=== PATIENT | female | born 1960 | race Caucasian/White ===

== ENCOUNTER 2017-05-15 15:43 | Inpatient (IN) | payer SELFPAY ==
[2017-05-15 16:26] LABS: Hematocrit 44.3 % (36.0-47.0); Mean Platelet Volume 7.3 fL (7.4-10.4); Red Blood Cell (RBC) Count 4.58 mill/uL (4.20-5.40)
[2017-05-15 16:33] LABS: Lactic Acid - Sepsis 1.6 mmol/L (0.5-2.2)
[2017-05-15 16:37] LABS: ALT (SGPT) 35 U/L (8-55); AST (SGOT) 25 U/L (5-34); Alkaline Phosphatase 94 U/L (40-150); Anion Gap 12 mmol/L (10-20); BUN (Urea Nitrogen) 12 mg/dL (9.8-20.1); Bilirubin, Total 0.4 mg/dL (0.2-1.2); CK (CPK) 51 U/L (29-168); Calc. Creatinine Clearance 0 mL/min (70-130); Calcium 8.7 mg/dL (7.8-10.44); Carbon Dioxide 26 mmol/L (22-29); Chloride 106 mmol/L (98-107); Estimated GFR-MDRD Greater than 90; Globulin 2.6 g/dL (2.4-3.5); Protein, Total 6.3 g/dL (6.0-8.3)
[2017-05-15 16:40] LABS: Troponin I Less than 0.010 ng/mL (< 0.028)
[2017-05-15 16:45] LABS: Neutrophil 96 % (42-75)
[2017-05-15] MEDS ORDERED: methylPREDNISolone Sod Succ/PF 125 MG/2 ML VIAL ONE (16:46)
[2017-05-15] MEDS ORDERED: Water For Inject, Bacteriostat 30 ML ONE (16:52)
[2017-05-15] MEDS ORDERED: Azithromycin 500 MG in Sodium Chloride 0.9% 250 ML 250 ML IVPB SCH ×2 (17:00→17:15)
--- NOTE | 2017-05-15 17:20 | RAD ---
PORTABLE AP CHEST X-RAY 05/15/17 HISTORY: Dyspnea, shortness of breath while at work. The patient recently diagnosed with pneumonia. COMPARISON: 11/20/14. FINDINGS: The cardiac silhouette and pulmonary vasculature are within normal limits. There is minimal increased in interstitial densities in the right upper lung zone which were also seen on the prior study and m ay be related to mild chronic lung changes. Similar interstitial densities are also again seen at the left lung base. No new focal area of consolidation or pleural fluid is seen. Vascular calcifications are seen in the thoracic aorta. There is osteopenia. IMPRESSION: Mild persistent increased interstitial densities within the right upper lung zone and left lung base which may be related to mild chronic lung changes which were also present on the prior study. No acut e cardiopulmonary process is identified. If symptoms persists, followup imaging is advised. POS: CHRISTOS
[2017-05-15] MEDS ORDERED: Ondansetron HCl/PF 4 MG/2 ML Vial IVP PRN (18:19)
[2017-05-15] MEDS ORDERED: Acetaminophen 325 MG TAB PO PRN (18:19)
[2017-05-15] MEDS ORDERED: Ondansetron ODT 4 MG TAB SL PRN (18:19)
[2017-05-15] MEDS ORDERED: Sodium Chloride 0.9% 1,000 ML IV SCH (18:30)
[2017-05-15] MEDS ORDERED: HYDROcodone/Acetaminophen 10/325 mg Tablet PO PRN (18:34)
[2017-05-15] MEDS ORDERED: Ondansetron ODT 4 MG TAB PO PRN (18:34)
[2017-05-15] MEDS ORDERED: HYDROcodone/Acetaminophen 5/325 mg Tablet PO PRN (18:34)
[2017-05-15] MEDS ORDERED: Guaifenesin DM 100-10/5 ML UDCUP PO PRN (18:34)
[2017-05-15] MEDS ORDERED: Albuterol Sulfate 2.5 mg/3 ml Neb NEB PRN (18:34)
[2017-05-15] MEDS ORDERED: Cefepime 1 GM in Sodium Chloride 0.9% 100 ML IVPB SCH ×2 (20:00→21:00)
[2017-05-15 20:28] LABS: Bilirubin Negative (Negative); Blood, Urine Negative (Negative); Glucose, Urine (Dipstick) Negative (Negative); Ketone, Urine Negative (Negative); Nitrite Negative (Negative); Protein, Urine (Dipstick) Negative (Neg-Trace); Urobilinogen 0.2 mg/dL (0.2-1.0)
[2017-05-15] MEDS: Famotidine 20 MG TAB PO SCH (20:40)
[2017-05-15] MEDS: Cefepime 1 GM, Admixture Fee 1 EACH in Sterile Water 10 ML SLOW IVP SCH (20:40)
[2017-05-15] MEDS: Sodium Chloride 0.9% 1,000 ML IV SCH (20:40)
--- NOTE | 2017-05-15 23:31 | HP ---
DATE OF ADMISSION: 05/15/2017 PRIMARY CARE PHYSICIAN: Dr. Jeffers in the [place] area. She was seen in [place] and [facility]. Normally, sees Monika Hopper, the nurse practitioner or physician underwriting assistant associated with Dr Amada Jeffers. CHIEF COMPLAINT: Shortness of breath. HISTORY OF PRESENT ILLNESS: Ms. Orr is a pleasant 57-year-old female with a history of COPD and a sthma. She has had a longstanding history of last several months of recurrent "pneumonia." Most recent episode dated back to 1 month ago today. She was diagnosed with pneumonia and treated wi th an antibiotic which she cannot remember. When I listed the antibiotics, she said they sounded fam iliar. She was treated but said her breathing never really quite recovered and then last week someti mes, she developed increasing shortness of breath again and was placed on Keflex for her pneumonia. She had a chest x-ray done 1 week ago, today that was abnormal and so she had a CT scan done 3 days a go in [place]. The results and the films are currently not available. She began more short of breath today and so, called EMS. She had taken 3 of her regular breathing tr eatments with DuoNebs at home and en route, the EMS gave her 2 more DuoNeb treatments. On arrival to the ER, she was noted to be tachypneic, slightly tachycardic, and satting in the high 8 0s on room air. She was placed on oxygen and given nebulizer treatments and IV steroids and we were called for admission. The patient denies any fevers or chills, she had a cough that is nonproductive. No nausea or vomitin g. I initially asked the ER physician regarding steroids and she had had known to his knowledge; however , the patient states she just finished a course of 50 mg of prednisone daily and was supposed to star t tapering down to 10 mg daily thereafter. PAST MEDICAL HISTORY: 1. COPD. 2. Asthma. 3. Low blood pressure. 4. Gastroesophageal reflux disease. 5. Depression. 6. Ongoing tobacco abuse that she is trying to quit. PAST SURGICAL HISTORY: Includes: 1. Hysterectomy, she thinks the ovaries were spared. 2. x1. 3. Bilateral tubal ligation. HOME MEDICATIONS: 1. Nortriptyline 10 mg p.o. daily. 2. Bupropion 75 mg p.o. b.i.d. to help quit smoking. 3. Pantoprazole 20 mg daily. 4. Spiriva Respimat 2.5 mcg per actuation: Has not started yet. 5. Albuterol MDI 90 mcg inhaled as needed. 6. DuoNebs nebulized usually every 6 hours, but when she has flares of breathing issue, she usually increases to q. 4 hours or even as high as q.3 hours. 5. Claritin 10 mg daily. ALLERGIES: 1. IODINE. 2. SULFA causes swelling and difficulty breathing. 3. LATEX causes a rash. FAMILY HISTORY: Negative for clotting or bleeding disorder, no immune dysfunction. SOCIAL HISTORY: Significant for tobacco. She smoked 1-1/2 packs per day initially, now down most re cently to about a 1/4 pack for the last 44 years. She denies any significant alcohol use or IV drug use. I did discuss with her daughter present. The patient does wish to be a full code. REVIEW OF SYSTEMS: A ten-point review of system was performed negative for all the systems except as stated as per HPI. PHYSICAL EXAMINATION: VITAL SIGNS: Temperature 98.2, pulse 100, blood pressure 103/72, respiratory rate listed 23, satting 93% on 2 liters. GENERAL: She is awake, she is alert, she is oriented x3, kind of thin and frail-looking white female who appears to be in no acute distress at present. HEENT: Normocephalic, atraumatic. Pupils equal, round, and reactive bilaterally, mucous membranes a re moist. She has no visible , no thrush. Nasal cannula is in place. NECK: Supple with full range of motion. She has normal carotid upstrokes without bruits. She has n o thyromegaly and trachea is midline. LUNGS: Have poor air movement bilaterally. She has some prolonged expiration, she does have some hi gh-pitched end-expiratory wheezes present on the left posterior chest field, but otherwise, I cannot hear much in the way of air movement. Certainly, no crackles. CARDIOVASCULAR: She has a normal S1 and S2. She is regular and tachycardic. I did not appreciate a ny murmurs. ABDOMEN: Soft. It is nontender, nondistended with normoactive bowel sounds. She has no rebound, ri gidity, or guarding. EXTREMITIES: Showed no cyanosis, no clubbing, and no edema. She has 2+ peripheral pulses, dorsalis pedis and posterior tibial arteries. SKIN: Warm, moist, and well perfused. She has no rashes or no lesions. MUSCULOSKELETAL: Normal to inspection without any inflamed joints and no palpable joint effusions. Good range of motion. NEUROLOGIC: Cranial nerves II through XII are grossly intact. She has no focal neurologic deficits. She had normal speech pattern and 5/5 strength. LABORATORY STUDIES: CMP is completely within normal limits, potassium 4.1, creatinine 0.63, glucose 116, and calcium 8.7. The liver functions are normal. White blood cell count is 20.0, 93% granulocytes, no bands, hemoglobin of 14.0, hematocrit of 44.3, a nd platelet count of 319,000. LABORATORY AND X-RAY FINDINGS: Chest x-ray showed mild persistent increase in her chest densities in the right upper lung zone and left lung base that might be related to mild chronic lung changes whic h were also present on prior study. The comparison that we have is 2-1/2 years old. She had a CT scan of the chest done at [facility] in [place]. The ER community outreach worker was try ing to get at least a report. ASSESSMENT AND PLAN: 1. Acute exacerbation of chronic obstructive pulmonary disease: I am not convinced that she has any ongoing pneumonia. She has been treated with multiple courses of antibiotics recently, and certainl y, Keflex recently was not an adequate therapy. Because of her recent history of multiple treatments , we will start her on cefepime and levofloxacin for the time being. I aborted Solu-Medrol, schedule d q. 4 hours DuoNeb with q. 2 hours albuterol p.r.n., and I will transition to p.o. steroids fairly r apidly. We will place her on oxygen 2 liters nasal cannula, the goal is to keep her sats no more nestor n 92%, we will wean as possible. In the meantime, we will attempt to get 2-view chest x-ray, more of a better imaging, and at least a copy of the report of the images from [place]. If not, may need to repeat her CT of her chest to make sure there is not a lung mass. 2. Gastroesophageal reflux disease, we will treat her with Pepcid b.i.d. for gastrointestinal prophy laxis. 3. Deep vein thrombosis prophylaxis: We will place the patient on daily Lovenox. 4. The patient does meet systemic inflammatory response syndrome criteria with her tachycardia, elev ated white blood cell count, and possible respiratory infection. I do believe her white blood cell c ount is elevated due to her recent steroids. I do not think this represents necessarily an acute inf ectious process. I will get more information based on the ordered test. Lactic acid was normal at 1 .6.
[2017-05-15] MEDS ORDERED: methylPREDNISolone Sod Succ/PF 125 MG/2 ML VIAL IVP SCH (23:59)
[2017-05-16 02:12] VITALS: BMI 24.0
[2017-05-16 05:47] LABS: #Lymphocytes 0.5 thou/uL (1.20-3.40); #Monocytes 0.3 thou/uL (0.11-0.59); #Neutrophils 8.1 thou/uL (1.40-6.50); %Basophils 0.1 % (0.0-1.0); %Eosinophils 0.2 % (0.0-10.0); %Lymphocytes 5.4 % (21.0-51.0); %Monocytes 3.1 % (0.0-10.0); Mean Platelet Volume 7.5 fL (7.4-10.4); White Blood Cell (WBC) Count 8.9 thou/uL (4.8-10.8)
[2017-05-16 06:02] LABS: Anion Gap 9 mmol/L (10-20); BUN (Urea Nitrogen) 8 mg/dL (9.8-20.1); Calc. Creatinine Clearance 97 mL/min (70-130); Calcium 8.4 mg/dL (7.8-10.44); Carbon Dioxide 27 mmol/L (22-29); Chloride 107 mmol/L (98-107); Estimated GFR-MDRD Greater than 90
[2017-05-16] MEDS: Famotidine 20 MG TAB PO SCH ×2 (08:50→20:04)
[2017-05-16] MEDS: Enoxaparin Sodium 40 MG/0.4 ML SYRINGE SC SCH (08:51)
[2017-05-16] MEDS: Sodium Chloride 0.9% 1,000 ML IV SCH (09:00)
[2017-05-16] MEDS ORDERED: FLU VACC QS2017-18 36 mo. & older 0.5 ML SYRINGE IM ONE (09:00)
[2017-05-16] MEDS: Cefepime 1 GM, Admixture Fee 1 EACH in Sterile Water 10 ML SLOW IVP SCH ×2 (10:11→20:05)
--- NOTE | 2017-05-16 10:39 | RAD ---
TWO VIEWS OF CHEST: DATE: 05/16/17. COMPARISON: 05/15/17. HISTORY: COPD. FINDINGS: Increased linear interstitial density is noted with pulmonary hyperinflation, evidence of COPD. No p neumothorax, pleural fluid, lobar consolidation, or alveolar edema. Asymmetric linear density is not ed in the medial right lung base, likely scar and/or volume loss. IMPRESSION: Diffuse interstitial prominence with pulmonary hyperinflation, evidence of chronic obstructive pulmon maame disease. POS: DIANAH
--- NOTE | 2017-05-16 11:58 | PDOC.PN ---
- Subjective Encounter Start Date: 05/16/17 Encounter Start Time: 10:05 states she is doing a little better today but is currently short winded after taking a shower. denies fever, chest pain, or chills - Objective Resuscitation Status: Resuscitation Status FULL:Full Resuscitation Vital Signs & Weight: Vital Signs (12 hours) Temp Pulse Resp BP Pulse Ox 05/16/17 11:31 98.0 F 97 20 116/59 L 94 L 05/16/17 10:14 96 22 H 94 L 05/16/17 08:00 97.8 F 78 14 101/56 L 96 05/16/17 07:01 98 05/16/17 06:59 83 16 98 05/16/17 04:40 98.3 F 85 20 111/59 L 93 L 05/16/17 01:55 92 18 98 Weight Weight 123 lb 3.2 oz I&O: 05/15/17 05/16/17 05/17/17 06:59 06:59 06:59 Intake Total 1407 Output Total 800 Balance 607 Result Diagrams: 05/16/17 04:48 05/16/17 04:48 Phys Exam - Physical Examination HEENT: PERRLA, moist MMs Neck: no nodes, no JVD labored. significant diffuse B/L wheezing Cardiovascular: RRR, no significant murmur Gastrointestinal: soft, non-tender Musculoskeletal: no edema, pulses present Neurological: moves all 4 limbs Psychiatric: normal affect, A&O x 3 Skin: cap refill <2 seconds Dx/Plan (1) COPD exacerbation Code(s): J44.1 - CHRONIC OBSTRUCTIVE PULMONARY DISEASE W (ACUTE) EXACERBATION Status: Acute (2) GERD (gastroesophageal reflux disease) Code(s): K21.9 - GASTRO-ESOPHAGEAL REFLUX DISEASE WITHOUT ESOPHAGITIS Status: Acute - Plan cont current plan of care, continue antibiotics, respiratory therapy * . continue with current therapy with abx, solumedrol and neb treatments labored during the time of the exam. likely needs one more day of therapy before going home will also start Protonix due to possible GERD induced COPD exacerbation cxr consistent with COPD. no pneumonia seen
[2017-05-16] MEDS ORDERED: Sterile Water 10 ML ONE ×2 (12:55→18:14)
--- NOTE | 2017-05-16 17:22 | CON ---
DATE OF CONSULTATION: 05/16/2017 CONSULTING PHYSICIAN: Dr. Blake. REASON FOR CONSULTATION: COPD with exacerbation. HISTORY OF PRESENT ILLNESS: This is a 57-year-old female who presented to the hospital yesterday wit h shortness of breath and coughing. She has had multiple episodes of exacerbated COPD over the last 2-3 months, she sees a doctor over in [place]. She tells me she has taken Bevespi, Breo and Spiri va intermittently. She does not have insurance and cannot afford these medications and relies on [facility]. She also has albuterol and ipratropium at home that she uses. She has been anywhere from a pack and a half to two packs per day smoker. Over the last couple of mo nths, she has made a conservative effort to cut back and she is taking Wellbutrin to assist her in qu itting. She has been told she had pneumonia recently. This was by a CT scan done over in [place], which I do not have available for review. PAST MEDICAL HISTORY: 1. COPD. 2. Tobacco abuse. 3. Asthma since age 2. 4. Low blood pressure. 5. Gastroesophageal reflux. 6. Depression. PAST SURGICAL HISTORY: 1. Hysterectomy. 2. . 3. Bilateral tubal ligation. MEDICATIONS PRIOR TO ADMISSION: See history of present illness. Additionally, she takes nortriptyli ne, pantoprazole, and Claritin. ALLERGIES: IODINE, SULFA AND LATEX. SOCIAL HISTORY: One pack to two packs per day smoker. She does not consume alcohol, does not use an y illicit drugs. 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 REVIEW OF SYSTEMS: She denies chest pain. She does have shortness breath with exertion. She has tello d no fever, chills, nausea, vomiting, chest pain, hematemesis, melena, hematochezia, hematuria, or dy suria. PHYSICAL EXAMINATION: VITAL SIGNS: Temperature 98.0, pulse 97, respirations 20, O2 saturation 94% on 1 liter, blood pressu re 116/59. HEENT: Pupils react, sclera are anicteric. Oropharynx clear. NECK: Without adenopathy or JVD. LUNGS: She has mild end expiratory wheezing bilaterally. CARDIAC: S1, S2 regular, without murmur. ABDOMEN: Soft, nontender, nondistended. EXTREMITIES: No clubbing, cyanosis, or edema. X-RAY FINDINGS: Chest x-ray shows hyperinflation without evidence of infiltrate. LABORATORY DATA: White blood cell count 8.9, hematocrit 38, platelet count 289. Sodium 139, potassi um 3.9, chloride 107, CO2 of 27, BUN 8, creatinine 0.6, glucose 183. ASSESSMENT: 1. Chronic obstructive pulmonary disease with exacerbation. 2. Tobacco abuse. RECOMMENDATIONS: 1. I agree with current treatment including the IV steroids, the nebulization therapy and the antibi otics. 2. If she had funding it would be nice to have her on long-acting beta agonist and inhaled steroids such as Symbicort, Breo, etc. At this time, I think we will have to manage her with albuterol and ip ratropium alone. 3. Check alpha 1 antitrypsin level.
[2017-05-16] MEDS: Acetaminophen 325 MG TAB PO PRN (18:16)
[2017-05-16] MEDS: Nortriptyline HCl 25 MG CAP PO SCH (20:05)
[2017-05-16] MEDS: Bupropion 100 MG SR TAB PO SCH (20:05)
[2017-05-16] MEDS ORDERED: Lorazepam 1 MG TAB PO SCH (21:30)
[2017-05-17] MEDS: Sodium Chloride 0.9% 1,000 ML IV SCH ×2 (01:51→14:48)
[2017-05-17] MEDS: Bupropion 100 MG SR TAB PO SCH ×2 (09:05→20:26)
[2017-05-17] MEDS: Famotidine 20 MG TAB PO SCH ×2 (09:05→20:26)
[2017-05-17] MEDS: Enoxaparin Sodium 40 MG/0.4 ML SYRINGE SC SCH (09:05)
[2017-05-17] MEDS: Cefepime 1 GM, Admixture Fee 1 EACH in Sterile Water 10 ML SLOW IVP SCH ×2 (09:06→20:25)
--- NOTE | 2017-05-17 11:17 | PDOC.PN ---
- Subjective Encounter Start Date: 05/17/17 Encounter Start Time: 07:40 Pt seen for followup re; acute on chronic respiratory failure. Reports ongoing SOBOE, cough. No fevers or chills. - Objective Resuscitation Status: Resuscitation Status FULL:Full Resuscitation MAR Reviewed: Yes Vital Signs & Weight: Vital Signs (12 hours) Temp Pulse Resp BP Pulse Ox 05/17/17 09:50 94 20 95 05/17/17 08:00 97.6 F 77 18 05/17/17 07:40 97.6 F 77 18 111/61 92 L 05/17/17 06:51 95 20 93 L 05/17/17 03:53 98.2 F 79 20 113/64 100 05/17/17 03:25 96 05/17/17 03:24 96 05/16/17 23:44 96 05/16/17 23:23 98.4 F 95 18 105/57 L 94 L Weight Weight 123 lb 14.4 oz I&O: 05/16/17 05/17/17 05/18/17 06:59 06:59 06:59 Intake Total 1407 2960 Output Total 800 1600 Balance 607 1360 Result Diagrams: 05/16/17 04:48 05/16/17 04:48 Phys Exam - Physical Examination Constitutional: NAD HEENT: moist MMs, sclera anicteric Neck: supple Respiratory: no rhonchi, wheezing present Cardiovascular: RRR Gastrointestinal: soft Musculoskeletal: pulses present Neurological: moves all 4 limbs Psychiatric: normal affect Skin: no rash Dx/Plan (1) Acute and chronic respiratory failure Code(s): J96.20 - ACUTE AND CHR RESP FAILURE, UNSP W HYPOXIA OR HYPERCAPNIA Status: Acute Qualifiers: Respiratory failure complication: hypoxia Qualified Code(s): J96.21 - Acute and chronic respiratory failure with hypoxia (2) COPD exacerbation Code(s): J44.1 - CHRONIC OBSTRUCTIVE PULMONARY DISEASE W (ACUTE) EXACERBATION Status: Acute (3) Tobacco abuse Code(s): Z72.0 - TOBACCO USE Status: Chronic (4) GERD (gastroesophageal reflux disease) Code(s): K21.9 - GASTRO-ESOPHAGEAL REFLUX DISEASE WITHOUT ESOPHAGITIS Status: Chronic - Plan continue antibiotics, PT/OT, out of bed/ambulate * . Continue cefepime, IV steroids, bronchodilators and oxygen. Pt still wheezing, failed observation, continuing to require IV steroids, unsafe to discharge today. Will change status to Inpatient. Start nicotine replacement therapy. Review of Systems - Review of Systems Constitutional: negative: Fever, Chills, Sweats, Weakness, Malaise Respiratory: Cough, Dry, Shortness of Breath, SOB with Excertion. negative: Hemoptysis, Pleuritic Pain, Sputum, Wheezing Cardiovascular: negative: Chest Pain, Palpitations, Orthopnea, Paroxysmal Noc. Dyspnea, Edema, Light Headedness - Medications/Allergies Allergies/Adverse Reactions: Allergies Allergy/AdvReac Type Severity Reaction Status Date / Time Iodine and Iodide Containing Allergy Verified 05/15/17 18:44 Produc Latex, Natural Rubber Allergy Verified 05/15/17 18:44 Sulfa (Sulfonamide Allergy Verified 05/15/17 18:44 Antibiotics) Medications: Current Medications Acetaminophen (Tylenol) 650 mg PO Q4H PRN PRN Reason: Headache/Fever or Pain Last Admin: 05/16/17 18:16 Dose: 650 mg Hydrocodone Bitart/Acetaminophen ([place] 10/325) 1 tab PO Q4H PRN PRN Reason: Severe Pain (7-10) Hydrocodone Bitart/Acetaminophen ([place] 5/325) 1 tab PO Q4H PRN PRN Reason: Moderate Pain (4-6) Albuterol Sulfate (Ventolin) 2.5 mg NEB Q2H PRN PRN Reason: Wheezing Last Admin: 05/16/17 17:38 Dose: 2.5 mg Albuterol/Ipratropium (Duoneb) 3 ml NEB [id number] [facility] Last Admin: 05/17/17 09:50 Dose: 3 ml Bupropion HCl (Wellbutrin Sr) 200 mg PO BID [facility] Last Admin: 05/17/17 09:05 Dose: 200 mg Enoxaparin Sodium (Lovenox) 40 mg SC 0900 [facility] Last Admin: 05/17/17 09:05 Dose: 40 mg Famotidine (Pepcid) 20 mg PO BID [facility] Last Admin: 05/17/17 09:05 Dose: 20 mg Guaifenesin/Dextromethorphan (Robitussin Dm) 15 ml PO Q4H PRN PRN Reason: Cough Sodium Chloride (Normal Saline 0.9%) 1,000 mls @ 75 mls/hr IV .[id number] [facility] Last Admin: 05/17/17 01:51 Dose: 1,000 mls Cefepime HCl 1 gm/Miscellaneous Medication 1 each/ Sterile Water 10 mls @ 120 mls/hr SLOW IVP 0900,2100 [facility] Last Admin: 05/17/17 09:06 Dose: 10 mls Levofloxacin (Levaquin) 500 mg PO 1900 [facility] Last Admin: 05/16/17 18:16 Dose: 500 mg Methylprednisolone Sodium Succinate (Solu-Medrol) 40 mg IVP Q6HR [facility] Last Admin: 05/17/17 05:49 Dose: 40 mg Nortriptyline HCl (Pamelor) 50 mg PO HS [facility] Last Admin: 05/16/17 20:05 Dose: 50 mg Ondansetron HCl (Zofran Odt) 4 mg PO Q6H PRN PRN Reason: Nausea/Vomiting Pantoprazole Sodium (Protonix) 40 mg PO 2100 [facility] Last Admin: 05/16/17 20:04 Dose: 40 mg
[2017-05-17] MEDS: Nicotine 14 MG PATCH TD SCH (12:26)
--- NOTE | 2017-05-17 12:56 | PRG ---
DATE OF SERVICE: 05/17/2017 SUBJECTIVE: The patient says she feels better. She has no acute complaints. PHYSICAL EXAMINATION: VITAL SIGNS: Temperature 98.2, pulse 99, respirations 16, O2 sat 96%, blood pressure 110/58. HEENT: Unremarkable. NECK: No JVD. LUNGS: She has very mild end-expiratory wheezes. CARDIAC: S1 and S2 regular. ABDOMEN: Soft. EXTREMITIES: No edema. LABORATORY DATA: No labs were obtained today. She has a CT report on the chart from [place] that states she has 0.7 cm nodule in the left upper lobe with recommended followup in 6 months. ASSESSMENT: 1. Chronic obstructive pulmonary disease with exacerbation. 2. Tobacco abuse. 3. A 0.7 cm nodule in the left upper lobe on CT scan obtained at outlying facility. RECOMMENDATION: 1. I think she is stable to go home on steroids and antibiotics for the next week to 10 days. 2. She will need to follow up for results of her alpha 1 antitrypsin level and she will need a repea t CT scan in 6 months. This can be accomplished to my office or through her primary care physician. She has been told not to smoke.
[2017-05-17] MEDS: Acetaminophen 325 MG TAB PO PRN ×2 (14:51→17:40)
[2017-05-17] MEDS: Nortriptyline HCl 25 MG CAP PO SCH (20:26)
[2017-05-18] MEDS: Sodium Chloride 0.9% 1,000 ML IV SCH (05:37)
[2017-05-18] MEDS ORDERED: Diabetic Tussin 200 MG/10 ML UDCUP PO PRN (07:32)
[2017-05-18] MEDS ORDERED: Ondansetron HCl/PF 4 MG/2 ML Vial IVP PRN (07:32)
[2017-05-18] MEDS ORDERED: hydrALAZINE 20 MG/ML VIAL SLOW IVP PRN (07:32)
[2017-05-18] MEDS ORDERED: Senokot 8.6 MG TAB PO PRN (07:32)
[2017-05-18] MEDS ORDERED: Eucerin (Mineral Oil/Petrolatum,White) 30 gm Jar TOP PRN (07:32)
[2017-05-18] MEDS ORDERED: Loratadine 10 MG TAB PO PRN (07:32)
[2017-05-18] MEDS ORDERED: Loperamide HCl 2 MG CAP PO PRN (07:32)
[2017-05-18] MEDS ORDERED: Benzonatate 100 MG CAP PO PRN (07:32)
[2017-05-18] MEDS ORDERED: Temazepam 15 MG CAP PO PRN (07:32)
[2017-05-18] MEDS ORDERED: Sodium Chloride 0.65% Nasal 44 ML BOT EA NARE PRN (07:32)
[2017-05-18] MEDS ORDERED: Mag-Al 1200 mg/1200 mg/30 ML UDCUP PO PRN (07:32)
[2017-05-18] MEDS ORDERED: Chloraseptic Spray 180 ml Bottle PO PRN (07:32)
[2017-05-18] MEDS ORDERED: Milk Of Magnesia 30 ML UDCUP PO PRN (07:32)
[2017-05-18] MEDS: Acetaminophen 325 MG TAB PO PRN (07:57)
[2017-05-18] MEDS: Bupropion 100 MG SR TAB PO SCH (07:57)
[2017-05-18] MEDS: Cefepime 1 GM, Admixture Fee 1 EACH in Sterile Water 10 ML SLOW IVP SCH (07:58)
[2017-05-18] MEDS: Famotidine 20 MG TAB PO SCH (07:59)
[2017-05-18] MEDS: Nicotine 14 MG PATCH TD SCH (07:59)
[2017-05-18] MEDS: Enoxaparin Sodium 40 MG/0.4 ML SYRINGE SC SCH (07:59)
[2017-05-18 08:16] VITALS: BP 114/75; TEMP 98.1
--- NOTE | 2017-05-18 09:49 | PRG ---
DATE OF SERVICE: 05/18/2017 The patient is doing well, has no acute complaints. PHYSICAL EXAMINATION: VITAL SIGNS: Temperature 98.1, pulse 81, respiration 20, O2 sat 92%, blood pressure 114/75. HEENT: Unremarkable. NECK: No JVD. CHEST: Clear except for some mild wheezing. ABDOMEN: Soft. EXTREMITIES: No edema. ASSESSMENT: 1. Chronic obstructive pulmonary disease with exacerbation. 2. History of a small lung nodule. PLAN: She is stable for discharge on steroids and antibiotics, nebulization treatments. She knows s he has to get outpatient CT scan in about 6 months through her primary care doctor. She does need to follow up regarding the alpha 1 antitrypsin test when it becomes available.
--- NOTE | 2017-05-18 14:30 | DIS ---
DATE OF ADMISSION: 05/15/2017 DATE OF DISCHARGE: 05/18/2017 PRIMARY CARE PHYSICIAN: [facility] call admission. DISCHARGE DISPOSITION: Home. PRIMARY DISCHARGE DIAGNOSES: 1. Acute on chronic respiratory failure with hypoxia. 2. Chronic obstructive pulmonary disease exacerbation. 3. Pulmonary nodule. SECONDARY DISCHARGE DIAGNOSES: Gastroesophageal reflux disease and tobacco abuse disorder. PRIMARY PROCEDURE/OPERATION: None. RADIOLOGICAL INVESTIGATION: The patient had CT angio as an outpatient basis, which showed chronic ob structive pulmonary disease changes as well as pulmonary nodule. Chest x-ray while in hospital showe d diffuse interstitial prominence, hyperinflation consistent with chronic obstructive pulmonary disea se. SIGNIFICANT LABORATORY DATA: WBC 8.9, hemoglobin 12.0 and platelet 289. Sodium 139, potassium 3.9, BUN 8, creatinine 0.56 and calcium 8.4. LFT normal. Cardiac enzyme negative. BNP 49.1. Alpha 1 an titrypsin 150. Urinalysis normal. Blood culture negative. DISCHARGE MEDICATIONS: ProAir HFA 2 puffs q.4 hourly p.r.n., albuterol nebulization q.6 hourly, Linsey maribel 100 mg q.4 hourly p.r.n., Wellbutrin SR 200 mg p.o. b.i.d., Mucinex 600 mg twice daily, Atrovent nebulization t.i.d., Levaquin 500 mg p.o. daily for 7 days, Dulera 2 puffs inhalation b.i.d., nortri ptyline 50 mg p.o. at bedtime, Protonix 40 mg p.o. daily, prednisone 20 mg p.o. b.i.d. for 7 days, th en 10 mg p.o. b.i.d. for 7 days, then 5 mg p.o. b.i.d. for 7 days and then stop. CONTRAINDICATIONS: None. CODE STATUS: FULL CODE. INPATIENT CONSULTANTS: Dr. Guaman was consulted while in hospital. TEST RESULTS PENDING ON DISCHARGE: None. ALLERGIES: IODINE, LATEX and NATURAL RUBBER. DISCHARGE PLAN: Post hospital, the patient will follow up with primary care physician. The patient will follow up with Dr. Guaman as instructed. The patient will need repeat imaging after 6 months. HOSPITAL COURSE: A 57-year-old female who was admitted by Dr. Hayden Bartholomew on 05/15/2017. Please see his H&P for further details. Patient is following Dr. Jeffers, in the [facility]. She was ad mitted for increasing shortness of breath. She was having hypoxia. 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 She does use home oxygen for her chronic respiratory failure. Her clinical presentation was consistent with COPD exacerbation. She had a CT scan at another hospital, which showed pulmonary nodule and finding suggestive of disease without any pneumonia. The patient w as admitted in our hospital. She was treated optimally with steroids, DuoNeb and Dulera therapy. Yuval margareth was given empiric antibiotic therapy with cefepime and Levaquin. On discharge, we changed to t apering doses of prednisone and Dulera prescription given. The patient has all other medications. S he has nebulizer machine. She has home oxygen. I prescribed Levaquin and tapering doses of predniso ne. All the medication prescriptions sent to her pharmacy. The patient has pulmonary nodule and nestor t is why she will need repeat imaging. I provided on the day of discharge, the patient counseling to avoid smoking and healthy lifestyle christiane sures discussed with the patient. Her old chart was reviewed today. REVIEW OF SYSTEMS: Reviewed with her and negative today. PHYSICAL EXAMINATION: VITAL SIGNS: Currently, temperature 98.1, pulse 81, respiratory rate 20, saturation 93%, blood press ure 114/75 and weight 123 pounds. GENERAL: The patient is currently alert and awake, in no acute distress. HEAD: Normocephalic and atraumatic. EYES: Pupils are round and reactive to light. Extraocular muscles intact. ENT: Oropharynx within normal limits. Moist mucous membranes. No oral lesions. No pharyngeal eryt cooper, no exudate. NECK: Supple. LUNGS: Clear to auscultation without any rhonchi or rales. CARDIAC: S1 and S2 regular without any murmur. ABDOMEN: Soft and benign. EXTREMITIES: No edema. NEUROLOGIC: Nonfocal examination. The patient wants to go home today and Pulmonary cleared her for discharge today. Total time spent on discharge day more than 30 minutes.
== END 2017-05-18 12:29 | disposition home or self-care (01) | DRG 190 ==
LOC: ERS 15:43 → OBSVTOIN 17:00 → 2SW 17:00 → T4-B 05-17 15:55
PROVIDERS: ADMIT Internal Medicine Infectious Disease; ATTEND Internal Medicine Infectious Disease
DX: J44.1 Chronic obstructive pulmonary disease with (acute) exacerbation (principal); J96.21 Acute and chronic respiratory failure with hypoxia; R65.11 Systemic inflammatory response syndrome (SIRS) of non-infectious origin with acute organ dysfunction; Z87.01 Personal history of pneumonia (recurrent); K21.9 Gastro-esophageal reflux disease without esophagitis; Z72.0 Tobacco use; R91.1 Solitary pulmonary nodule
CPT/HCPCS: 36415; 71010; 71020; 80048; 80053; 81003; 82103; 82550; 82553; 83605; 83880; 84484; 85025; 87040; 90471; 90682; 90732; 94640; 94760; 96361; 96365; 96375; A4216; G0008; G0009; J0456; J0692; J0696; J1650; J2920; J2930; J7050; J7611; J7620; Q2036

== ENCOUNTER 2018-04-22 05:25 | Inpatient (IN) | payer SELFPAY ==
[2018-04-22] MEDS ORDERED: Morphine 4 MG/ML VIAL ONE (05:43)
[2018-04-22] MEDS ORDERED: Ondansetron PF 4 MG/2 ML Vial ONE ×2 (05:44→05:51)
[2018-04-22 05:59] LABS: #Eosinphils 0.1 thou/uL (0.0-0.7); #Lymphocytes 1.3 thou/uL (1.20-3.40); #Monocytes 1.2 thou/uL (0.11-0.59); #Neutrophils 11.2 thou/uL (1.40-6.50); %Basophils 0.2 % (0.0-1.0); %Eosinophils 0.6 % (0.0-10.0); %Lymphocytes 9.4 % (21.0-51.0); %Monocytes 8.6 % (0.0-10.0); %Neutrophils 81.2 % (42.0-75.0); Hemoglobin 10.5 g/dL (12.0-16.0); Mean Corpuscular HGB CONC 30.4 g/dL (32.0-36.0); Mean Corpuscular Hemoglobin 26.5 pg (27.0-31.0); Mean Platelet Volume 8.5 fL (7.4-10.4); Platelet Count 321 thou/uL (130-400); RBC Distribution Width 15.1 % (11.5-14.5); Red Blood Cell (RBC) Count 3.98 mill/uL (4.20-5.40); White Blood Cell (WBC) Count 13.8 thou/uL (4.8-10.8)
[2018-04-22 06:18] LABS: CKMB 1.9 ng/mL (0-6.6); Troponin I Less than 0.010 ng/mL (< 0.028)
[2018-04-22 06:26] LABS: ALT (SGPT) 17 U/L (8-55); AST (SGOT) 14 U/L (5-34); Albumin 3.9 g/dL (3.5-5.0); Alkaline Phosphatase 98 U/L (40-150); Anion Gap 12 mmol/L (10-20); BUN (Urea Nitrogen) 13 mg/dL (9.8-20.1); Bilirubin, Total 0.3 mg/dL (0.2-1.2); Calc. Creatinine Clearance 0 mL/min (70-130); Calcium 8.8 mg/dL (7.8-10.44); Carbon Dioxide 27 mmol/L (22-29); Chloride 107 mmol/L (98-107); Estimated GFR-MDRD Greater than 90; Globulin 2.5 g/dL (2.4-3.5); Glucose 101 mg/dL (70-105); Potassium 4.2 mmol/L (3.5-5.1); Protein, Total 6.4 g/dL (6.0-8.3); Sodium 142 mmol/L (136-145)
[2018-04-22] MEDS ORDERED: Fentanyl 100 MCG/2 ML VIAL ONE ×2 (06:53→09:04)
[2018-04-22] MEDS ORDERED: Ondansetron ODT 4 MG TAB SL PRN (07:00)
[2018-04-22] MEDS ORDERED: Ondansetron PF 4 MG/2 ML Vial IVP PRN (07:00)
[2018-04-22] MEDS ORDERED: HYDROcodone/Acetaminophen 5/325 mg Tablet PO PRN (07:00)
[2018-04-22] MEDS ORDERED: cefTRIAXone\\ROCEPHIN 1 GM VIAL ONE (07:45)
[2018-04-22] MEDS ORDERED: Azithromycin 500 MG VIAL ONE (07:45)
--- NOTE | 2018-04-22 07:58 | PDOC.FPRHP ---
- History of Present Illness Chief Complaint: SOB and worsening back pain History of Present Illness: Patient is a 58YOF w/ a PMH significant for COPD on 3-4L of home O2 & QD PO prednisone who presents w/ A CC of worsening back pain that started yesterday morning. Patient reports that yesterday morning she lifted up her portable O2 and felt a twinge in her back. Then, about 4 hours she began to feel terrible pain along the middle of her spine that has been intractable ever since. Says she can hardly walk due to the pain and also states it hurts to talk. Says that it is exacerbated with any movement. Denies any pain radiation into her legs or bowel/bladder incontinence. Had a khyphoplasty in February due to back spinal fractures. Also endorses some worsening SOB that she states has gotten progressively worse since the weather started changing about 1 week ago. Has had to use her rescue inhaler more often and has had an associated productive cough as well. States at hea baseline; however, that her PO2 gets as low as 75% with exertion at home but typically stays in the mid 90's. Denies any fever/chills, N/V, diarrhea. ED Course: ceftriaxone and azithromycin, 4mg IV morphine, 100mcg IV fentanyl, Duonebs, & 8 mg IV zofran - Allergies/Adverse Reactions Allergies Allergy/AdvReac Type Severity Reaction Status Date / Time Sulfa (Sulfonamide Allergy Severe Anaphylaxis Verified 04/22/18 08:16 Antibiotics) Latex, Natural Rubber Allergy Verified 05/15/17 18:44 meperidine [From Demerol] Allergy Verified 04/22/18 08:16 - Home Medications Medication Instructions Recorded Confirmed Type Albuterol Sulfate [Albuterol 2.5 mg NEB Q6H 05/16/17 04/22/18 History Sulfate Neb] Albuterol Sulfate [Proair 2 puff IH Q4HR PRN 05/16/17 04/22/18 History Respiclick] BuPROPion SR [Wellbutrin SR] 300 mg PO DAILY 05/16/17 04/22/18 History Ipratropium [place] [Atrovent] 2.5 mg NEB TID 05/16/17 04/22/18 History Pantoprazole [Protonix] 40 mg PO DAILY 05/16/17 04/22/18 History Acetaminophen With Codeine 1 tab PO TID PRN 04/22/18 04/22/18 History [Acetaminophen/Codeine #4] Citalopram Hydrobromide 20 mg PO 04/22/18 History [Citalopram HBr] Cyclobenzaprine [Flexeril] 10 mg PO TID 04/22/18 04/22/18 History Fluticasone Propionate [Flonase 1 spray EA NARE DAILY 04/22/18 04/22/18 History Allergy Relief] Gabapentin 600 mg PO TID 04/22/18 04/22/18 History Loratadine [Claritin] 10 mg PO DAILY 04/22/18 04/22/18 History predniSONE 10 mg PO DAILY 04/22/18 04/22/18 History tiZANidine HCl [Tizanidine HCl] 4 mg PO TID 04/22/18 04/22/18 History - History PMHx: COPD on home O2, GERD, tobacco use PSHx: khyphoplasty in February 2018 FHx: Mother- HTN Social: Current smoker. Smokes 3-4 cigarettes/day. Has smoked since age 17. No EtOH or drug use. - Review of Systems General: denies: fever/chills, weight/appetite/sleep changes Eyes: denies: vision changes ENT: denies: nasal congestion Respiratory: reports: cough, shortness of breath, exercise intolerance Cardiovascular: denies: chest pain, edema Gastrointestinal: denies: nausea, vomiting, diarrhea, constipation Genitourinary: denies: incontinence, dysuria Skin: denies: rashes, lesions Musculoskeletal: reports: pain, tenderness Neurological: denies: numbness, syncope, weakness Psychological: reports: depression. denies: anxiety - Vital signs BP: 130/93 HR:108 RR: 19 Tmax: 98.4F Pox: 89% on 3.5L Wt: 65.6kg - Physical Exam Constitutional: awake, alert and oriented, well developed, other (In severe distress 2/2 pain and in minor respiratory distress as well w/ difficulty speaking in full sentences) HEENT: normocephalic and atraumatic, grossly normal vision, grossly normal hearing Neck: supple, FROM Heart: RRR, normal S1/S2, pulses present, no edema -Lungs: Diffuse wheezing throughout w/ poor air movement 2/2 pain w/ deep inspiration. Abdomen: soft, non-tender Musculoskeletal: normal structure, normal tone, ROM grossly normal Neurological: no focal deficit, CN II-XII intact, normal sensation Skin: no rash/lesions, good turgor Heme/Lymphatic: no unusual bruising or bleeding, no purpura Psychiatric: good judgment and insight, intact recent and remote memory, other ( distressed affect 2/2 pain) FMR H&P: Results - Labs Result Diagrams: 04/23/18 03:15 04/22/18 05:48 Lab results: WBC 13.8 thou/uL (4.8-10.8) H 04/22/18 05:48 Hgb 10.5 g/dL (12.0-16.0) L 04/22/18 05:48 Hct 34.6 % (36.0-47.0) L 04/22/18 05:48 MCV 87.0 fL (78.0-98.0) 04/22/18 05:48 Plt Count 321 thou/uL (130-400) 04/22/18 05:48 Neutrophils % 81.2 % (42.0-75.0) H 04/22/18 05:48 Sodium 142 mmol/L (136-145) 04/22/18 05:48 Potassium 4.2 mmol/L (3.5-5.1) 04/22/18 05:48 Chloride 107 mmol/L (98-107) 04/22/18 05:48 Carbon Dioxide 27 mmol/L (22-29) 04/22/18 05:48 BUN 13 mg/dL (9.8-20.1) 04/22/18 05:48 Creatinine 0.58 mg/dL (0.6-1.1) L 04/22/18 05:48 Glucose 101 mg/dL (70-105) 04/22/18 05:48 Calcium 8.8 mg/dL (7.8-10.44) 04/22/18 05:48 Total Bilirubin 0.3 mg/dL (0.2-1.2) 04/22/18 05:48 AST 14 U/L (5-34) 04/22/18 05:48 ALT 17 U/L (8-55) 04/22/18 05:48 Alkaline Phosphatase 98 U/L (40-150) 04/22/18 05:48 CK-MB (CK-2) 1.9 ng/mL (0-6.6) 04/22/18 05:48 Serum Total Protein 6.4 g/dL (6.0-8.3) 04/22/18 05:48 Albumin 3.9 g/dL (3.5-5.0) 04/22/18 05:48 - EKG Interpretation EKG: NSR - Radiology Interpretation Chest x-ray Status: image reviewed by me, report reviewed by me Additional comment: interstitial hyperdensity and hyperinflation consistent w/ COPD FMR H&P: A/P - Problem List (1) Intractable back pain Current Visit: Yes Status: Acute Code(s): M54.9 - DORSALGIA, UNSPECIFIED (2) COPD (chronic obstructive pulmonary disease) Current Visit: Yes Status: Chronic (3) Acute and chronic respiratory failure Current Visit: Yes Status: Acute Code(s): J96.20 - ACUTE AND CHR RESP FAILURE, UNSP W HYPOXIA OR HYPERCAPNIA Qualifiers: Respiratory failure complication: hypoxia Qualified Code(s): J96.21 - Acute and chronic respiratory failure with hypoxia (4) COPD exacerbation Current Visit: Yes Status: Acute Code(s): J44.1 - CHRONIC OBSTRUCTIVE PULMONARY DISEASE W (ACUTE) EXACERBATION (5) GERD (gastroesophageal reflux disease) Current Visit: Yes Status: Chronic Code(s): K21.9 - GASTRO-ESOPHAGEAL REFLUX DISEASE WITHOUT ESOPHAGITIS (6) Tobacco abuse Current Visit: Yes Status: Chronic Code(s): Z72.0 - TOBACCO USE - Plan 58YOF w/ a PMH significant for COPD on 3-4L of O2 at home and chronic PO prednisone who presented to the ED w/ a CC of intractable back pain that began yesterday morning and worsening SOB w/ a productive cough that began last week. Intractable back pain - Will order PRN [place] and Toradol for pain control as well as a heating pad. - Will order a lumbar and thoracic spine CT to assess for any new, acute fractures which could explain her pain. High suspicion for this given the fact that patient is on chronic PO prednisone and had such as acute onset in her pain. COPD in acute exacerbation - Will start on MILY duonebs, PO prednisone at 40mg QD, azithromycin, and dulera. - Will also start on mucinex & tessalon pearls for productive cough. - Will continue on continuous O2 as patient is on 3-4L at home. - Will continue to monitor respiratory status closely. GERD - Will resume home protonix. tobacco use - Nicotine patch - Will encourage cessation. Depression/anxiety - Will resume home meds. FMR H&P: Upper Level - Pertinent history Cole Orr is a 58 year old female with a recent history of kyphoplasty who presents to the ED with gradual onset thoracic back pain that occurred after lifting her oxygen tank. She states that initially the pain was like a "twinge, " however over the course of several hours the pain gradually began to intensify. She states that the pain is so unbearable that it makes it difficult to breath. She denies numbness, parasthesias, and incontinence to bowel/bladder. She also reports worsening breathing over the past several days with the weather change. She has had to use her rescue inhalers more frequently than normal. Of note, she has a history of COPD and is on PO prednisone chronically. - Pertinent findings Physical Exam: General: alert and oriented x 3 Heart: regular rate and rhythm, no murmurs, rubs, or gallops. Lungs: diffuse wheezes and course breath sounds Extremities: No peripheral edema Spine: no obvious deformity; midline tenderness to palpation near T4. No paraspinal tenderness. - Plan Date/Time: 04/22/18 3654 I, Nataliya Stover, have evaluated this patient and agree with findings/plan as outlined by internet assessor resident. Pertinent changes/additions are listed here. Intractable back pain - given history of chronic steroid use and recent history of kyphoplasty for compression fractures, pt is at risk for developing more compression fractures. - will order CT thoracic and lumbar spines to evaluate for acute compression fracture. - will treat with IV toradol for pain. - will resume home muscle relaxer Acute COPD exacerbation - pt dependent on home oxygen. - duonebs, PO steroids, Azithromycin. - continue continuous home oxygen. - pt not currently on long-acting COPD medication at home, but it appears she was on Dulera in the past. Will resume. Tobacco abuse - transdermal nicotine replacement Attending Addendum - Attending Addendum Date/Time: 04/23/18 4615 I personally evaluated the patient and discussed the management with Dr. Page. I agree with the History, Examination, Assessment and Plan documented above with any addition or exceptions noted below.
--- NOTE | 2018-04-22 08:49 | RAD ---
2 VIEWS CHEST: Date: 04/22/18 COMPARISON: 08/23/17. HISTORY: Back pain, COPD, shortness of breath. FINDINGS: There is evidence of numerous prior kyphoplasty within the thoracic spine and upper lumbar spine. The re is increased linear interstitial density with pulmonary hyperinflation, as seen on prior imaging a s well. There is no pneumothorax, focal consolidation, or alveolar edema. There are coarse areas of subtle nodularity within the right upper lobe region which could represent infectious pneumonitis or underlying pulmonary nodules. CT examination of the chest performed 8 demonstrated a hilar mass on the left, suspicious for neoplasm. This is not well assessed on this e xamination and follow-up CT would be required for further assessment. IMPRESSION: 1. Interstitial density and pulmonary hyperinflation suggests COPD. Asymmetric subtle reticulonodula r densities in the right upper lobe may signify underlying pulmonary nodules and/or nodular infiltrat e. 2. Prior examination demonstrated a left hilar mass, not well assessed on this examination. This fin ding was concerning for malignancy. Pulmonary consultation was recommended at that time. Please consi elvira a follow-up CT examination as well. CODE T. POS: OFF
[2018-04-22] MEDS ORDERED: Ondansetron ODT 4 MG TAB PO PRN (09:41)
[2018-04-22 09:45] VITALS: BMI 28.2
[2018-04-22] MEDS: HYDROcodone/Acetaminophen 5/325 mg Tablet PO PRN ×2 (10:06→18:05)
[2018-04-22] MEDS: Ketorolac Tromethamine 30 MG/ML VIAL IVP PRN ×3 (10:06→22:52)
[2018-04-22] MEDS: Enoxaparin Sodium 40 MG/0.4 ML SYRINGE SC SCH (10:07)
[2018-04-22] MEDS: Nicotine 14 MG PATCH TD SCH (10:07)
[2018-04-22] MEDS ORDERED: Benzonatate 100 MG CAP PO PRN (11:00)
--- NOTE | 2018-04-22 11:31 | CT ---
CT THORACIC SPINE WITHOUT CONTRAST: Date: 04/22/18 COMPARISON: None. HISTORY: History of compression fracture of the spine. Degenerative back disease. Patient presents with upper back pain that began yesterday when she lifted up her oxygen tank. TECHNIQUE: Multiple contiguous axial images were obtained in a CT of the thoracic spine without contrast. Sagitt al and coronal reformats were performed. FINDINGS: There are multiple wedge compression deformities in the vertebral bodies in the thoracic spine. Verte broplasty cement is seen at multiple levels. The cement is seen at T6, T7, T10, T11, T12, and L1. The se vertebral bodies demonstrate approximately 10-25% height loss. There is increased density of the T 9 vertebral body with approximately 10-25% height loss. This may represent a healing compression frac ture. No obvious acute fracture or dislocation seen. Radiodense material is seen in the right lung, which may represent a small amount of vertebroplasty c ement within a pulmonary artery branch. Emphysematous changes are seen in the lungs. Atherosclerotic calcifications are seen in the aorta. IMPRESSION: Multiple chronic compression deformities of the thoracic spine without acute osseous abnormality of t he thoracic spine. POS: BEL
[2018-04-22] MEDS ORDERED: predniSONE 20 MG TAB PO SCH (11:45)
--- NOTE | 2018-04-22 11:46 | CT ---
CT LUMBAR SPINE WITHOUT CONTRAST: Date: 04/22/18 COMPARISON: 01/23/18. HISTORY: Degenerative back disease. Patient has upper back pain that began yesterday ay when she lifted her ox ygen tank. TECHNIQUE: Multiple contiguous axial images were obtained in a CT of the lumbar spine without contrast. Sagittal and coronal reformats were performed. FINDINGS: There are multiple compression fractures of the lumbar spine. Vertebroplasty cement is seen at multip le levels. This is seen at L1, L3, and L4. Since the prior examination, the L2 vertebral body demonst rates compression with approximately 10% height loss. This appears chronic and no obvious acute fract ure is seen. The vertebral bodies demonstrate normal alignment without subluxation. No bony narrowing of the central canal or neural foramina is seen in the lumbar spine. There is a dis c osteophyte complex at L5-S1. Atherosclerotic calcifications are seen in the aorta. The other prever tebral and paraspinal soft tissues are unremarkable. IMPRESSION: Multiple chronic compression fractures of the lumbar spine as above. POS: BEL
[2018-04-22] MEDS: Cyclobenzaprine 10 MG TAB PO PRN ×2 (14:01→21:01)
[2018-04-22] MEDS ORDERED: Ipratropium Bromide 2.5 ml Neb NEB SCH (15:00)
[2018-04-22] MEDS: Gabapentin 300 MG CAP PO SCH ×2 (15:29→21:00)
[2018-04-22] MEDS: Mometasone/Formoterol 120 PUFF INHALER INH SCH (19:22)
[2018-04-22] MEDS ORDERED: Bupropion 100 MG SR TAB PO SCH (21:00)
[2018-04-22] MEDS ORDERED: Nortriptyline HCl 25 MG CAP PO SCH (21:00)
[2018-04-22] MEDS: guaiFENesin ER 600 MG TAB PO SCH (21:01)
[2018-04-23] MEDS ORDERED: HYDROcodone/Acetaminophen 5/325 mg Tablet PO PRN ×2 (00:34→18:24)
[2018-04-23] MEDS: HYDROcodone/Acetaminophen 5/325 mg Tablet PO PRN ×2 (00:47→07:47)
[2018-04-23 04:20] LABS: #Lymphocytes 1.4 thou/uL (1.20-3.40); #Monocytes 1.2 thou/uL (0.11-0.59); #Neutrophils 8.2 thou/uL (1.40-6.50); %Basophils 0.2 % (0.0-1.0); %Eosinophils 0.4 % (0.0-10.0); %Lymphocytes 13.2 % (21.0-51.0); %Monocytes 10.7 % (0.0-10.0); %Neutrophils 75.5 % (42.0-75.0); Hemoglobin 9.7 g/dL (12.0-16.0); Mean Corpuscular HGB CONC 30.8 g/dL (32.0-36.0); Mean Corpuscular Hemoglobin 26.8 pg (27.0-31.0); Mean Corpuscular Volume 86.9 fL (78.0-98.0); Mean Platelet Volume 8.6 fL (7.4-10.4); Platelet Count 288 thou/uL (130-400); RBC Distribution Width 15.2 % (11.5-14.5); Red Blood Cell (RBC) Count 3.62 mill/uL (4.20-5.40); White Blood Cell (WBC) Count 10.9 thou/uL (4.8-10.8)
[2018-04-23] MEDS: Ketorolac Tromethamine 30 MG/ML VIAL IVP PRN ×4 (05:43→23:24)
[2018-04-23] MEDS: Mometasone/Formoterol 120 PUFF INHALER INH SCH ×2 (06:42→18:02)
--- NOTE | 2018-04-23 06:53 | PDOC.FM ---
- Subjective Subjective: Pain was well controlled overnight with [place], Flexeril and heating pad. Feels Flexeril is not helping very much. Pain has returned this AM. Reports improvement in breathing. - Objective MAR Reviewed: Yes Vital Signs & Weight: Vital Signs (12 hours) Temp Pulse Resp BP BP Pulse Ox 04/23/18 06:42 86 20 95 04/23/18 06:26 95 04/23/18 06:21 86 20 95 04/23/18 05:40 98 F 82 22 H 112/65 96 04/23/18 02:19 99 16 95 04/23/18 00:00 98.4 F 101 H 22 H 103/62 103/72 95 04/22/18 22:17 107 H 16 92 L 04/22/18 20:00 98.5 F 96 22 H 118/64 94 L 04/22/18 19:22 89 16 94 L Weight Weight 65.516 kg I&O: 04/21/18 04/22/18 04/23/18 06:59 06:59 06:59 Intake Total 1760 Balance 1760 Result Diagrams: 04/23/18 03:15 04/22/18 05:48 <Jaimee Jose - Last Filed: 04/23/18 12:03> - Objective Vital Signs & Weight: Vital Signs (12 hours) Temp Pulse Resp BP Pulse Ox 04/26/18 09:50 81 20 94 L 04/26/18 07:44 98.3 F 81 22 H 132/72 95 04/26/18 06:10 89 20 93 L 04/26/18 04:00 98.2 F 88 16 124/69 94 L 04/26/18 02:18 91 18 95 04/26/18 00:00 98.4 F 90 16 144/80 H 93 L Weight Admit Weight 65.516 kg Weight 65.516 kg I&O: 04/25/18 04/26/18 04/27/18 06:59 06:59 06:59 Intake Total 730 Balance 730 Result Diagrams: 04/23/18 03:15 04/22/18 05:48 <Ti Roberts - Last Filed: 04/26/18 10:29> Phys Exam - Physical Examination Neck: supple Diffuse expiratory wheezing improved from yesterdays exam Cardiovascular: RRR, no significant murmur Gastrointestinal: soft, non-tender, positive bowel sounds Musculoskeletal: no edema Psychiatric: normal affect, A&O x 3 <Jaimee Jose - Last Filed: 04/23/18 12:03> Dx/Plan (1) Acute and chronic respiratory failure Code(s): J96.20 - ACUTE AND CHR RESP FAILURE, UNSP W HYPOXIA OR HYPERCAPNIA Status: Acute Qualifiers: Respiratory failure complication: hypoxia Qualified Code(s): J96.21 - Acute and chronic respiratory failure with hypoxia (2) COPD exacerbation Code(s): J44.1 - CHRONIC OBSTRUCTIVE PULMONARY DISEASE W (ACUTE) EXACERBATION Status: Acute (3) Intractable back pain Code(s): M54.9 - DORSALGIA, UNSPECIFIED Status: Acute (4) COPD (chronic obstructive pulmonary disease) Status: Chronic (5) GERD (gastroesophageal reflux disease) Code(s): K21.9 - GASTRO-ESOPHAGEAL REFLUX DISEASE WITHOUT ESOPHAGITIS Status: Chronic (6) Tobacco abuse Code(s): Z72.0 - TOBACCO USE Status: Chronic - Plan Plan: Intractable back pain - Likely 2/2 muscle spasm - Pt on chronic PO prednisone for COPD with recent kyphoplasty (02/2018) for 8 vertebral fractures related to chronic steroid use. Acute onset of pain and immobility. No rash on exam to suggest Shingles - [place], Toradol PRN, heating pad for pain - Lumbar/thoracic spine CT: multiple chronic compression deformities without acute osseous abnormality of thoracic spine or spinal narrowing - Will transition from Flexeril to Baclofen PRN COPD in acute exacerbation - Scheduled duonebs, PO prednisone at 40mg QD, azithromycin, dulera - Mucinex & tessalon pearls for productive cough - Continue home O2 of 3-4L - Continue to monitor Right lung mass - Found on previous CT, was instructed to f/u for repeat CT in 6 months - Pt has not followed up, can be done in outpt setting GERD - Continue home protonix Tobacco use - Nicotine patch PRN - Encourage cessation Depression/anxiety - Continue home medication Code Status: FULL DVT ppx: Lovenox <Jaimee Jose - Last Filed: 04/23/18 12:03> (1) Intractable back pain Code(s): M54.9 - DORSALGIA, UNSPECIFIED Status: Acute (2) COPD (chronic obstructive pulmonary disease) Status: Chronic (3) Acute and chronic respiratory failure Code(s): J96.20 - ACUTE AND CHR RESP FAILURE, UNSP W HYPOXIA OR HYPERCAPNIA Status: Acute Qualifiers: Respiratory failure complication: hypoxia Qualified Code(s): J96.21 - Acute and chronic respiratory failure with hypoxia (4) COPD exacerbation Code(s): J44.1 - CHRONIC OBSTRUCTIVE PULMONARY DISEASE W (ACUTE) EXACERBATION Status: Acute (5) GERD (gastroesophageal reflux disease) Code(s): K21.9 - GASTRO-ESOPHAGEAL REFLUX DISEASE WITHOUT ESOPHAGITIS Status: Chronic (6) Tobacco abuse Code(s): Z72.0 - TOBACCO USE Status: Chronic <Ti Roberts - Last Filed: 04/26/18 10:29> Attending Addendum - Attending Addendum Date/Time: 04/26/18 1029 I personally evaluated the patient and discussed the management with Dr. Jose on 04/23/18. I agree with the History, Examination, Assessment and Plan documented above with any addition or exceptions noted below. <Ti Roberts - Last Filed: 04/26/18 10:29>
[2018-04-23] MEDS: Loratadine 10 MG TAB PO SCH (08:27)
[2018-04-23] MEDS: Citalopram 20 MG TAB PO SCH (08:27)
[2018-04-23] MEDS: Azithromycin 250 MG TAB PO SCH (08:27)
[2018-04-23] MEDS: predniSONE 20 MG TAB PO SCH (08:27)
[2018-04-23] MEDS: Gabapentin 300 MG CAP PO SCH ×3 (08:27→20:07)
[2018-04-23] MEDS: guaiFENesin ER 600 MG TAB PO SCH ×2 (08:28→20:07)
[2018-04-23] MEDS: Enoxaparin Sodium 40 MG/0.4 ML SYRINGE SC SCH (08:28)
[2018-04-23] MEDS: Nicotine 14 MG PATCH TD SCH (09:46)
[2018-04-23] MEDS: Cyclobenzaprine 10 MG TAB PO PRN (09:46)
[2018-04-23] MEDS ORDERED: Acetaminophen/Codeine 30-300mg Tablet PO PRN (09:49)
[2018-04-23] MEDS: Fluticasone Propionate Nasal Spray 16 gm Bottle NASAL SCH (09:51)
[2018-04-23] MEDS ORDERED: Baclofen 10 MG TAB PO SCH (11:15)
[2018-04-23] MEDS: Acetaminophen/Codeine 30-300mg Tablet PO PRN ×2 (13:47→20:06)
[2018-04-23] MEDS: Baclofen 10 MG TAB PO SCH (16:50)
[2018-04-24] MEDS: Acetaminophen/Codeine 30-300mg Tablet PO PRN ×2 (03:49→09:35)
[2018-04-24] MEDS: Ketorolac Tromethamine 30 MG/ML VIAL IVP PRN (05:31)
[2018-04-24] MEDS: Baclofen 10 MG TAB PO SCH ×2 (05:53→20:09)
[2018-04-24] MEDS: Mometasone/Formoterol 120 PUFF INHALER INH SCH ×2 (06:46→18:51)
--- NOTE | 2018-04-24 06:46 | PDOC.FM ---
- Subjective Subjective: ms. Orr is resting comfortably in bed, she reports severe pain and shortness of breath. no other complaints, improved from baseline - Objective Vital Signs & Weight: Vital Signs (12 hours) Temp Pulse Resp BP Pulse Ox 04/24/18 06:36 86 20 96 04/24/18 01:44 91 20 96 04/24/18 00:21 97 04/23/18 23:32 98.4 F 70 18 134/74 94 L 04/23/18 22:01 86 20 97 04/23/18 20:00 95 04/23/18 19:00 98.4 F 94 18 117/67 94 L Weight Admit Weight 65.516 kg Weight 65.516 kg I&O: 04/22/18 04/23/18 04/24/18 06:59 06:59 06:59 Intake Total 1760 900 Balance 1760 900 Result Diagrams: 04/23/18 03:15 04/22/18 05:48 <Ben Mckenna - Last Filed: 04/24/18 08:15> - Objective Vital Signs & Weight: Vital Signs (12 hours) Temp Pulse Resp BP Pulse Ox 04/25/18 20:00 98.4 F 97 16 124/72 93 L 04/25/18 18:06 96 24 H 95 04/25/18 16:41 98.4 F 87 18 133/68 94 L 04/25/18 15:44 87 20 97 04/25/18 12:18 80 18 95 04/25/18 11:27 97.9 F 81 16 132/70 96 Weight Admit Weight 65.516 kg Weight 65.516 kg I&O: 04/24/18 04/25/18 04/26/18 07:59 06:59 06:59 Intake Total Balance Result Diagrams: 04/23/18 03:15 04/22/18 05:48 <Rhonda Harkins - Last Filed: 04/25/18 21:28> Phys Exam - Physical Examination HEENT: moist MMs Respiratory: wheezing present poor air movement Cardiovascular: RRR Gastrointestinal: soft, non-tender, no distention Musculoskeletal: no edema, pulses present pain seems out of proportion to exam Neurological: non-focal, moves all 4 limbs Psychiatric: normal affect Skin: no rash <Ben Mckenna - Last Filed: 04/24/18 08:15> Dx/Plan (1) Intractable back pain Code(s): M54.9 - DORSALGIA, UNSPECIFIED Status: Acute (2) COPD exacerbation Code(s): J44.1 - CHRONIC OBSTRUCTIVE PULMONARY DISEASE W (ACUTE) EXACERBATION Status: Acute (3) GERD (gastroesophageal reflux disease) Code(s): K21.9 - GASTRO-ESOPHAGEAL REFLUX DISEASE WITHOUT ESOPHAGITIS Status: Chronic (4) Tobacco abuse Code(s): Z72.0 - TOBACCO USE Status: Chronic - Plan Plan: Intractable back pain - Likely 2/2 muscle spasm - Pt on chronic PO prednisone for COPD with recent kyphoplasty (02/2018) for 8 vertebral fractures related to chronic steroid use. Acute onset of pain and immobility. No rash on exam to suggest Shingles - [place], Toradol PRN, heating pad for pain - Lumbar/thoracic spine CT: multiple chronic compression deformities without acute osseous abnormality of thoracic spine or spinal narrowing - Baclofen PRN COPD in acute exacerbation - Scheduled duonebs, PO prednisone at 40mg QD, azithromycin, dulera - Mucinex & tessalon pearls for productive cough - Continue home O2 of 3-4L - Continue to monitor Right lung mass - Found on previous CT, was instructed to f/u for repeat CT in 6 months - Pt has not followed up, can be done in outpt setting GERD - Continue home protonix Tobacco use - Nicotine patch PRN - Encourage cessation Depression/anxiety - Continue home medication Code Status: FULL DVT ppx: Lovenox Dispo: continue to monitor today, asses for pain control <Ben Mckenna - Last Filed: 04/24/18 08:15> Attending Addendum - Attending Addendum Date/Time: 04/25/182120 I personally evaluated the patient and discussed the management with Dr. Mckenna I agree with the History, Examination, Assessment and Plan documented above with any addition or exceptions noted below. 58 yo female with End-stage COPD and severe osteoporosis admitted for COPD exacerbation and intractable back pain HD#2 Still with severe back pain. Breathing improving. 1. COPD: Endstage. On chronic oral steroids. 3 more days of antibx. Would consider to wean oral steroids down after 2 more days. Continue breathing treatments. Pulm outpatient. 2. Severe osteoporosis with chronic fractures now with intractable back pain: On muscle relaxer. PT following. T3 increased. Not working. Will try Tramadol. Discussed other pain treatments that are non-narcotics. Consider consulting anesthesia and/or ortho since recent khyphoplasty in February. Monitor other co-morbid conditions. Adjust meds as needed. [place] <Rhonda Harkins - Last Filed: 04/25/18 21:28>
[2018-04-24] MEDS: predniSONE 20 MG TAB PO SCH (09:36)
[2018-04-24] MEDS: Gabapentin 300 MG CAP PO SCH ×3 (09:38→20:09)
[2018-04-24] MEDS: Citalopram 20 MG TAB PO SCH (09:38)
[2018-04-24] MEDS: Azithromycin 250 MG TAB PO SCH (09:38)
[2018-04-24] MEDS: guaiFENesin ER 600 MG TAB PO SCH ×2 (09:38→20:08)
[2018-04-24] MEDS: Fluticasone Propionate Nasal Spray 16 gm Bottle NASAL SCH (09:39)
[2018-04-24] MEDS: Loratadine 10 MG TAB PO SCH (09:39)
[2018-04-24] MEDS: Enoxaparin Sodium 40 MG/0.4 ML SYRINGE SC SCH (09:39)
[2018-04-24] MEDS: Nicotine 14 MG PATCH TD SCH (09:40)
[2018-04-24] MEDS ORDERED: Lidocaine 5% Patch TD SCH (12:00)
[2018-04-24] MEDS: traMADol HCl 50 MG TAB PO SCH ×2 (14:59→20:08)
[2018-04-24] MEDS ORDERED: Acetaminophen 325 MG TAB PO SCH ×2 (15:00→21:00)
[2018-04-24] MEDS: Acetaminophen 325 MG TAB PO SCH (20:09)
[2018-04-24] MEDS ORDERED: Lidocaine Patch Removal 1 EACH TOP SCH (23:59)
[2018-04-25] MEDS ORDERED: Baclofen 10 MG TAB PO SCH (01:00)
[2018-04-25] MEDS: Acetaminophen 325 MG TAB PO SCH ×4 (01:09→20:10)
--- NOTE | 2018-04-25 06:54 | PDOC.FM ---
- Subjective Subjective: ms. norton is not resting comfortably in bed, she reports pain through the night without relief - Objective Vital Signs & Weight: Vital Signs (12 hours) Temp Pulse Resp BP Pulse Ox 04/25/18 00:43 98.3 F 85 22 H 140/70 96 04/24/18 21:09 98.5 F 93 18 139/83 95 Weight Admit Weight 65.516 kg Weight 65.516 kg I&O: 04/23/18 04/24/18 04/25/18 06:59 06:59 05:59 Intake Total 1760 900 490 Balance 1760 900 490 Result Diagrams: 04/23/18 03:15 04/22/18 05:48 <Ben Mckenna - Last Filed: 04/25/18 11:06> - Objective Vital Signs & Weight: Vital Signs (12 hours) Temp Pulse Resp BP Pulse Ox 04/25/18 08:14 90 18 95 04/25/18 08:11 99 22 H 94 L 04/25/18 07:33 98.0 F 78 18 144/79 H 95 04/25/18 04:20 98.1 F 67 18 148/83 H 96 04/25/18 00:43 98.3 F 85 22 H 140/70 96 Weight Admit Weight 65.516 kg Weight 65.516 kg I&O: 04/24/18 04/25/18 04/26/18 07:59 06:59 06:59 Intake Total Balance Result Diagrams: 04/23/18 03:15 04/22/18 05:48 <Rhonda Harkins - Last Filed: 04/25/18 21:31> Phys Exam - Physical Examination Constitutional: NAD HEENT: PERRLA Respiratory: no wheezing, no rales, no rhonchi Cardiovascular: RRR, no significant murmur, no rub Gastrointestinal: soft, non-tender, no distention paraspinal muscles not tight, tenderness over midline Neurological: moves all 4 limbs Lymphatic: no nodes Psychiatric: normal affect <Ben Mckenna - Last Filed: 04/25/18 11:06> Dx/Plan (1) Intractable back pain Code(s): M54.9 - DORSALGIA, UNSPECIFIED Status: Acute (2) COPD exacerbation Code(s): J44.1 - CHRONIC OBSTRUCTIVE PULMONARY DISEASE W (ACUTE) EXACERBATION Status: Acute (3) GERD (gastroesophageal reflux disease) Code(s): K21.9 - GASTRO-ESOPHAGEAL REFLUX DISEASE WITHOUT ESOPHAGITIS Status: Chronic (4) Tobacco abuse Code(s): Z72.0 - TOBACCO USE Status: Chronic - Plan Plan: Intractable back pain - Likely 2/2 muscle spasm - Pt on chronic PO prednisone for COPD with recent kyphoplasty (02/2018) for 8 vertebral fractures related to chronic steroid use. Acute onset of pain and immobility. No rash on exam to suggest Shingles - Toradol PRN, tramadol, heating pad for pain. pt to consider celecoxib - Lumbar/thoracic spine CT: multiple chronic compression deformities without acute osseous abnormality of thoracic spine or spinal narrowing - Baclofen PRN, consider down grading today COPD in acute exacerbation - Scheduled duonebs, PO prednisone at 40mg QD, azithromycin, dulera - Mucinex & tessalon pearls for productive cough - Continue home O2 of 3-4L - Continue to monitor Right lung mass - Found on previous CT, was instructed to f/u for repeat CT in 6 months - Pt has not followed up, can be done in outpt setting GERD - Continue home protonix Tobacco use - Nicotine patch PRN - Encourage cessation Depression/anxiety - Continue home medication Code Status: FULL DVT ppx: Lovenox Dispo: continue to monitor today, asses for pain control <eBn Mckenna - Last Filed: 04/25/18 11:06> Attending Addendum - Attending Addendum Date/Time: 04/25/18 0907 I personally evaluated the patient and discussed the management with Dr. Mckenna I agree with the History, Examination, Assessment and Plan documented above with any addition or exceptions noted below. 58 yo female with End-stage COPD and severe osteoporosis admitted for COPD exacerbation and intractable back pain HD#3 Back pain still 8 to 9. 1. COPD: Endstage. On chronic oral steroids. 2 more days of antibx. Would consider to wean oral steroids down after 1 more day. Continue breathing treatments. Pulm outpatient. 2. Severe osteoporosis with chronic fractures now with intractable back pain: On muscle relaxer. PT following. Tramadol helped better than T3. Still with breath-through pain. Lidocaine did not work per patient. After consideration of R/B/A due to COX2 patient would like to try throughout the day to see if pain better controlled. [place] added for breakthrough. Consult ortho and/or anesthesia tomorrow if pain not improved. Pain goal of less than 5 tomorrow. Recent khyphoplasty in February. Monitor other co-morbid conditions. Adjust meds as needed. Viktoriya <Rhonda Harkins - Last Filed: 04/25/18 21:31>
[2018-04-25] MEDS: Mometasone/Formoterol 120 PUFF INHALER INH SCH ×2 (08:14→18:07)
[2018-04-25] MEDS: traMADol HCl 50 MG TAB PO SCH (09:48)
[2018-04-25] MEDS: Baclofen 10 MG TAB PO SCH ×2 (09:48→20:10)
[2018-04-25] MEDS: Gabapentin 300 MG CAP PO SCH ×3 (09:48→20:11)
[2018-04-25] MEDS: Azithromycin 250 MG TAB PO SCH (09:48)
[2018-04-25] MEDS: Loratadine 10 MG TAB PO SCH (09:49)
[2018-04-25] MEDS: guaiFENesin ER 600 MG TAB PO SCH ×2 (09:49→20:11)
[2018-04-25] MEDS: predniSONE 20 MG TAB PO SCH (09:49)
[2018-04-25] MEDS: Citalopram 20 MG TAB PO SCH (09:49)
[2018-04-25] MEDS: Nicotine 14 MG PATCH TD SCH (09:50)
[2018-04-25] MEDS: Enoxaparin Sodium 40 MG/0.4 ML SYRINGE SC SCH (09:50)
[2018-04-25] MEDS: Fluticasone Propionate Nasal Spray 16 gm Bottle NASAL SCH (09:57)
[2018-04-25] MEDS ORDERED: traMADol HCl 50 MG TAB PO SCH ×2 (11:02→15:00)
[2018-04-25] MEDS: HYDROcodone/Acetaminophen 5/325 mg Tablet PO PRN ×2 (14:22→20:10)
[2018-04-25] MEDS: CeleCOXIB 100 MG CAP PO SCH (20:11)
[2018-04-26] MEDS: HYDROcodone/Acetaminophen 5/325 mg Tablet PO PRN ×4 (01:39→23:32)
[2018-04-26] MEDS: Acetaminophen 325 MG TAB PO SCH ×4 (01:39→20:45)
[2018-04-26] MEDS: Mometasone/Formoterol 120 PUFF INHALER INH SCH ×2 (06:12→20:05)
[2018-04-26] MEDS: Baclofen 10 MG TAB PO SCH (07:57)
[2018-04-26] MEDS: CeleCOXIB 100 MG CAP PO SCH ×2 (07:57→20:44)
[2018-04-26] MEDS: Enoxaparin Sodium 40 MG/0.4 ML SYRINGE SC SCH (07:57)
[2018-04-26] MEDS: Azithromycin 250 MG TAB PO SCH (07:57)
[2018-04-26] MEDS: guaiFENesin ER 600 MG TAB PO SCH ×2 (07:58→20:45)
[2018-04-26] MEDS: predniSONE 20 MG TAB PO SCH (07:58)
[2018-04-26] MEDS: Gabapentin 300 MG CAP PO SCH ×3 (07:58→20:44)
[2018-04-26] MEDS: Loratadine 10 MG TAB PO SCH (07:58)
[2018-04-26] MEDS: Citalopram 20 MG TAB PO SCH (07:58)
--- NOTE | 2018-04-26 08:46 | PDOC.FM ---
- Subjective Subjective: Ms. Orr is resting comfortbly in bed, her dyspnea is at baseline. She reports better pain control recently. - Objective Vital Signs & Weight: Vital Signs (12 hours) Temp Pulse Resp BP Pulse Ox 04/26/18 07:44 98.3 F 81 22 H 132/72 95 04/26/18 06:10 89 20 93 L 04/26/18 04:00 98.2 F 88 16 124/69 94 L 04/26/18 02:18 91 18 95 04/26/18 00:00 98.4 F 90 16 144/80 H 93 L 04/25/18 22:25 82 18 95 Weight Admit Weight 65.516 kg Weight 65.516 kg I&O: 04/25/18 04/26/18 04/27/18 06:59 06:59 06:59 Intake Total 730 Balance 730 Result Diagrams: 04/23/18 03:15 04/22/18 05:48 <Ben Mckenna - Last Filed: 04/26/18 08:43> - Objective Vital Signs & Weight: Vital Signs (12 hours) Temp Pulse Resp BP Pulse Ox Pulse Ox Pulse Ox 04/26/18 11:51 98.5 F 85 20 125/64 95 04/26/18 10:13 92 L 94 L 04/26/18 09:50 81 20 94 L 04/26/18 08:00 95 04/26/18 07:44 98.3 F 81 22 H 132/72 95 04/26/18 06:10 89 20 93 L 04/26/18 04:00 98.2 F 88 16 124/69 94 L 04/26/18 02:18 91 18 95 Pulse Ox 04/26/18 11:51 04/26/18 10:13 95 04/26/18 09:50 04/26/18 08:00 04/26/18 07:44 04/26/18 06:10 04/26/18 04:00 04/26/18 02:18 Weight Admit Weight 65.516 kg Weight 65.516 kg I&O: 04/25/18 04/26/18 04/27/18 06:59 06:59 06:59 Intake Total 730 Balance 730 Result Diagrams: 04/23/18 03:15 04/22/18 05:48 <Asim Yarbrough - Last Filed: 04/26/18 12:18> Phys Exam - Physical Examination Constitutional: NAD HEENT: moist MMs Neck: no JVD Respiratory: no wheezing, no rales, no rhonchi Cardiovascular: RRR, no significant murmur Gastrointestinal: soft, non-tender Musculoskeletal: no edema, pulses present Neurological: non-focal, normal sensation, moves all 4 limbs Psychiatric: normal affect Skin: no rash <Ben Mckenna - Last Filed: 04/26/18 08:43> Dx/Plan (1) Intractable back pain Code(s): M54.9 - DORSALGIA, UNSPECIFIED Status: Acute (2) COPD exacerbation Code(s): J44.1 - CHRONIC OBSTRUCTIVE PULMONARY DISEASE W (ACUTE) EXACERBATION Status: Acute (3) GERD (gastroesophageal reflux disease) Code(s): K21.9 - GASTRO-ESOPHAGEAL REFLUX DISEASE WITHOUT ESOPHAGITIS Status: Chronic (4) Tobacco abuse Code(s): Z72.0 - TOBACCO USE Status: Chronic - Plan Plan: Intractable back pain - Likely 2/2 muscle spasm - Pt on chronic PO prednisone for COPD with recent kyphoplasty (02/2018) for 8 vertebral fractures related to chronic steroid use. Acute onset of pain and immobility. No rash on exam to suggest Shingles - Toradol PRN, [place] PRN, celecoxib, and heating pad for pain - Lumbar/thoracic spine CT: multiple chronic compression deformities without acute osseous abnormality of thoracic spine or spinal narrowing - Baclofen PRN - rehab screen today COPD in acute exacerbation - Scheduled duonebs, PO prednisone at 40mg QD, azithromycin, dulera - Mucinex & tessalon pearls for productive cough - Continue home O2 of 3-4L - Continue to monitor Right lung mass - Found on previous CT, was instructed to f/u for repeat CT in 6 months - Pt has not followed up, can be done in outpt setting GERD - Continue home protonix Tobacco use - Nicotine patch PRN - Encourage cessation Depression/anxiety - Continue home medication Code Status: FULL DVT ppx: Lovenox Dispo: rehab screen today, await recommendations <Ben Mckenna - Last Filed: 04/26/18 08:43> Attending Addendum - Attending Addendum Date/Time: 04/26/18 1216 I personally evaluated the patient and discussed the management with Dr. Mckenna. I agree with and repeated the History, Examination, Assessment and Plan documented above with any addition or exceptions noted below. Pt with reportedly improved pain. This pain is just inferior to her thoracic spine and does not radiate. No cp/sob, improved breathing. No diarrhea/const/n/v. Exam NAD, resting comfortably in bed. Sits up without assistance. No point tenderness. 2/4 bilateral DTRs in patella and strength 5/5 x 4. RRR s M, no edema Lungs quite clear this AM, decent air movement, no accessory use labs/imaging reviewed. Schedule long acting opiate with norco for BT. Change to robaxin unless baclofen is a longstanding med. Decrease steroids. Will need to be tapered and placed on controller meds with PCP ppx. <Asim Yarbrough - Last Filed: 04/26/18 12:18>
[2018-04-26] MEDS: Nicotine 14 MG PATCH TD SCH (12:07)
[2018-04-26] MEDS: Fluticasone Propionate Nasal Spray 16 gm Bottle NASAL SCH (12:08)
[2018-04-26] MEDS: oxyCODONE ER 10 MG TAB PO SCH (20:43)
[2018-04-27] MEDS: Acetaminophen 325 MG TAB PO SCH ×4 (05:24→20:44)
[2018-04-27] MEDS: HYDROcodone/Acetaminophen 5/325 mg Tablet PO PRN ×4 (05:37→23:33)
[2018-04-27] MEDS: Mometasone/Formoterol 120 PUFF INHALER INH SCH ×2 (06:08→18:36)
[2018-04-27] MEDS: Methocarbamol 500 MG TAB PO PRN ×3 (06:12→20:47)
--- NOTE | 2018-04-27 06:29 | PDOC.FM ---
- Subjective Subjective: Ms. Orr is sitting up in bed, she denies increased SOB. She reports her current pain level is a 6/10. She says this is about at baseline for her. - Objective Vital Signs & Weight: Vital Signs (12 hours) Temp Pulse Resp BP Pulse Ox 04/27/18 06:03 79 18 95 04/27/18 04:00 98.8 F 81 20 144/72 H 95 04/27/18 01:48 84 18 97 04/27/18 00:00 98.5 F 92 16 127/69 93 L 04/26/18 22:01 82 18 95 04/26/18 20:05 73 18 96 04/26/18 20:01 73 18 96 04/26/18 20:00 98.7 F 92 20 130/74 94 L 04/26/18 19:41 94 L Weight Admit Weight 65.516 kg Weight 65.516 kg I&O: 04/25/18 04/26/18 04/27/18 06:59 06:59 06:59 Intake Total 730 720 Balance 730 720 Result Diagrams: 04/23/18 03:15 04/22/18 05:48 <Ben Mckenna - Last Filed: 04/27/18 07:48> - Objective Vital Signs & Weight: Vital Signs (12 hours) Temp Pulse Resp BP BP Pulse Ox Pulse Ox 04/27/18 10:17 91 L 04/27/18 09:47 95 18 95 04/27/18 08:00 95 04/27/18 07:33 98.4 F 95 16 113/73 95 04/27/18 06:03 79 18 95 04/27/18 04:00 98.8 F 81 20 144/72 H 95 04/27/18 01:48 84 18 97 Weight Admit Weight 65.516 kg Weight 65.516 kg I&O: 04/26/18 04/27/18 04/28/18 06:59 06:59 06:59 Intake Total 730 720 Balance 730 720 Result Diagrams: 04/23/18 03:15 04/22/18 05:48 <Asim Yarbrough - Last Filed: 04/27/18 12:39> Phys Exam - Physical Examination Constitutional: NAD HEENT: moist MMs Respiratory: wheezing present decreased lung sounds, ronchi Cardiovascular: RRR, no significant murmur Gastrointestinal: soft, non-tender, no distention Musculoskeletal: no edema Neurological: moves all 4 limbs Psychiatric: normal affect Skin: no rash <Ben Mckenna - Last Filed: 04/27/18 07:48> Dx/Plan (1) Intractable back pain Code(s): M54.9 - DORSALGIA, UNSPECIFIED Status: Acute (2) COPD exacerbation Code(s): J44.1 - CHRONIC OBSTRUCTIVE PULMONARY DISEASE W (ACUTE) EXACERBATION Status: Acute (3) GERD (gastroesophageal reflux disease) Code(s): K21.9 - GASTRO-ESOPHAGEAL REFLUX DISEASE WITHOUT ESOPHAGITIS Status: Chronic (4) Tobacco abuse Code(s): Z72.0 - TOBACCO USE Status: Chronic - Plan Plan: Intractable back pain - Likely 2/2 muscle spasm - Pt on chronic PO prednisone for COPD with recent kyphoplasty (02/2018) for 8 vertebral fractures related to chronic steroid use. Acute onset of pain and immobility. No rash on exam to suggest Shingles - Toradol PRN, [place] PRN, celecoxib, oxycodone scheduled - Lumbar/thoracic spine CT: multiple chronic compression deformities without acute osseous abnormality of thoracic spine or spinal narrowing - Robaxin PRN - Denied for rehab, possibly home with close family care COPD in acute exacerbation - Scheduled duonebs, PO prednisone at 40mg QD, azithromycin, dulera - Mucinex & tessalon pearls for productive cough - Continue home O2 of 3-4L - Continue to monitor Right lung mass - Found on previous CT, was instructed to f/u for repeat CT in 6 months - Pt has not followed up, can be done in outpt setting GERD - Continue home protonix Tobacco use - Nicotine patch PRN - Encourage cessation Depression/anxiety - Continue home medication Code Status: FULL DVT ppx: Lovenox Dispo: denied for [facility] bed, possibly home with family support 1-2 days <Ben Mckenna - Last Filed: 04/27/18 07:48> Attending Addendum - Attending Addendum Date/Time: 04/27/18 0467 I personally evaluated the patient and discussed the management with Dr. Mckenna. I agree with and repeated the History, Examination, Assessment and Plan documented above with any addition or exceptions noted below. Her pain is back to her baseline. I feel she has very low risk of spinal cord impingement in light of her symptoms and physical exam. Also feel low suspicion for infection besides tx and improved COPD exacerbation. She is comfortable with going home. Her pain has responded to her current regiment. I recommended she follow up with her PCP. We will put her prednisone back to baseline and I have recommended that she wean off of these and being controller inhalers that we will rx. Discuss ER return precautions. <Asim Yarbrough - Last Filed: 04/27/18 12:39>
[2018-04-27] MEDS ORDERED: predniSONE 20 MG TAB PO SCH (08:00)
[2018-04-27] MEDS: Azithromycin 250 MG TAB PO SCH (08:42)
[2018-04-27] MEDS: CeleCOXIB 100 MG CAP PO SCH ×2 (08:42→20:44)
[2018-04-27] MEDS: Citalopram 20 MG TAB PO SCH (08:42)
[2018-04-27] MEDS: Gabapentin 300 MG CAP PO SCH ×3 (08:43→20:44)
[2018-04-27] MEDS: oxyCODONE ER 10 MG TAB PO SCH ×2 (08:43→20:44)
[2018-04-27] MEDS: Loratadine 10 MG TAB PO SCH (08:43)
[2018-04-27] MEDS: guaiFENesin ER 600 MG TAB PO SCH ×2 (08:43→20:44)
[2018-04-27] MEDS: Enoxaparin Sodium 40 MG/0.4 ML SYRINGE SC SCH (08:43)
[2018-04-27] MEDS: Fluticasone Propionate Nasal Spray 16 gm Bottle NASAL SCH (08:46)
[2018-04-27] MEDS: Nicotine 14 MG PATCH TD SCH (09:49)
--- NOTE | 2018-04-27 14:15 | DIS-2 ---
DATE OF ADMISSION: 04/22/2018 DATE OF DISCHARGE: 04/27/2018 ADMITTING ATTENDING: Dr. Ti Roberts DISCHARGE ATTENDING: Dr. Asim Yarbrough RESIDENT: Dr. Ben Mckenna CONSULTS: Neurosurgery, Katy GUILLAUME PROCEDURES: 1. Lumbar spine CT. Impression: Multiple chronic compression fractures of the lumbar spine. 2. Thoracic spine CT. Impression: Multiple chronic compression deformities of the thoracic spine without acute osseous abnormality of the thoracic spine. PRIMARY DIAGNOSIS: Intractable back pain. SECONDARY DIAGNOSES: 1. Spinal narrowing. 2. Chronic obstructive pulmonary disease with an acute exacerbation. 3. Right lung mass. 4. Gastroesophageal reflux disease. 5. Tobacco use. 6. Depression, anxiety. DISCHARGE MEDICATIONS: 1. Wellbutrin-SR 300 mg p.o. daily. 2. Protonix 40 mg p.o. daily. 3. ProAir 2 puffs inhaled q.4 hours p.r.n. 4. Albuterol nebulized 2.5 mg nebulized q.6h. 5. Atrovent 2.5 mg nebulized t.i.d. 6. Flonase 1 spray each naris daily. 7. Tizanidine 4 mg p.o. t.i.d. 8. Claritin 10 mg p.o. daily. 9. Gabapentin 600 mg p.o. t.i.d. 10. Flexeril 10 mg p.o. t.i.d. 11. Citalopram 20 mg p.o. daily. 12. Prednisone 20 mg p.o. daily. 13. Celebrex 100 mg p.o. b.i.d. 14. Gabapentin 600 mg p.o. t.i.d. 15. Hydrocodone /bit/APAP 5/325 2 tabs p.o. q.6 hours p.r.n. 16. Dulera 2 puffs inhaled b.i.d. 17. OxyContin 5 mg p.o. q.12h. DISCONTINUED MEDICATIONS: Tylenol #3. HISTORY OF PRESENT ILLNESS AND HOSPITAL COURSE: This is a 58-year-old female with a past medical history significant for COPD on 3-4 liters of home oxygen and daily prednisone 20 mg. She presents to the ED with a chief complaint of worsening back pain. It started the morning before arrival. She reports that at that time she was lifting her portable O2 and felt a twinge in her back. She began to feel terrible pain 4 hours after the event and the pain has not lessened since despite home medications. She denies any pain radiation into her legs or bowel/bladder incontinence. She has had multiple kyphoplasties with cement infusions in her back on previous occasions. She was admitted to the hospital at that time and treated for COPD exacerbation and intractable back pain. During her hospital stay, her chronic obstructive pulmonary disease exacerbation, resolved and she was tapered back down to her home steroid dose ( risks were explained of chronic steroid use), completed a 5-day course of azithromycin. Neurosurgery was consulted and had no additional recommendations for care. Her pain medicine regimen was optimized and pain was better controlled , enabling her to be discharged. She was denied a bed at a rehab facility and was counseled that it would be important for her family and friends to help her out upon being discharged. The patient was agreeable to this. DISPOSITION: Stable. DISCHARGE INSTRUCTIONS: 1. Location: Home. 2. Diet: Diabetic. 3. Activity: As tolerated. 4. Followup: Follow up in 1 week with her PCP. RAFAEL
[2018-04-28] MEDS: Acetaminophen 325 MG TAB PO SCH ×3 (01:55→14:26)
[2018-04-28] MEDS: HYDROcodone/Acetaminophen 5/325 mg Tablet PO PRN (05:11)
--- NOTE | 2018-04-28 06:48 | PDOC.FM ---
- Subjective Subjective: Ms. Orr is resting in bed, she is at her baseline pain level. She denies any increased SOB or cough - Objective Vital Signs & Weight: Vital Signs (12 hours) Temp Pulse Resp BP Pulse Ox 04/28/18 04:30 98 F 91 20 149/68 H 95 04/28/18 01:42 81 18 95 04/27/18 23:41 78 18 96 04/27/18 23:00 98.2 F 80 18 127/70 96 04/27/18 19:27 98.5 F 98 20 119/66 93 L Weight Admit Weight 65.516 kg Weight 65.516 kg I&O: 04/26/18 04/27/18 04/28/18 06:59 06:59 06:59 Intake Total 730 720 Balance 730 720 Result Diagrams: 04/23/18 03:15 04/22/18 05:48 <Ben Mckenna - Last Filed: 04/28/18 08:35> - Objective Vital Signs & Weight: Vital Signs (12 hours) Temp Pulse Resp BP Pulse Ox 04/28/18 14:00 87 18 96 04/28/18 11:18 98.3 F 95 18 118/72 93 L 04/28/18 10:22 90 20 96 04/28/18 07:39 97 04/28/18 07:38 20 97 04/28/18 07:28 98.6 F 73 18 128/75 93 L 04/28/18 07:08 79 18 98 04/28/18 07:05 79 18 98 04/28/18 04:30 98 F 91 20 149/68 H 95 Weight Admit Weight 65.516 kg Weight 65.516 kg I&O: 04/27/18 04/28/18 04/29/18 06:59 06:59 06:59 Intake Total 720 Balance 720 Result Diagrams: 04/23/18 03:15 04/22/18 05:48 <Asim Yarbrough - Last Filed: 04/28/18 14:24> Phys Exam - Physical Examination Constitutional: NAD Respiratory: no wheezing, no rales, no rhonchi, clear to auscultation bilateral Cardiovascular: RRR, no significant murmur, no rub Psychiatric: normal affect <Ben Mckenna - Last Filed: 04/28/18 08:35> Dx/Plan (1) Intractable back pain Code(s): M54.9 - DORSALGIA, UNSPECIFIED Status: Acute (2) COPD exacerbation Code(s): J44.1 - CHRONIC OBSTRUCTIVE PULMONARY DISEASE W (ACUTE) EXACERBATION Status: Acute (3) GERD (gastroesophageal reflux disease) Code(s): K21.9 - GASTRO-ESOPHAGEAL REFLUX DISEASE WITHOUT ESOPHAGITIS Status: Chronic (4) Tobacco abuse Code(s): Z72.0 - TOBACCO USE Status: Chronic - Plan Plan: Intractable back pain - Likely 2/2 muscle spasm - Pt on chronic PO prednisone for COPD with recent kyphoplasty (02/2018) for 8 vertebral fractures related to chronic steroid use. Acute onset of pain and immobility. No rash on exam to suggest Shingles - Robaxin/[place] PRN, celecoxib, oxycodone scheduled - Lumbar/thoracic spine CT: multiple chronic compression deformities without acute osseous abnormality of thoracic spine or spinal narrowing - Neurosurgery consulted, no surgical interventions indicated - Denied for rehab, home with close family care COPD in acute exacerbation - Scheduled duonebs, PO prednisone at 20mg QD, dulera - Mucinex & tessalon pearls for productive cough - Continue home O2 of 3-4L - Continue to monitor Right lung mass - Found on previous CT, was instructed to f/u for repeat CT in 6 months - Pt has not followed up, can be done in outpt setting GERD - Continue home protonix Tobacco use - Nicotine patch PRN - Encourage cessation Depression/anxiety - Continue home medication Code Status: FULL DVT ppx: Lovenox Dispo: denied for [facility] bed, home with family support today <Ben Mckenna - Last Filed: 04/28/18 08:35> Attending Addendum - Attending Addendum Date/Time: 04/28/18 2182 I personally evaluated the patient and discussed the management with Dr. Mckenna. I agree with and repeated the History, Examination, Assessment and Plan documented above with any addition or exceptions noted below. No numbness, tingling or weakness. Exam unchanged. <Asim Yarbrough - Last Filed: 04/28/18 14:24>
[2018-04-28] MEDS: Mometasone/Formoterol 120 PUFF INHALER INH SCH (07:05)
[2018-04-28] MEDS: Gabapentin 300 MG CAP PO SCH ×2 (07:40→14:26)
[2018-04-28] MEDS: CeleCOXIB 100 MG CAP PO SCH (07:40)
[2018-04-28] MEDS: guaiFENesin ER 600 MG TAB PO SCH (07:40)
[2018-04-28] MEDS: oxyCODONE ER 10 MG TAB PO SCH (07:41)
[2018-04-28] MEDS: Citalopram 20 MG TAB PO SCH (07:41)
[2018-04-28] MEDS: Loratadine 10 MG TAB PO SCH (07:42)
[2018-04-28] MEDS: Enoxaparin Sodium 40 MG/0.4 ML SYRINGE SC SCH (07:43)
[2018-04-28] MEDS: Fluticasone Propionate Nasal Spray 16 gm Bottle NASAL SCH (07:45)
[2018-04-28] MEDS ORDERED: predniSONE 20 MG TAB PO SCH (08:00)
[2018-04-28] MEDS: Methocarbamol 500 MG TAB PO PRN ×2 (08:28→14:26)
[2018-04-28] MEDS: Nicotine 14 MG PATCH TD SCH (10:25)
[2018-04-28 14:26] VITALS: BP 131/70; TEMP 98.6
--- NOTE | 2018-05-03 16:11 | EKG ---
Test Reason : Blood Pressure : / mmHG Vent. Rate : 093 BPM Atrial Rate : 093 BPM P-R Int : 150 ms QRS Dur : 078 ms QT Int : 370 ms P-R-T Axes : 090 067 065 degrees QTc Int : 460 ms Normal sinus rhythm Normal ECG Confirmed by ISATU GIORDANO ([id number]), brands editor TIFFANIE OREILLY ([id number] on 05/03/2018 4:11:01 PM Referred By: Confirmed By:ISATU GIORDANO
== END 2018-04-28 14:49 | disposition home or self-care (01) | DRG 189 ==
LOC: ERS 05:25 → T4-B 07:57
PROVIDERS: ADMIT Family Medicine; ATTEND Family Medicine
DX: J96.20 Acute and chronic respiratory failure, unspecified whether with hypoxia or hypercapnia (principal); J44.1 Chronic obstructive pulmonary disease with (acute) exacerbation; Z99.81 Dependence on supplemental oxygen; M80.88XD Other osteoporosis with current pathological fracture, vertebra(e), subsequent encounter for fracture with routine healing; T38.0X5A Adverse effect of glucocorticoids and synthetic analogues, initial encounter; K21.9 Gastro-esophageal reflux disease without esophagitis; F17.210 Nicotine dependence, cigarettes, uncomplicated; R91.8 Other nonspecific abnormal finding of lung field; F41.8 Other specified anxiety disorders; Z88.2 Allergy status to sulfonamides; Z88.8 Allergy status to other drugs, medicaments and biological substances; Z91.040 Latex allergy status
CPT/HCPCS: 36415; 71046; 72128; 72131; 80053; 82553; 83605; 84145; 84484; 85025; 87040; 90471; 90686; 90732; 93005; 94640; 94760; 96365; 96375; 96376; G0008; G0009; G8978-GP-CJ; G8979-GP-CI; G8990-GO-CK; G8991-GO-CI; J0456; J0696; J1650; J1885; J2270; J2405; J3010; J7506; J7620

== ENCOUNTER 2018-11-06 13:20 | Inpatient (IN) | payer SELFPAY ==
[2018-11-06] MEDS ORDERED: methylPREDNISolone Sod Succ/PF 125 MG/2 ML VIAL ONE (13:39)
[2018-11-06] MEDS ORDERED: Albuterol Sulfate 2.5 mg/3 ml Neb ONE (13:44)
[2018-11-06] MEDS ORDERED: Acetaminophen 325 MG TAB PO PRN (17:42)
[2018-11-06] MEDS ORDERED: Ondansetron PF 4 MG/2 ML Vial IVP PRN (17:42)
[2018-11-06] MEDS ORDERED: Ondansetron ODT 4 MG TAB SL PRN (17:42)
[2018-11-06 17:46] VITALS: BMI 30.4
--- NOTE | 2018-11-06 20:28 | HP ---
PRIMARY CARE PROVIDER: [place]. CHIEF COMPLAINT: COPD flare. HISTORY OF PRESENT ILLNESS: This is a 58-year-old female with significant COPD on chronic oxygen therapy and steroid dependent, who presents to the emergency room in [place] via EMS due to difficulty breathing. The patient reports onset about 2 weeks ago, where she was seen by her primary care provider prescribed a 10-day course of amoxicillin and prednisone. She states that she completed this 2 days ago and the symptoms returned the same day, progressively worsening today. She complains of chest tightness and difficulty breathing, sweating, and she called EMS. She thinks that the cut grass in her area is the trigger for worsening of her breathing. She denies any fevers, chills, vomiting, abdominal pain, or sore throat. She does report a chronic daily headache, nasal congestion, nausea, and sweating today. She denies any change medications or missed medications, and she is on nebulizer therapy regularly. In [place], the patient received DuoNeb x2, azithromycin 500 mg, magnesium 2 g, and she was transferred to this facility. Here, she received methylprednisolone 125 mg IV, albuterol 10 mg, and Atrovent and hospitalist called for admission. ALLERGIES: DEMEROL, LATEX, AND SULFA. MEDICATIONS: Current medications are reviewed with the patient and are: 1. Wellbutrin 200 mg twice a day. 2. Protonix 40 mg daily as needed. 3. Albuterol inhaler as needed. 4. Albuterol and Atrovent nebulizer every 3 to 4 hours. 5. Flonase one spray each nostril daily. 6. Claritin 10 mg daily. 7. Symbicort 2 puffs b.i.d. She is uncertain of the dose. 8. Citalopram 20 mg daily. 9. Prednisone 20 mg daily. 10. Mucinex as needed. PAST MEDICAL HISTORY: 1. Chronic respiratory failure with hypoxia on 2.5 L of home oxygen. 2. COPD. 3. Vertebral compression fracture, status post kyphoplasty with hospitalization in April 2018. 4. Reflux. 5. Tobacco use. 6. Depression and anxiety. 7. Pulmonary nodules and a left hilar mass 3 cm x 3 cm is imaged in August 2017, the patient reports no followup for this. PAST SURGICAL HISTORY: 1. x2. 2. Kyphoplasty. 3. Hysterectomy and tubal ligation. FAMILY HISTORY: Significant for a dad, who had CHF and a mom, who had a stroke. SOCIAL HISTORY: The patient lives alone. Her daughter, Noreen, is her surrogate decision maker, she uses tobacco 4 cigarettes per day. Denies any alcohol use. REVIEW OF SYSTEMS: Positive for sweating today, nausea, headache chronic, stuffy nose. Negative for fevers, chills, vomiting, abdominal pain, or sore throat. All remaining review of systems are reviewed and negative. PHYSICAL EXAMINATION: VITAL SIGNS: Temperature 97.0, pulse 91, respirations 20, sats are 100% on 3 L nasal cannula, and blood pressure 124/79. GENERAL: Awake, alert, responsive, in no apparent distress. Able to answer in short phrases without difficulty. HEENT: Her pupils are equal, round, and reactive to light. Oral mucosa is pink , slightly dry. NECK: Supple and nontender. LYMPHATICS: No palpable cervical or supraclavicular lymphadenopathy. LUNGS: Fair air movement with audible wheezing. No audible rhonchi or rales. HEART: Normal S1 and S2. Distant heart sounds. No significant murmurs. ABDOMEN: Soft. Present bowel sounds. Nontender, nondistended. EXTREMITIES: No clubbing, cyanosis, or edema. MUSCULOSKELETAL: The patient does have an osteoporotic curvature of the spine. SKIN: The patient has small areas of ecchymosis scattered on her arm, no active bleeding or skin tears. PSYCH: Euthymic, good eye contact NEURO: bilateral hand tremor, no focal deficits LABORATORY DATA: Labs reviewed. CBC is 14.7, 10.7, 34.8, 349 with 77% neutrophils, 13% lymphocytes. Renal panel; 142, 3.7, 104, 30, 13, 0.7, and 126. LFTs are normal. EKG, sinus rhythm, normal axis, no ST changes. QT corrected is 473. Chest x-ray reviewed, emphysematous changes. IMPRESSION: 1. Severe chronic obstructive pulmonary disease with acute exacerbation. 2. Acute on chronic hypoxic respiratory failure secondary to chronic obstructive pulmonary disease. 3. Chronic anemia, uncharacterized etiology. 4. Lung mass based on CT scan August 2017 5. Gastroesophageal reflux disease. 6. Chronic tobacco use. 7. Depression and anxiety. 8. History of vertebral compression fractures s/p kyphoplasty and rib fractures. 9. Prolonged QT interval. PLAN: 1. Admission to the hospital. 2. Close monitoring in the IMCU. 3. Scheduled nebulizer therapy, which includes long-acting bronchodilator and inhaled steroids, IV Solu-Medrol, Pulmonology consultation. 4. IV fluid hydration overnight as the patient appears dry. 5. Continuing her bupropion and Celexa for mood. We will consult Palliative Care for assistance with coping to current stage of disease process. Pt reports that her quality of life is low, and she is considering moving to a facility with nursing care or additional support. 6. Monitoring her electrolytes and following her blood count. 7. Avoid medications that can prolong the QT interval. 8. Hold further antibiotics, as she has completed a course and there is no evidence of infiltrate on chest xray. 9. Follow up on the previously identified hilar mass will be needed in the outpatient setting. 10. Pt declines nicotine replacement. 11. DVT prophylaxis. We will use enoxaparin. 12. GI prophylaxis. We will have the patient on daily Protonix given the high- dose steroids. 13. Code status is full. The patient reports that she does not want prolonged life support, only the initial interventions to see if the current situation can be resolved. She states he will have a discussion with her daughter regarding her formal wishes, specifically she does not wish to have prolonged life support. 14. The patient is at high risk given age comorbidities and current presentation. Reviewed the plan of care with patient, no questions or further needs at end of evaluation. Job ID: [id number] MTDD
[2018-11-06] MEDS: Sodium Chloride 0.9% 1,000 ML IV SCH (20:34)
[2018-11-06] MEDS: guaiFENesin ER 600 MG TAB PO SCH (20:35)
[2018-11-06] MEDS: Bupropion 150 MG SR TAB PO SCH (20:41)
[2018-11-06] MEDS: methylPREDNISolone Sod Succ 40 MG VIAL IVP SCH (23:58)
[2018-11-07 05:55] LABS: #Lymphocytes 0.6 thou/uL (1.20-3.40); #Monocytes 0.4 thou/uL (0.11-0.59); #Neutrophils 16.8 thou/uL (1.40-6.50); %Eosinophils 0.2 % (0.0-10.0); %Lymphocytes 3.4 % (21.0-51.0); %Monocytes 2.4 % (0.0-10.0); Hemoglobin 10.6 g/dL (12.0-16.0); Mean Corpuscular HGB CONC 30.6 g/dL (32.0-36.0); Mean Corpuscular Hemoglobin 27.3 pg (27.0-31.0); Mean Corpuscular Volume 89.3 fL (78.0-98.0); Mean Platelet Volume 7.4 fL (7.4-10.4); Platelet Count 354 thou/uL (130-400); Red Blood Cell (RBC) Count 3.89 mill/uL (4.20-5.40); White Blood Cell (WBC) Count 17.8 thou/uL (4.8-10.8)
[2018-11-07] MEDS: methylPREDNISolone Sod Succ 40 MG VIAL IVP SCH ×3 (06:14→18:15)
[2018-11-07 06:15] LABS: Anion Gap 10 mmol/L (10-20); BUN (Urea Nitrogen) 12 mg/dL (9.8-20.1); Calc. Creatinine Clearance 87 mL/min (70-130); Carbon Dioxide 30 mmol/L (22-29); Chloride 101 mmol/L (98-107); Estimated GFR-MDRD 89; Glucose 126 mg/dL (70-105); Potassium 4.3 mmol/L (3.5-5.1); Sodium 137 mmol/L (136-145)
[2018-11-07] MEDS: Arformoterol 15 MCG/2 ML NEB NEB SCH ×2 (06:26→18:53)
[2018-11-07] MEDS: Budesonide 0.5 MG/2 ML NEB INH SCH ×2 (06:27→18:53)
[2018-11-07] MEDS: guaiFENesin ER 600 MG TAB PO SCH ×2 (07:52→21:41)
[2018-11-07] MEDS: Acetaminophen 325 MG TAB PO PRN (07:52)
[2018-11-07] MEDS: Loratadine 10 MG TAB PO SCH (07:52)
[2018-11-07] MEDS: Enoxaparin Sodium 40 MG/0.4 ML SYRINGE SC SCH (07:53)
[2018-11-07] MEDS: Citalopram 20 MG TAB PO SCH (07:53)
[2018-11-07] MEDS: Bupropion 150 MG SR TAB PO SCH ×2 (08:43→21:41)
[2018-11-07] MEDS: Sodium Chloride 0.9% 1,000 ML IV SCH (08:43)
--- NOTE | 2018-11-07 09:11 | PDOC.PN ---
- Subjective Encounter Start Date: 11/07/18 (f/u COPD exac) Encounter Start Time: 09:10 Subjective: Pt reports some improvement - less chest tightness. Feels -: like she has swelling in her neck that is loosening up. - Objective Resuscitation Status - Order Detail: 11/06/18 19:13 Resuscitation Status Routine Resuscitation Status: FULL: Full Resuscitation Vital Signs & Weight: Vital Signs (12 hours) Temp Pulse Resp BP Pulse Ox 11/07/18 07:50 99 21 H 128/68 100 11/07/18 07:15 97.4 F L 11/07/18 06:26 86 18 11/07/18 06:12 81 19 134/60 100 11/07/18 05:09 94 L 11/07/18 04:00 98.5 F 11/07/18 03:56 128/65 11/07/18 00:08 94 L 11/07/18 00:05 98.4 F Weight Weight 136 lb Most Recent Monitor Data Heart Rate from ECG 91 NIBP 160/86 NIBP BP-Mean 110 Respiration from ECG 18 I&O: 11/06/18 11/07/18 11/08/18 06:59 06:59 06:59 Intake Total 1470 Output Total 1725 Balance -255 Result Diagrams: 11/07/18 05:44 11/07/18 05:44 EKG Reviewed by me: Yes (tele - sinus 90's) Phys Exam - Physical Examination Constitutional: NAD improved air movement, exp wheezes. no audible rales Cardiovascular: RRR, no significant murmur Gastrointestinal: soft, non-tender, no distention, positive bowel sounds Musculoskeletal: no edema, pulses present Neurological: non-focal, moves all 4 limbs Psychiatric: normal affect Dx/Plan (1) COPD exacerbation Code(s): J44.1 - CHRONIC OBSTRUCTIVE PULMONARY DISEASE W (ACUTE) EXACERBATION Status: Acute (2) Acute and chronic respiratory failure Code(s): J96.20 - ACUTE AND CHR RESP FAILURE, UNSP W HYPOXIA OR HYPERCAPNIA Status: Chronic Qualifiers: Respiratory failure complication: hypoxia Qualified Code(s): J96.21 - Acute and chronic respiratory failure with hypoxia (3) GERD (gastroesophageal reflux disease) Code(s): K21.9 - GASTRO-ESOPHAGEAL REFLUX DISEASE WITHOUT ESOPHAGITIS Status: Chronic Qualifiers: Esophagitis presence: esophagitis presence not specified Qualified Code(s) : K21.9 - Gastro-esophageal reflux disease without esophagitis (4) Tobacco abuse Code(s): Z72.0 - TOBACCO USE Status: Chronic (5) Depression with anxiety Code(s): F41.8 - OTHER SPECIFIED ANXIETY DISORDERS Status: Chronic - Plan * Overall some improvement - continue LABA, inhaled steroid, duonebs, IV steroids * Pulm consult today * Continue home meds for mood * d/c IVF as taking adequate PO * * pall care consult placed * * dvt prophy -lovenox * gi prophy - on protonix scheduled due to high dose steroids (takes prn at home ) * code status full * * will have pt in IMCU for another day/night for close monitoring * pt remains at high risk in current condition.
--- NOTE | 2018-11-07 16:18 | CON ---
DATE OF CONSULTATION: 11/07/2018 CONSULTING PHYSICIAN: Dr. Sanchez. REASON FOR CONSULTATION: COPD exacerbation. HISTORY OF PRESENT ILLNESS: The patient is a 58-year-old female who presented to the hospital with a brief history of increased shortness of breath and dyspnea when she went to the store yesterday. She called 911. She received several nebulization treatments, magnesium, and steroids. She has been admitted to the [facility]. PAST MEDICAL HISTORY: 1. Severe chronic obstructive pulmonary disease. She is followed by line service supervisor in [place]. 2. Chronic hypoxic respiratory failure, requiring 2.5 L oxygen at home. 3. Vertebral compression fracture. 4. Gastroesophageal reflux. 5. Anxiety. 6. Depression. 7. History of pulmonary nodules and some type of left chest abnormailty, which was imaged in August [address] aSnchez's report in the chart. Current x- rays are somewhat supportive. There could be something in the left hilar area. PAST SURGICAL HISTORY: 1. C-sections. 2. Kyphoplasty. 3. Hysterectomy with bilateral tubal ligation. FAMILY MEDICAL HISTORY: Remarkable for congestive heart failure and stroke. SOCIAL HISTORY: Still smoking about half pack of cigarettes per week. Smoked much heavier in the past. Lives alone. Does not consume alcohol. REVIEW OF SYSTEMS: Chronic shortness of breath and wheezing. No hematemesis, melena, hematochezia, nausea, vomiting, hematuria, or dysuria. PHYSICAL EXAMINATION: VITAL SIGNS: Temperature 97.4, pulse 93, respirations 20, O2 saturation in the mid 90s on nasal cannula. GENERAL: She is awake and alert, in no distress. HEENT: Pupils reactive to light. Sclerae are anicteric. Oropharynx is clear. NECK: No adenopathy or JVD. LUNGS: She has diffuse rhonchi bilaterally. CARDIAC: S1 and S2 regular without audible murmur. ABDOMEN: Soft and nontender. EXTREMITIES: No clubbing, cyanosis, or edema. LABORATORY DATA: Sodium 137, potassium 4.3, chloride 101, CO2 of 30, BUN 12, creatinine 0.7, glucose 126. White blood cell count 17.8, hematocrit 34.7, and platelet count 354. Chest x-ray demonstrates cardiomegaly alveolar opacities. ASSESSMENT: 1. Chronic obstructive pulmonary disease with exacerbation. 2. Possibility of lung mass. 3. Tobacco abuse. PLAN: 1. Continue steroids, nebs, antibiotics. 2. At some point, she will need a CT of the chest for further workup. 3. Smoking cessation. Job ID: [id number] RAFAEL
[2018-11-08] MEDS: methylPREDNISolone Sod Succ 40 MG VIAL IVP SCH ×4 (03:19→17:28)
[2018-11-08] MEDS: Acetaminophen 325 MG TAB PO PRN ×3 (03:30→14:43)
[2018-11-08 04:29] LABS: #Monocytes 1.3 thou/uL (0.11-0.59); #Neutrophils 17.6 thou/uL (1.40-6.50); %Eosinophils 0.2 % (0.0-10.0); %Lymphocytes 5.1 % (21.0-51.0); %Monocytes 6.3 % (0.0-10.0); %Neutrophils 88.5 % (42.0-75.0); Hemoglobin 10.5 g/dL (12.0-16.0); Mean Corpuscular Hemoglobin 27.5 pg (27.0-31.0); Mean Corpuscular Volume 88.7 fL (78.0-98.0); Mean Platelet Volume 7.9 fL (7.4-10.4); Platelet Count 360 thou/uL (130-400); Red Blood Cell (RBC) Count 3.83 mill/uL (4.20-5.40); White Blood Cell (WBC) Count 19.9 thou/uL (4.8-10.8)
[2018-11-08 04:48] LABS: Anion Gap 12 mmol/L (10-20); BUN (Urea Nitrogen) 17 mg/dL (9.8-20.1); Calc. Creatinine Clearance 92 mL/min (70-130); Calcium 9.1 mg/dL (7.8-10.44); Carbon Dioxide 31 mmol/L (22-29); Chloride 102 mmol/L (98-107); Estimated GFR-MDRD Greater than 90; Glucose 131 mg/dL (70-105); Potassium 4.2 mmol/L (3.5-5.1); Sodium 141 mmol/L (136-145)
[2018-11-08] MEDS: Budesonide 0.5 MG/2 ML NEB INH SCH ×2 (07:25→18:49)
[2018-11-08] MEDS: Arformoterol 15 MCG/2 ML NEB NEB SCH ×2 (07:26→18:49)
--- NOTE | 2018-11-08 09:12 | PRG ---
DATE OF SERVICE: 11/08/2018 SUBJECTIVE: The patient is still short of breath, very labored with her breathing. This is exacerbated by getting up and moving around. OBJECTIVE: VITAL SIGNS: On exam, temperature is 97.5, pulse 86, respirations 23, and O2 saturation 97% on nasal cannula. HEENT: Unremarkable. NECK: No JVD. LUNGS: Diffuse wheezing. CARDIAC: S1 and S2, regular. ABDOMEN: Soft. EXTREMITIES: No edema. LABORATORY DATA: White blood cell count 19.9, hematocrit 34, and platelet count 360. Sodium 141, potassium 4.2, chloride 102, CO2 of 31, BUN 17, creatinine 0.6, and glucose 131. I reviewed the PET scan report from [place] over a year ago, which suggested some uptake in the left hilar region. It sounds like danish disease. ASSESSMENT: 1. Chronic obstructive pulmonary disease with exacerbation. 2. Tobacco abuse. 3. Question of left hilar mass. PLAN: 1. Repeat CT scan of the chest today. 2. Continue steroids, aggressive nebulization therapy. 3. Add oral antibiotic - Zithromax. Job ID: [id number]
[2018-11-08] MEDS: Azithromycin 250 MG TAB PO SCH (09:19)
[2018-11-08] MEDS: guaiFENesin ER 600 MG TAB PO SCH ×2 (09:20→19:53)
[2018-11-08] MEDS: Loratadine 10 MG TAB PO SCH (09:21)
[2018-11-08] MEDS: Bupropion 150 MG SR TAB PO SCH ×2 (09:21→19:53)
[2018-11-08] MEDS: Enoxaparin Sodium 40 MG/0.4 ML SYRINGE SC SCH (09:21)
[2018-11-08] MEDS: Citalopram 20 MG TAB PO SCH (09:21)
[2018-11-08] MEDS ORDERED: ISOVUE-370 76%-LOCM 1 ML ONE (10:55)
--- NOTE | 2018-11-08 11:21 | CT ---
CT CHEST WITH CONTRAST CLINICAL INDICATION: Pulmonary nodules and lung mass. COMPARISON: 08/23/2017 FINDINGS: Scattered linear densities are again seen throughout the lungs bilaterally likely due to chronic lung changes and scarring. There is a stable subpleural pulmonary nodule in the right middle lobe measuring 4 mm. There was a 7 mm pulmonary nodule seen in the left upper lobe which is less conspicuous on today's examination. I'm unsure if this is related to slice selection or decrease in size of the nodule. The previously se en pleural-based nodular density along the minor fissure on the right is also less conspicuous on today's exam. There is a focal nodular density seen at the anteromedial aspect of the left upper lobe (image 29, se mariya 3). Slight linear and patchy densities were seen on the prior exam. This could be related to atelectasis in this region, but this does have a nodular appearance and measures 13 mm. No additional discrete pulmonary nodule or mass is visualized. There is very tiny left pleural effusi on seen posteriorly. Previously described left hilar mass is again noted. This mass measures approximately 3 cm transverse x 2.9 cm AP. Differences in size compared to prior study may be related to slice selection. There is narrowing of the upper and lower lobe bronchi secondary to this mass. However, there is no collaps e of the left upper or left lower lobe. There are linear calcifications seen in the right mid lung zone. No enlarged mediastinal or right hilar lymph nodes are seen. There is no axillary lymphadenopathy. Visualized upper abdomen is stable compared to prior study. Multilevel vertebroplasty changes are seen within the thoracic and visualized L1 vertebral body which were seen on CT thoracic spine on 04/22/2018. There are mild compression fractures of the T8 and T9 vertebral bodies. Compression fracture of T9 vertebral body was seen on CT of the thoracic spine, but there has been interval height loss involving the T8 vertebral body compared to prior exam. Fracture involving the L1 vertebral body is a burst fractures as there is retropulsion of fracture fr agments into the central canal. Visualized upper abdomen has a normal CT appearance. IMPRESSION: 1. Left hilar mass with greatest dimension of 3 cm. Again, there is narrowing of the left upper and l eft lower lobe bronchi in this region. 2. Nodular parenchymal density in the anteromedial left upper lobe measuring 13 mm. This could be rel ated to focal area of atelectasis, but newly developed pulmonary nodule is a possibility. Follow-up evaluation is recommended. 3. Previously described nodules in the right middle lobe and left upper lobe as well as along the mi nor fissure on the right are again seen but are less conspicuous and smaller in size on today's exam. 4. Chronic lung changes with evidence of COPD. 5. Vertebral plasty changes at multiple compression fractures of lower thoracic and upper lumbar vert ebral bodies. There are compression fractures of the T8 and T9 vertebral bodies. Compression fracture of the T9 vertebral body was seen on the prior CT thoracic spine, but the compression fractu re T8 vertebral body represents interval height loss compared to that exam.
--- NOTE | 2018-11-08 12:15 | PDOC.PN ---
- Subjective Encounter Start Date: 11/08/18 Encounter Start Time: 11:40 Subjective: Patient still very short of breath, even at rest. Patient reports -: she is concerned that here COPD is likely nearing end stage. - Objective Resuscitation Status - Order Detail: 11/06/18 19:13 Resuscitation Status Routine Resuscitation Status: FULL: Full Resuscitation MAR Reviewed: Yes Vital Signs & Weight: Vital Signs (12 hours) Temp Pulse Resp BP Pulse Ox 11/08/18 11:26 97.5 F L 165/81 H 11/08/18 10:13 95 21 H 95 11/08/18 09:05 134/65 11/08/18 08:00 97 11/08/18 07:26 97.5 F L 145/77 H 11/08/18 07:25 77 18 96 11/08/18 06:29 139/69 100 11/08/18 04:00 98.2 F 11/08/18 03:48 95 11/08/18 03:31 142/72 H 100 Weight Weight 136 lb Most Recent Monitor Data Heart Rate from ECG 97 NIBP 160/86 NIBP BP-Mean 110 Respiration from ECG 23 I&O: 11/07/18 11/08/18 11/09/18 06:59 06:59 06:59 Intake Total 1470 1440 Output Total 1725 800 Balance -255 640 Result Diagrams: 11/08/18 04:02 11/08/18 04:02 Phys Exam - Physical Examination Constitutional: NAD HEENT: moist MMs bilateral wheezes and poor breath sounds, mild increased WOB when talking Cardiovascular: RRR Gastrointestinal: soft, positive bowel sounds Neurological: non-focal, moves all 4 limbs Psychiatric: normal affect, A&O x 3 Dx/Plan (1) COPD exacerbation Code(s): J44.1 - CHRONIC OBSTRUCTIVE PULMONARY DISEASE W (ACUTE) EXACERBATION Status: Acute (2) Acute and chronic respiratory failure Code(s): J96.20 - ACUTE AND CHR RESP FAILURE, UNSP W HYPOXIA OR HYPERCAPNIA Status: Chronic Qualifiers: Respiratory failure complication: hypoxia Qualified Code(s): J96.21 - Acute and chronic respiratory failure with hypoxia (3) GERD (gastroesophageal reflux disease) Code(s): K21.9 - GASTRO-ESOPHAGEAL REFLUX DISEASE WITHOUT ESOPHAGITIS Status: Chronic Qualifiers: Esophagitis presence: esophagitis presence not specified Qualified Code(s) : K21.9 - Gastro-esophageal reflux disease without esophagitis (4) Depression with anxiety Code(s): F41.8 - OTHER SPECIFIED ANXIETY DISORDERS Status: Chronic (5) Tobacco abuse Code(s): Z72.0 - TOBACCO USE Status: Chronic - Plan cont current plan of care, continue antibiotics, respiratory therapy, DVT proph w/lovenox continue antibiotics, steroids, and nebs -: CT with pulmonary nodule/mass pressing on bronchi- w/u per Dr. Guaman * . - Discharge Day Encounter end time: 11:50 Pulmonology Consult: Meds - Medications MAR Reviewed: Yes Medications: Current Medications Acetaminophen (Tylenol) 650 mg PO Q4H PRN PRN Reason: Headache/Fever/Mild Pain (1-3) Last Admin: 11/08/18 09:24 Dose: 650 mg Albuterol Sulfate (Ventolin) 2.5 mg NEB [id number] PRN PRN Reason: SOB &/or Wheezing Albuterol/Ipratropium (Duoneb) 3 ml NEB [id number] [facility] Last Admin: 11/08/18 10:13 Dose: 3 ml Arformoterol Tartrate (Brovana) 15 mcg NEB BID-RT MILY Last Admin: 11/08/18 07:26 Dose: 15 mcg Azithromycin (Zithromax) 250 mg PO DAILY [facility] Stop: 11/14/18 09:01 Last Admin: 11/08/18 09:19 Dose: 250 mg Budesonide (Pulmicort Neb Solution) 0.5 mg INH BID-RT [facility] [place] Last Admin: 11/08/18 07:25 Dose: 0.5 mg Bupropion HCl (Wellbutrin Sr) 150 mg PO BID [facility] [place] Last Admin: 11/08/18 09:21 Dose: 150 mg Citalopram Hydrobromide (Celexa) 20 mg PO DAILY [facility] [place] Last Admin: 11/08/18 09:21 Dose: 20 mg Enoxaparin Sodium (Lovenox) 40 mg SC 0900 [facility] [place] Last Admin: 11/08/18 09:21 Dose: 40 mg Guaifenesin (Mucinex) 1,200 mg PO Q12HR [facility] [place] Last Admin: 11/08/18 09:20 Dose: 1,200 mg Loratadine (Claritin) 10 mg PO DAILY [facility] [place] Last Admin: 11/08/18 09:21 Dose: 10 mg Methylprednisolone Sodium Succinate (Solu-Medrol) 40 mg IVP Q6HR [facility] [place] Last Admin: 11/08/18 12:16 Dose: 40 mg Pantoprazole Sodium (Protonix) 40 mg PO DAILY [facility] [place] Last Admin: 11/08/18 09:21 Dose: 40 mg Sodium Chloride (Flush - Normal Saline) 10 ml IVF Q12HR [facility] Last Admin: 11/08/18 09:21 Dose: 10 ml Sodium Chloride (Flush - Normal Saline) 10 ml IVF PRN PRN PRN Reason: Saline Flush - Allergies Allergies/Adverse Reactions: Allergies Allergy/AdvReac Type Severity Reaction Status Date / Time Sulfa (Sulfonamide Allergy Severe Anaphylaxis Verified 11/06/18 17:46 Antibiotics) Latex, Natural Rubber Allergy Verified 11/06/18 17:46 meperidine [From Demerol] Allergy Verified 11/06/18 17:46
[2018-11-09] MEDS: methylPREDNISolone Sod Succ 40 MG VIAL IVP SCH ×5 (01:34→23:04)
[2018-11-09] MEDS: Arformoterol 15 MCG/2 ML NEB NEB SCH ×2 (06:33→18:56)
[2018-11-09] MEDS: Budesonide 0.5 MG/2 ML NEB INH SCH ×2 (06:34→18:54)
--- NOTE | 2018-11-09 08:40 | PDOC.PN ---
- Subjective Encounter Start Date: 11/09/18 Encounter Start Time: 10:30 Subjective: Patient reports mild improvement in breathing. No other -: complaints. - Objective Resuscitation Status - Order Detail: 11/06/18 19:13 Resuscitation Status Routine Resuscitation Status: FULL: Full Resuscitation MAR Reviewed: Yes Vital Signs & Weight: Vital Signs (12 hours) Temp Pulse Resp BP Pulse Ox 11/09/18 07:44 98 11/09/18 07:14 97.9 F 151/73 H 11/09/18 06:36 100 11/09/18 06:35 98 20 100 11/09/18 06:34 98 20 100 11/09/18 06:33 98 20 100 11/09/18 05:31 133/74 100 11/09/18 03:33 98.3 F 11/09/18 03:00 158/85 H 100 11/09/18 02:46 88 18 100 11/09/18 01:00 151/71 H 100 11/08/18 23:18 98.6 F 11/08/18 22:41 78 22 H 100 Weight Admit Weight 136 lb Weight 136 lb Most Recent Monitor Data Heart Rate from ECG 101 NIBP 160/86 NIBP BP-Mean 110 Respiration from ECG 21 I&O: 11/08/18 11/09/18 11/10/18 06:59 06:59 06:59 Intake Total 1440 1620 Output Total 800 2200 Balance 640 -580 Result Diagrams: 11/08/18 04:02 11/08/18 04:02 Phys Exam - Physical Examination Constitutional: NAD HEENT: moist MMs Respiratory: no rales, no rhonchi tight breath sounds and wheezing bilaterally, no inc WOB at rest Cardiovascular: RRR, no significant murmur Gastrointestinal: soft, positive bowel sounds Neurological: non-focal, moves all 4 limbs Psychiatric: normal affect, A&O x 3 Dx/Plan (1) COPD exacerbation Code(s): J44.1 - CHRONIC OBSTRUCTIVE PULMONARY DISEASE W (ACUTE) EXACERBATION Status: Acute (2) Acute and chronic respiratory failure Code(s): J96.20 - ACUTE AND CHR RESP FAILURE, UNSP W HYPOXIA OR HYPERCAPNIA Status: Chronic Qualifiers: Respiratory failure complication: hypoxia Qualified Code(s): J96.21 - Acute and chronic respiratory failure with hypoxia (3) Lung mass Code(s): R91.8 - OTHER NONSPECIFIC ABNORMAL FINDING OF LUNG FIELD Status: Acute Comment: left hilar mass, 3 cm, pressing on upper and lower left bronchi , plan for bronchoscopy when improved respiratory status (4) GERD (gastroesophageal reflux disease) Code(s): K21.9 - GASTRO-ESOPHAGEAL REFLUX DISEASE WITHOUT ESOPHAGITIS Status: Chronic Qualifiers: Esophagitis presence: esophagitis presence not specified Qualified Code(s) : K21.9 - Gastro-esophageal reflux disease without esophagitis (5) Depression with anxiety Code(s): F41.8 - OTHER SPECIFIED ANXIETY DISORDERS Status: Chronic (6) Tobacco abuse Code(s): Z72.0 - TOBACCO USE Status: Chronic - Plan cont current plan of care, continue antibiotics, respiratory therapy, DVT proph w/lovenox, DVT proph w/SCDs * . - Discharge Day Encounter end time: 10:40 Pulmonology Consult: Meds - Medications MAR Reviewed: Yes Medications: Current Medications Acetaminophen (Tylenol) 650 mg PO Q4H PRN PRN Reason: Headache/Fever/Mild Pain (1-3) Last Admin: 11/08/18 14:43 Dose: 650 mg Albuterol Sulfate (Ventolin) 2.5 mg NEB [id number] PRN PRN Reason: SOB &/or Wheezing Albuterol/Ipratropium (Duoneb) 3 ml NEB [id number] [facility] Last Admin: 11/09/18 06:35 Dose: 3 ml Arformoterol Tartrate (Brovana) 15 mcg NEB BID-RT [facility] Last Admin: 11/09/18 06:33 Dose: 15 mcg Azithromycin (Zithromax) 250 mg PO DAILY [facility] Stop: 11/14/18 09:01 Last Admin: 11/08/18 09:19 Dose: 250 mg Budesonide (Pulmicort Neb Solution) 0.5 mg INH BID-RT [facility] Last Admin: 11/09/18 06:34 Dose: 0.5 mg Bupropion HCl (Wellbutrin Sr) 150 mg PO BID [facility] Last Admin: 11/08/18 19:53 Dose: 150 mg Citalopram Hydrobromide (Celexa) 20 mg PO DAILY [facility] Last Admin: 11/08/18 09:21 Dose: 20 mg Enoxaparin Sodium (Lovenox) 40 mg SC 0900 [facility] Last Admin: 11/08/18 09:21 Dose: 40 mg Guaifenesin (Mucinex) 1,200 mg PO Q12HR [facility] Last Admin: 11/08/18 19:53 Dose: 1,200 mg Loratadine (Claritin) 10 mg PO DAILY [facility] Last Admin: 11/08/18 09:21 Dose: 10 mg Methylprednisolone Sodium Succinate (Solu-Medrol) 40 mg IVP Q6HR [facility] Last Admin: 11/09/18 05:23 Dose: 40 mg Pantoprazole Sodium (Protonix) 40 mg PO DAILY [facility] Last Admin: 11/08/18 09:21 Dose: 40 mg Sodium Chloride (Flush - Normal Saline) 10 ml IVF Q12HR [facility] Last Admin: 11/08/18 19:53 Dose: 10 ml Sodium Chloride (Flush - Normal Saline) 10 ml IVF PRN PRN PRN Reason: Saline Flush - Allergies Allergies/Adverse Reactions: Allergies Allergy/AdvReac Type Severity Reaction Status Date / Time Sulfa (Sulfonamide Allergy Severe Anaphylaxis Verified 11/06/18 17:46 Antibiotics) Latex, Natural Rubber Allergy Verified 11/06/18 17:46 meperidine [From Demerol] Allergy Verified 11/06/18 17:46
[2018-11-09] MEDS: Citalopram 20 MG TAB PO SCH (08:59)
[2018-11-09] MEDS: guaiFENesin ER 600 MG TAB PO SCH ×2 (08:59→19:58)
[2018-11-09] MEDS: Acetaminophen 325 MG TAB PO PRN ×3 (08:59→19:58)
[2018-11-09] MEDS: Azithromycin 250 MG TAB PO SCH (09:00)
[2018-11-09] MEDS: Bupropion 150 MG SR TAB PO SCH ×2 (09:00→19:58)
[2018-11-09] MEDS: Loratadine 10 MG TAB PO SCH (09:00)
[2018-11-09] MEDS: Enoxaparin Sodium 40 MG/0.4 ML SYRINGE SC SCH (09:01)
--- NOTE | 2018-11-09 09:24 | PRG ---
DATE OF SERVICE: 11/09/2018 SUBJECTIVE: The patient is doing better. She had no acute complaints. OBJECTIVE: VITAL SIGNS: Temperature is 97.9, pulse 98, O2 saturation 100% on 2.5 L, and blood pressure 151/73. HEENT: Unremarkable. NECK: No JVD. LUNGS: Mild end expiratory wheezing. CARDIAC: S1 and S2 regular. ABDOMEN: Soft. EXTREMITIES: No edema. CT shows a left sided hilar mass about 3 cm with bronchial narrowing, actually has not changed much in the span of one year. ASSESSMENT: 1. Chronic obstructive pulmonary disease with exacerbation. 2. Lung mass. 3. Tobacco abuse. PLAN: The patient needs a bronchoscopy. However, her pulmonary status is tenuous and I do not think this could be done safely until at least or Thursday. I think what to be done in the hospital is she is uninsured and would not be able to come back into the hospital as an outpatient because she cannot afford the test. We will continue with steroids, nebulization treatments, and antibiotics. Tentatively plan bronchoscopy for or Thursday. Job ID: [id number]
[2018-11-10] MEDS: Acetaminophen 325 MG TAB PO PRN ×2 (05:11→21:14)
[2018-11-10] MEDS: methylPREDNISolone Sod Succ 40 MG VIAL IVP SCH (05:11)
[2018-11-10] MEDS: Budesonide 0.5 MG/2 ML NEB INH SCH ×2 (07:46→18:44)
[2018-11-10] MEDS: Arformoterol 15 MCG/2 ML NEB NEB SCH ×2 (07:46→18:44)
--- NOTE | 2018-11-10 08:02 | PDOC.PN ---
- Subjective Encounter Start Date: 11/10/18 Encounter Start Time: 10:30 Subjective: SOB mildly improved, fine if stays at rest, no fever. - Objective Resuscitation Status - Order Detail: 11/06/18 19:13 Resuscitation Status Routine Resuscitation Status: FULL: Full Resuscitation MAR Reviewed: Yes Vital Signs & Weight: Vital Signs (12 hours) Temp Pulse Resp Pulse Ox 11/10/18 07:47 100 11/10/18 07:46 88 20 100 11/10/18 07:43 85 20 100 11/10/18 07:00 98.1 F 11/10/18 03:16 98.6 F 11/10/18 02:19 100 11/10/18 02:18 83 17 100 11/09/18 23:16 98.1 F 11/09/18 22:23 79 19 100 11/09/18 20:42 98 Weight Admit Weight 136 lb Weight 136 lb Most Recent Monitor Data Heart Rate from ECG 96 NIBP 150/82 NIBP BP-Mean 104 Respiration from ECG 19 SpO2 93 I&O: 11/09/18 11/10/18 11/11/18 06:59 06:59 06:59 Intake Total 1620 1575 Output Total 2200 450 Balance -580 1125 Result Diagrams: 11/08/18 04:02 11/08/18 04:02 Phys Exam - Physical Examination Constitutional: NAD HEENT: moist MMs Respiratory: no rales, no rhonchi scattered wheezes Cardiovascular: RRR Gastrointestinal: soft, non-tender, positive bowel sounds Musculoskeletal: no edema Neurological: non-focal, moves all 4 limbs Psychiatric: normal affect, A&O x 3 Dx/Plan (1) COPD exacerbation Code(s): J44.1 - CHRONIC OBSTRUCTIVE PULMONARY DISEASE W (ACUTE) EXACERBATION Status: Acute (2) Acute and chronic respiratory failure Code(s): J96.20 - ACUTE AND CHR RESP FAILURE, UNSP W HYPOXIA OR HYPERCAPNIA Status: Chronic Qualifiers: Respiratory failure complication: hypoxia Qualified Code(s): J96.21 - Acute and chronic respiratory failure with hypoxia (3) Lung mass Code(s): R91.8 - OTHER NONSPECIFIC ABNORMAL FINDING OF LUNG FIELD Status: Acute Comment: left hilar mass, 3 cm, pressing on upper and lower left bronchi , plan for bronchoscopy or Thursday when respiratory status improved enough (4) GERD (gastroesophageal reflux disease) Code(s): K21.9 - GASTRO-ESOPHAGEAL REFLUX DISEASE WITHOUT ESOPHAGITIS Status: Chronic Qualifiers: Esophagitis presence: esophagitis presence not specified Qualified Code(s) : K21.9 - Gastro-esophageal reflux disease without esophagitis (5) Depression with anxiety Code(s): F41.8 - OTHER SPECIFIED ANXIETY DISORDERS Status: Chronic (6) Tobacco abuse Code(s): Z72.0 - TOBACCO USE Status: Chronic - Plan cont current plan of care, continue antibiotics, respiratory therapy, out of bed /ambulate, DVT proph w/lovenox, DVT proph w/SCDs plan for bronchoscopy tomorrow AM * . - Discharge Day Encounter end time: 10:40
[2018-11-10] MEDS: Citalopram 20 MG TAB PO SCH (08:58)
[2018-11-10] MEDS: Bupropion 150 MG SR TAB PO SCH ×2 (08:58→21:14)
[2018-11-10] MEDS: predniSONE 20 MG TAB PO SCH (08:58)
[2018-11-10] MEDS: Loratadine 10 MG TAB PO SCH (08:58)
[2018-11-10] MEDS: guaiFENesin ER 600 MG TAB PO SCH ×2 (08:58→21:14)
[2018-11-10] MEDS: Enoxaparin Sodium 40 MG/0.4 ML SYRINGE SC SCH (08:59)
[2018-11-10] MEDS: Azithromycin 250 MG TAB PO SCH (08:59)
--- NOTE | 2018-11-10 09:14 | PRG ---
DATE OF SERVICE: 11/10/2018 SUBJECTIVE: The patient is doing better, had no acute complaints this morning. OBJECTIVE: VITAL SIGNS: Temperature 98.1, heart rate 91, blood pressure 150/82, O2 saturation 100% on nasal cannula. HEENT: Unremarkable. NECK: No JVD. LUNGS: Fairly clear. CARDIAC: S1 and S2, regular. ABDOMEN: Soft and nontender. EXTREMITIES: No edema. ASSESSMENT: 1. Chronic obstructive pulmonary disease with exacerbation. 2. Left hilar mass. PLAN: Bronchoscopy tomorrow morning under general anesthesia. I discussed the procedure with the patient. I have discussed the risks with the patient including bleeding, infection, external lung puncture, and possible reaction to the anesthesia. She agrees to proceed. Procedure scheduled for at 8:30 in the morning. Job ID: [id number]
[2018-11-11] MEDS: Albuterol Sulfate 2.5 mg/3 ml Neb NEB PRN (00:07)
--- NOTE | 2018-11-11 07:47 | PRG ---
DATE OF SERVICE: 11/10/2018 SUBJECTIVE: She feels okay. We discussed a bronchoscopy again. She has signed the consent form and agreed to proceed. OBJECTIVE: VITAL SIGNS: Temperature 97.4, pulse 79, blood pressure 153/88, and O2 saturation 99%. HEENT: Unremarkable. NECK: No JVD. LUNGS: Fairly clear with maybe a mild end-expiratory wheeze. CARDIAC: S1 and S2, regular. ABDOMEN: Soft. EXTREMITIES: No edema. ASSESSMENT: 1. Chronic obstructive pulmonary disease exacerbation. 2. Hilar mass on the left. PLAN: 1. Bronchoscopy with possible biopsy. 2. Continue steroids, nebs. 3. May be able to go home later today after the bronchoscopy. Job ID: [id number]
[2018-11-11] MEDS ORDERED: Fentanyl 100 MCG/2 ML VIAL ONE ×2 (08:08→09:41)
[2018-11-11] MEDS: Budesonide 0.5 MG/2 ML NEB INH SCH ×2 (08:27→18:56)
[2018-11-11] MEDS: Arformoterol 15 MCG/2 ML NEB NEB SCH ×2 (08:28→18:57)
--- NOTE | 2018-11-11 08:41 | PDOC.PN ---
- Subjective Encounter Start Date: 11/11/18 Encounter Start Time: 12:00 Subjective: Patient had bronchoscopy this AM with biopsy, afterward had some -: wheezing, tripoding, respiratory distress but now calmed down significantly -: and almost back to where she was before. - Objective Resuscitation Status - Order Detail: 11/06/18 19:13 Resuscitation Status Routine Resuscitation Status: FULL: Full Resuscitation MAR Reviewed: Yes Vital Signs & Weight: Vital Signs (12 hours) Temp Pulse Resp Pulse Ox 11/11/18 08:28 95 22 H 98 11/11/18 08:27 95 22 H 98 11/11/18 08:23 95 22 H 98 11/11/18 07:54 98 11/11/18 07:14 97.4 F L 11/11/18 04:00 98.6 F 11/11/18 02:08 90 19 99 11/11/18 00:07 86 24 H 100 11/11/18 00:00 98.5 F 11/10/18 21:23 96 24 H 99 Weight Admit Weight 136 lb Weight 136 lb Most Recent Monitor Data Heart Rate from ECG 79 NIBP 153/88 NIBP BP-Mean 109 Respiration from ECG 19 SpO2 99 I&O: 11/10/18 11/11/18 11/12/18 06:59 06:59 06:59 Intake Total 1575 1920 Output Total 450 1300 Balance 1125 620 Result Diagrams: 11/08/18 04:02 11/08/18 04:02 Phys Exam - Physical Examination Constitutional: NAD HEENT: moist MMs Respiratory: no rales, no rhonchi, wheezing present Cardiovascular: RRR, no significant murmur Gastrointestinal: soft, positive bowel sounds Neurological: non-focal, moves all 4 limbs Psychiatric: normal affect, A&O x 3 Dx/Plan (1) COPD exacerbation Code(s): J44.1 - CHRONIC OBSTRUCTIVE PULMONARY DISEASE W (ACUTE) EXACERBATION Status: Acute (2) Acute and chronic respiratory failure Code(s): J96.20 - ACUTE AND CHR RESP FAILURE, UNSP W HYPOXIA OR HYPERCAPNIA Status: Chronic Qualifiers: Respiratory failure complication: hypoxia Qualified Code(s): J96.21 - Acute and chronic respiratory failure with hypoxia (3) Lung mass Code(s): R91.8 - OTHER NONSPECIFIC ABNORMAL FINDING OF LUNG FIELD Status: Acute Comment: left hilar mass, 3 cm, pressing on upper and lower left bronchi , plan for bronchoscopy and possible bx today (4) GERD (gastroesophageal reflux disease) Code(s): K21.9 - GASTRO-ESOPHAGEAL REFLUX DISEASE WITHOUT ESOPHAGITIS Status: Chronic Qualifiers: Esophagitis presence: esophagitis presence not specified Qualified Code(s) : K21.9 - Gastro-esophageal reflux disease without esophagitis (5) Depression with anxiety Code(s): F41.8 - OTHER SPECIFIED ANXIETY DISORDERS Status: Chronic (6) Tobacco abuse Code(s): Z72.0 - TOBACCO USE Status: Chronic - Plan cont current plan of care, respiratory therapy awaiting bronch biopsy results, will likely need to keep till -: tomorrow due to difficulty breathing after bronch. Home when ok -: with pulmonology. * . - Discharge Day Encounter end time: 12:15
[2018-11-11] MEDS ORDERED: Promethazine HCl 25 MG/ML VIAL SLOW IVP PRN (08:48)
[2018-11-11] MEDS ORDERED: Ondansetron HCl/PF 4 MG/2 ML Vial IVP PRN (08:48)
[2018-11-11] MEDS ORDERED: HYDROmorphone 2 MG/ML VIAL SLOW IVP PRN (08:48)
[2018-11-11] MEDS ORDERED: PACU-Morphine 4MG/ML VIAL SLOW IVP PRN (08:48)
[2018-11-11] MEDS ORDERED: Promethazine HCl 25 MG/ML VIAL IM PRN (08:48)
[2018-11-11] MEDS ORDERED: Ondansetron PF 4 MG/2 ML Vial ONE (09:58)
[2018-11-11] MEDS ORDERED: Lidocaine 1% PF 5 ML VIAL ONE (09:58)
[2018-11-11] MEDS ORDERED: Glycopyrrolate 0.2 MG/ML 5 ML SYRINGE ONE (09:58)
[2018-11-11] MEDS ORDERED: PROPOFOL 200 MG/20 ML VIAL ONE (09:58)
[2018-11-11] MEDS ORDERED: Dexamethasone 20 MG/5 ML VIAL ONE (09:58)
[2018-11-11] MEDS ORDERED: Rocuronium Bromide 10 MG/ML (10ML VIAL) ONE (09:58)
[2018-11-11] MEDS: Enoxaparin Sodium 40 MG/0.4 ML SYRINGE SC SCH (10:30)
[2018-11-11] MEDS: Bupropion 150 MG SR TAB PO SCH ×2 (10:31→20:08)
[2018-11-11] MEDS: Acetaminophen 325 MG TAB PO PRN ×3 (10:31→20:07)
[2018-11-11] MEDS: Loratadine 10 MG TAB PO SCH (10:31)
[2018-11-11] MEDS: Azithromycin 250 MG TAB PO SCH (10:31)
[2018-11-11] MEDS: Citalopram 20 MG TAB PO SCH (10:31)
[2018-11-11] MEDS: guaiFENesin ER 600 MG TAB PO SCH ×2 (10:31→20:07)
[2018-11-11] MEDS: predniSONE 20 MG TAB PO SCH (10:31)
--- NOTE | 2018-11-11 16:13 | OP ---
DATE OF PROCEDURE: 11/11/2018 PROCEDURE: Fiberoptic bronchoscopy with left upper lobe endobronchial biopsy, brushings, and washings. PREOPERATIVE DIAGNOSIS: Left upper lobe lung mass. POSTOPERATIVE DIAGNOSIS: Left upper lobe endobronchial lung mass. ANESTHESIA: General anesthesia. DESCRIPTION OF PROCEDURE: Informed consent was obtained from the patient prior to the procedure. She understood the risks involved including bleeding, infection, and external lung puncture. She agreed to proceed. The patient was brought to the endoscopy suite. She was intubated by GALLEY STRIPPER and placed on mechanical ventilation. She received general endotracheal anesthesia throughout the duration of the procedure. An Olympus bronchoscope was placed through the patient's endotracheal tube. The trachea was surveyed and appeared to be normal in appearance. The right upper lobe and right middle lobe were normal in appearance. The right lower lobe was obscured by mucus. This was easily aspirated and cleared with normal saline. The left mainstem bronchus was then surveyed. At the orifice of the left upper lobe, there was a tumor 100% obstructing passage into the remainder left upper lobe segment. This tumor was necrotic in the middle and more viable tissue toward the sides. Biopsies were taken towards the most superior aspect of the tumor. Brushings were obtained and washings were obtained. Brushings were also obtained from the narrow orifice going into the left lower lobe. I was unable to pass the scope into the left lower lobe because of the extensive narrowing of the orifice. The bronchoscope was then withdrawn. The patient was awakened from general anesthesia and extubated and brought to the recovery room in stable condition. Job ID: [id number]
[2018-11-12] MEDS: Arformoterol 15 MCG/2 ML NEB NEB SCH ×2 (07:16→18:36)
[2018-11-12] MEDS: Budesonide 0.5 MG/2 ML NEB INH SCH ×2 (07:18→18:38)
[2018-11-12] MEDS: Acetaminophen 325 MG TAB PO PRN ×2 (07:20→20:07)
--- NOTE | 2018-11-12 08:16 | PRG ---
DATE OF SERVICE: 11/12/2018 SUBJECTIVE: Ms. Orr experienced a setback in terms of her breathing yesterday after the bronchoscopy. She is still somewhat dyspneic this morning. OBJECTIVE: VITAL SIGNS: Temperature is 98.3, pulse 78, blood pressure 158/86, and O2 saturation 98%. HEENT: Unremarkable. NECK: No JVD. LUNGS: Diffuse mild wheezing. CARDIAC: S1, S2, regular. ABDOMEN: Soft. EXTREMITIES: No edema. ASSESSMENT: 1. Likely left upper lobe lung cancer. 2. Chronic obstructive pulmonary disease with exacerbation. PLAN: The status of her breathing will necessitate that she stay in the hospital for another day or two. I do not expect her biopsy results to be back until next week. It is probably advisable to get her involved with the oncologist before she is discharged. Job ID: [id number]
[2018-11-12] MEDS: Citalopram 20 MG TAB PO SCH (08:44)
[2018-11-12] MEDS: Loratadine 10 MG TAB PO SCH (08:44)
[2018-11-12] MEDS: predniSONE 20 MG TAB PO SCH (08:44)
[2018-11-12] MEDS: guaiFENesin ER 600 MG TAB PO SCH ×2 (08:44→20:06)
[2018-11-12] MEDS: Bupropion 150 MG SR TAB PO SCH ×2 (08:44→20:06)
[2018-11-12] MEDS: Azithromycin 250 MG TAB PO SCH (08:44)
[2018-11-12] MEDS: Enoxaparin Sodium 40 MG/0.4 ML SYRINGE SC SCH (08:45)
--- NOTE | 2018-11-12 21:26 | CON ---
DATE OF CONSULTATION: REASON FOR CONSULT: Lung mass. HISTORY OF PRESENT ILLNESS: Ms. Orr is a 58-year-old female with a medical history of COPD who presented to the emergency room in [place] with worsening shortness of breath. She was transferred to this facility for respiratory failure. She underwent a chest CT, which showed a left hilar mass measuring 3 cm. There was narrowing of the left upper and lower lobes and Dr. Guaman was consulted and performed a bronchoscopy. On bronchoscopy, the tumor was obstructing passage to the remainder of the left upper lobe, it had a necrotic center. Biopsies were taken and are currently pending. The patient has a 30-drza-keai history of smoking. Denies any complaints other than shortness of breath and wheezing. Patient has a history of lung nodules that have been followed since early 2018. PET scan performed in [place] last year showed a 1.5cm JEANNIE nodule with SUV 6.5. Patient declined biopsy at that time. PAST MEDICAL HISTORY: 1. Severe COPD. 2. Oxygen dependency. 3. Gastroesophageal reflux. 4. Anxiety and depression. 5. Vertebral compression fracture. PAST SURGICAL HISTORY: 1. . 2. Kyphoplasty. 3. Hysterectomy. ALLERGIES: TO SULFA, LATEX, AND DEMEROL. HOME MEDICATIONS: 1. Albuterol neb q.4 hours p.r.n. 2. ProAir inhaler p.r.n. 3. Wellbutrin 200 mg b.i.d. 4. Citalopram 20 mg daily. 5. Flonase daily. 6. Atrovent p.r.n. 7. Claritin daily. 8. Protonix 40 mg daily. 9. Prednisone 20 mg daily. FAMILY HISTORY: No history of lung cancer. SOCIAL HISTORY: . Lives alone in [place]. 75-fbyh-ugvr history of smoking. No alcohol or illicit drug use. REVIEW OF SYSTEMS: 10-point review of systems is negative except for noted in HPI. PHYSICAL EXAMINATION: VITAL SIGNS: Temperature is 98.2, pulse is 96, respiratory rate 20, BP is 136/ 84. She is 99% on 2 L. GENERAL: Well-developed, well-nourished female, in no acute distress. HEENT: Normocephalic, atraumatic. Pupils are equal and reactive to light. NECK: Supple. CARDIOVASCULAR: Regular rate and rhythm. LUNGS: She has expiratory wheezes throughout. ABDOMEN: Soft and nontender. Bowel sounds are positive. EXTREMITIES: No clubbing, cyanosis, or edema. SKIN: No rash. HEMATOLOGICAL: No petechiae or purpura. NEUROLOGICAL: Nonfocal. PSYCHIATRIC: She is alert, oriented, and appropriate. PERTINENT LABS AND X-RAYS: Current WBCs are 19.9, hemoglobin 10.5, hematocrit 39.4, platelet count 360,000, 89% neutrophils, 5% lymphocytes. Sodium is 141, potassium 4.2, chloride 102, CO2 is 31, BUN is 17, creatinine 0.64, calcium is 9.1. Radiology per HPI. ASSESSMENT: 1. Left hilar mass, consistent with Squamous cell carcinoma. 2. Severe chronic obstructive pulmonary disease. DISCUSSION: The patient appears to have early stage cancer. She is not a candidate for any surgical procedure due to her COPD. She may be a candidate for SABR or concurrent chemotherapy. Will ask Dr. Armenta to see the patient. Financial counselor has been notified. Case was discussed with Dr. Vail and Dr. Blas. Thank you for the consult. Job ID: [id number] MTDD
--- NOTE | 2018-11-12 23:33 | PDOC.PN ---
- Subjective Encounter Start Date: 11/12/18 Encounter Start Time: 10:30 Patient seen and examined for Resp failure. SOB at rest. Dry coughing. No other complaints. No overnight events - Objective Resuscitation Status - Order Detail: 11/06/18 19:13 Resuscitation Status Routine Resuscitation Status: FULL: Full Resuscitation MAR Reviewed: Yes Vital Signs & Weight: Vital Signs (12 hours) Temp Pulse Resp Pulse Ox 11/12/18 22:04 96 20 11/12/18 20:00 94 L 11/12/18 19:11 98.1 F 88 22 H 94 L 11/12/18 18:38 92 18 97 11/12/18 18:36 92 18 97 11/12/18 15:09 97.0 F L 11/12/18 14:32 96 20 99 Weight Admit Weight 136 lb Weight 136 lb Most Recent Monitor Data Heart Rate from ECG 85 NIBP 140/85 NIBP BP-Mean 103 Respiration from ECG 21 SpO2 100 I&O: 11/11/18 11/12/18 11/13/18 06:59 06:59 06:59 Intake Total 1920 1920 1000 Output Total 1300 1750 Balance 254 713 9656 Result Diagrams: 11/13/18 04:30 11/13/18 04:30 EKG Reviewed by me: Yes (Tele SR) Phys Exam - Physical Examination Constitutional: NAD Respiratory: wheezing present (exp) B/L rhonchi with rales at bases Cardiovascular: RRR, no rub Gastrointestinal: soft, non-tender, positive bowel sounds Musculoskeletal: no edema Neurological: moves all 4 limbs Dx/Plan - Plan DVT proph w/lovenox, DVT proph w/SCDs IMPRESSION: Acute on chronic hypoxic resp failure due to COPD Exacerbation Left Upper lobe lung mass s/p Bronchoscopy Chronic resp failure on home O2 - 2-3 lit Obesity BMI 30.5 Tobacco dep GERD Anxiety Depression - mild stable PLAN: Cont Atbx/Steroids/Nebs Await Patho report Oncology consultation Cont other meds as below Counselled to quit smoking Review of Systems - Review of Systems Constitutional: negative: fever, chills, sweats, weakness, malaise, other Gastrointestinal: negative: Nausea, Vomiting, Abdominal Pain, Diarrhea, Constipation, Melena, Hematochezia, Other - Medications/Allergies Allergies/Adverse Reactions: Allergies Allergy/AdvReac Type Severity Reaction Status Date / Time Sulfa (Sulfonamide Allergy Severe Anaphylaxis Verified 11/06/18 17:46 Antibiotics) Latex, Natural Rubber Allergy Verified 11/06/18 17:46 meperidine [From Demerol] Allergy Verified 11/06/18 17:46 Medications: Current Medications Acetaminophen (Tylenol) 650 mg PO Q4H PRN PRN Reason: Headache/Fever/Mild Pain (1-3) Last Admin: 11/12/18 20:07 Dose: 650 mg Albuterol Sulfate (Ventolin) 2.5 mg NEB [id number] PRN PRN Reason: SOB &/or Wheezing Last Admin: 11/11/18 00:07 Dose: 2.5 mg Albuterol/Ipratropium (Duoneb) 3 ml NEB [id number] [facility] Last Admin: 11/12/18 22:04 Dose: 3 ml Arformoterol Tartrate (Brovana) 15 mcg NEB BID-RT [facility] Last Admin: 11/12/18 18:36 Dose: 15 mcg Azithromycin (Zithromax) 250 mg PO DAILY [facility] Stop: 11/14/18 09:01 Last Admin: 11/12/18 08:44 Dose: 250 mg Budesonide (Pulmicort Neb Solution) 0.5 mg INH BID-RT [facility] Last Admin: 11/12/18 18:38 Dose: 0.5 mg Bupropion HCl (Wellbutrin Sr) 150 mg PO BID [facility] Last Admin: 11/12/18 20:06 Dose: 150 mg Citalopram Hydrobromide (Celexa) 20 mg PO DAILY [facility] Last Admin: 11/12/18 08:44 Dose: 20 mg Diphenhydramine HCl (Benadryl) 25 mg PO Q6H PRN PRN Reason: Itching & Insomnia Enoxaparin Sodium (Lovenox) 40 mg SC 0900 [facility] Last Admin: 11/12/18 08:45 Dose: 40 mg Guaifenesin (Mucinex) 1,200 mg PO Q12HR [facility] Last Admin: 11/12/18 20:06 Dose: 1,200 mg Loratadine (Claritin) 10 mg PO DAILY [facility] Last Admin: 11/12/18 08:44 Dose: 10 mg Pantoprazole Sodium (Protonix) 40 mg PO DAILY [facility] Last Admin: 11/12/18 08:44 Dose: 40 mg Prednisone (Prednisone) 40 mg PO QAM[facility] Last Admin: 11/12/18 08:44 Dose: 40 mg
[2018-11-13] MEDS: Acetaminophen 325 MG TAB PO PRN ×2 (04:35→20:21)
[2018-11-13 04:51] LABS: #Eosinphils 0.3 thou/uL (0.0-0.7); #Lymphocytes 1.9 thou/uL (1.20-3.40); #Monocytes 1.2 thou/uL (0.11-0.59); #Neutrophils 10.7 thou/uL (1.40-6.50); %Basophils 0.3 % (0.0-1.0); %Eosinophils 2.1 % (0.0-10.0); %Lymphocytes 13.6 % (21.0-51.0); %Monocytes 8.2 % (0.0-10.0); %Neutrophils 75.7 % (42.0-75.0); Hemoglobin 11.1 g/dL (12.0-16.0); Mean Corpuscular HGB CONC 31.4 g/dL (32.0-36.0); Mean Corpuscular Hemoglobin 27.6 pg (27.0-31.0); Mean Corpuscular Volume 88.1 fL (78.0-98.0); Mean Platelet Volume 7.9 fL (7.4-10.4); Platelet Count 344 thou/uL (130-400); RBC Distribution Width 14.8 % (11.5-14.5); White Blood Cell (WBC) Count 14.2 thou/uL (4.8-10.8)
[2018-11-13 05:15] LABS: Albumin 3.9 g/dL (3.5-5.0); Anion Gap 11 mmol/L (10-20); BUN (Urea Nitrogen) 13 mg/dL (9.8-20.1); BUN/Creatinine Ratio 21.67; Calc. Creatinine Clearance 98 mL/min (70-130); Calcium 8.9 mg/dL (7.8-10.44); Carbon Dioxide 33 mmol/L (22-29); Chloride 99 mmol/L (98-107); Estimated GFR-MDRD Greater than 90; Glucose 78 mg/dL (70-105); Magnesium 2.4 mg/dL (1.6-2.6); Phosphorus 3.4 mg/dL (2.3-4.7); Potassium 3.7 mmol/L (3.5-5.1); Sodium 139 mmol/L (136-145)
[2018-11-13] MEDS: Arformoterol 15 MCG/2 ML NEB NEB SCH ×2 (06:56→18:58)
[2018-11-13] MEDS: Budesonide 0.5 MG/2 ML NEB INH SCH ×2 (06:56→18:58)
[2018-11-13] MEDS: predniSONE 20 MG TAB PO SCH (08:40)
[2018-11-13] MEDS: guaiFENesin ER 600 MG TAB PO SCH ×2 (08:41→20:21)
[2018-11-13] MEDS: Enoxaparin Sodium 40 MG/0.4 ML SYRINGE SC SCH (08:41)
[2018-11-13] MEDS: Azithromycin 250 MG TAB PO SCH (08:41)
[2018-11-13] MEDS: Bupropion 150 MG SR TAB PO SCH ×2 (08:41→20:21)
[2018-11-13] MEDS: Citalopram 20 MG TAB PO SCH (08:41)
[2018-11-13] MEDS: Loratadine 10 MG TAB PO SCH (08:41)
--- NOTE | 2018-11-13 13:58 | PRG ---
DATE OF SERVICE: 11/13/2018 INTERVAL HISTORY: The patient is doing okay from respiratory standpoint. She does not use her BiPAP since she has been here. She is coughing up green phlegm. It seems to be getting a little bit heavier, but she is moving it. She denies any current fevers, chills, nausea, or vomiting overnight. Her respirations are becoming much less labored, and she is having improving dyspnea with conversation. OBJECTIVE: VITAL SIGNS: Afebrile, pulse 100, blood pressure 168/86, respirations 18, saturation 95% on 2 L nasal cannula. GENERAL: The patient is awake and alert, in no apparent distress. LUNGS: Decent air entry. There is a prolonged expiratory phase with both wheezing and rhonchi. HEART: Normal rate and regular. ABDOMEN: Soft, nontender, nondistended. Bowel sounds are positive. MUSCULOSKELETAL: There is no cyanosis. Minimal clubbing is present. No pitting in the bilateral lower extremities. NEUROLOGIC: Grossly nonfocal. LABORATORY DATA: WBC 14.2, hemoglobin 11.1, platelets 344,000. Basic metabolic profile is essentially unremarkable otherwise. Cytology demonstrates malignant cells consistent with squamous cell carcinoma. This is moderately differentiated. ASSESSMENT: 1. [id number] hypoxic respiratory failure. 2. Chronic obstructive pulmonary disease with acute exacerbation. 3. Squamous cell carcinoma of the left upper lobe. DISCUSSION AND PLAN: I will continue on antibiotics, nebulized medications, and steroids. At this point, she is stable for transition out of the [facility] to the medical unit. I will give her a laboratory holiday tomorrow morning. We discussed her new diagnosis of lung cancer and the next couple of steps that may be required so that we can discuss treatment options. Pulmonary/Critical Care will continue to follow along. Job ID: [id number] [facility]
--- NOTE | 2018-11-13 22:57 | PDOC.PN ---
- Subjective Encounter Start Date: 11/13/18 Encounter Start Time: 10:30 Patient seen and examined for Respiratory failure. SOB at rest. Wheezing +. Sore throat +. No other complaints. No overnight events - Objective Resuscitation Status - Order Detail: 11/06/18 19:13 Resuscitation Status Routine Resuscitation Status: FULL: Full Resuscitation MAR Reviewed: Yes Vital Signs & Weight: Vital Signs (12 hours) Temp Pulse Resp BP Pulse Ox 11/13/18 22:25 88 20 11/13/18 20:00 98.4 F 148/70 H 94 L 11/13/18 18:58 92 20 11/13/18 16:02 97.8 F 11/13/18 15:28 97.3 F L 11/13/18 14:45 91 20 92 L 11/13/18 11:21 96.5 F L Weight Admit Weight 136 lb Weight 136 lb Most Recent Monitor Data Heart Rate from ECG 85 NIBP 168/86 NIBP BP-Mean 113 Respiration from ECG 21 SpO2 100 I&O: 11/12/18 11/13/18 11/14/18 06:59 06:59 06:59 Intake Total 1920 2200 1000 Output Total 1750 Balance 170 2200 1000 Result Diagrams: 11/13/18 04:30 11/13/18 04:30 EKG Reviewed by me: Yes (Tele SR) Phys Exam - Physical Examination Pt in resp distress Respiratory: wheezing present Scat rhonchi Cardiovascular: RRR, no rub Gastrointestinal: soft, non-tender, positive bowel sounds Musculoskeletal: no edema Dx/Plan - Plan DVT proph w/SCDs IMPRESSION: Acute on chronic hypoxic resp failure due to COPD Exacerbation Sq cell Lung Ca Chronic resp failure on home O2 - 2-3 lit Obesity BMI 30.5 Tobacco dep GERD Anxiety Depression - mild stable PLAN: Cont Atbx/Steroids Cont Nebs Oncology follow up as outpt Cont other meds as below Review of Systems - Medications/Allergies Allergies/Adverse Reactions: Allergies Allergy/AdvReac Type Severity Reaction Status Date / Time Sulfa (Sulfonamide Allergy Severe Anaphylaxis Verified 11/06/18 17:46 Antibiotics) Latex, Natural Rubber Allergy Verified 11/06/18 17:46 meperidine [From Demerol] Allergy Verified 11/06/18 17:46 Medications: Current Medications Acetaminophen (Tylenol) 650 mg PO Q4H PRN PRN Reason: Headache/Fever/Mild Pain (1-3) Last Admin: 11/13/18 20:21 Dose: 650 mg Albuterol Sulfate (Ventolin) 2.5 mg NEB [id number] PRN PRN Reason: SOB &/or Wheezing Last Admin: 11/11/18 00:07 Dose: 2.5 mg Albuterol/Ipratropium (Duoneb) 3 ml NEB [id number] [facility] Last Admin: 11/13/18 22:25 Dose: 3 ml Arformoterol Tartrate (Brovana) 15 mcg NEB BID-RT [facility] Last Admin: 11/13/18 18:58 Dose: 15 mcg Azithromycin (Zithromax) 250 mg PO DAILY [facility] Stop: 11/14/18 09:01 Last Admin: 11/13/18 08:41 Dose: 250 mg Budesonide (Pulmicort Neb Solution) 0.5 mg INH BID-RT [facility] Last Admin: 11/13/18 18:58 Dose: 0.5 mg Bupropion HCl (Wellbutrin Sr) 150 mg PO BID [facility] Last Admin: 11/13/18 20:21 Dose: 150 mg Citalopram Hydrobromide (Celexa) 20 mg PO DAILY [facility] Last Admin: 11/13/18 08:41 Dose: 20 mg Diphenhydramine HCl (Benadryl) 25 mg PO Q6H PRN PRN Reason: Itching & Insomnia Enoxaparin Sodium (Lovenox) 40 mg SC 0900 [facility] Last Admin: 11/13/18 08:41 Dose: 40 mg Guaifenesin (Mucinex) 1,200 mg PO Q12HR [facility] Last Admin: 11/13/18 20:21 Dose: 1,200 mg Loratadine (Claritin) 10 mg PO DAILY [facility] Last Admin: 11/13/18 08:41 Dose: 10 mg Pantoprazole Sodium (Protonix) 40 mg PO DAILY [facility] Last Admin: 11/13/18 08:41 Dose: 40 mg Prednisone (Prednisone) 40 mg PO QAM-[facility] Last Admin: 11/13/18 08:40 Dose: 40 mg
[2018-11-14] MEDS: Budesonide 0.5 MG/2 ML NEB INH SCH ×2 (06:57→18:44)
[2018-11-14] MEDS: Arformoterol 15 MCG/2 ML NEB NEB SCH ×2 (06:58→18:43)
[2018-11-14] MEDS: guaiFENesin ER 600 MG TAB PO SCH ×2 (08:48→20:03)
[2018-11-14] MEDS: Bupropion 150 MG SR TAB PO SCH ×2 (08:48→20:03)
[2018-11-14] MEDS: Citalopram 20 MG TAB PO SCH (08:49)
[2018-11-14] MEDS: Azithromycin 250 MG TAB PO SCH (08:49)
[2018-11-14] MEDS: predniSONE 20 MG TAB PO SCH (08:49)
[2018-11-14] MEDS: Enoxaparin Sodium 40 MG/0.4 ML SYRINGE SC SCH (08:50)
[2018-11-14] MEDS: Loratadine 10 MG TAB PO SCH (08:50)
--- NOTE | 2018-11-14 15:00 | PRG ---
DATE OF SERVICE: 11/14/2018 SERVICE: Pulmonary Medicine. INTERVAL HISTORY: The patient is doing okay from respiratory standpoint. She has near continual shortness of breath with minimal activity. At this point, she indicates that she is having a little bit of increasing work of breathing. This is how it has been for a couple of days prior to her nebulized therapy, which is currently pending. She denies any current fevers or chills. She continues to cough up green phlegm. It had not changed in character. PHYSICAL EXAMINATION: VITAL SIGNS: Afebrile, pulse 98, blood pressure 136/81, respirations 22, saturation 93% on 2 L nasal cannula. GENERAL: The patient is awake and alert, in no apparent distress. LUNGS: Decent air entry. There is prolonged expiratory phase and polyphonic wheezing appreciated. No rhonchi are present. HEART: Normal rate and regular. ABDOMEN: Soft, nontender, nondistended. Bowel sounds are positive. MUSCULOSKELETAL: No cyanosis or clubbing. No pitting in the bilateral lower extremities. NEUROLOGIC: Grossly nonfocal. ASSESSMENT: 1. Acute on chronic hypoxic respiratory failure. 2. Chronic obstructive pulmonary disease with acute exacerbation, status post full course of antibiotic. 3. Squamous cell carcinoma of the left upper lobe, new diagnosis. DISCUSSION AND PLAN: The patient is leaning towards comfort measures only. She will discuss this with Dr. Guaman in Oncology when they return on Thursday or Thursday. Pulmonary/Critical will continue to follow along for the time being. We will continue her steroids and nebulized medications. She has completed a full course of antibiotics. If she develops increasing respiratory difficulties, we may need to move her back downstairs to the [facility] to initiate noninvasive ventilation. Job ID: [id number]
--- NOTE | 2018-11-14 16:26 | PDOC.PN ---
- Subjective Encounter Start Date: 11/14/18 Encounter Start Time: 09:40 Pt seen for followup re: acute on chronic hypoxic respiratory failure. Says she feels better. - Objective Resuscitation Status - Order Detail: 11/06/18 19:13 Resuscitation Status Routine Resuscitation Status: FULL: Full Resuscitation MAR Reviewed: Yes Vital Signs & Weight: Vital Signs (12 hours) Temp Pulse Resp BP Pulse Ox 11/14/18 16:00 98.2 F 78 20 144/84 H 94 L 11/14/18 14:20 76 20 90 L 11/14/18 11:37 93 L 11/14/18 11:27 98.6 F 98 22 H 136/81 93 L 11/14/18 11:25 97.2 F L 11/14/18 10:38 100 22 H 11/14/18 07:47 95 11/14/18 07:15 98.6 F 11/14/18 06:54 92 22 H Weight Admit Weight 136 lb Weight 136 lb Most Recent Monitor Data Heart Rate from ECG 85 NIBP 144/98 NIBP BP-Mean 113 Respiration from ECG 21 SpO2 100 I&O: 11/13/18 11/14/18 11/15/18 06:59 06:59 06:59 Intake Total 2200 2200 Balance 2200 2200 Result Diagrams: 11/13/18 04:30 11/13/18 04:30 Additional Labs: labs reviewed by me Phys Exam - Physical Examination Obese HEENT: moist MMs Neck: supple Respiratory: wheezing present Cardiovascular: RRR Gastrointestinal: soft Neurological: moves all 4 limbs Psychiatric: normal affect Dx/Plan (1) Acute on chronic respiratory failure with hypoxia Code(s): J96.21 - ACUTE AND CHRONIC RESPIRATORY FAILURE WITH HYPOXIA Status: Acute Comment: Improved, secondary to COPD exacerbation (2) COPD exacerbation Code(s): J44.1 - CHRONIC OBSTRUCTIVE PULMONARY DISEASE W (ACUTE) EXACERBATION Status: Acute Comment: Improved with oxygen, steroids and bronchodilators ( completed antibiotics) (3) Squamous cell lung cancer Code(s): C34.90 - MALIGNANT NEOPLASM OF UNSP PART OF UNSP BRONCHUS OR LUNG Status: Acute Comment: await oncology input (4) Depression with anxiety Code(s): F41.8 - OTHER SPECIFIED ANXIETY DISORDERS Status: Chronic Comment: moderate, stable (5) GERD (gastroesophageal reflux disease) Code(s): K21.9 - GASTRO-ESOPHAGEAL REFLUX DISEASE WITHOUT ESOPHAGITIS Status: Chronic Qualifiers: Esophagitis presence: esophagitis presence not specified Qualified Code(s) : K21.9 - Gastro-esophageal reflux disease without esophagitis Comment: stable - Plan * . Review of Systems - Review of Systems Respiratory: Cough, Dry, SOB with Excertion, Wheezing. negative: Shortness of Breath, Hemoptysis, Pleuritic Pain, Sputum Cardiovascular: negative: chest pain, palpitations, orthopnea, paroxysmal nocturnal dyspnea, edema, light headedness - Medications/Allergies Allergies/Adverse Reactions: Allergies Allergy/AdvReac Type Severity Reaction Status Date / Time Sulfa (Sulfonamide Allergy Severe Anaphylaxis Verified 11/06/18 17:46 Antibiotics) Latex, Natural Rubber Allergy Verified 11/06/18 17:46 meperidine [From Demerol] Allergy Verified 11/06/18 17:46 Medications: Current Medications Acetaminophen (Tylenol) 650 mg PO Q4H PRN PRN Reason: Headache/Fever/Mild Pain (1-3) Last Admin: 11/13/18 20:21 Dose: 650 mg Albuterol Sulfate (Ventolin) 2.5 mg NEB [id number] PRN PRN Reason: SOB &/or Wheezing Last Admin: 11/11/18 00:07 Dose: 2.5 mg Albuterol/Ipratropium (Duoneb) 3 ml NEB [id number] [facility] Last Admin: 11/14/18 14:20 Dose: 3 ml Arformoterol Tartrate (Brovana) 15 mcg NEB BID-RT [facility] Last Admin: 11/14/18 06:58 Dose: 15 mcg Budesonide (Pulmicort Neb Solution) 0.5 mg INH BID-RT [facility] Last Admin: 11/14/18 06:57 Dose: 0.5 mg Bupropion HCl (Wellbutrin Sr) 150 mg PO BID [facility] Last Admin: 11/14/18 08:48 Dose: 150 mg Citalopram Hydrobromide (Celexa) 20 mg PO DAILY [facility] Last Admin: 11/14/18 08:49 Dose: 20 mg Diphenhydramine HCl (Benadryl) 25 mg PO Q6H PRN PRN Reason: Itching & Insomnia Enoxaparin Sodium (Lovenox) 40 mg SC 0900 [facility] Last Admin: 11/14/18 08:50 Dose: 40 mg Guaifenesin (Mucinex) 1,200 mg PO Q12HR [facility] Last Admin: 11/14/18 08:48 Dose: 1,200 mg Loratadine (Claritin) 10 mg PO DAILY [facility] Last Admin: 11/14/18 08:50 Dose: 10 mg Pantoprazole Sodium (Protonix) 40 mg PO DAILY [facility] Last Admin: 11/14/18 08:49 Dose: 40 mg Prednisone (Prednisone) 40 mg PO [facility] Last Admin: 11/14/18 08:49 Dose: 40 mg
[2018-11-14] MEDS: Acetaminophen 325 MG TAB PO PRN (20:03)
[2018-11-15] MEDS: Albuterol Sulfate 2.5 mg/3 ml Neb NEB PRN (04:19)
[2018-11-15] MEDS: Budesonide 0.5 MG/2 ML NEB INH SCH ×2 (06:10→19:18)
[2018-11-15] MEDS: Arformoterol 15 MCG/2 ML NEB NEB SCH ×2 (06:10→19:16)
[2018-11-15] MEDS: Loratadine 10 MG TAB PO SCH (08:07)
[2018-11-15] MEDS: guaiFENesin ER 600 MG TAB PO SCH ×2 (08:07→20:41)
[2018-11-15] MEDS: Bupropion 150 MG SR TAB PO SCH ×2 (08:07→20:41)
[2018-11-15] MEDS: predniSONE 20 MG TAB PO SCH (08:08)
[2018-11-15] MEDS: Citalopram 20 MG TAB PO SCH (08:08)
[2018-11-15] MEDS: Enoxaparin Sodium 40 MG/0.4 ML SYRINGE SC SCH (08:08)
[2018-11-15] MEDS: Acetaminophen 325 MG TAB PO PRN (11:27)
--- NOTE | 2018-11-15 11:48 | PRG ---
DATE OF SERVICE: SUBJECTIVE: This morning, she says she is feeling worse, more short of breath, coughing up yellow sputum. OBJECTIVE: VITAL SIGNS: Temperature 100.3, pulse 100, sats 92%, blood pressure 123/71. CHEST: Decreased breath sounds. Minimal wheezing. CARDIAC: Normal S1 and S2. No gallops. ABDOMEN: No masses. LABORATORY DATA: Sputum is growing gram-negative rods. IMPRESSION: Chronic obstructive pulmonary disease exacerbation, bronchitis. I am going to start empiric antibiotic and magnesium. She is already on steroids and neb treatments. We will follow. Job ID: [id number]
--- NOTE | 2018-11-15 14:43 | PDOC.PN ---
- Subjective Encounter Start Date: 11/15/18 Encounter Start Time: 09:20 Pt seen for followup re: acute hypoxic respiratory failure. Cough+, sputum+. - Objective Resuscitation Status - Order Detail: 11/06/18 19:13 Resuscitation Status Routine Resuscitation Status: FULL: Full Resuscitation MAR Reviewed: Yes Vital Signs & Weight: Vital Signs (12 hours) Temp Pulse Resp BP Pulse Ox 11/15/18 14:26 108 H 24 H 92 L 11/15/18 11:00 100.3 F H 100 20 123/71 92 L 11/15/18 10:06 96 20 93 L 11/15/18 08:03 93 L 11/15/18 07:21 98.3 F 96 20 129/75 93 L 11/15/18 06:10 101 H 20 96 11/15/18 04:19 96 20 95 11/15/18 04:00 98.9 F 96 18 134/83 95 Weight Admit Weight 136 lb Weight 136 lb Most Recent Monitor Data Heart Rate from ECG 85 NIBP 144/98 NIBP BP-Mean 113 Respiration from ECG 21 SpO2 100 I&O: 11/14/18 11/15/18 11/16/18 06:59 06:59 06:59 Intake Total 2200 1440 Output Total 2 Balance 2200 1438 Result Diagrams: 11/13/18 04:30 11/13/18 04:30 Additional Labs: Labs reviewed by me Phys Exam - Physical Examination Obese HEENT: moist MMs Neck: supple Respiratory: wheezing present Cardiovascular: RRR Gastrointestinal: soft Neurological: moves all 4 limbs Psychiatric: normal affect Dx/Plan (1) Acute on chronic respiratory failure with hypoxia Code(s): J96.21 - ACUTE AND CHRONIC RESPIRATORY FAILURE WITH HYPOXIA Status: Acute Comment: Improved, secondary to COPD exacerbation+/- bronchitis (2) COPD exacerbation Code(s): J44.1 - CHRONIC OBSTRUCTIVE PULMONARY DISEASE W (ACUTE) EXACERBATION Status: Acute Comment: Improved with oxygen, steroids and bronchodilators. Pt has been restarted on antibiotics, sputum culture growing GNR (3) Squamous cell lung cancer Code(s): C34.90 - MALIGNANT NEOPLASM OF UNSP PART OF UNSP BRONCHUS OR LUNG Status: Acute Comment: to follow up with oncology as outpatient (4) Depression with anxiety Code(s): F41.8 - OTHER SPECIFIED ANXIETY DISORDERS Status: Chronic Comment: moderate, stable (5) GERD (gastroesophageal reflux disease) Code(s): K21.9 - GASTRO-ESOPHAGEAL REFLUX DISEASE WITHOUT ESOPHAGITIS Status: Chronic Qualifiers: Esophagitis presence: esophagitis presence not specified Qualified Code(s) : K21.9 - Gastro-esophageal reflux disease without esophagitis Comment: stable - Plan * . Review of Systems - Review of Systems Respiratory: Cough, SOB with Excertion, Sputum. negative: Dry, Shortness of Breath, Hemoptysis, Pleuritic Pain, Wheezing Cardiovascular: negative: chest pain, palpitations, orthopnea, paroxysmal nocturnal dyspnea, edema, light headedness - Medications/Allergies Allergies/Adverse Reactions: Allergies Allergy/AdvReac Type Severity Reaction Status Date / Time Sulfa (Sulfonamide Allergy Severe Anaphylaxis Verified 11/06/18 17:46 Antibiotics) Latex, Natural Rubber Allergy Verified 11/06/18 17:46 meperidine [From Demerol] Allergy Verified 11/06/18 17:46 Medications: Current Medications Acetaminophen (Tylenol) 650 mg PO Q4H PRN PRN Reason: Headache/Fever/Mild Pain (1-3) Last Admin: 11/15/18 11:27 Dose: 650 mg Albuterol Sulfate (Ventolin) 2.5 mg NEB [id number] PRN PRN Reason: SOB &/or Wheezing Last Admin: 11/15/18 04:19 Dose: 2.5 mg Albuterol/Ipratropium (Duoneb) 3 ml NEB [id number] [facility] Last Admin: 11/15/18 14:26 Dose: 3 ml Arformoterol Tartrate (Brovana) 15 mcg NEB BID-RT [facility] Last Admin: 11/15/18 06:10 Dose: 15 mcg Budesonide (Pulmicort Neb Solution) 0.5 mg INH BID-RT [facility] Last Admin: 11/15/18 06:10 Dose: 0.5 mg Bupropion HCl (Wellbutrin Sr) 150 mg PO BID [facility] Last Admin: 11/15/18 08:07 Dose: 150 mg Ciprofloxacin (Cipro) 250 mg PO BID@0600,1999 [facility] Citalopram Hydrobromide (Celexa) 20 mg PO DAILY [facility] Last Admin: 11/15/18 08:08 Dose: 20 mg Diphenhydramine HCl (Benadryl) 25 mg PO Q6H PRN PRN Reason: Itching & Insomnia Enoxaparin Sodium (Lovenox) 40 mg SC 0900 [facility] Last Admin: 11/15/18 08:08 Dose: 40 mg Guaifenesin (Mucinex) 1,200 mg PO Q12HR [facility] Last Admin: 11/15/18 08:07 Dose: 1,200 mg Loratadine (Claritin) 10 mg PO DAILY [facility] Last Admin: 11/15/18 08:07 Dose: 10 mg Pantoprazole Sodium (Protonix) 40 mg PO DAILY [facility] Last Admin: 11/15/18 08:07 Dose: 40 mg Prednisone (Prednisone) 40 mg PO QAM-WM [facility] Last Admin: 11/15/18 08:08 Dose: 40 mg
[2018-11-15] MEDS: Cipro 250 MG TAB PO SCH (20:41)
[2018-11-16] MEDS: Acetaminophen 325 MG TAB PO PRN ×4 (02:06→20:08)
[2018-11-16] MEDS: Cipro 250 MG TAB PO SCH ×2 (05:07→20:07)
[2018-11-16] MEDS: Budesonide 0.5 MG/2 ML NEB INH SCH ×2 (06:11→19:03)
[2018-11-16] MEDS: Arformoterol 15 MCG/2 ML NEB NEB SCH ×2 (06:24→19:00)
[2018-11-16] MEDS: Loratadine 10 MG TAB PO SCH (08:19)
[2018-11-16] MEDS: guaiFENesin ER 600 MG TAB PO SCH ×2 (08:20→20:07)
[2018-11-16] MEDS: predniSONE 20 MG TAB PO SCH (08:20)
[2018-11-16] MEDS: Enoxaparin Sodium 40 MG/0.4 ML SYRINGE SC SCH (08:21)
[2018-11-16] MEDS: Bupropion 150 MG SR TAB PO SCH ×2 (08:21→20:07)
[2018-11-16] MEDS: Citalopram 20 MG TAB PO SCH (08:21)
--- NOTE | 2018-11-16 09:16 | PRG ---
DATE OF SERVICE: 11/16/2018 SUBJECTIVE: Ms. Orr is still having trouble with her breathing. OBJECTIVE: VITAL SIGNS: On exam, temperature is 98.2, pulse 99, respirations 24, O2 saturation 92% on 2 L, and blood pressure 121/74. HEENT: Unremarkable. NECK: No adenopathy, JVD, or bruits. LUNGS: Diffuse wheezing bilaterally. CARDIAC: S1 and S2 regular without murmur. ABDOMEN: Soft and nontender. EXTREMITIES: No clubbing, cyanosis, or edema. LABORATORY DATA: No labs were obtained today. Biopsy of the left upper lobe demonstrated squamous cell carcinoma. ASSESSMENT: 1. Chronic obstructive pulmonary disease with exacerbation. 2. Tobacco abuse. PLAN: Her COPD is still decompensated to the point where I think she needs to have her steroids stepped up again and I will also start her on Singulair. I do not think she is a surgical candidate for lung cancer based on location of the tumor. I would advise Medical Oncology and Radiation Oncology to collaborate in best treatment plan. Job ID: [id number]
[2018-11-16] MEDS: methylPREDNISolone Sod Succ 40 MG VIAL IVP SCH ×3 (11:16→23:32)
--- NOTE | 2018-11-16 11:24 | PDOC.PN ---
- Subjective Encounter Start Date: 11/16/18 Encounter Start Time: 11:22 Patient seen and examined for Resp failure. SOB at rest. Productive cough. No new complaints. No overnight events - Objective Resuscitation Status - Order Detail: 11/06/18 19:13 Resuscitation Status Routine Resuscitation Status: FULL: Full Resuscitation MAR Reviewed: Yes Vital Signs & Weight: Vital Signs (12 hours) Temp Pulse Resp BP BP Pulse Ox 11/16/18 10:14 94 18 91 L 11/16/18 08:00 98.2 F 99 24 H 121/74 92 L 11/16/18 06:24 85 18 97 11/16/18 06:08 91 18 97 11/16/18 04:00 98.2 F 94 18 145/87 H 94 L 11/16/18 02:06 92 18 96 11/16/18 00:00 98.1 F 82 16 142/77 H 93 L Weight Admit Weight 136 lb Weight 136 lb Most Recent Monitor Data Heart Rate from ECG 85 NIBP 144/98 NIBP BP-Mean 113 Respiration from ECG 21 SpO2 100 I&O: 11/15/18 11/16/18 11/17/18 06:59 06:59 06:59 Intake Total 1440 2300 Output Total 2 Balance 1438 2300 Result Diagrams: 11/13/18 04:30 11/13/18 04:30 Phys Exam - Physical Examination Mild Resp distress Respiratory: wheezing present B/L rhonchi Cardiovascular: RRR, no rub Gastrointestinal: soft, positive bowel sounds Musculoskeletal: no edema Neurological: moves all 4 limbs Dx/Plan - Plan DVT proph w/SCDs IMPRESSION: Acute on chronic hypoxic resp failure due to COPD Exacerbation - uncontrolled Sq cell Lung Ca (diagnosed this admission) Chronic resp failure on home O2 - 2-3 lit Obesity BMI 30.5 Tobacco dep GERD Anxiety Depression - mild stable PLAN: Cont Atbx Cont IV Steroids Cont Nebs Q4h Oncology will follow up as outpt (I d/w Roseann) AM labs Cont other meds as below Review of Systems - Review of Systems Cardiovascular: negative: chest pain, palpitations, orthopnea, paroxysmal nocturnal dyspnea, edema, light headedness, other Gastrointestinal: negative: Nausea, Vomiting, Abdominal Pain, Diarrhea, Constipation, Melena, Hematochezia, Other - Medications/Allergies Allergies/Adverse Reactions: Allergies Allergy/AdvReac Type Severity Reaction Status Date / Time Sulfa (Sulfonamide Allergy Severe Anaphylaxis Verified 11/06/18 17:46 Antibiotics) Latex, Natural Rubber Allergy Verified 11/06/18 17:46 meperidine [From Demerol] Allergy Verified 11/06/18 17:46 Medications: Current Medications Acetaminophen (Tylenol) 650 mg PO Q4H PRN PRN Reason: Headache/Fever/Mild Pain (1-3) Last Admin: 11/16/18 08:30 Dose: 650 mg Albuterol Sulfate (Ventolin) 2.5 mg NEB [id number] PRN PRN Reason: SOB &/or Wheezing Last Admin: 11/15/18 04:19 Dose: 2.5 mg Albuterol/Ipratropium (Duoneb) 3 ml NEB [id number] [facility] Last Admin: 11/16/18 10:14 Dose: 3 ml Arformoterol Tartrate (Brovana) 15 mcg NEB BID-RT [facility] Last Admin: 11/16/18 06:24 Dose: 15 mcg Budesonide (Pulmicort Neb Solution) 0.5 mg INH BID-RT [facility] Last Admin: 11/16/18 06:11 Dose: 0.5 mg Bupropion HCl (Wellbutrin Sr) 150 mg PO BID [facility] Last Admin: 11/16/18 08:21 Dose: 150 mg Ciprofloxacin (Cipro) 250 mg PO BID@0600,2000 [facility] Last Admin: 11/16/18 05:07 Dose: 250 mg Citalopram Hydrobromide (Celexa) 20 mg PO DAILY [facility] Last Admin: 11/16/18 08:21 Dose: 20 mg Diphenhydramine HCl (Benadryl) 25 mg PO Q6H PRN PRN Reason: Itching & Insomnia Enoxaparin Sodium (Lovenox) 40 mg SC 0900 [facility] Last Admin: 11/16/18 08:21 Dose: 40 mg Guaifenesin (Mucinex) 1,200 mg PO Q12HR [facility] Last Admin: 11/16/18 08:20 Dose: 1,200 mg Loratadine (Claritin) 10 mg PO DAILY [facility] Last Admin: 11/16/18 08:19 Dose: 10 mg Methylprednisolone Sodium Succinate (Solu-Medrol) 40 mg IVP Q6HR [facility] Last Admin: 11/16/18 11:16 Dose: 40 mg Montelukast Sodium (Singulair) 10 mg PO QPM [facility] Pantoprazole Sodium (Protonix) 40 mg PO DAILY [facility] Last Admin: 11/16/18 08:20 Dose: 40 mg
[2018-11-16] MEDS: Montelukast Sodium 10 mg Tablet PO SCH (20:07)
[2018-11-16] MEDS: diphenhydrAMINE 25 MG CAP PO PRN (20:08)
--- NOTE | 2018-11-16 23:10 | CON ---
DATE OF CONSULTATION: 11/16/2018 REASON FOR CONSULTATION: Ms. 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 I was asked to see her to discuss her options with radiation therapy. HISTORY OF PRESENT ILLNESS: Ms. Orr is a 58-year-old female with a long history of COPD. Apparently a year ago, she had a CT scan of the chest, abdomen, and pelvis because of her frequent pneumonia episodes, which showed a mass in the left hilar area. She has several scattered pulmonary nodules. The mass in the hilar area was narrowing the right upper lobe and right lower lobe bronchus. She has been seeing a cut out operator in [place]. She admits that she did not have anything done workup metzger because she thought that her COPD was advancing rapidly and that she would of this. She was admitted to the hospital because of COPD exacerbation with worsening shortness of breath and cough. She saw Dr. Guaman and had a repeat CT scan of the chest. She had a hilar mass that measured about 3 cm. There was occlusion of the left upper lobe bronchus and narrowing of the left lower lobe bronchus. She was still aerating all her lung. She had again several scattered pulmonary nodules, which for the most part were unchanged. She did have a nodular area in the left upper lobe of the lung that had an infiltrate in that a year earlier, but had more of a nodular appearance of unknown significance. Most of the pulmonary nodules were the same. Dr. Guaman performed a bronchoscopy and she had a mass occluding the left upper lobe of the lung. There was significant narrowing of the left lower lobe bronchus. Brushings and biopsies were performed, which showed moderately differentiated squamous cell carcinoma. Plan had been for discharge, but her COPD is worsened. She has had more issues with shortness of breath and with cough productive of greenish sputum. She has seen Medical Oncology. I have been asked to see her to discuss her options with radiation. Presently, she reports a cough of greenish phlegm. She is now on antibiotics and steroids. She does have some central chest pain with cough. She denies any back pain or other areas of pain. She has no weight loss at the present time. She voices no other complaints. PAST MEDICAL HISTORY: 1. Severe COPD with oxygen dependency x2 years. 2. GE reflux disease. 3. History of anxiety and depression. 4. History of osteoporosis and vertebral compression fractures. 5. Status post kyphoplasty. 6. Status post . 7. Status post YUDELKA/BSO. MEDICATIONS: 1. DuoNeb nebulizers. 2. Brovana nebulizers. 3. Pulmicort nebulizers. 4. Wellbutrin. 5. Cipro. 6. Celexa. 7. Benadryl. 8. Lovenox. 9. Singulair. 10. Solu-Medrol. 11. Protonix. ALLERGIES: SULFA DRUGS, WHICH CAUSED SWELLING AND DIFFICULTY BREATHING, LATEX WHICH CAUSED A RASH, AND DEMEROL WHICH CAUSED MOOD CHANGES. SOCIAL HISTORY: She is and lives by herself in [place], [place]. She has a [id number]-azyr history of smoking, one pack per day. For the past 5-6 years, she has smoked only 3 cigarettes per day. She still is smoking at the present time. She has no alcohol or other drug use. She is disabled and uninsured. FAMILY HISTORY: Her mother at age 77 from hypertension and stroke. Father at age 79 from rheumatic fever, heart disease, and COPD. She had a sister with breast cancer, who of heart disease. There is no family history of lung cancer or other malignancies. REVIEW OF SYSTEMS: 10-system review of systems is otherwise negative. PHYSICAL EXAMINATION: VITAL SIGNS: Height is 4 feet 8 inches, weight 136 pounds, blood pressure is 121/74, pulse is 99, respirations are 24, temperature is 98.2, O2 saturation is 92% on 2 L. GENERAL: She is alert and oriented and her breathing is mildly labored. Karnofsky performance status is 70%. She is chronically ill in appearance. HEENT: Eyes; pupils equal, round, reactive to light. Extraocular movements are intact. ENT; oral cavity and oropharynx without lesion or erythema. Palate elevates symmetrically. Gingiva is intact. NECK: Supple without preauricular, submandibular, cervical, supraclavicular adenopathy. No thyromegaly. Larynx midline. LUNGS: Breathing mildly labored. She has scattered wheezes throughout. I do not hear much air moving in the left upper lobe. There is no dullness to percussion. HEART: Regular rate and rhythm without murmur. No lower extremity edema. Radial and pedal pulses are good. BACK: No tenderness on fist percussion of her spine. LYMPHATIC: No axillary or inguinal adenopathy. ABDOMEN: Soft, nontender, nondistended without mass or hepatosplenomegaly. Liver percusses to normal size. SKIN: Without rash or purpura. NEUROLOGIC: Cranial nerves 2 through 12 grossly intact. Motor strength is 5/5 in both upper and lower extremities in all muscle groups tested. Reflexes are normal and symmetrical. Gait was not tested. RADIOLOGIC DATA: CT scan of the chest on admission was personally reviewed. Again, she has a mass situated in the hilum at the takeoff of the left upper lobe and left lower lobe bronchus. The left upper lobe bronchus does not look patent. She has aeration throughout her lungs. She has multiple pulmonary nodules. She has a nodular area in the left upper lobe that on CT a year prior had little patchy infiltrate in this area, although it has more of a nodular appearance on this exam. It measures 13 mm. The significance is unknown. Her previous CT scan from last year was personally reviewed also. LABORATORY DATA: Pathology showed a moderately differentiated squamous cell carcinoma. CBC revealed a white blood count of 14,200 with a hemoglobin of 11.1, hematocrit 35.2, platelet count 344,000. Chemistry group showed carbon dioxide of 33. Creatinine was normal and electrolytes were otherwise normal. ASSESSMENT: Ms. Orr is a 58-year-old female with at least a clinical stage IB, T2a N0 M0 moderately differentiated squamous cell carcinoma of the left lung in the central structures. This is completely occluding the left upper lobe bronchus with severe narrowing of the left lower lobe bronchus. She has had worsening of her breathing, which is likely multifactorial in nature. This is likely some related to the cancer, but also potentially related to her severe chronic obstructive pulmonary disease. PLAN: I have discussed the case with the patient. I have also discussed the case with Roseann Chappell in Medical Oncology and with Dr. Guaman in Pulmonology. A lot of her breathing is related to her severe COPD, but some of this may be related to the tumor. Dr. Guaman is going to obtain a chest x-ray to see if she has had any collapse of her lung since her last CAT scan last week. We may need to start radiation therapy somewhat sooner. She is not a candidate for surgery because of the location, would require a pneumonectomy and her severe COPD. Her best treatment will be getting chemotherapy and radiation. The recommendation for radiation therapy was made to her. The logistics of radiation as well as the benefits and risk of treatment were discussed. The simulation and daily treatment procedure were discussed. Side effects would include but not be limited to skin reaction, fatigue, lower blood counts, difficulty or pain with swallowing, weight loss, possible radiation pneumonitis, and possible permanent worsening of her breathing, and rarely other unforeseen side effects from radiation therapy. Time was taken to answer all of her questions. I did ask her because in the chart, there is one notation that she was considering comfort care measures only. However, at the present time, she wants to pursue treatment for her lung cancer. I will await her chest x-ray and then we will make a decision in regard to the timing of her radiation therapy. If she does have some collapse of her left upper lobe of the lung, we will try to move to begin radiation therapy sooner rather than later. I will continue to follow her while she is here in the hospital. Thank you for this interesting consultation. Job ID: [id number]
[2018-11-17] MEDS: methylPREDNISolone Sod Succ 40 MG VIAL IVP SCH ×4 (04:45→23:58)
[2018-11-17] MEDS: Cipro 250 MG TAB PO SCH (04:45)
[2018-11-17 05:45] LABS: Hemoglobin 11.1 g/dL (12.0-16.0); Platelet Count 388 thou/uL (130-400)
[2018-11-17 06:00] LABS: Anion Gap 11 mmol/L (10-20); BUN (Urea Nitrogen) 15 mg/dL (9.8-20.1); Calc. Creatinine Clearance 100 mL/min (70-130); Calcium 9.4 mg/dL (7.8-10.44); Carbon Dioxide 29 mmol/L (22-29); Chloride 100 mmol/L (98-107); Estimated GFR-MDRD Greater than 90; Glucose 132 mg/dL (70-105); Potassium 4.3 mmol/L (3.5-5.1); Sodium 136 mmol/L (136-145)
[2018-11-17] MEDS: Budesonide 0.5 MG/2 ML NEB INH SCH ×2 (07:32→18:13)
[2018-11-17] MEDS: Arformoterol 15 MCG/2 ML NEB NEB SCH ×2 (07:32→18:14)
[2018-11-17] MEDS: Citalopram 20 MG TAB PO SCH (08:39)
[2018-11-17] MEDS: guaiFENesin ER 600 MG TAB PO SCH ×2 (08:39→21:20)
[2018-11-17] MEDS: Loratadine 10 MG TAB PO SCH (08:39)
[2018-11-17] MEDS: Bupropion 150 MG SR TAB PO SCH ×2 (08:40→21:20)
[2018-11-17] MEDS: Acetaminophen 325 MG TAB PO PRN ×3 (08:40→23:58)
[2018-11-17] MEDS: Enoxaparin Sodium 40 MG/0.4 ML SYRINGE SC SCH (08:42)
--- NOTE | 2018-11-17 09:05 | RAD ---
SINGLE VIEW OF THE CHEST: COMPARISON: 11/06/2018. HISTORY: Left upper lobe atelectasis. FINDINGS: A single view of the chest shows a cardiomediastinal silhouette which is upper limits of normal in si ze. Increased interstitial lung markings are present. There is no evidence of consolidation, mass, or pleural effusion. Degenerative changes of vertebroplasty cement are seen in the spine. IMPRESSION: No evidence of acute cardiopulmonary disease. POS: DIANAH
[2018-11-17] MEDS ORDERED: Magnesium Sulfate 4 GM in Sodium Chloride 0.9% 250 ML 250 ML IVPB SCH (10:00)
--- NOTE | 2018-11-17 10:01 | PRG ---
DATE OF SERVICE: 11/17/2018 SUBJECTIVE: The patient is still having trouble with severe wheezing. Says that was exacerbated last night by exposure to perfumes. OBJECTIVE: VITAL SIGNS: Temperature is 98.4, pulse 78, respirations 20, O2 saturation 96%, blood pressure 131/74. HEENT: Unremarkable. NECK: No adenopathy or JVD. LUNGS: She has diffuse mild wheezing. CARDIAC: S1 and S2. Regular. ABDOMEN: Soft. EXTREMITIES: No edema. ASSESSMENT: 1. Chronic obstructive pulmonary disease exacerbation. 2. Squamous cell carcinoma of the left upper lobe. PLAN: I will add magnesium to see if that will help. Continue steroids, nebulization treatments, and antibiotics. Her x-ray today does not show complete collapse of the left lung. I would assume the apical posterior segment is collapsed medially, but the lingular segment and the left lower lobe were open. Job ID: [id number]
[2018-11-17] MEDS ORDERED: ISOVUE-370 76%-LOCM 1 ML ONE (11:23)
--- NOTE | 2018-11-17 12:06 | CT ---
CT ABDOMEN PELVIS WITH ORAL AND IV CONTRAST: HISTORY: Recently diagnosed with lung cancer. Exam requested for restaging. COMPARISON: None FINDINGS: The liver, spleen, pancreas, adrenal glands and kidneys appear normal. No calcified gallstones are se en. No free air, free fluid or lymphadenopathy seen in the abdomen or pelvis. There are vascular calcifications without evidence of aneurysmal dilatation of the abdominal aorta. Changes of vertebrop lasty are seen in the lumbar spine. There is mild sigmoid diverticulosis. The patient is post hysterectomy and appendectomy. Specks of air in the right lower quadrant subcutis fat are likely due to recent injections. No osteolytic or osteoblastic lesions are seen. IMPRESSION: No evidence of metastatic disease in the abdomen or pelvis.
--- NOTE | 2018-11-17 12:51 | PDOC.PN ---
- Subjective Encounter Start Date: 11/17/18 Encounter Start Time: 11:00 Patient seen and examined for Resp failure/Lung Ca. SOB and wheezing +. No new complaints. No overnight events - Objective Resuscitation Status - Order Detail: 11/06/18 19:13 Resuscitation Status Routine Resuscitation Status: FULL: Full Resuscitation MAR Reviewed: Yes Vital Signs & Weight: Vital Signs (12 hours) Temp Pulse Resp BP BP Pulse Ox 11/17/18 10:28 117 H 24 H 93 L 11/17/18 07:38 98.4 F 88 20 131/74 96 11/17/18 07:31 94 28 H 94 L 11/17/18 04:49 98.4 F 79 18 146/74 H 94 L 11/17/18 02:27 95 18 94 L Weight Admit Weight 136 lb Weight 136 lb Most Recent Monitor Data Heart Rate from ECG 85 NIBP 144/98 NIBP BP-Mean 113 Respiration from ECG 21 SpO2 100 I&O: 11/16/18 11/17/18 11/18/18 06:59 06:59 06:59 Intake Total 2300 1800 Balance 2300 1800 Result Diagrams: 11/17/18 05:22 11/17/18 05:22 Radiology Reviewed by me: Yes (CXR -reviewed) Phys Exam - Physical Examination Mild resp distress at rest Respiratory: wheezing present B/L rhonchi Cardiovascular: RRR, no rub Gastrointestinal: soft, non-tender, positive bowel sounds Musculoskeletal: no edema Neurological: moves all 4 limbs Dx/Plan - Plan DVT proph w/SCDs IMPRESSION: Acute on chronic hypoxic resp failure due to COPD Exacerbation - on IV Steroids Sq cell Lung Ca Chronic resp failure on home O2 - 2-3 lit Obesity BMI 30.5 Tobacco dep GERD Anxiety Depression - mild stable PLAN: Cont Atbx/Steroids/Nebs Oncology/Rad Onc input appreciated Imaging per Oncology Cont other meds as below Received IV Magnessium Review of Systems - Review of Systems Respiratory: negative: Cough, Dry, Shortness of Breath, Hemoptysis, SOB with Excertion, Pleuritic Pain, Sputum, Wheezing Cardiovascular: negative: chest pain, palpitations, orthopnea, paroxysmal nocturnal dyspnea, edema, light headedness, other - Medications/Allergies Allergies/Adverse Reactions: Allergies Allergy/AdvReac Type Severity Reaction Status Date / Time Sulfa (Sulfonamide Allergy Severe Anaphylaxis Verified 11/06/18 17:46 Antibiotics) Latex, Natural Rubber Allergy Verified 11/06/18 17:46 meperidine [From Demerol] Allergy Verified 11/06/18 17:46 Medications: Current Medications Acetaminophen (Tylenol) 650 mg PO Q4H PRN PRN Reason: Headache/Fever/Mild Pain (1-3) Last Admin: 11/17/18 12:45 Dose: 650 mg Albuterol Sulfate (Ventolin) 2.5 mg NEB [id number] PRN PRN Reason: SOB &/or Wheezing Last Admin: 11/15/18 04:19 Dose: 2.5 mg Albuterol/Ipratropium (Duoneb) 3 ml NEB [id number] [facility] Last Admin: 11/17/18 10:28 Dose: 3 ml Arformoterol Tartrate (Brovana) 15 mcg NEB BID-RT [facility] Last Admin: 11/17/18 07:32 Dose: 15 mcg Budesonide (Pulmicort Neb Solution) 0.5 mg INH BID-RT [facility] Last Admin: 11/17/18 07:32 Dose: 0.5 mg Bupropion HCl (Wellbutrin Sr) 150 mg PO BID [facility] Last Admin: 11/17/18 08:40 Dose: 150 mg Ciprofloxacin (Cipro) 250 mg PO BID@0600,2000 [facility] Last Admin: 11/17/18 04:45 Dose: 250 mg Citalopram Hydrobromide (Celexa) 20 mg PO DAILY [facility] Last Admin: 11/17/18 08:39 Dose: 20 mg Diphenhydramine HCl (Benadryl) 25 mg PO Q6H PRN PRN Reason: Itching & Insomnia Last Admin: 11/16/18 20:08 Dose: 25 mg Enoxaparin Sodium (Lovenox) 40 mg SC 0900 [facility] Last Admin: 11/17/18 08:42 Dose: 40 mg Guaifenesin (Mucinex) 1,200 mg PO Q12HR [facility] Last Admin: 11/17/18 08:39 Dose: 1,200 mg Magnesium Sulfate 4 gm/ Sodium (Chloride) 258 mls @ 86 mls/hr IVPB 1000 [facility] Stop: 11/17/18 13:00 Last Admin: 11/17/18 10:51 Dose: 258 mls Loratadine (Claritin) 10 mg PO DAILY [facility] Last Admin: 11/17/18 08:39 Dose: 10 mg Methylprednisolone Sodium Succinate (Solu-Medrol) 40 mg IVP Q6HR [facility] Last Admin: 11/17/18 10:51 Dose: 40 mg Montelukast Sodium (Singulair) 10 mg PO QPM [facility] Last Admin: 11/16/18 20:07 Dose: 10 mg Pantoprazole Sodium (Protonix) 40 mg PO DAILY [facility] Last Admin: 11/17/18 08:39 Dose: 40 mg
[2018-11-17] MEDS: Piperacillin/Tazobactam 3.375 GM in Sodium Chloride 0.9% 100 ML IVPB SCH ×2 (14:41→21:21)
[2018-11-17] MEDS: diphenhydrAMINE 25 MG CAP PO PRN (21:20)
[2018-11-17] MEDS: Montelukast Sodium 10 mg Tablet PO SCH (21:20)
[2018-11-18] MEDS: Piperacillin/Tazobactam 3.375 GM in Sodium Chloride 0.9% 100 ML IVPB SCH ×4 (03:56→21:10)
[2018-11-18] MEDS: methylPREDNISolone Sod Succ 40 MG VIAL IVP SCH ×4 (05:08→23:32)
[2018-11-18] MEDS: Budesonide 0.5 MG/2 ML NEB INH SCH ×2 (06:49→18:36)
[2018-11-18] MEDS: Arformoterol 15 MCG/2 ML NEB NEB SCH ×2 (06:49→18:36)
[2018-11-18] MEDS: Saccharomyces boulardii 250 MG CAP PO SCH (08:27)
[2018-11-18] MEDS: Citalopram 20 MG TAB PO SCH (08:28)
[2018-11-18] MEDS: Loratadine 10 MG TAB PO SCH (08:28)
[2018-11-18] MEDS: guaiFENesin ER 600 MG TAB PO SCH ×2 (08:28→21:09)
[2018-11-18] MEDS: Bupropion 150 MG SR TAB PO SCH ×2 (08:29→21:09)
[2018-11-18] MEDS: Enoxaparin Sodium 40 MG/0.4 ML SYRINGE SC SCH (08:30)
--- NOTE | 2018-11-18 09:54 | MRI ---
Exam: Brain MRI with and without contrast HISTORY: Lung cancer. Evaluate for brain metastases. COMPARISON: None FINDINGS: Gradient echo sequence: No hemorrhage Calvarium: Appropriate T1 marrow signal intensity Midline brain parenchyma: Limited due to motion. Grossly unremarkable. Cerebrum:No parenchymal mass, mass effect or midline shift. Brain volume, age-appropriate. Cortical g ray-white white matter differentiation is preserved. Minimal white matter hyperintensities on the axial T2 and FLAIR sequence, nonspecific Ventricles: No evidence of hydrocephalus. Sinuses and mastoid air cells: Adequate aeration Diffusion: Central arterial flow is maintained. Absent restricted diffusion. Postcontrast images: No pathologic enhancement of the brain parenchyma. IMPRESSION: 1. Absent restricted diffusion. No acute infarct 2. No significant T2 or FLAIR white matter hyperintensities 3. No pathologic enhancement the brain parenchyma. No MR evidence of intracranial metastasis
--- NOTE | 2018-11-18 09:59 | PRG ---
DATE OF SERVICE: 11/18/2018 SUBJECTIVE: Ms. Orr continues to have problems with her breathing. OBJECTIVE: VITAL SIGNS: Temperature 98.4, pulse 94, respirations 16, O2 saturation 91%, blood pressure 142/80. HEENT: Unremarkable. NECK: No adenopathy, JVD, or bruits. LUNGS: Coarse breath sounds. CARDIAC: S1 and S2. Regular. ABDOMEN: Soft. EXTREMITIES: No edema. LABORATORY DATA: Her sputum grew out E. coli, which was resistant to the ciprofloxacin that she was on. She was therefore changed to Zosyn yesterday. ASSESSMENT: 1. Left upper lobe squamous cell carcinoma. 2. Severe chronic obstructive pulmonary disease with exacerbation. 3. Tracheobronchitis. PLAN: Her antibiotics have been switched. She continues on high-dose steroids. We need her COPD exacerbation to get better before proceeding with cancer treatment. I would anticipate her being better by Thursday of next week, so we will make that our goal. Job ID: [id number]
[2018-11-18] MEDS: Acetaminophen 325 MG TAB PO PRN (15:54)
--- NOTE | 2018-11-18 17:53 | PDOC.PN ---
- Subjective Encounter Start Date: 11/18/18 Encounter Start Time: 14:00 Patient seen and examined for Resp failure. SOB slightly better. Productive cough. No new complaints. No overnight events - Objective Resuscitation Status - Order Detail: 11/06/18 19:13 Resuscitation Status Routine Resuscitation Status: FULL: Full Resuscitation MAR Reviewed: Yes Vital Signs & Weight: Vital Signs (12 hours) Temp Pulse Resp BP Pulse Ox 11/18/18 14:37 97 24 H 93 L 11/18/18 10:29 94 20 93 L 11/18/18 08:05 98 F 94 16 142/90 H 91 L 11/18/18 08:00 91 L 11/18/18 06:48 94 18 96 Weight Admit Weight 136 lb Weight 136 lb Most Recent Monitor Data Heart Rate from ECG 85 NIBP 144/98 NIBP BP-Mean 113 Respiration from ECG 21 SpO2 100 I&O: 11/17/18 11/18/18 11/19/18 06:59 06:59 06:59 Intake Total 1800 2700 1700 Balance 1800 2700 1700 Result Diagrams: 11/17/18 05:22 11/17/18 05:22 Radiology Reviewed by me: Yes (CT abd and MRI - no mets) Phys Exam - Physical Examination Constitutional: NAD Respiratory: no wheezing, no rhonchi Cardiovascular: RRR, no rub Gastrointestinal: soft, positive bowel sounds Musculoskeletal: no edema Neurological: moves all 4 limbs Dx/Plan - Plan DVT proph w/lovenox, DVT proph w/SCDs IMPRESSION: Acute on chronic hypoxic resp failure due to COPD Exacerbation Sq cell Lung Ca Chronic resp failure on home O2 - 2-3 lit Obesity BMI 30.5 Tobacco dep GERD Anxiety Depression - mild stable PLAN: Cont Zosyn/IV Steroids and Nebs Cont Protonix Cont other meds as below Review of Systems - Review of Systems Cardiovascular: negative: chest pain, palpitations, orthopnea, paroxysmal nocturnal dyspnea, edema, light headedness, other Gastrointestinal: negative: Nausea, Vomiting, Abdominal Pain, Diarrhea, Constipation, Melena, Hematochezia, Other - Medications/Allergies Allergies/Adverse Reactions: Allergies Allergy/AdvReac Type Severity Reaction Status Date / Time Sulfa (Sulfonamide Allergy Severe Anaphylaxis Verified 11/06/18 17:46 Antibiotics) Latex, Natural Rubber Allergy Verified 11/06/18 17:46 meperidine [From Demerol] Allergy Verified 11/06/18 17:46 Medications: Current Medications Acetaminophen (Tylenol) 650 mg PO Q4H PRN PRN Reason: Headache/Fever/Mild Pain (1-3) Last Admin: 11/18/18 15:54 Dose: 650 mg Albuterol Sulfate (Ventolin) 2.5 mg NEB [id number] PRN PRN Reason: SOB &/or Wheezing Last Admin: 11/15/18 04:19 Dose: 2.5 mg Albuterol/Ipratropium (Duoneb) 3 ml NEB [id number] [facility] Last Admin: 11/18/18 14:37 Dose: 3 ml Arformoterol Tartrate (Brovana) 15 mcg NEB BID-RT [facility] Last Admin: 11/18/18 06:49 Dose: 15 mcg Budesonide (Pulmicort Neb Solution) 0.5 mg INH BID-RT [facility] Last Admin: 11/18/18 06:49 Dose: 0.5 mg Bupropion HCl (Wellbutrin Sr) 150 mg PO BID [facility] Last Admin: 11/18/18 08:29 Dose: 150 mg Citalopram Hydrobromide (Celexa) 20 mg PO DAILY [facility] Last Admin: 11/18/18 08:28 Dose: 20 mg Diphenhydramine HCl (Benadryl) 25 mg PO Q6H PRN PRN Reason: Itching & Insomnia Last Admin: 11/17/18 21:20 Dose: 25 mg Enoxaparin Sodium (Lovenox) 40 mg SC 0900 [facility] Last Admin: 11/18/18 08:30 Dose: 40 mg Guaifenesin (Mucinex) 1,200 mg PO Q12HR [facility] Last Admin: 11/18/18 08:28 Dose: 1,200 mg Piperacillin Sod/Tazobactam (Sod 3.375 gm/ Sodium Chloride) 100 mls @ 200 mls/ hr IVPB 0300,0900,1500,2100 [facility] Last Admin: 11/18/18 15:52 Dose: 100 mls Loratadine (Claritin) 10 mg PO DAILY [facility] Last Admin: 11/18/18 08:28 Dose: 10 mg Methylprednisolone Sodium Succinate (Solu-Medrol) 40 mg IVP Q6HR [facility] Last Admin: 11/18/18 17:20 Dose: 40 mg Montelukast Sodium (Singulair) 10 mg PO QPM [facility] Last Admin: 11/17/18 21:20 Dose: 10 mg Pantoprazole Sodium (Protonix) 40 mg PO DAILY [facility] Last Admin: 11/18/18 08:29 Dose: 40 mg Saccharomyces Boulardii (Florastor) 250 mg PO DAILY [facility] Last Admin: 11/18/18 08:27 Dose: 250 mg
[2018-11-18] MEDS: Montelukast Sodium 10 mg Tablet PO SCH (21:09)
[2018-11-19] MEDS: Piperacillin/Tazobactam 3.375 GM in Sodium Chloride 0.9% 100 ML IVPB SCH ×4 (04:47→20:23)
[2018-11-19] MEDS: methylPREDNISolone Sod Succ 40 MG VIAL IVP SCH ×3 (05:42→17:30)
[2018-11-19] MEDS: Budesonide 0.5 MG/2 ML NEB INH SCH ×2 (06:30→19:43)
[2018-11-19] MEDS: Arformoterol 15 MCG/2 ML NEB NEB SCH ×2 (06:30→19:43)
[2018-11-19] MEDS: Enoxaparin Sodium 40 MG/0.4 ML SYRINGE SC SCH (09:03)
[2018-11-19] MEDS: Saccharomyces boulardii 250 MG CAP PO SCH (09:04)
[2018-11-19] MEDS: Citalopram 20 MG TAB PO SCH (09:04)
[2018-11-19] MEDS: Bupropion 150 MG SR TAB PO SCH ×2 (09:04→20:23)
[2018-11-19] MEDS: guaiFENesin ER 600 MG TAB PO SCH ×2 (09:04→20:23)
[2018-11-19] MEDS: Loratadine 10 MG TAB PO SCH (09:05)
[2018-11-19] MEDS: Acetaminophen 325 MG TAB PO PRN (09:09)
--- NOTE | 2018-11-19 10:00 | PRG ---
DATE OF SERVICE: 11/19/2018 SUBJECTIVE: The patient is doing better today. This is the first day she has been better all week. OBJECTIVE: VITAL SIGNS: On exam, temperature is 99.0, pulse 80, respirations 18, O2 saturation 93%, and blood pressure . HEENT: Unremarkable. NECK: No adenopathy or JVD. LUNGS: Mild expiratory wheezing. CARDIAC: S1 and S2, regular. ABDOMEN: Soft. EXTREMITIES: No edema. ASSESSMENT: 1. Chronic obstructive pulmonary disease with exacerbation. 2. Escherichia coli tracheobronchitis. 3. Left upper lobe squamous cell carcinoma. PLAN: We would continue IV steroids and IV antibiotics over the weekend. I discussed with Dr. Armenta and radiation planning will start today. Job ID: [id number]
--- NOTE | 2018-11-19 13:55 | PDOC.PN ---
- Subjective Encounter Start Date: 11/19/18 Encounter Start Time: 11:30 Ms. Orr was seen today in follow-up of newly diagnosed squamous cell lung cancer. She also is being treated for severe COPD. She says she is breathing a little better today, but still get very winded after she has any movement. She denies any chest pain. - Objective Resuscitation Status - Order Detail: 11/06/18 19:13 Resuscitation Status Routine Resuscitation Status: FULL: Full Resuscitation MAR Reviewed: Yes Vital Signs & Weight: Vital Signs (12 hours) Temp Pulse Resp BP Pulse Ox 11/19/18 10:20 107 H 26 H 96 11/19/18 08:00 99.0 F 88 18 159/84 H 93 L 11/19/18 06:30 87 16 98 Weight Admit Weight 136 lb Weight 136 lb Most Recent Monitor Data Heart Rate from ECG 85 NIBP 144/98 NIBP BP-Mean 113 Respiration from ECG 21 SpO2 100 I&O: 11/18/18 11/19/18 11/20/18 06:59 06:59 06:59 Intake Total 2700 2200 Balance 2700 2200 Result Diagrams: 11/17/18 05:22 11/17/18 05:22 Phys Exam - Physical Examination HEENT: PERRLA Respiratory: no rales, wheezing present + wheezing and rhonchi bilaterally Cardiovascular: RRR, no significant murmur, no rub Gastrointestinal: soft, non-tender, no distention, positive bowel sounds Musculoskeletal: no edema, pulses present Dx/Plan (1) Acute on chronic respiratory failure with hypoxia Code(s): J96.21 - ACUTE AND CHRONIC RESPIRATORY FAILURE WITH HYPOXIA Status: Acute Comment: Improved, secondary to COPD exacerbation+/- bronchitis (2) COPD exacerbation Code(s): J44.1 - CHRONIC OBSTRUCTIVE PULMONARY DISEASE W (ACUTE) EXACERBATION Status: Acute Comment: Improved with oxygen, steroids and bronchodilators. Pt has been restarted on antibiotics, sputum culture growing GNR (3) Squamous cell lung cancer Code(s): C34.90 - MALIGNANT NEOPLASM OF UNSP PART OF UNSP BRONCHUS OR LUNG Status: Acute Comment: to follow up with oncology as outpatient - Plan * COPD exacerbation- continue Duonebs, Zosyn, and Steroids * Squamous Cell lung cancer- plan is to begin treatment once she is more clinically stable with regards to the COPD * Continue DVT and GI prophylaxis.
[2018-11-19] MEDS: Montelukast Sodium 10 mg Tablet PO SCH (20:23)
[2018-11-20] MEDS: methylPREDNISolone Sod Succ 40 MG VIAL IVP SCH ×2 (00:57→05:05)
[2018-11-20] MEDS: Piperacillin/Tazobactam 3.375 GM in Sodium Chloride 0.9% 100 ML IVPB SCH ×2 (03:59→08:12)
[2018-11-20] MEDS: Enoxaparin Sodium 40 MG/0.4 ML SYRINGE SC SCH (08:11)
[2018-11-20] MEDS: Citalopram 20 MG TAB PO SCH (08:12)
[2018-11-20] MEDS: Saccharomyces boulardii 250 MG CAP PO SCH (08:12)
[2018-11-20] MEDS: Bupropion 150 MG SR TAB PO SCH ×2 (08:12→19:53)
[2018-11-20] MEDS: Loratadine 10 MG TAB PO SCH (08:12)
[2018-11-20] MEDS: guaiFENesin ER 600 MG TAB PO SCH ×2 (08:12→19:54)
[2018-11-20] MEDS: Budesonide 0.5 MG/2 ML NEB INH SCH ×2 (08:17→18:47)
[2018-11-20] MEDS: Arformoterol 15 MCG/2 ML NEB NEB SCH ×2 (08:17→18:46)
[2018-11-20] MEDS: Acetaminophen 325 MG TAB PO PRN (08:18)
--- NOTE | 2018-11-20 11:35 | PRG ---
DATE OF SERVICE: SUBJECTIVE: Cole Orr doing well this morning, less short of breath, less cough. OBJECTIVE: VITAL SIGNS: Temperature is 98, pulse 82, respiratory rate 20, sats 94% on 2 L, and blood pressure 145/80. CHEST: Minimal wheezing. CARDIAC: Normal S1 and S2. . ASSESSMENT: Chronic obstructive pulmonary disease, squamous cell carcinoma. PLAN: Probably can switch over to oral antibiotics and oral steroids in a next day or two. Continue PT, input from Oncology. Job ID: [id number]
--- NOTE | 2018-11-20 14:25 | PDOC.PN ---
- Subjective Encounter Start Date: 11/20/18 Encounter Start Time: 14:23 Ms. Orr was seen today in follow-up of COPD exacerbation and Lung cancer. she is still very dyspneic, but says she is breathing better. No new complaints. - Objective Resuscitation Status - Order Detail: 11/06/18 19:13 Resuscitation Status Routine Resuscitation Status: FULL: Full Resuscitation MAR Reviewed: Yes Vital Signs & Weight: Vital Signs (12 hours) Temp Pulse Resp BP Pulse Ox 11/20/18 12:13 98.4 F 105 H 22 H 155/76 H 92 L 11/20/18 11:13 95 20 93 L 11/20/18 08:17 82 20 94 L 11/20/18 08:00 94 L 11/20/18 07:42 98.3 F 82 22 H 145/80 H 94 L 11/20/18 02:39 83 16 94 L Weight Admit Weight 136 lb Weight 136 lb Most Recent Monitor Data Heart Rate from ECG 85 NIBP 144/98 NIBP BP-Mean 113 Respiration from ECG 21 SpO2 100 I&O: 11/19/18 11/20/18 11/21/18 06:59 06:59 06:59 Intake Total 2200 1600 Balance 2200 1600 Result Diagrams: 11/17/18 05:22 11/17/18 05:22 Phys Exam - Physical Examination HEENT: PERRLA Respiratory: no rales, no rhonchi, wheezing present + expiratory wheezing, in both lungs Cardiovascular: RRR, no significant murmur, no rub Gastrointestinal: soft, non-tender, no distention, positive bowel sounds Musculoskeletal: no edema, pulses present Neurological: non-focal, normal sensation, moves all 4 limbs Dx/Plan (1) COPD exacerbation Code(s): J44.1 - CHRONIC OBSTRUCTIVE PULMONARY DISEASE W (ACUTE) EXACERBATION Status: Acute Comment: Improved with oxygen, steroids and bronchodilators. Pt has been restarted on antibiotics, sputum culture growing GNR (2) Acute on chronic respiratory failure with hypoxia Code(s): J96.21 - ACUTE AND CHRONIC RESPIRATORY FAILURE WITH HYPOXIA Status: Acute Comment: Improved, secondary to COPD exacerbation+/- bronchitis (3) Squamous cell lung cancer Code(s): C34.90 - MALIGNANT NEOPLASM OF UNSP PART OF UNSP BRONCHUS OR LUNG Status: Acute Comment: to follow up with oncology as outpatient - Plan * COPD exacerbation- slowly improving * Continue Duonebs, steroids and Zosyn * Squamous Cell lung cancer- patient to begin treatment next week if her pulmonary status has improved * DVT and GI Prophylaxis.
[2018-11-20] MEDS: Amoxicillin/Potassium Clav 500 MG TAB PO SCH (19:53)
[2018-11-20] MEDS: Montelukast Sodium 10 mg Tablet PO SCH (19:53)
[2018-11-20] MEDS: predniSONE 20 MG TAB PO SCH (19:54)
[2018-11-21] MEDS: Budesonide 0.5 MG/2 ML NEB INH SCH ×2 (06:42→18:31)
[2018-11-21] MEDS: Arformoterol 15 MCG/2 ML NEB NEB SCH ×2 (06:42→18:31)
[2018-11-21] MEDS: Saccharomyces boulardii 250 MG CAP PO SCH (09:11)
[2018-11-21] MEDS: Loratadine 10 MG TAB PO SCH (09:11)
[2018-11-21] MEDS: guaiFENesin ER 600 MG TAB PO SCH ×2 (09:11→21:26)
[2018-11-21] MEDS: Bupropion 150 MG SR TAB PO SCH ×2 (09:11→21:25)
[2018-11-21] MEDS: Amoxicillin/Potassium Clav 500 MG TAB PO SCH ×2 (09:11→21:25)
[2018-11-21] MEDS: Enoxaparin Sodium 40 MG/0.4 ML SYRINGE SC SCH (09:12)
[2018-11-21] MEDS: predniSONE 20 MG TAB PO SCH ×2 (09:12→21:26)
[2018-11-21] MEDS: Citalopram 20 MG TAB PO SCH (09:12)
--- NOTE | 2018-11-21 11:20 | PRG ---
DATE OF SERVICE: 11/21/2018 SUBJECTIVE: This morning, she says she is feeling better. OBJECTIVE: VITAL SIGNS: Saturations are 92% on 2 L, respiratory rate , pulse 90, temperature 98, and blood pressure . CHEST: Decreased breath sounds. No wheezing. CARDIAC: Normal S1, S2. No gallops. ABDOMEN: No masses. IMPRESSION: End-stage chronic obstructive pulmonary disease exacerbation, stable. Continue antibiotics, neb treatments, steroids. Job ID: [id number]
--- NOTE | 2018-11-21 12:57 | PDOC.PN ---
- Subjective Encounter Start Date: 11/21/18 Encounter Start Time: 12:00 Subjective: says she gets short winded even for mobilizing in room -: encouraged to ambulate in room - Objective Resuscitation Status - Order Detail: 11/06/18 19:13 Resuscitation Status Routine Resuscitation Status: FULL: Full Resuscitation MAR Reviewed: Yes Vital Signs & Weight: Vital Signs (12 hours) Temp Pulse Resp BP Pulse Ox 11/21/18 10:56 90 20 92 L 11/21/18 08:00 92 L 11/21/18 07:50 98 F 90 20 134/79 92 L 11/21/18 06:42 100 18 94 L 11/21/18 02:44 96 20 94 L Weight Admit Weight 136 lb Weight 136 lb Most Recent Monitor Data Heart Rate from ECG 85 NIBP 144/98 NIBP BP-Mean 113 Respiration from ECG 21 SpO2 100 I&O: 11/20/18 11/21/18 11/22/18 06:59 06:59 06:59 Intake Total 1600 1200 Balance 1600 1200 Result Diagrams: 11/17/18 05:22 11/17/18 05:22 Phys Exam - Physical Examination HEENT: PERRLA, moist MMs Neck: no JVD, supple Respiratory: no rales, wheezing present Cardiovascular: RRR, no significant murmur Gastrointestinal: soft, non-tender, positive bowel sounds Musculoskeletal: no edema, pulses present Neurological: non-focal, moves all 4 limbs Psychiatric: normal affect, A&O x 3 Dx/Plan (1) Acute on chronic respiratory failure with hypoxia Code(s): J96.21 - ACUTE AND CHRONIC RESPIRATORY FAILURE WITH HYPOXIA Status: Acute Comment: Improved, secondary to COPD exacerbation (2) COPD exacerbation Code(s): J44.1 - CHRONIC OBSTRUCTIVE PULMONARY DISEASE W (ACUTE) EXACERBATION Status: Acute (3) Squamous cell lung cancer Code(s): C34.90 - MALIGNANT NEOPLASM OF UNSP PART OF UNSP BRONCHUS OR LUNG Status: Acute Qualifiers: Laterality: left Qualified Code(s): C34.92 - Malignant neoplasm of unspecified part of left bronchus or lung Comment: likely radiation therapy to start on thursday per patient (4) Depression with anxiety Code(s): F41.8 - OTHER SPECIFIED ANXIETY DISORDERS Status: Chronic Comment: moderate, stable (5) GERD (gastroesophageal reflux disease) Code(s): K21.9 - GASTRO-ESOPHAGEAL REFLUX DISEASE WITHOUT ESOPHAGITIS Status: Chronic Qualifiers: Esophagitis presence: esophagitis presence not specified Qualified Code(s) : K21.9 - Gastro-esophageal reflux disease without esophagitis Comment: stable (6) Tobacco abuse Code(s): Z72.0 - TOBACCO USE Status: Chronic (7) Compression fracture of thoracic vertebra Code(s): S22.000A - WEDGE COMPRESSION FRACTURE OF UNSP THORACIC VERTEBRA, INIT Status: Chronic - Plan nebs, steroids, augmentin till 6th, pulmicort, brovana -: welbutrin xr, celexa -: to ambulate in room as tolerated -: titrate oxygen down to 2lts home dose -: will need vit D, outpt dexa scan via pcp * . Review of Systems - Medications/Allergies Allergies/Adverse Reactions: Allergies Allergy/AdvReac Type Severity Reaction Status Date / Time Sulfa (Sulfonamide Allergy Severe Anaphylaxis Verified 11/06/18 17:46 Antibiotics) Latex, Natural Rubber Allergy Verified 11/06/18 17:46 meperidine [From Demerol] Allergy Verified 11/06/18 17:46 Medications: Current Medications Acetaminophen (Tylenol) 650 mg PO Q4H PRN PRN Reason: Headache/Fever/Mild Pain (1-3) Last Admin: 11/20/18 08:18 Dose: 650 mg Albuterol Sulfate (Ventolin) 2.5 mg NEB [id number] PRN PRN Reason: SOB &/or Wheezing Last Admin: 11/15/18 04:19 Dose: 2.5 mg Albuterol/Ipratropium (Duoneb) 3 ml NEB [id number] MILY Last Admin: 11/21/18 10:56 Dose: 3 ml Amoxicillin/Clavulanate Potassium (Augmentin) 500 mg PO Q12HR MILY Stop: 11/25/18 21:01 Last Admin: 11/21/18 09:11 Dose: 500 mg Arformoterol Tartrate (Brovana) 15 mcg NEB BID-RT MILY Last Admin: 11/21/18 06:42 Dose: 15 mcg Budesonide (Pulmicort Neb Solution) 0.5 mg INH BID-RT MILY Last Admin: 11/21/18 06:42 Dose: 0.5 mg Bupropion HCl (Wellbutrin Sr) 150 mg PO BID MILY Last Admin: 11/21/18 09:11 Dose: 150 mg Citalopram Hydrobromide (Celexa) 20 mg PO DAILY [facility] Last Admin: 11/21/18 09:12 Dose: 20 mg Diphenhydramine HCl (Benadryl) 25 mg PO Q6H PRN PRN Reason: Itching & Insomnia Last Admin: 11/17/18 21:20 Dose: 25 mg Enoxaparin Sodium (Lovenox) 40 mg SC 0900 [facility] Last Admin: 11/21/18 09:12 Dose: 40 mg Guaifenesin (Mucinex) 1,200 mg PO Q12HR [facility] Last Admin: 11/21/18 09:11 Dose: 1,200 mg Loratadine (Claritin) 10 mg PO DAILY [facility] Last Admin: 11/21/18 09:11 Dose: 10 mg Montelukast Sodium (Singulair) 10 mg PO QPM [facility] Last Admin: 11/20/18 19:53 Dose: 10 mg Pantoprazole Sodium (Protonix) 40 mg PO DAILY [facility] Last Admin: 11/21/18 09:12 Dose: 40 mg Prednisone (Prednisone) 20 mg PO BID [facility] Last Admin: 11/21/18 09:12 Dose: 20 mg Saccharomyces Boulardii (Florastor) 250 mg PO DAILY [facility] Last Admin: 11/21/18 09:11 Dose: 250 mg
[2018-11-21] MEDS: Montelukast Sodium 10 mg Tablet PO SCH (21:25)
[2018-11-21] MEDS: Acetaminophen 325 MG TAB PO PRN (21:25)
[2018-11-22] MEDS: Arformoterol 15 MCG/2 ML NEB NEB SCH ×2 (06:29→19:26)
[2018-11-22] MEDS: Budesonide 0.5 MG/2 ML NEB INH SCH ×2 (06:30→19:28)
[2018-11-22] MEDS: Amoxicillin/Potassium Clav 500 MG TAB PO SCH ×2 (09:18→19:38)
[2018-11-22] MEDS: guaiFENesin ER 600 MG TAB PO SCH ×2 (09:18→19:39)
[2018-11-22] MEDS: Saccharomyces boulardii 250 MG CAP PO SCH (09:19)
[2018-11-22] MEDS: predniSONE 20 MG TAB PO SCH ×2 (09:19→19:39)
[2018-11-22] MEDS: Bupropion 150 MG SR TAB PO SCH ×2 (09:19→19:38)
[2018-11-22] MEDS: Loratadine 10 MG TAB PO SCH (09:20)
[2018-11-22] MEDS: Acetaminophen 325 MG TAB PO PRN ×2 (09:20→19:38)
[2018-11-22] MEDS: Citalopram 20 MG TAB PO SCH (09:20)
[2018-11-22] MEDS: Enoxaparin Sodium 40 MG/0.4 ML SYRINGE SC SCH (09:21)
--- NOTE | 2018-11-22 09:27 | PRG ---
DATE OF SERVICE: 11/22/2018 SUBJECTIVE: She feels better than she did last week. She has been able to walk around the room. She has had her radiation treatment field marked. OBJECTIVE: VITAL SIGNS: Temperature 98.4, pulse 102, respirations 18, O2 saturation 98%, blood pressure 138/88. HEENT: Unremarkable. NECK: No adenopathy or JVD. LUNGS: She has some focal wheezing over her left upper lobe. Her right lung is fairly clear. CARDIAC: S1, S2. Regular. ABDOMEN: Soft. EXTREMITIES: No edema. ASSESSMENT: 1. Left upper lobe squamous cell carcinoma, which is highly obstructing. 2. Chronic obstructive pulmonary disease with exacerbation. 3. Tobacco abuse. PLAN: Her situation stabilized to the point where I think she can be discharged safely tomorrow. She will have her steroids tapered over 2 weeks. Continue antibiotics through November 25 and stop. Continue nebulization treatments and radiation therapy. Job ID: [id number]
--- NOTE | 2018-11-22 14:51 | PDOC.PN ---
- Subjective Encounter Start Date: 11/22/18 Encounter Start Time: 12:30 Subjective: breathing better, no sob - Objective Resuscitation Status - Order Detail: 11/06/18 19:13 Resuscitation Status Routine Resuscitation Status: FULL: Full Resuscitation MAR Reviewed: Yes Vital Signs & Weight: Vital Signs (12 hours) Temp Pulse Resp BP Pulse Ox 11/22/18 10:11 122 H 18 92 L 11/22/18 08:00 98.4 F 102 H 18 138/88 92 L 11/22/18 06:31 84 18 98 11/22/18 06:30 84 18 98 11/22/18 06:29 84 18 98 Weight Admit Weight 136 lb Weight 136 lb Most Recent Monitor Data Heart Rate from ECG 85 NIBP 144/98 NIBP BP-Mean 113 Respiration from ECG 21 SpO2 100 I&O: 11/21/18 11/22/18 11/23/18 06:59 06:59 06:59 Intake Total 1200 1440 Balance 1200 1440 Result Diagrams: 11/17/18 05:22 11/17/18 05:22 Phys Exam - Physical Examination HEENT: PERRLA, moist MMs Neck: no JVD, supple Respiratory: no wheezing, no rales Cardiovascular: RRR, no significant murmur Gastrointestinal: soft, non-tender, positive bowel sounds Musculoskeletal: no edema, pulses present Neurological: non-focal, moves all 4 limbs Psychiatric: normal affect, A&O x 3 Dx/Plan (1) Acute on chronic respiratory failure with hypoxia Code(s): J96.21 - ACUTE AND CHRONIC RESPIRATORY FAILURE WITH HYPOXIA Status: Acute Comment: Improved, secondary to COPD exacerbation (2) COPD exacerbation Code(s): J44.1 - CHRONIC OBSTRUCTIVE PULMONARY DISEASE W (ACUTE) EXACERBATION Status: Acute (3) Squamous cell lung cancer Code(s): C34.90 - MALIGNANT NEOPLASM OF UNSP PART OF UNSP BRONCHUS OR LUNG Status: Acute Qualifiers: Laterality: left Qualified Code(s): C34.92 - Malignant neoplasm of unspecified part of left bronchus or lung Comment: likely radiation therapy to start on thursday per patient (4) Depression with anxiety Code(s): F41.8 - OTHER SPECIFIED ANXIETY DISORDERS Status: Chronic Comment: moderate, stable (5) GERD (gastroesophageal reflux disease) Code(s): K21.9 - GASTRO-ESOPHAGEAL REFLUX DISEASE WITHOUT ESOPHAGITIS Status: Chronic Qualifiers: Esophagitis presence: esophagitis presence not specified Qualified Code(s) : K21.9 - Gastro-esophageal reflux disease without esophagitis Comment: stable (6) Tobacco abuse Code(s): Z72.0 - TOBACCO USE Status: Chronic (7) Compression fracture of thoracic vertebra Code(s): S22.000A - WEDGE COMPRESSION FRACTURE OF UNSP THORACIC VERTEBRA, INIT Status: Chronic - Plan hemostable -: dc plan in am to home, radiation therapy to start from am -: continue augmentin, nebs, pulmicort, brovana, prednisone -: celexa and wellbutrin as before -: is on home oxygen 2-3lts by nc * . Review of Systems - Medications/Allergies Allergies/Adverse Reactions: Allergies Allergy/AdvReac Type Severity Reaction Status Date / Time Sulfa (Sulfonamide Allergy Severe Anaphylaxis Verified 11/06/18 17:46 Antibiotics) Latex, Natural Rubber Allergy Verified 11/06/18 17:46 meperidine [From Demerol] Allergy Verified 11/06/18 17:46 Medications: Current Medications Acetaminophen (Tylenol) 650 mg PO Q4H PRN PRN Reason: Headache/Fever/Mild Pain (1-3) Last Admin: 11/22/18 09:20 Dose: 650 mg Albuterol Sulfate (Ventolin) 2.5 mg NEB [id number] PRN PRN Reason: SOB &/or Wheezing Last Admin: 11/15/18 04:19 Dose: 2.5 mg Albuterol/Ipratropium (Duoneb) 3 ml NEB [id number] MILY Last Admin: 11/22/18 14:49 Dose: 3 ml Amoxicillin/Clavulanate Potassium (Augmentin) 500 mg PO Q12HR MILY Stop: 11/25/18 21:01 Last Admin: 11/22/18 09:18 Dose: 500 mg Arformoterol Tartrate (Brovana) 15 mcg NEB BID-RT MILY Last Admin: 11/22/18 06:29 Dose: 15 mcg Budesonide (Pulmicort Neb Solution) 0.5 mg INH BID-RT MILY Last Admin: 11/22/18 06:30 Dose: 0.5 mg Bupropion HCl (Wellbutrin Sr) 150 mg PO BID [facility] Last Admin: 11/22/18 09:19 Dose: 150 mg Citalopram Hydrobromide (Celexa) 20 mg PO DAILY [facility] Last Admin: 11/22/18 09:20 Dose: 20 mg Diphenhydramine HCl (Benadryl) 25 mg PO Q6H PRN PRN Reason: Itching & Insomnia Last Admin: 11/17/18 21:20 Dose: 25 mg Enoxaparin Sodium (Lovenox) 40 mg SC 0900 [facility] Last Admin: 11/22/18 09:21 Dose: 40 mg Guaifenesin (Mucinex) 1,200 mg PO Q12HR [facility] Last Admin: 11/22/18 09:18 Dose: 1,200 mg Loratadine (Claritin) 10 mg PO DAILY [facility] Last Admin: 11/22/18 09:20 Dose: 10 mg Montelukast Sodium (Singulair) 10 mg PO QPM [facility] Last Admin: 11/21/18 21:25 Dose: 10 mg Pantoprazole Sodium (Protonix) 40 mg PO DAILY [facility] Last Admin: 11/22/18 09:19 Dose: 40 mg Prednisone (Prednisone) 20 mg PO BID [facility] Last Admin: 11/22/18 09:19 Dose: 20 mg Saccharomyces Boulardii (Florastor) 250 mg PO DAILY [facility] Last Admin: 11/22/18 09:19 Dose: 250 mg
[2018-11-22] MEDS: Montelukast Sodium 10 mg Tablet PO SCH (19:38)
[2018-11-23] MEDS: Acetaminophen 325 MG TAB PO PRN (00:18)
[2018-11-23] MEDS: Arformoterol 15 MCG/2 ML NEB NEB SCH (06:25)
[2018-11-23] MEDS: Budesonide 0.5 MG/2 ML NEB INH SCH (06:27)
[2018-11-23 07:37] VITALS: TEMP 98.3
[2018-11-23] MEDS: Amoxicillin/Potassium Clav 500 MG TAB PO SCH (08:51)
[2018-11-23] MEDS: Saccharomyces boulardii 250 MG CAP PO SCH (08:51)
[2018-11-23] MEDS: guaiFENesin ER 600 MG TAB PO SCH (08:54)
[2018-11-23] MEDS: Citalopram 20 MG TAB PO SCH (08:54)
[2018-11-23] MEDS: predniSONE 20 MG TAB PO SCH (08:55)
[2018-11-23] MEDS: Enoxaparin Sodium 40 MG/0.4 ML SYRINGE SC SCH (08:55)
[2018-11-23] MEDS: Bupropion 150 MG SR TAB PO SCH (08:55)
[2018-11-23] MEDS: Loratadine 10 MG TAB PO SCH (08:55)
--- NOTE | 2018-11-23 09:41 | PRG ---
DATE OF SERVICE: 11/23/2018 SUBJECTIVE: The patient is doing remarkably better. She is ready to go home. OBJECTIVE: VITAL SIGNS: On exam, temperature is 98.3, pulse 84, respirations 24, O2 sat 96%, and blood pressure 143/86. HEENT: Unremarkable. NECK: No JVD. LUNGS: Clear without wheezing today. CARDIAC: S1 and S2, regular. ABDOMEN: Soft. EXTREMITIES: No edema. ASSESSMENT: 1. Chronic obstructive pulmonary disease exacerbation. 2. Left upper lobe squamous cell carcinoma. PLAN: Radiation therapy will start today. She needs to go home on 2 more days of antibiotics, breathing treatments, and 2 weeks tapered dose of prednisone. She can follow up in my office in 2 to 3 weeks. Job ID: [id number]
--- NOTE | 2018-11-23 12:34 | PDOC.PN ---
- Subjective Encounter Start Date: 11/23/18 Encounter Start Time: 09:20 Subjective: breathing better, feels good -: is scheduled for radiation today at 2pm - Objective Resuscitation Status - Order Detail: 11/06/18 19:13 Resuscitation Status Routine Resuscitation Status: FULL: Full Resuscitation MAR Reviewed: Yes Vital Signs & Weight: Vital Signs (12 hours) Temp Pulse Resp BP Pulse Ox 11/23/18 10:20 101 H 18 98 11/23/18 08:00 97 11/23/18 07:36 98.3 F 84 24 H 143/86 H 96 11/23/18 06:28 98 11/23/18 06:27 77 16 98 11/23/18 06:25 77 16 98 11/23/18 03:05 95 Weight Admit Weight 136 lb Weight 136 lb Most Recent Monitor Data Heart Rate from ECG 85 NIBP 144/98 NIBP BP-Mean 113 Respiration from ECG 21 SpO2 100 I&O: 11/22/18 11/23/18 11/24/18 06:59 06:59 06:59 Intake Total 1440 1200 Balance 1440 1200 Result Diagrams: 11/17/18 05:22 11/17/18 05:22 Phys Exam - Physical Examination HEENT: PERRLA, moist MMs Neck: no JVD, supple Respiratory: no wheezing, no rales Cardiovascular: RRR, no significant murmur Gastrointestinal: soft, non-tender, positive bowel sounds Musculoskeletal: no edema, pulses present Neurological: non-focal, moves all 4 limbs Psychiatric: normal affect, A&O x 3 Dx/Plan (1) Acute on chronic respiratory failure with hypoxia Code(s): J96.21 - ACUTE AND CHRONIC RESPIRATORY FAILURE WITH HYPOXIA Status: Resolved Comment: Improved, secondary to COPD exacerbation (2) COPD exacerbation Code(s): J44.1 - CHRONIC OBSTRUCTIVE PULMONARY DISEASE W (ACUTE) EXACERBATION Status: Resolved (3) Squamous cell lung cancer Code(s): C34.90 - MALIGNANT NEOPLASM OF UNSP PART OF UNSP BRONCHUS OR LUNG Status: Acute Qualifiers: Laterality: left Qualified Code(s): C34.92 - Malignant neoplasm of unspecified part of left bronchus or lung Comment: likely radiation therapy to start on thursday per patient (4) Depression with anxiety Code(s): F41.8 - OTHER SPECIFIED ANXIETY DISORDERS Status: Chronic Comment: moderate, stable (5) GERD (gastroesophageal reflux disease) Code(s): K21.9 - GASTRO-ESOPHAGEAL REFLUX DISEASE WITHOUT ESOPHAGITIS Status: Chronic Qualifiers: Esophagitis presence: esophagitis presence not specified Qualified Code(s) : K21.9 - Gastro-esophageal reflux disease without esophagitis Comment: stable (6) Tobacco abuse Code(s): Z72.0 - TOBACCO USE Status: Chronic (7) Compression fracture of thoracic vertebra Code(s): S22.000A - WEDGE COMPRESSION FRACTURE OF UNSP THORACIC VERTEBRA, INIT Status: Chronic - Plan hemostable -: dc pt home, to have radiation this afternoon for lung ca -: meds faxed to her pharmacy -: is on home dose of nasal canula oxygen * .
[2018-11-23 12:41] VITALS: BP 160/82
--- NOTE | 2018-11-23 19:48 | DIS ---
DATE OF ADMISSION: 11/06/2018 DATE OF DISCHARGE: 11/23/2018 DISCHARGE DISPOSITION: Home. PRIMARY DISCHARGE DIAGNOSES: 1. Acute respiratory failure with hypoxia, resolved. 2. Chronic obstructive pulmonary disease exacerbation, resolved. 3. Squamous cell lung cancer left upper lobe, to start radiation therapy today that is Thursday. SECONDARY DISCHARGE DIAGNOSES: 1. Chronic tobacco abuse. 2. Chronic compression fracture of thoracic vertebra likely osteoporosis, will need outpatient DEXA scan. 3. Depression. 4. Anxiety. 5. Gastroesophageal reflux disease. PROCEDURES DONE DURING HOSPITALIZATION: CT chest done on 11/08/2018, showed left hilar mass with greatest dimension of 3 cm. There was narrowing of left upper and left lower lobe bronchi in this region. There was nodular parenchymal density in the anteromedial left upper lobe measuring 13 mm, chronic lung changes with evidence of COPD. She had vertebroplasty for multiple compression fractures at lower thoracic and upper lumbar vertebral bodies. There is compression fractures of T8 and T9 vertebral bodies. The patient had bronchoscopy done on 11/11/2018, by Dr. Guaman. She has had a biopsy of left upper lobe endobronchial lung mass. Histopathology showed malignant cells consistent with squamous cell carcinoma. MRI brain with and without contrast done showed no restricted diffusion. No acute infarct. No significant T2 or FLAIR white matter hyperintensities. No pathologic enhancement in the brain parenchyma. No MR evidence of intracranial metastasis. CT of the abdomen and pelvis with oral and IV contrast done showed no evidence of metastatic disease in the abdomen or pelvis. H and H 11 and 35, platelet count 388, BUN 15, creatinine 0.5 on the 17 of November. DISCHARGE MEDICATIONS: 1. DuoNeb q.6 hourly. 2. Citalopram 20 mg p.o. daily. 3. Bupropion extended release 200 mg twice daily. 4. Protonix 40 mg p.o. daily. 5. Augmentin 500 mg p.o. twice daily for another two days. 6. Dulera 200/5 mcg two puffs twice daily. 7. Singulair 10 mg p.o. q.p.m. 8. Prednisone 10 mg p.o. three times daily for three days, then twice daily for five days, then daily for five days and half a tablet for 4 days and stop after that. ALLERGIES: SULFA, LATEX, NATURAL RUBBER, MEPERIDINE. INPATIENT CONSULT: 1. Dr. Guaman for Pulmonology. 2. Dr. Armenta, for Radiation Oncology. 3. Ms. Roseann Chappell, for Oncology. DISCHARGE PLAN: The patient is going for radiation therapy after getting discharged from here today. She needs to follow up with Ms. Roseann Chappell in Oncology as advised. She also needs to follow up with primary care physician in 1 week. BRIEF COURSE DURING HOSPITALIZATION: The patient initially came in with complaints of shortness of breath. She has had recent flare up of her COPD and was on steroids. Her initial chest x-ray was suspicious for a lung mass. She was evaluated by Dr. Guaman. A CT chest was done, which showed left upper lobe mass with mediastinal adenopathy. The patient has had a flexible bronchoscopy done with biopsies of endobronchial mass. This has revealed squamous cell carcinoma. She was seen by Ms. Roseann Chappell for Oncology. The patient was not a candidate for surgery due to severe COPD. The plan is for concurrent chemo and radiation therapy. Dr. Armenta, radiation oncologist evaluated the patient. Dr. Armenta discussed radiation therapy options with her and in view of her advanced disease with bronchial obstruction, she needed urgent radiation therapy to start. She has consented for the same and therapy will be starting from today. Her COPD flare-up has resolved. All through her stay, she was evaluated by Dr. Guaman. Dr. Guaman has cleared her for discharge today. Her overall prognosis is guarded. She was counseled with regard to complete smoking cessation in view of her lung cancer and advanced COPD. She is at her baseline home oxygen prior to discharge. Please see a [id number] documentation for the day of discharge on [place]. Job ID: [id number]
== END 2018-11-23 14:18 | disposition home or self-care (01) | DRG 180 ==
LOC: ERS 13:20 → IMCU/EMU 17:35 → T4-A 11-14 11:32
PROVIDERS: ADMIT Internal Medicine; ATTEND Internal Medicine
PROC: 0BB88ZX Excision of Left Upper Lobe Bronchus, Via Natural or Artificial Opening Endoscopic, Diagnostic (ICD-10-PCS; principal; 2018-11-11)
PROC: 0BC68ZZ Extirpation of Matter from Right Lower Lobe Bronchus, Via Natural or Artificial Opening Endoscopic (ICD-10-PCS; 2018-11-11)
PROC: 0BD88ZX Extraction of Left Upper Lobe Bronchus, Via Natural or Artificial Opening Endoscopic, Diagnostic (ICD-10-PCS; 2018-11-11)
DX: C34.12 Malignant neoplasm of upper lobe, left bronchus or lung (principal); J96.21 Acute and chronic respiratory failure with hypoxia; J44.1 Chronic obstructive pulmonary disease with (acute) exacerbation; F41.9 Anxiety disorder, unspecified; F32.9 Major depressive disorder, single episode, unspecified; F17.210 Nicotine dependence, cigarettes, uncomplicated; K21.9 Gastro-esophageal reflux disease without esophagitis; E66.9 Obesity, unspecified; Z60.2 Problems related to living alone; Z79.51 Long term (current) use of inhaled steroids; Z91.040 Latex allergy status; Z88.8 Allergy status to other drugs, medicaments and biological substances; Z99.81 Dependence on supplemental oxygen; Z79.52 Long term (current) use of systemic steroids; Z88.2 Allergy status to sulfonamides; Z79.899 Other long term (current) drug therapy; Z90.710 Acquired absence of both cervix and uterus; Z98.51 Tubal ligation status; Z68.30 Body mass index [BMI] 30.0-30.9, adult; Z87.01 Personal history of pneumonia (recurrent)
CPT/HCPCS: 36415; 70553; 71045; 71260; 74177; 76000; 77290; 77334; 80048; 80069; 83735; 85014; 85018; 85025; 85049; 87070; 87077; 87186; 87205; 88112; 88305; 88313; 88341; 88342; 93005; 94640; 94644; 94667; 94668; 94760; 96374; J1100; J1650; J2001; J2405; J2543; J2704; J2920; J2930; J3010; J3475; J3490; J7050; J7512; J7611; J7620; J7626; Q0163; Q9966

== ENCOUNTER 2019-01-21 10:36 | Day surgery (SDC) | payer OTHER ==
[2019-01-21] MEDS ORDERED: Fentanyl 100 MCG/2 ML VIAL ONE ×2 (11:00→12:01)
--- NOTE | 2019-01-21 11:15 | RAD ---
XR Chest 1 View Portable History: Preop MediPort placement Comparison: Radiograph November 17, 2018 Findings: Layering left pleural effusion has decreased in size. Large left perihilar mass as well as a lingular nodule. No pneumothorax. Bones are demineralized with multiple compression deformities containing cement. Impression: No acute intrathoracic abnormality. Large left hilar mass.
[2019-01-21 11:24] LABS: #Eosinphils 0.4 thou/uL (0.0-0.7); #Lymphocytes 0.9 thou/uL (1.20-3.40); #Neutrophils 6.9 thou/uL (1.40-6.50); %Basophils 0.4 % (0.0-1.0); %Eosinophils 4.3 % (0.0-10.0); %Lymphocytes 9.4 % (21.0-51.0); %Neutrophils 74.9 % (42.0-75.0); Hemoglobin 11.8 g/dL (12.0-16.0); Mean Corpuscular HGB CONC 31.9 g/dL (32.0-36.0); Mean Corpuscular Hemoglobin 27.6 pg (27.0-31.0); Mean Corpuscular Volume 86.5 fL (78.0-98.0); Mean Platelet Volume 6.9 fL (7.4-10.4); Platelet Count 362 thou/uL (130-400); RBC Distribution Width 14.6 % (11.5-14.5); Red Blood Cell (RBC) Count 4.26 mill/uL (4.20-5.40); White Blood Cell (WBC) Count 9.3 thou/uL (4.8-10.8)
[2019-01-21] MEDS ORDERED: Lidocaine 1% (PF) 30 ML VIAL ONE (11:36)
[2019-01-21] MEDS ORDERED: Bupivacaine/Epinephrine 0.25% 30 ML VIAL ONE (11:36)
[2019-01-21] MEDS ORDERED: Ketorolac Tromethamine 30 MG/ML VIAL ONE (11:50)
[2019-01-21] MEDS ORDERED: ceFAZolin Sodium (SDC) 2 GM/100 ML BAG ONE (11:50)
[2019-01-21 11:54] LABS: Anion Gap 13 mmol/L (10-20); BUN (Urea Nitrogen) 10 mg/dL (9.8-20.1); Calc. Creatinine Clearance 0 mL/min (70-130); Calcium 9.4 mg/dL (7.8-10.44); Carbon Dioxide 27 mmol/L (22-29); Chloride 103 mmol/L (98-107); Estimated GFR-MDRD 86; Glucose 88 mg/dL (70-105); Potassium 3.9 mmol/L (3.5-5.1); Sodium 139 mmol/L (136-145)
[2019-01-21] MEDS ORDERED: Midazolam HCl 2 mg/2 ml Vial ONE (12:01)
[2019-01-21] MEDS ORDERED: Propofol 500 MG/50 ML VIAL ONE (12:01)
[2019-01-21] MEDS ORDERED: Famotidine/PF 20 mg/2ml Vial ONE (12:01)
[2019-01-21] MEDS ORDERED: PROPOFOL 40 ML ONE (12:01)
--- NOTE | 2019-01-21 14:51 | RAD ---
Exam: Chest one view HISTORY:Mediport placement. Comparison: 01/21/2019 at 10:53 AM FINDINGS: Cardiac silhouette:Stable. Stable atherosclerosis. Pulmonary vessels: Normal Costophrenic angles: Clear LUNGS: No masses or consolidation. Interval placement of a right-sided Mediport catheter with the distal expected region of the superior vena cava. Pneumothorax: None Osseous abnormalities: Previous multilevel kyphoplasty change is noted. IMPRESSION: 1. Interval placement of right-sided Mediport catheter with the distal tip in the expected region of the superior vena cava. No pneumothorax
--- NOTE | 2019-01-24 11:23 | OP ---
DATE OF PROCEDURE: 01/21/2019 PREOPERATIVE DIAGNOSIS: Left lung cancer. POSTOPERATIVE DIAGNOSIS: Left lung cancer. OPERATION PERFORMED: Placement of a low-profile power compatible right subclavian MediPort. ANESTHESIA: Total intravenous anesthesia with local using 0.25% Marcaine with epinephrine. INDICATIONS: Patient is a 58-year-old white female with a history of COPD and a recent diagnosis of left lung cancer. MediPort placement is requested for chemotherapy administration. DESCRIPTION OF OPERATION: Informed consent was obtained. The patient was taken to the operating room where total intravenous anesthesia was obtained with the patient in supine position. Right periclavicular area was prepped with ChloraPrep and draped in sterile fashion. Local anesthetic was infiltrated and a large-gauge needle was passed under the clavicle in the subclavian vein. Guidewire was passed through the needle and fluoroscopically confirmed to enter the superior vena cava. Additional local anesthetic was infiltrated and transverse incision was created based on needle insertion site. A subcutaneous pocket was dissected inferiorly. Introducer dilator was passed over the guidewire under fluoroscopic guidance. The guidewire and dilator were removed, and the catheter was passed through the introducer. The tip of the catheter was positioned at the atriocaval junction and the catheter was trimmed to the appropriate length and secured to the locking hub of the MediPort. The port was then placed in the subcutaneous pocket where it was secured to the pectoral fascia with 2 interrupted sutures of 3-0 Prolene. The incision was then closed in layers with 3-0 and 4-0 Monocryl. Additional local anesthetic was infiltrated. The port was cannulated with a Flores needle and it aspirated blood freely and was flushed with heparinized saline. Dermabond was placed externally on the skin incision. There were no complications. Blood loss was negligible. The patient tolerated the procedure well and was taken to recovery room in stable condition. FINDINGS: I chose a low-profile power compatible MediPort and placed this uneventfully into the right subclavian vein. There was essentially no blood loss. Fluoroscopy was used throughout the procedure. Patient tolerated the procedure well and was taken to recovery room in stable condition. Job ID: [id number]
== END 2019-01-21 16:45 | disposition home or self-care (01) ==
LOC: SDC 10:36
PROVIDERS: ATTEND Specialist
PROC: 05H533Z Insertion of Infusion Device into Right Subclavian Vein, Percutaneous Approach (ICD-10-PCS; principal; 2019-01-21)
DX: C34.32 Malignant neoplasm of lower lobe, left bronchus or lung (principal); C34.12 Malignant neoplasm of upper lobe, left bronchus or lung; J44.9 Chronic obstructive pulmonary disease, unspecified; F17.210 Nicotine dependence, cigarettes, uncomplicated; F41.9 Anxiety disorder, unspecified; F32.9 Major depressive disorder, single episode, unspecified; M81.0 Age-related osteoporosis without current pathological fracture; Z88.2 Allergy status to sulfonamides; Z91.040 Latex allergy status; Z88.5 Allergy status to narcotic agent
CPT/HCPCS: 36415; 71045; 80048; 85025; C1788; J0131; J0690; J1642; J1885; J2001; J2250; J2704; J3010; S0028

== ENCOUNTER 2019-01-31 08:53 | Day surgery (SDC) | payer OTHER ==
[~2019-01-31 08:53] MED LIST: CARBOPLATIN IVPB SCH; Dexamethasone 20 MG in Sodium Chloride 0.9% 50 ML IVPB SCH; Famotidine/PF 20 MG in Sodium Chloride 0.9% 50 ML IVPB SCH; PACLITAXEL IVPB SCH; Palonosetron HCl 0.25 MG in Sodium Chloride 0.9% 50 ML IVPB SCH; Pegfilgrastim Onpro 6 MG/0.6 ML SQ SCH; SODIUM CHLORIDE 0.9% IVPB SCH; diphenhydrAMINE 50 MG in Sodium Chloride 0.9% 50 ML IVPB SCH
[2019-01-31] MEDS ORDERED: Sodium Chloride 0.9% 20 ML ONE (09:41)
[2019-01-31 11:26] VITALS: BP 130/72; TEMP 98.4
== END 2019-01-31 15:06 | disposition home or self-care (01) ==
LOC: ONC/OP 08:53
PROVIDERS: ATTEND Internal Medicine Hematology & Oncology
DX: Z51.11 Encounter for antineoplastic chemotherapy (principal); C34.82 Malignant neoplasm of overlapping sites of left bronchus and lung; Z91.040 Latex allergy status; Z88.2 Allergy status to sulfonamides; Z91.048 Other nonmedicinal substance allergy status
CPT/HCPCS: 96375; 96377; 96413; 96415; 96417; J1100; J1200; J1642; J2469; J2505; J7050; J9045; J9267; S0028

== ENCOUNTER 2019-02-01 14:29 | Day surgery (SDC) | payer OTHER ==
[~2019-02-01 14:29] MED LIST changes: -CARBOPLATIN IVPB SCH; -Dexamethasone 20 MG in Sodium Chloride 0.9% 50 ML IVPB SCH; -Famotidine/PF 20 MG in Sodium Chloride 0.9% 50 ML IVPB SCH; -PACLITAXEL IVPB SCH; +PEGFILGRASTIM-JMDB 6 MG/0.6 ML SYRINGE SQ SCH; -Palonosetron HCl 0.25 MG in Sodium Chloride 0.9% 50 ML IVPB SCH; -Pegfilgrastim Onpro 6 MG/0.6 ML SQ SCH; -SODIUM CHLORIDE 0.9% IVPB SCH; -diphenhydrAMINE 50 MG in Sodium Chloride 0.9% 50 ML IVPB SCH
[2019-02-01 14:38] VITALS: BP 158/77
== END 2019-02-01 14:39 | disposition home or self-care (01) ==
LOC: ONC/OP 14:29
PROVIDERS: ATTEND Internal Medicine Hematology & Oncology
DX: Z51.11 Encounter for antineoplastic chemotherapy (principal); C34.82 Malignant neoplasm of overlapping sites of left bronchus and lung; Z91.040 Latex allergy status; Z88.2 Allergy status to sulfonamides; Z88.5 Allergy status to narcotic agent
CPT/HCPCS: 96372; Q5108

== ENCOUNTER 2019-02-10 18:41 | Inpatient (IN) | payer OTHER, SELFPAY ==
[~2019-02-10 18:41] MED LIST changes: +ISOVUE-370 76%-LOCM 1 ML ONE; -PEGFILGRASTIM-JMDB 6 MG/0.6 ML SYRINGE SQ SCH
[2019-02-10 19:14] LABS: Hemoglobin 10.8 g/dL (12.0-16.0); Mean Corpuscular HGB CONC 32.1 g/dL (32.0-36.0); Mean Corpuscular Hemoglobin 28.6 pg (27.0-31.0); Mean Platelet Volume 7.7 fL (7.4-10.4); Platelet Count 264 thou/uL (130-400); Red Blood Cell (RBC) Count 3.79 mill/uL (4.20-5.40); White Blood Cell (WBC) Count 15.9 thou/uL (4.8-10.8)
[2019-02-10 19:21] LABS: Bicarbonate (HCO3v) 28.7 mmol/L (22.0-28.0); CO2 Tension (PvCO2) 43.1 mmHg (40.0-50.0); Calcium, Ionized 1.07 mmol/L (See Comments:); Chloride 103 mmol/L (98-107); Hemoglobin - Calc 11.4 g/dL (12.0-16.0); Potassium 3.2 mmol/L (3.5-5.1); Sodium 142 mmol/L (138-145); T. Carbon Dioxide 30.1 mmol/L (22.0-28.0)
[2019-02-10] MEDS ORDERED: methylPREDNISolone Sod Succ/PF 125 MG/2 ML VIAL ONE (19:24)
[2019-02-10] MEDS ORDERED: Magnesium 2 GM/50 ML 2 GM in Premix Bag 1 BAG IVPB SCH (19:30)
[2019-02-10] MEDS ORDERED: Magnesium 2 GM/50 ML BAG (IN WATER) ONE (19:32)
[2019-02-10 19:35] LABS: ALT (SGPT) 23 U/L (8-55); AST (SGOT) 17 U/L (5-34); Albumin 4.1 g/dL (3.5-5.0); Alkaline Phosphatase 119 U/L (40-150); Anion Gap 15 mmol/L (10-20); BUN (Urea Nitrogen) 9 mg/dL (9.8-20.1); Bilirubin, Total Less than 0.2 mg/dL (0.2-1.2); Calc. Creatinine Clearance 0 mL/min (70-130); Calcium 9.2 mg/dL (7.8-10.44); Carbon Dioxide 28 mmol/L (22-29); Chloride 101 mmol/L (98-107); Estimated GFR-MDRD 71; Globulin 2.3 g/dL (2.4-3.5); Glucose 98 mg/dL (70-105); Potassium 3.3 mmol/L (3.5-5.1); Protein, Total 6.4 g/dL (6.0-8.3); Sodium 141 mmol/L (136-145)
[2019-02-10 19:36] LABS: MDiff Complete? YES
[2019-02-10 19:37] LABS: Anisocytosis SLIGHT = 6-15 cells (100X) (0-5/hpf); Band 15 % (5-11); Elliptocytes SLIGHT = 2-5 cells (100X) (0-1/hpf); Lymphocytes 5 % (21-51); Metamyelocyte 2 % (0-0); Monocytes 6 % (0-10); Neutrophil 72 % (42-75); Ovalocytes SLIGHT = 2-5 cells (100X) (0-1/hpf); Platelet Morphology Comment Appears Adequate; Polychromasia SLIGHT = 2-3 cells (100X) (0-2/hpf); Toxic Granulation SLIGHT
--- NOTE | 2019-02-10 19:48 | RAD ---
Chest AP view INDICATION: Dyspnea COMPARISON: January 21, 2019 FINDINGS: Lungs:Stable chronic lung changes Cardiac silhouette:Stable mild cardiomegaly Pulmonary vasculature:Normal Pleural spaces:No pleural effusion or pneumothorax is demonstrated. Upper abdomen:No abnormality seen. Osseous structures: Stable vertebral plasty change and diffuse osteopenia. Additional findings:Stable right chest wall port IMPRESSION: No acute cardiopulmonary abnormality.
--- NOTE | 2019-02-10 21:23 | CT ---
CT ANGIOGRAM CHEST: 02/10/19 HISTORY: Lung cancer and COPD currently on chemotherapy and radiation therapy, shortness of breath with exerti on. COMPARISON: 11/08/[address] TECHNIQUE: Axial CT imaging at 2.5 mm intervals from thoracic inlet through upper abdomen with IV contrast using CT angiogram protocol. Coronal and oblique sagittal 3D reformatted imaging obtained. FINDINGS: there is adequate opacification of the pulmonary arterial vasculature. No evidence for acute pulmonar y arterial embolism is noted. There is no lymphadenopathy evident within the axillary or mediastinal regions. No acute abnormality of the imaged aorta. Imaged upper abdomen appears grossly unremarkable. No significant pleural, pericardial or mediastinal fluid is seen. There is severe emphysematous change noted throughout both lungs. There is an irregular spiculated central mass lesion in the left hilar region measuring approximately 2.7 cm in AP dimension, similar when compared to the 11/08/18 examination, consistent with a history of bronchogenic carcinoma. This mass causes narrowing of the bronchus supplying the left upper lobe and the left lower lobe as before. There are coarse linear interstitial densities noted within the le ft lower lobe, not significantly changed when compared to the prior examination. There is mild bronch ial plugging involving distal bronchi within the left lower lobe. There are subtle areas of nodularity within the posterior aspect of the lingula, unchanged when matilde red to the prior examination. There is a vague nodule on axial image 42 measuring 4 mm within the lef t upper lobe, stable. There is a nodule along the inferior aspect of the right upper lobe on axial image 42 measuring 6 mm , similar when compared to the prior exam. There is a tiny peripheral nodule measuring in the 3 mm r ed anteriorly within right middle lobe on image 60, stable as well. Review of the osseous structures demonstrates no discrete lytic or blastic bone lesion. There is evid ence of multilevel kyphoplasty, which includes L1, T10, T11, and T12, as well as T6 and T7. Anterior wedge compression fractures are also noted involving T8 and T9, as seen on the 11/08/18 examination. IMPRESSION: 1. No evidence for acute pulmonary arterial embolism. 2. Numerous pulmonary parenchymal findings as described above, stable when compared to the prior examination. This includes a spiculated mass lesion in the left hilar region consistent with broncho genic carcinoma. Please see above discussion. POS: AYAZ
[2019-02-10] MEDS ORDERED: Fentanyl 100 MCG/2 ML VIAL ONE (21:45)
[2019-02-10] MEDS ORDERED: HYDROcodone/Acetaminophen 5/325 mg Tablet PO PRN (23:46)
[2019-02-10] MEDS ORDERED: Acetaminophen 325 MG TAB PO PRN (23:46)
[2019-02-10] MEDS ORDERED: Ondansetron ODT 4 MG TAB SL PRN (23:46)
[2019-02-10] MEDS ORDERED: Ondansetron PF 4 MG/2 ML Vial IVP PRN (23:46)
[2019-02-11] MEDS: HYDROcodone/Acetaminophen 5/325 mg Tablet PO PRN ×3 (00:08→22:42)
[2019-02-11] MEDS: Sodium Chloride 0.9% 1,000 ML IV SCH ×2 (00:10→11:36)
[2019-02-11] MEDS: Morphine 2 MG/ML SYRINGE SLOW IVP PRN ×5 (02:27→20:27)
[2019-02-11] MEDS ORDERED: PROVENTIL INHALER 6.7 G (200 INHALATIONS) INH PRN (02:43)
[2019-02-11] MEDS ORDERED: Bacteriostatic Water 30 ML VIAL FS PRN (02:54)
[2019-02-11] MEDS: methylPREDNISolone Sod Succ 40 MG VIAL IVP SCH ×3 (05:22→17:07)
[2019-02-11 06:31] LABS: Band 9 % (5-11); Hemoglobin 10.2 g/dL (12.0-16.0); Lymphocytes 2 % (21-51); MDiff Complete? YES; Mean Corpuscular HGB CONC 31.5 g/dL (32.0-36.0); Mean Corpuscular Hemoglobin 28.1 pg (27.0-31.0); Mean Corpuscular Volume 89.2 fL (78.0-98.0); Mean Platelet Volume 7.7 fL (7.4-10.4); Monocytes 2 % (0-10); Neutrophil 87 % (42-75); Platelet Count 236 thou/uL (130-400); Platelet Morphology Comment Appears Adequate; RBC Distribution Width 15.1 % (11.5-14.5); Red Blood Cell (RBC) Count 3.61 mill/uL (4.20-5.40)
[2019-02-11 06:34] LABS: Anion Gap 11 mmol/L (10-20); BUN (Urea Nitrogen) 9 mg/dL (9.8-20.1); Calc. Creatinine Clearance 101 mL/min (70-130); Calcium 8.5 mg/dL (7.8-10.44); Carbon Dioxide 29 mmol/L (22-29); Chloride 102 mmol/L (98-107); Estimated GFR-MDRD Greater than 90; Glucose 159 mg/dL (70-105); Potassium 4.3 mmol/L (3.5-5.1); Sodium 138 mmol/L (136-145)
--- NOTE | 2019-02-11 07:50 | HP ---
CODE STATUS: Full code. CHIEF COMPLAINT: Shortness of breath. HISTORY OF PRESENT ILLNESS: A 58-year-old female patient with past medical history of COPD and lung cancer, came to the hospital after having severe gradually worsening shortness of breath. This started on Thursday, worse with exertion, it was not getting better. The patient also has chronic hypoxic respiratory failure, uses oxygen at home. She was taking her medication but did not improve, that was the reason why she came to the hospital. The symptoms were [id number]. The patient was also found to have acute on chronic respiratory failure with some difficulty keeping saturation above 90. REVIEW OF SYSTEMS: All other systems were reviewed and negative except for the findings mentioned above. PAST MEDICAL HISTORY: Positive for lung cancer, treated with chemotherapy and radiation. The patient is doing with radiation and chemo every three weeks. History of GERD. SURGICAL HISTORY: x2, hysterectomy, kyphoplasty of vertebra, and port placed in the right upper chest. PSYCHIATRIC HISTORY: Anxiety and depression. SOCIAL HISTORY: No alcohol. No drugs. The patient is still smoking 2 to 3 cigarettes per day. KNOWN ALLERGIES: Latex and sulfa. FAMILY HISTORY: Reviewed, noncontributory to current presentation. REPORTED MEDICATIONS: 1. Pantoprazole. 2. Prednisolone. 3. DuoNebs. 4. Bupropion. 5. Guaifenesin. 6. Prochlorperazine. 7. Celexa. 8. Zyrtec. PHYSICAL EXAMINATION: VITAL SIGNS: On presentation, blood pressure 131/82 with heart rate 94, respiratory rate was 16, pain was 5, and oxygen saturation was . GENERAL APPEARANCE: The patient is alert, oriented with mild respiratory distress due to chronic obstructive pulmonary disease exacerbation. HEENT: Eyes, normal conjunctivae. Moist oral mucosa. Anicteric. No JVD. RESPIRATORY: The patient has bilateral wheezes that are audible. Scattered rales. The patient has occasional cough, on nasal cannula 3 L. CARDIOVASCULAR: Normal rate. Regular rhythm. No murmurs. No gallop. No edema. ABDOMEN: Soft. Normal bowel sounds. MUSCULOSKELETAL: Baseline range of motion and strength. SKIN: Warm, intact. No pallor. No rash. No redness. Peripheral circulation seems to be intact. NEURO: No evidence of any new focal weakness. Cranial nerves seem to be intact. PSYCH: The patient is in good mood. No anxiety. Optimal judgment. DIAGNOSTIC DATA: EKG was reviewed. The patient has some ST changes that are nonspecific, sinus rhythm with short MI, QRS 80, QT corrected 457. Radiology, lungs, stable chronic lung disease. No acute cardiopulmonary abnormalities. CT was done and showed no evidence of acute arterial embolism. Numerous pulmonary parenchymal findings as described above, stable when compared with prior examination. This includes speculated mass lesion in the left hilar region consistent with bronchogenic carcinoma. LABORATORY DATA: Labs were reviewed. The patient has white count 15.9, hemoglobin 10.8, MCV 89, platelet count 264, and bands 15. VBG was done with pH 7.43, pCO2 on VBG of 43. Sodium 141, potassium 3.3, chloride 101, carbon dioxide 28, anion gap 15, BUN 9, creatinine 0.82, GFR 71, glucose 98, lactic acid 1.3, calcium 9.2, total bilirubin less than 0.2. LFTs were negative. Globulin 2.3. ASSESSMENT AND PLAN: The patient will be placed in the hospital with following medical problems: 1. Chronic obstructive pulmonary disease exacerbation. The patient will be placed on oxygen, nebs, steroids, antibiotics, and oxygen by nasal cannula at a higher dose than her home dose. 2. Acute hypoxic respiratory failure. The patient has an increased need for oxygen, unable to keep saturation above 90. This is likely secondary to underlying chronic obstructive pulmonary disease exacerbation. We will treat and adjust treatment accordingly. 3. Leukocytosis, unclear etiology. The patient is on steroids will be the reason. There is no evidence of infection at this time. However, the patient has underlying chronic obstructive pulmonary disease. 4. Normocytic anemia. This is likely secondary to underlying cancer. We will monitor and treat accordingly. 5. Hypokalemia at 3.3. This is minimal. No need for acute intervention at this point. 6. History of lung cancer. The patient is receiving chemo and this can be followed as outpatient. 7. Possible pneumonia, could be related to underlying cancer. The patient has been started on antibiotics. We will monitor and adjust treatment as needed. follow cultures to adjust abt 8. Deep venous thrombosis prophylaxis. Job ID: [id number] [facility]
[2019-02-11] MEDS ORDERED: Morphine 2 MG/ML SYRINGE SLOW IVP SCH (08:15)
[2019-02-11] MEDS ORDERED: Furosemide 20 MG/2 ML VIAL SLOW IVP SCH ×2 (08:15→16:45)
[2019-02-11] MEDS: Fluticasone Propionate Nasal Spray 16 gm Bottle NASAL SCH (08:36)
[2019-02-11] MEDS: Enoxaparin Sodium 40 MG/0.4 ML SYRINGE SC SCH (08:36)
[2019-02-11] MEDS: Loratadine 10 MG TAB PO SCH (08:37)
[2019-02-11] MEDS: Citalopram 20 MG TAB PO SCH (08:37)
[2019-02-11] MEDS: Bupropion 100 MG SR TAB PO SCH ×2 (08:37→20:36)
[2019-02-11] MEDS: Famotidine 20 MG TAB PO SCH ×2 (08:37→20:37)
[2019-02-11] MEDS ORDERED: Cetirizine HCl 10 MG TAB PO SCH (09:00)
[2019-02-12] MEDS: methylPREDNISolone Sod Succ 40 MG VIAL IVP SCH ×5 (00:10→23:35)
[2019-02-12] MEDS: Morphine 2 MG/ML SYRINGE SLOW IVP PRN ×6 (03:51→22:02)
[2019-02-12] MEDS: HYDROcodone/Acetaminophen 5/325 mg Tablet PO PRN ×5 (05:41→20:38)
[2019-02-12] MEDS: Furosemide 40 MG/4 ML VIAL SLOW IVP SCH (05:41)
[2019-02-12] MEDS: Enoxaparin Sodium 40 MG/0.4 ML SYRINGE SC SCH (08:30)
[2019-02-12] MEDS: Bupropion 100 MG SR TAB PO SCH ×2 (08:31→20:38)
[2019-02-12] MEDS: Citalopram 20 MG TAB PO SCH (08:31)
[2019-02-12] MEDS: Loratadine 10 MG TAB PO SCH (08:31)
[2019-02-12] MEDS: Famotidine 20 MG TAB PO SCH ×2 (08:31→20:39)
[2019-02-12] MEDS: Fluticasone Propionate Nasal Spray 16 gm Bottle NASAL SCH (08:32)
--- NOTE | 2019-02-12 11:07 | EKG ---
Test Reason : Blood Pressure : / mmHG Vent. Rate : 093 BPM Atrial Rate : 093 BPM P-R Int : 108 ms QRS Dur : 080 ms QT Int : 368 ms P-R-T Axes : -28 055 067 degrees QTc Int : 457 ms Sinus rhythm with short IN Nonspecific ST abnormality Abnormal ECG Confirmed by OUMAR SHAFFER ([id number]), business editor EFREN HUGGINS ([id number]) on 02/12/2019 11:07:17 AM Referred By: Confirmed By:OUMAR SHAFFER
[2019-02-12] MEDS ORDERED: HYDROcodone/Acetaminophen 5/325 mg Tablet PO SCH (12:15)
--- NOTE | 2019-02-12 14:15 | PDOC.HOSPP ---
- Subjective Encounter Date: 02/12/19 Encounter Time: 14:14 Subjective: Patient seen and examined, no new issues or complaints. - Objective Vital Signs & Weight: Vital Signs (12 hours) Temp Pulse Resp BP Pulse Ox 02/12/19 10:58 100 20 96 02/12/19 07:32 97.7 F 94 20 159/74 H 95 02/12/19 03:55 20 92 L Weight Weight 147 lb 1 oz I&O: 02/11/19 02/12/19 02/13/19 06:59 06:59 06:59 Intake Total 1350 1600 Balance 1350 1600 Result Diagrams: 02/11/19 06:00 02/11/19 06:00 ROS - Medication Medications: Active Medications Generic Name Dose Route Start Last Admin Trade Name Freq PRN Reason Stop Dose Admin Hydrocodone Bitart/Acetaminophen 1 tab 02/11/19 20:21 02/12/19 11:38 [place] 5/325 PO 1 tab Q4H PRN Administration Pain Albuterol/Ipratropium 3 ml 02/10/19 23:47 02/11/19 08:04 Duoneb NEB 3 ml Q1H PRN Administration SOB &/or Wheezing Albuterol/Ipratropium 3 ml 02/11/19 06:30 02/12/19 10:58 Duoneb NEB 3 ml [id number] MILY Administration Bupropion HCl 200 mg 02/11/19 09:00 02/12/19 08:31 Wellbutrin Sr PO 200 mg BID MILY Administration Citalopram Hydrobromide 20 mg 02/11/19 09:00 02/12/19 08:31 Celexa PO 20 mg DAILY MILY Administration Enoxaparin Sodium 40 mg 02/11/19 09:00 02/12/19 08:30 Lovenox SC 40 mg 0900 MILY Administration Famotidine 20 mg 02/11/19 09:00 02/12/19 08:31 Pepcid PO 20 mg BID MILY Administration Fluticasone Propionate 0 gm 02/11/19 09:00 02/12/19 08:32 Flonase Nasal [place] NASAL 1 spr DAILY MILY Administration Furosemide 40 mg 02/12/19 06:00 02/12/19 05:41 Lasix SLOW IVP 40 mg 0600 MILY Administration Levofloxacin 750 mg/ Device 150 mls @ 100 mls/hr 02/11/19 22:00 02/11/19 22: 45 IVPB 150 mls Q24HR MILY Administration Loratadine 10 mg 02/11/19 09:00 02/12/19 08:31 Claritin PO 10 mg DAILY MILY Administration Methylprednisolone Sodium Succinate 40 mg 02/11/19 06:00 02/12/19 11:41 Solu-Medrol IVP 40 mg Q6HR MILY Administration Morphine Sulfate 2 mg 02/11/19 02:03 02/12/19 13:12 Morphine SLOW IVP 2 mg Q4H PRN Administration Breakthrough Pain - Exam NAD, awake alert Eye: PERRL, anicteric sclera ENT: normocephalic atraumatic, no oropharyngeal lesions Neck: supple, symmetric, no JVD Heart: RRR, no murmur, no gallops Respiratory: CTAB, no wheezes, no rales, no ronchi Gastrointestinal: soft, non-tender, non-distended, normal bowel sounds Extremities: no cyanosis, no clubbing Hosp A/P (1) COPD exacerbation Code(s): J44.1 - CHRONIC OBSTRUCTIVE PULMONARY DISEASE W (ACUTE) EXACERBATION Status: Acute (2) Lung mass Code(s): R91.8 - OTHER NONSPECIFIC ABNORMAL FINDING OF LUNG FIELD Status: Acute (3) Compression fracture of thoracic vertebra Code(s): S22.000A - WEDGE COMPRESSION FRACTURE OF UNSP THORACIC VERTEBRA, INIT Status: Chronic (4) Depression with anxiety Code(s): F41.8 - OTHER SPECIFIED ANXIETY DISORDERS Status: Chronic (5) GERD (gastroesophageal reflux disease) Code(s): K21.9 - GASTRO-ESOPHAGEAL REFLUX DISEASE WITHOUT ESOPHAGITIS Status: Chronic Qualifiers: Esophagitis presence: esophagitis presence not specified Qualified Code(s) : K21.9 - Gastro-esophageal reflux disease without esophagitis - Plan - consult to hospice for possible hospice placement and/or palliation for radiation/chemo - if she can have this done she is willing to consider palliative care services AFTER a discussion with her family - she would like to obtain information first before signing up for hospice/ palliation - vitals stable - pain controlled - oncology following - palliative care consultation - case and plan d/w patient at length, she understood and agreed with this plan.
[2019-02-13] MEDS: HYDROcodone/Acetaminophen 5/325 mg Tablet PO PRN ×5 (00:08→20:16)
[2019-02-13] MEDS: Morphine 2 MG/ML SYRINGE SLOW IVP PRN ×7 (02:16→23:10)
[2019-02-13] MEDS: methylPREDNISolone Sod Succ 40 MG VIAL IVP SCH ×3 (05:06→21:07)
[2019-02-13] MEDS: Furosemide 40 MG/4 ML VIAL SLOW IVP SCH (05:33)
[2019-02-13 06:14] LABS: Anion Gap 15 mmol/L (10-20); BUN (Urea Nitrogen) 15 mg/dL (9.8-20.1); Calc. Creatinine Clearance 89 mL/min (70-130); Carbon Dioxide 29 mmol/L (22-29); Chloride 97 mmol/L (98-107); Estimated GFR-MDRD 83; Glucose 141 mg/dL (70-105); Potassium 3.7 mmol/L (3.5-5.1); Sodium 137 mmol/L (136-145)
[2019-02-13 06:26] LABS: Band 4 % (5-11); Hemoglobin 9.7 g/dL (12.0-16.0); Lymphocytes 4 % (21-51); MDiff Complete? YES; Mean Corpuscular HGB CONC 31.9 g/dL (32.0-36.0); Mean Corpuscular Hemoglobin 28.6 pg (27.0-31.0); Mean Corpuscular Volume 89.5 fL (78.0-98.0); Mean Platelet Volume 7.7 fL (7.4-10.4); Metamyelocyte 3 % (0-0); Monocytes 3 % (0-10); Myelocyte 1 % (0-0); Neutrophil 85 % (42-75); Platelet Count 198 thou/uL (130-400); Platelet Morphology Comment Appears Adequate; RBC Distribution Width 15.2 % (11.5-14.5); Red Blood Cell (RBC) Count 3.39 mill/uL (4.20-5.40); White Blood Cell (WBC) Count 21.1 thou/uL (4.8-10.8)
[2019-02-13] MEDS: Citalopram 20 MG TAB PO SCH (09:01)
[2019-02-13] MEDS: Famotidine 20 MG TAB PO SCH ×2 (09:01→20:15)
[2019-02-13] MEDS: Loratadine 10 MG TAB PO SCH (09:01)
[2019-02-13] MEDS: Enoxaparin Sodium 40 MG/0.4 ML SYRINGE SC SCH (09:01)
[2019-02-13] MEDS: Bupropion 100 MG SR TAB PO SCH ×2 (09:02→20:15)
[2019-02-13] MEDS: Fluticasone Propionate Nasal Spray 16 gm Bottle NASAL SCH (09:02)
--- NOTE | 2019-02-13 11:59 | PDOC.HOSPP ---
- Subjective Encounter Date: 02/13/19 Encounter Time: 11:56 Subjective: Patient seen and examined, doing better, pain improved, having coughing spasms, asking for some muscle relaxants for her post cough spasms. No other issues or complaints. - Objective Vital Signs & Weight: Vital Signs (12 hours) Temp Pulse Resp BP Pulse Ox 02/13/19 10:42 105 H 20 97 02/13/19 08:00 95 02/13/19 07:57 98.1 F 104 H 20 148/75 H 95 02/13/19 07:00 94 L 02/13/19 06:59 91 16 94 L 02/13/19 03:37 95 Weight Weight 147 lb 1 oz I&O: 02/12/19 02/13/19 02/14/19 06:59 06:59 06:59 Intake Total 1600 1120 Balance 1600 1120 Result Diagrams: 02/13/19 05:40 02/13/19 05:40 ROS - Medication Medications: Active Medications Generic Name Dose Route Start Last Admin Trade Name Freq PRN Reason Stop Dose Admin Hydrocodone Bitart/Acetaminophen 1 tab 02/11/19 20:21 02/13/19 11:21 [place] 5/325 PO 1 tab Q4H PRN Administration Pain Albuterol/Ipratropium 3 ml 02/10/19 23:47 02/11/19 08:04 Duoneb NEB 3 ml Q1H PRN Administration SOB &/or Wheezing Albuterol/Ipratropium 3 ml 02/11/19 06:30 02/13/19 10:42 Duoneb NEB 3 ml [id number] MILY Administration Bupropion HCl 200 mg 02/11/19 09:00 02/13/19 09:02 Wellbutrin Sr PO 200 mg BID MILY Administration Citalopram Hydrobromide 20 mg 02/11/19 09:00 02/13/19 09:01 Celexa PO 20 mg DAILY MILY Administration Enoxaparin Sodium 40 mg 02/11/19 09:00 02/13/19 09:01 Lovenox SC 40 mg 0900 MILY Administration Famotidine 20 mg 02/11/19 09:00 02/13/19 09:01 Pepcid PO 20 mg BID MILY Administration Fluticasone Propionate 0 gm 02/11/19 09:00 02/13/19 09:02 Flonase Nasal [place] NASAL 1 spr DAILY MILY Administration Furosemide 40 mg 02/12/19 06:00 02/13/19 05:33 Lasix SLOW IVP 40 mg 0600 MILY Administration Levofloxacin 750 mg/ Device 150 mls @ 100 mls/hr 02/11/19 22:00 02/12/19 22: 03 IVPB 150 mls Q24HR MILY Administration Loratadine 10 mg 02/11/19 09:00 02/13/19 09:01 Claritin PO 10 mg DAILY MILY Administration Morphine Sulfate 2 mg 02/12/19 18:05 02/13/19 09:02 Morphine SLOW IVP 2 mg Q2H PRN Administration Breakthrough Pain - Exam NAD, awake alert Eye: PERRL, anicteric sclera ENT: normocephalic atraumatic, no oropharyngeal lesions Neck: supple, symmetric, no JVD Heart: RRR, no murmur, no gallops Respiratory: CTAB, no wheezes, no rales Gastrointestinal: soft, non-tender, non-distended Hosp A/P (1) COPD exacerbation Code(s): J44.1 - CHRONIC OBSTRUCTIVE PULMONARY DISEASE W (ACUTE) EXACERBATION Status: Acute (2) Lung mass Code(s): R91.8 - OTHER NONSPECIFIC ABNORMAL FINDING OF LUNG FIELD Status: Acute (3) Compression fracture of thoracic vertebra Code(s): S22.000A - WEDGE COMPRESSION FRACTURE OF UNSP THORACIC VERTEBRA, INIT Status: Chronic (4) Depression with anxiety Code(s): F41.8 - OTHER SPECIFIED ANXIETY DISORDERS Status: Chronic (5) GERD (gastroesophageal reflux disease) Code(s): K21.9 - GASTRO-ESOPHAGEAL REFLUX DISEASE WITHOUT ESOPHAGITIS Status: Chronic Qualifiers: Esophagitis presence: esophagitis presence not specified Qualified Code(s) : K21.9 - Gastro-esophageal reflux disease without esophagitis - Plan - hospice placement pending - vitals stable - pain controlled - oncology following - palliative care consultation - will give tessalon pearls + low dose flexeril for muscle spasms - case and plan d/w patient at length, she understood and agreed with this plan.
[2019-02-13] MEDS: Cyclobenzaprine 10 MG TAB PO PRN (23:30)
[2019-02-13] MEDS: Benzonatate 100 MG CAP PO PRN (23:30)
[2019-02-13] MEDS ORDERED: HYDROcodone/Acetaminophen 5/325 mg Tablet PO SCH (23:45)
[2019-02-13] MEDS ORDERED: Morphine 2 MG/ML SYRINGE SLOW IVP SCH (23:45)
[2019-02-14] MEDS: Morphine 2 MG/ML SYRINGE SLOW IVP PRN ×8 (00:48→20:56)
[2019-02-14] MEDS: HYDROcodone/Acetaminophen 5/325 mg Tablet PO PRN ×4 (03:44→16:51)
[2019-02-14] MEDS: Furosemide 40 MG/4 ML VIAL SLOW IVP SCH (06:06)
[2019-02-14] MEDS: methylPREDNISolone Sod Succ 40 MG VIAL IVP SCH ×3 (06:06→21:02)
[2019-02-14] MEDS: Loratadine 10 MG TAB PO SCH (08:01)
[2019-02-14] MEDS: Enoxaparin Sodium 40 MG/0.4 ML SYRINGE SC SCH (08:01)
[2019-02-14] MEDS: Citalopram 20 MG TAB PO SCH (08:02)
[2019-02-14] MEDS: Famotidine 20 MG TAB PO SCH ×2 (08:02→20:57)
[2019-02-14] MEDS: Fluticasone Propionate Nasal Spray 16 gm Bottle NASAL SCH (08:08)
[2019-02-14] MEDS: Bupropion 100 MG SR TAB PO SCH ×2 (08:08→20:57)
--- NOTE | 2019-02-14 15:00 | PDOC.HOSPP ---
- Subjective Encounter Date: 02/14/19 Encounter Time: 07:00 Subjective: Prt seen for followup re: COPD exacerbation. says she feels okay. Back pain +. - Objective Vital Signs & Weight: Vital Signs (12 hours) Temp Pulse Resp BP Pulse Ox 02/14/19 13:32 97 16 97 02/14/19 10:30 105 H 18 95 02/14/19 08:04 98.0 F 115 H 16 156/82 H 95 02/14/19 08:00 95 02/14/19 07:31 116 H 18 95 02/14/19 03:40 94 L Weight Weight 147 lb 1 oz I&O: 02/13/19 02/14/19 02/15/19 06:59 06:59 06:59 Intake Total 1120 1710 Balance 1120 1710 Result Diagrams: 02/13/19 05:40 02/13/19 05:40 Additional Labs: Labs and MARs reviewed by me ROS - Review of Systems Respiratory: reports: cough, dry. denies: shortness of breath, hemoptysis, SOB with excertion, pleuritic pain, sputum, wheezing Cardiovascular: denies: chest pain, palpitations, orthopnea, paroxysmal noc. dyspnea, edema, light headedness Musculoskeletal: reports: back pain - Medication Medications: Active Medications Generic Name Dose Route Start Last Admin Trade Name Freq PRN Reason Stop Dose Admin Hydrocodone Bitart/Acetaminophen 1 tab 02/11/19 20:21 02/14/19 12:44 [place] 5/325 PO 1 tab Q4H PRN Administration Pain Albuterol/Ipratropium 3 ml 02/10/19 23:47 02/11/19 08:04 Duoneb NEB 3 ml Q1H PRN Administration SOB &/or Wheezing Albuterol/Ipratropium 3 ml 02/11/19 06:30 02/14/19 13:32 Duoneb NEB 3 ml [id number] MILY Administration Benzonatate 100 mg 02/13/19 21:28 02/13/19 23:30 Tessalon PO 100 mg TID PRN Administration Cough Bupropion HCl 200 mg 02/11/19 09:00 02/14/19 08:08 Wellbutrin Sr PO 200 mg BID MILY Administration Citalopram Hydrobromide 20 mg 02/11/19 09:00 02/14/19 08:02 Celexa PO 20 mg DAILY MILY Administration Cyclobenzaprine HCl 5 mg 02/13/19 21:28 02/13/19 23:30 Flexeril PO 5 mg TID PRN Administration Muscle Spasm Enoxaparin Sodium 40 mg 02/11/19 09:00 02/14/19 08:01 Lovenox SC 40 mg 0900 MILY Administration Famotidine 20 mg 02/11/19 09:00 02/14/19 08:02 Pepcid PO 20 mg BID MILY Administration Fluticasone Propionate 0 gm 02/11/19 09:00 02/14/19 08:08 Flonase Nasal [place] NASAL 1 spr DAILY MILY Administration Furosemide 40 mg 02/12/19 06:00 02/14/19 06:06 Lasix SLOW IVP 40 mg 0600 MILY Administration Levofloxacin 750 mg/ Device 150 mls @ 100 mls/hr 02/11/19 22:00 02/13/19 21: 07 IVPB 150 mls Q24HR MILY Administration Loratadine 10 mg 02/11/19 09:00 02/14/19 08:01 Claritin PO 10 mg DAILY MILY Administration Methylprednisolone Sodium Succinate 20 mg 02/13/19 14:00 02/14/19 14:09 Solu-Medrol IVP 20 mg Q8HR MILY Administration Morphine Sulfate 2 mg 02/12/19 18:05 02/14/19 14:08 Morphine SLOW IVP 2 mg Q2H PRN Administration Breakthrough Pain Sodium Chloride 10 ml 02/10/19 23:46 02/14/19 08:52 Flush - Normal Saline IVF 10 ml PRN PRN Administration Saline Flush - Exam General - other findings: Obese Eye: anicteric sclera ENT: moist mucosa Neck: supple Heart: RRR Respiratory: no rales, wheezes Gastrointestinal: soft, non-tender, normal bowel sounds Neurological: no weakness Psychiatric: normal affect, normal behavior Hosp A/P (1) COPD exacerbation Code(s): J44.1 - CHRONIC OBSTRUCTIVE PULMONARY DISEASE W (ACUTE) EXACERBATION Status: Acute (2) Squamous cell lung cancer Code(s): C34.90 - MALIGNANT NEOPLASM OF UNSP PART OF UNSP BRONCHUS OR LUNG Status: Chronic Qualifiers: Laterality: left Qualified Code(s): C34.92 - Malignant neoplasm of unspecified part of left bronchus or lung (3) GERD (gastroesophageal reflux disease) Code(s): K21.9 - GASTRO-ESOPHAGEAL REFLUX DISEASE WITHOUT ESOPHAGITIS Status: Chronic Qualifiers: Esophagitis presence: esophagitis presence not specified Qualified Code(s) : K21.9 - Gastro-esophageal reflux disease without esophagitis - Plan continue antibiotics, out of bed/ambulate Continue levofloxacin, steroids, bronchodilators and PRN oxygen. Continue [place] and morphine. palliative care following. Deciding re: hospice.
--- NOTE | 2019-02-14 16:40 | PDOC.PALCO ---
Palliative Care Consult - Consult Details Requesting Physician: Dr Phan Reason for Consult: other (Information on options palliative/hospice) - Social History Smoking Status: Current every day smoker Smoking: cigarettes Alcohol Use: none Drug Use History: none Living Situation: independent - Medications MAR Reviewed: Yes - Allergies Allergies/Adverse Reactions: Allergies Allergy/AdvReac Type Severity Reaction Status Date / Time Sulfa (Sulfonamide Allergy Severe Anaphylaxis Verified 11/06/18 17:46 Antibiotics) Latex, Natural Rubber Allergy Verified 11/06/18 17:46 meperidine [From Demerol] Allergy Verified 11/06/18 17:46 - Subjective resting in bed, o2 dependent. Labored respirations with push of speech. Pallor. Complains of back pain, between scapula as well as circling diaphragm ROS: 10 point review of systems otherwise negative with the exception of above mentioned - Objective Vital Signs: Vital Signs - Most Recent Temp Pulse Resp BP Pulse Ox 98.0 F 97 16 156/82 H 97 02/14/19 08:04 02/14/19 13:32 02/14/19 13:32 02/14/19 08:04 02/14/19 13:32 Palliative Performance Scale: 50 - Physical Exam Deviation from normal: Chronically ill appearing, sunken ocular bed, HEENT: moist MMs, EOMI Respiratory: tachypnea Deviation from normal: labored respirations Musculoskeletal: no edema Neurological: moves all 4 limbs Psychiatric: normal affect, A&O x 3 Deviation from normal: brusing upper extremities, pallor, fair turgor - Problem List (1) Palliative care encounter Code(s): Z51.5 - ENCOUNTER FOR PALLIATIVE CARE Current Visit: Yes Status: Acute (2) Intractable back pain Code(s): M54.9 - DORSALGIA, UNSPECIFIED Current Visit: No Status: Acute (3) Lung mass Code(s): R91.8 - OTHER NONSPECIFIC ABNORMAL FINDING OF LUNG FIELD Current Visit: No Status: Acute (4) COPD (chronic obstructive pulmonary disease) Current Visit: No Status: Chronic - Plan/Recommendations Plan: *Patient desires to return to an independent living situation in [facility] for as long as possible, then move to [place]. *Continue with palliative chemo/this limits possibility of Hospice *Not a candidate for palliative care outside of the hospital secondary to out of service area for palliative, only home health or hospice services an option *Wishes to have pain manages with minimal breakthrough pain *Hospital bed in home (Karol Ruiz reaching out to resources to identify if/where a bed can be obtained) *Understands components of cardiac resuscitation status and "for her children" wishes to pursue. *Requests evaluation of pain medications. Will review and discuss with Dr Hawkins. [80] minutes spent on this encounter with >50% of the time in counseling and coordination of care. Thank you for this very appropriate consult.
[2019-02-14] MEDS: HYDROcodone/Acetaminophen 10/325 mg Tablet PO SCH ×2 (18:41→23:39)
[2019-02-15] MEDS: Morphine 2 MG/ML SYRINGE SLOW IVP PRN ×4 (02:16→13:02)
[2019-02-15] MEDS: HYDROcodone/Acetaminophen 10/325 mg Tablet PO SCH ×2 (06:02→11:21)
[2019-02-15] MEDS: Furosemide 40 MG/4 ML VIAL SLOW IVP SCH (06:03)
[2019-02-15] MEDS: methylPREDNISolone Sod Succ 40 MG VIAL IVP SCH ×3 (06:03→21:19)
[2019-02-15] MEDS: Loratadine 10 MG TAB PO SCH (08:03)
[2019-02-15] MEDS: Fluticasone Propionate Nasal Spray 16 gm Bottle NASAL SCH (08:03)
[2019-02-15] MEDS: Famotidine 20 MG TAB PO SCH ×2 (08:03→20:00)
[2019-02-15] MEDS: Enoxaparin Sodium 40 MG/0.4 ML SYRINGE SC SCH (08:03)
[2019-02-15] MEDS: Bupropion 100 MG SR TAB PO SCH ×2 (08:03→20:00)
[2019-02-15] MEDS: Citalopram 20 MG TAB PO SCH (08:03)
[2019-02-15] MEDS ORDERED: Morphine 2 MG/ML SYRINGE SLOW IVP SCH (08:45)
[2019-02-15] MEDS: Lidocaine 5% Patch TD SCH (09:07)
[2019-02-15] MEDS: Cyclobenzaprine 10 MG TAB PO PRN ×2 (11:22→20:24)
--- NOTE | 2019-02-15 14:51 | PDOC.HOSPP ---
- Subjective Encounter Date: 02/15/19 Encounter Time: 14:49 Subjective: Pt seen for followup re: COPD exacerbation. Pain better, but still in a lot of pain. - Objective Vital Signs & Weight: Vital Signs (12 hours) Temp Pulse Resp BP Pulse Ox 02/15/19 14:27 105 H 20 02/15/19 10:22 99 20 02/15/19 08:00 94 L 02/15/19 07:50 97.8 F 99 18 133/79 94 L 02/15/19 06:54 100 24 H Weight Weight 147 lb 1 oz I&O: 02/14/19 02/15/19 02/16/19 06:59 06:59 06:59 Intake Total 1710 Balance 1710 Result Diagrams: 02/13/19 05:40 02/13/19 05:40 Additional Labs: Labs and MARs reviewed by me. Hospitalist ROS - Review of Systems Respiratory: reports: cough, dry. denies: shortness of breath, hemoptysis, SOB with excertion, pleuritic pain, sputum, wheezing Cardiovascular: denies: chest pain, palpitations, orthopnea, paroxysmal noc. dyspnea, edema, light headedness Musculoskeletal: reports: back pain - Medication Medications: Active Medications Generic Name Dose Route Start Last Admin Trade Name Freq PRN Reason Stop Dose Admin Hydrocodone Bitart/Acetaminophen 1 tab 02/14/19 18:00 02/15/19 11:21 [place] 10/325 PO 1 tab Q6HR MILY Administration Albuterol/Ipratropium 3 ml 02/10/19 23:47 02/11/19 08:04 Duoneb NEB 3 ml Q1H PRN Administration SOB &/or Wheezing Albuterol/Ipratropium 3 ml 02/11/19 06:30 02/15/19 14:27 Duoneb NEB 3 ml [id number] MILY Administration Benzonatate 100 mg 02/13/19 21:28 02/13/19 23:30 Tessalon PO 100 mg TID PRN Administration Cough Bupropion HCl 200 mg 02/11/19 09:00 02/15/19 08:03 Wellbutrin Sr PO 200 mg BID MILY Administration Citalopram Hydrobromide 20 mg 02/11/19 09:00 02/15/19 08:03 Celexa PO 20 mg DAILY MILY Administration Cyclobenzaprine HCl 5 mg 08/25/19 21:28 02/15/19 11:22 Flexeril PO 5 mg TID PRN Administration Muscle Spasm Enoxaparin Sodium 40 mg 02/11/19 09:00 02/15/19 08:03 Lovenox SC 40 mg 0900 MILY Administration Famotidine 20 mg 02/11/19 09:00 02/15/19 08:03 Pepcid PO 20 mg BID MILY Administration Fluticasone Propionate 0 gm 02/11/19 09:00 02/15/19 08:03 Flonase Nasal [place] NASAL 1 spr DAILY MILY Administration Furosemide 40 mg 02/12/19 06:00 02/15/19 06:03 Lasix SLOW IVP 40 mg 0600 MILY Administration Levofloxacin 750 mg/ Device 150 mls @ 100 mls/hr 02/11/19 22:00 02/14/19 21: 02 IVPB 150 mls Q24HR MILY Administration Lidocaine 1 patch 02/15/19 09:00 02/15/19 09:07 Lidoderm 5% Patch TD 1 patch DAILY MILY Administration Loratadine 10 mg 02/11/19 09:00 02/15/19 08:03 Claritin PO 10 mg DAILY MILY Administration Methylprednisolone Sodium Succinate 20 mg 02/13/19 14:00 02/15/19 13:04 Solu-Medrol IVP 20 mg Q8HR MILY Administration Morphine Sulfate 2 mg 02/12/19 18:05 02/15/19 13:02 Morphine SLOW IVP 2 mg Q2H PRN Administration Breakthrough Pain Sodium Chloride 10 ml 02/10/19 23:46 02/15/19 13:06 Flush - Normal Saline IVF 10 ml PRN PRN Administration Saline Flush - Exam General - other findings: Obese Eye: anicteric sclera ENT: moist mucosa Neck: supple Heart: RRR Respiratory: normal chest expansion, wheezes Gastrointestinal: soft, non-tender Neurological: no weakness Musculoskeletal: no muscle wasting Psychiatric: normal affect, normal behavior Hosp A/P (1) COPD exacerbation Code(s): J44.1 - CHRONIC OBSTRUCTIVE PULMONARY DISEASE W (ACUTE) EXACERBATION Status: Acute (2) Squamous cell lung cancer Code(s): C34.90 - MALIGNANT NEOPLASM OF UNSP PART OF UNSP BRONCHUS OR LUNG Status: Chronic Qualifiers: Laterality: left Qualified Code(s): C34.92 - Malignant neoplasm of unspecified part of left bronchus or lung (3) GERD (gastroesophageal reflux disease) Code(s): K21.9 - GASTRO-ESOPHAGEAL REFLUX DISEASE WITHOUT ESOPHAGITIS Status: Chronic Qualifiers: Esophagitis presence: esophagitis presence not specified Qualified Code(s) : K21.9 - Gastro-esophageal reflux disease without esophagitis - Plan continue antibiotics, out of bed/ambulate Improving, on levofloxacin, steroids, bronchodilators and PRN oxygen. Consult pain service for better pain control. palliative care following. Pt would like to pursue palliative chemo, consult oncology.
[2019-02-15] MEDS: Morphine 4 MG/ML VIAL SLOW IVP PRN ×2 (15:07→22:01)
--- NOTE | 2019-02-15 17:42 | MRI ---
MRI Thoracic Spine WO Con History: Compression fractures. Comparison: CT chest February 10, 2019 Findings: Numerous compression deformities throughout the thoracic spine, with a majority of the frac tures contain cement. There is a compression fracture of T5 with approximately 30% height loss which does not contain cement. No significant marrow replacement to suggest osseous metastatic diseas e. There is retropulsion of the posterior superior endplate of L1 narrowing the ventral CSF space withou t cord abutment. Cord signal appears normal given the limitations of motion. No high-grade neural foraminal narrowing given the limitation of motion. Impression: 1. Numerous compression deformities throughout the thoracic spine, majority of which contain cement. 2. Compression deformity of T5 with approximately 30% height loss which does not contain cement. This does not have the appearance of a pathologic fracture. 3. Posterior superior endplate retropulsion of L1 narrows the ventral CSF space without cord abutment . No cord impingement. 4. No high-grade neural foraminal narrowing. 5. No evidence for osseous metastatic disease.
[2019-02-15] MEDS ORDERED: Morphine 4 MG/ML VIAL SLOW IVP SCH (18:00)
[2019-02-15] MEDS ORDERED: HYDROcodone/Acetaminophen 10/325 mg Tablet PO SCH (18:00)
[2019-02-15] MEDS: HYDROcodone/Acetaminophen 10/325 mg Tablet PO PRN ×2 (18:13→23:55)
--- NOTE | 2019-02-15 18:49 | MRI ---
MRI Lumbar Spine WO Con History: Fractures Comparison: CT abdomen and pelvis 2019 Findings: Numerous compression deformities throughout the lumbar spine, majority of which contain carlyle ent. No acute compression fracture. There is chronic posterior displacement/retropulsion of the posterior superior endplate of L1 mildly narrowing the spinal canal. No evidence for an acute pathologic fracture. No evidence for osseous metastasis. Narrowing of the interspinous space throughout the lumbar spine. Exam is limited due to extensive motion artifact. No significant neural foraminal narrowing is apprec iated nor thecal sac compression. Impression: No significant neural foraminal narrowing, thecal sac compression, or pathologic fracture .
[2019-02-15] MEDS: Lidocaine Patch Removal 1 EACH TOP SCH (20:01)
--- NOTE | 2019-02-15 21:19 | CON ---
DATE OF CONSULTATION: 02/15/2019 HISTORY OF PRESENT ILLNESS: Ms. Orr is a 58-year-old female with a history of COPD and lung cancer, who developed increasing shortness of breath and cough approximately 5 to 7 days ago. She developed a severe midline thoracic spine pain at the bra line along with a low lumbosacral pain and "felt a pop" associated with coughing spell. Ms. Orr's shortness of breath, cough, and pain worsened and she was subsequently admitted to the hospital for COPD exacerbation. The COPD exacerbation is being treated. Midline T and L spine pain remain problematic despite [place] 10/325 one tablet every 4 to 6 hours along with IV morphine 2 to 4 mg every 4 hours. She is also taking Flexeril 5 mg p.o. t.i.d. We were consulted to optimize pain control. Ms. Orr has a history of multiple thoracic vertebral compression fractures from T6 through T12 and also at L1. She states her compression fractures are secondary to chronic steroid treating her COPD. Ms. Orr reports multiple kyphoplasties in the past with excellent results. A CT angiogram of the chest upon admission showed thoracic vertebral compression fractures at T6 through T12 and compression fracture at L1. Images were compared to a previous study and these fractures are noted to be chronic. The CT angiogram showed kyphoplasty changes at T6, T7, T10, T11, T12, and L1. The compression fractures at T8 and T9 did not show kyphoplasty changes as per the report. No further imaging has been completed to assess these fractures further. Ms. Orr states the mid T-spine pain radiates anteriorly around the chest wall bilaterally. The low back pain does not radiate. Pain increases with cough, deep breathing, and any movement of the thoracic or lumbar spine. Pain decreases somewhat with current medication regimen, lying still in the bed helps the most. Heat is helping as well. Pain is described as "stabbing" and rate is 7/10 to 9/10. REVIEW OF SYSTEMS: Negative other than the thoracic and lumbar spine pain, shortness of breath, and cough mentioned in the HPI. PAST MEDICAL HISTORY: Lung cancer with chemo and radiation treatment, GERD, anxiety, and depression. PAST SURGICAL HISTORY: x2, hysterectomy, and previously mentioned kyphoplasties. SOCIAL HISTORY: No alcohol or illicit drug abuse. The patient smokes cigarettes 2 to 3 per day. ALLERGIES: SHE IS ALLERGIC TO LATEX AND SULFA. MEDICATIONS: 1. Pantoprazole. 2. Prednisone. 3. DuoNeb. 4. Bupropion. 5. Guaifenesin. 6. Prochlorperazine. 7. Celexa. 8. Zyrtec. PHYSICAL EXAMINATION: GENERAL: The patient is awake, alert, oriented, and appropriate. She is not somnolent. She has labored breathing with audible wheezing. HEENT: PERRL/EOMI. Conjunctivae are clear. Mucous membranes are moist and clear. No JVD. NECK: Supple. Trachea midline. No JVD RESPIRATORY: Respirations are labored. There is notable wheezing throughout. CARDIOVASCULAR: Regular rate and rhythm. No murmurs, rubs, or gallops. ABDOMEN: Soft and nontender. Bowel sounds are positive in 4 quadrants. THORACIC SPINE: There is reproducible midline tenderness over the mid thoracic segments, worse from T5 through T9 segments. Reproducible tenderness over the mid thoracic paraspinal musculature. Thoracic range of motion is intact, but limited due to pain. Range of the motion of T spine increases pain over the mid thoracic segments. LUMBAR SPINE: There is reproducible tenderness in the midline over the lower lumbar segments and the upper sacral segments. Reproducible tenderness over the lower lumbar paraspinal muscles. Straight leg raises negative bilaterally. NEUROLOGIC: Strength in the lower extremities is intact and symmetric. Her reflexes intact and symmetric bilaterally at the patella and ankles. No clonus. ASSESSMENT: 1. Intractable back pain with history of multiple vertebral compression fractures. I suspect she has either developed a new compression fx or progression of one of the multiple chronic fractures and possibly an acute vertebral compression fracture at L5. 2. Chronic obstructive pulmonary disease exacerbation. 3. Lung cancer. PLAN: MRI of the T and L spine. Further recommendation to follow upon review of imaging. Trial increasing [place] 10/325 to 1 or 2 tablets every 6 hours p.r.n. pain. Continue IV morphine as previously ordered. We will consider extended release medication options if this regimen fails to provide adequate pain relief. Further recommendation will follow review of imaging. Job ID: [id number] [facility]
[2019-02-16] MEDS: Morphine 4 MG/ML VIAL SLOW IVP PRN ×5 (01:53→21:00)
[2019-02-16] MEDS: Morphine 2 MG/ML SYRINGE SLOW IVP PRN (03:42)
[2019-02-16] MEDS: Furosemide 40 MG/4 ML VIAL SLOW IVP SCH (05:28)
[2019-02-16] MEDS: methylPREDNISolone Sod Succ 40 MG VIAL IVP SCH ×2 (05:28→14:00)
[2019-02-16] MEDS: HYDROcodone/Acetaminophen 10/325 mg Tablet PO PRN ×4 (05:39→23:51)
[2019-02-16] MEDS: Cyclobenzaprine 10 MG TAB PO PRN (06:26)
--- NOTE | 2019-02-16 06:32 | PDOC.HOSPP ---
- Subjective Encounter Date: 02/16/19 Encounter Time: 06:26 Subjective: pt was awake and resting in bed when I saw her. She complained of pain in between the shoulder blades radiating around the flanks of her back. She also complains of difficulty sleeping due to the pain and that the muscle relaxant given for the last few days has not had much effect. She say the morphine hardly helps the pain now. She was seen by pain management yesterday and awaits changes to her pain medication management. She was seen by palliative care as well which said that she can continue palliative care in the hospital but not as an outpatient because she lives out of service range. Hospice would be the only other option. Nursing staff says that she is up all night with breathing difficulties and pain. She says she is breathing ok, except that it hurts when she breaths at times. - Objective Vital Signs & Weight: Vital Signs (12 hours) Temp Pulse Resp BP Pulse Ox 02/16/19 05:06 104 H 24 H 94 L 02/15/19 20:00 95 02/15/19 19:39 98.9 F 91 16 148/77 H 95 Weight Weight 66.706 kg I&O: 02/14/19 02/15/19 02/16/19 06:59 06:59 06:59 Intake Total 1710 Balance 1710 Result Diagrams: 02/18/19 05:42 02/18/19 05:42 Radiology Reviewed by me: No EKG Reviewed by me: No Hospitalist ROS - Review of Systems Constitutional: reports: chills, weakness Respiratory: reports: shortness of breath, pleuritic pain Gastrointestinal: denies: nausea, vomitting, abdominal pain, diarrhea, constipation Musculoskeletal: reports: back pain Skin: reports: lesions - Medication Medications: Active Medications Generic Name Dose Route Start Last Admin Trade Name Freq PRN Reason Stop Dose Admin Hydrocodone Bitart/Acetaminophen 2 tab 02/15/19 16:15 02/16/19 05:39 [place] 10/325 PO 2 tab Q6H PRN Administration MODERATE PAIN (4-7) Albuterol/Ipratropium 3 ml 02/10/19 23:47 02/16/19 05:06 Duoneb NEB 3 ml Q1H PRN Administration SOB &/or Wheezing Albuterol/Ipratropium 3 ml 02/11/19 06:30 02/16/19 02:42 Duoneb NEB 3 ml [id number] MILY Administration Benzonatate 100 mg 02/13/19 21:28 02/13/19 23:30 Tessalon PO 100 mg TID PRN Administration Cough Bupropion HCl 200 mg 02/11/19 09:00 02/15/19 20:00 Wellbutrin Sr PO 200 mg BID MILY Administration Citalopram Hydrobromide 20 mg 02/11/19 09:00 02/15/19 08:03 Celexa PO 20 mg DAILY MILY Administration Cyclobenzaprine HCl 5 mg 02/13/19 21:28 02/15/19 20:24 Flexeril PO 5 mg TID PRN Administration Muscle Spasm Enoxaparin Sodium 40 mg 02/11/19 09:00 02/15/19 08:03 Lovenox SC 40 mg 0900 MILY Administration Famotidine 20 mg 02/11/19 09:00 02/15/19 20:00 Pepcid PO 20 mg BID MILY Administration Fluticasone Propionate 0 gm 02/11/19 09:00 02/15/19 08:03 Flonase Nasal [place] NASAL 1 spr DAILY MILY Administration Furosemide 40 mg 02/12/19 06:00 02/16/19 05:28 Lasix SLOW IVP 40 mg 0600 MILY Administration Levofloxacin 750 mg/ Device 150 mls @ 100 mls/hr 02/11/19 22:00 02/15/19 21: 20 IVPB 150 mls Q24HR MILY Administration Lidocaine 1 patch 02/15/19 09:00 02/15/19 09:07 Lidoderm 5% Patch TD 1 patch DAILY MILY Administration Loratadine 10 mg 02/11/19 09:00 02/15/19 08:03 Claritin PO 10 mg DAILY MILY Administration Methylprednisolone Sodium Succinate 20 mg 02/13/19 14:00 02/16/19 05:28 Solu-Medrol IVP 20 mg Q8HR MILY Administration Miscellaneous Medication 1 each 02/15/19 21:00 02/15/19 20:01 Lidocaine Patch Removal TOP 1 each 2100 MILY Administration Morphine Sulfate 2 mg 02/12/19 18:05 02/16/19 03:42 Morphine SLOW IVP 2 mg Q2H PRN Administration Breakthrough Pain Morphine Sulfate 4 mg 02/15/19 14:38 02/16/19 01:53 Morphine SLOW IVP 4 mg Q4H PRN Administration Pain Sodium Chloride 10 ml 02/10/19 23:46 02/16/19 05:28 Flush - Normal Saline IVF 10 ml PRN PRN Administration Saline Flush - Exam General Appearance: ill appearing Eye: negative: scleral icterus ENT: normocephalic atraumatic, moist mucosa Neck: supple, symmetric, no JVD Heart: RRR, no murmur, no gallops, no rubs, normal peripheral pulses Respiratory: wheezes Gastrointestinal: soft, non-tender, non-distended, normal bowel sounds, no palpable masses, no hepatomegaly, no splenomegaly, no guarding, no rigidity Extremities: no cyanosis, clubbing Skin: normal turgor Neurological: CN's grossly intact Musculoskeletal: normal tone, no muscle wasting Psychiatric: normal affect, normal behavior, A&O x 3 Hosp A/P (1) Squamous cell lung cancer Code(s): C34.90 - MALIGNANT NEOPLASM OF UNSP PART OF UNSP BRONCHUS OR LUNG Status: Chronic Qualifiers: Laterality: left Qualified Code(s): C34.92 - Malignant neoplasm of unspecified part of left bronchus or lung (2) COPD exacerbation Code(s): J44.1 - CHRONIC OBSTRUCTIVE PULMONARY DISEASE W (ACUTE) EXACERBATION Status: Acute (3) GERD (gastroesophageal reflux disease) Code(s): K21.9 - GASTRO-ESOPHAGEAL REFLUX DISEASE WITHOUT ESOPHAGITIS Status: Chronic Qualifiers: Esophagitis presence: esophagitis presence not specified Qualified Code(s) : K21.9 - Gastro-esophageal reflux disease without esophagitis - Plan Resp- improving on steroids, O2, levo, and nebs-consider d/c of abx today Pain- pain management consult yielded MRI spine that showed multiple compression fractures, morphine and Narco are reported by pt as not adequate for pain levels- await recommendations from pain management. Oncology consulted yesterday- await recommendations- palliative care chemo can occur only in hospital per palliative care consult report- hospice will f/u with pt PRN Sleep- pt reports difficulty sleeping, muscle relaxant has not helped- will give melatonin Addendum: Chart reviewed, pt seen by me. Discussed case with Mr. Ratliff. Please see my separate progress note.
[2019-02-16] MEDS: Famotidine 20 MG TAB PO SCH ×2 (08:47→20:06)
[2019-02-16] MEDS: Citalopram 20 MG TAB PO SCH (08:47)
[2019-02-16] MEDS: Loratadine 10 MG TAB PO SCH (08:48)
[2019-02-16] MEDS: Enoxaparin Sodium 40 MG/0.4 ML SYRINGE SC SCH (08:48)
[2019-02-16] MEDS: Lidocaine 5% Patch TD SCH (08:49)
[2019-02-16] MEDS: Bupropion 100 MG SR TAB PO SCH ×2 (08:50→20:06)
[2019-02-16] MEDS: Fluticasone Propionate Nasal Spray 16 gm Bottle NASAL SCH (08:51)
--- NOTE | 2019-02-16 14:28 | PDOC.HOSPP ---
- Subjective Encounter Date: 02/16/19 Encounter Time: 07:00 Subjective: Pt seen for followup re: COPD exacerbation. c/o back pain. No nausea or vomiting. - Objective Vital Signs & Weight: Vital Signs (12 hours) Temp Pulse Resp BP Pulse Ox 02/16/19 10:52 114 H 26 H 95 02/16/19 08:18 85 20 96 02/16/19 08:00 95 02/16/19 07:36 98.4 F 109 H 20 145/93 H 92 L 02/16/19 05:06 104 H 24 H 94 L Weight Weight 147 lb 1 oz Result Diagrams: 02/13/19 05:40 02/13/19 05:40 Additional Labs: labs and MARs reviewed by me Hospitalist ROS - Review of Systems Respiratory: reports: SOB with excertion. denies: cough, shortness of breath, pleuritic pain, wheezing Cardiovascular: denies: chest pain, palpitations, orthopnea, paroxysmal noc. dyspnea, edema, light headedness Musculoskeletal: reports: back pain - Medication Medications: Active Medications Generic Name Dose Route Start Last Admin Trade Name Freq PRN Reason Stop Dose Admin Hydrocodone Bitart/Acetaminophen 2 tab 02/15/19 16:15 02/16/19 11:38 [place] 10/325 PO 2 tab Q6H PRN Administration MODERATE PAIN (4-7) Albuterol/Ipratropium 3 ml 02/10/19 23:47 02/16/19 05:06 Duoneb NEB 3 ml Q1H PRN Administration SOB &/or Wheezing Albuterol/Ipratropium 3 ml 02/11/19 06:30 02/16/19 10:52 Duoneb NEB 3 ml [id number] MILY Administration Benzonatate 100 mg 02/13/19 21:28 02/13/19 23:30 Tessalon PO 100 mg TID PRN Administration Cough Bupropion HCl 200 mg 02/11/19 09:00 02/16/19 08:50 Wellbutrin Sr PO 200 mg BID MILY Administration Citalopram Hydrobromide 20 mg 02/11/19 09:00 02/16/19 08:47 Celexa PO 20 mg DAILY MILY Administration Cyclobenzaprine HCl 5 mg 02/13/19 21:28 02/16/19 06:26 Flexeril PO 5 mg TID PRN Administration Muscle Spasm Enoxaparin Sodium 40 mg 02/11/19 09:00 02/16/19 08:48 Lovenox SC 40 mg 0900 MILY Administration Famotidine 20 mg 02/11/19 09:00 02/16/19 08:47 Pepcid PO 20 mg BID MILY Administration Fluticasone Propionate 0 gm 02/11/19 09:00 02/16/19 08:51 Flonase Nasal [place] NASAL 1 spr DAILY MILY Administration Furosemide 40 mg 02/12/19 06:00 02/16/19 05:28 Lasix SLOW IVP 40 mg 0600 MILY Administration Lidocaine 1 patch 02/15/19 09:00 02/16/19 08:49 Lidoderm 5% Patch TD 1 patch DAILY MILY Administration Loratadine 10 mg 02/11/19 09:00 02/16/19 08:48 Claritin PO 10 mg DAILY MILY Administration Methylprednisolone Sodium Succinate 20 mg 02/13/19 14:00 02/16/19 05:28 Solu-Medrol IVP 20 mg Q8HR MILY Administration Miscellaneous Medication 1 each 02/15/19 21:00 02/15/19 20:01 Lidocaine Patch Removal TOP 1 each 2100 MILY Administration Morphine Sulfate 2 mg 02/12/19 18:05 02/16/19 03:42 Morphine SLOW IVP 2 mg Q2H PRN Administration Breakthrough Pain Morphine Sulfate 4 mg 02/15/19 14:38 02/16/19 11:30 Morphine SLOW IVP 4 mg Q4H PRN Administration Pain Sodium Chloride 10 ml 02/10/19 23:46 02/16/19 05:28 Flush - Normal Saline IVF 10 ml PRN PRN Administration Saline Flush - Exam General Appearance: awake alert General - other findings: Obese Eye: anicteric sclera Hosp A/P (1) COPD exacerbation Code(s): J44.1 - CHRONIC OBSTRUCTIVE PULMONARY DISEASE W (ACUTE) EXACERBATION Status: Acute (2) Squamous cell lung cancer Code(s): C34.90 - MALIGNANT NEOPLASM OF UNSP PART OF UNSP BRONCHUS OR LUNG Status: Chronic Qualifiers: Laterality: left Qualified Code(s): C34.92 - Malignant neoplasm of unspecified part of left bronchus or lung (3) GERD (gastroesophageal reflux disease) Code(s): K21.9 - GASTRO-ESOPHAGEAL REFLUX DISEASE WITHOUT ESOPHAGITIS Status: Chronic Qualifiers: Esophagitis presence: esophagitis presence not specified Qualified Code(s) : K21.9 - Gastro-esophageal reflux disease without esophagitis - Plan Improving, on levofloxacin, steroids, bronchodilators and PRN oxygen. Consult pain service for better pain control. palliative care following. Pt would like to pursue palliative chemo, consult oncology.
--- NOTE | 2019-02-16 14:32 | PDOC.HOSPP ---
- Subjective Encounter Date: 02/16/19 Encounter Time: 07:00 Subjective: Pt seen for followup re: COPD exacerbation. Back pain still +. - Objective Vital Signs & Weight: Vital Signs (12 hours) Temp Pulse Resp BP Pulse Ox 02/16/19 10:52 114 H 26 H 95 02/16/19 08:18 85 20 96 02/16/19 08:00 95 02/16/19 07:36 98.4 F 109 H 20 145/93 H 92 L 02/16/19 05:06 104 H 24 H 94 L Weight Weight 147 lb 1 oz Result Diagrams: 02/13/19 05:40 02/13/19 05:40 Additional Labs: labs and MARs reviewed by ct Hospitalist ROS - Review of Systems Respiratory: denies: cough, shortness of breath, SOB with excertion, pleuritic pain, wheezing Cardiovascular: denies: chest pain, palpitations, orthopnea, paroxysmal noc. dyspnea, edema, light headedness Musculoskeletal: reports: back pain - Medication Medications: Active Medications Generic Name Dose Route Start Last Admin Trade Name Freq PRN Reason Stop Dose Admin Hydrocodone Bitart/Acetaminophen 2 tab 02/15/19 16:15 02/16/19 11:38 [place] 10/325 PO 2 tab Q6H PRN Administration MODERATE PAIN (4-7) Albuterol/Ipratropium 3 ml 02/10/19 23:47 02/16/19 05:06 Duoneb NEB 3 ml Q1H PRN Administration SOB &/or Wheezing Albuterol/Ipratropium 3 ml 02/11/19 06:30 02/16/19 10:52 Duoneb NEB 3 ml [id number] MILY Administration Benzonatate 100 mg 02/13/19 21:28 02/13/19 23:30 Tessalon PO 100 mg TID PRN Administration Cough Bupropion HCl 200 mg 02/11/19 09:00 02/16/19 08:50 Wellbutrin Sr PO 200 mg BID MILY Administration Citalopram Hydrobromide 20 mg 02/11/19 09:00 02/16/19 08:47 Celexa PO 20 mg DAILY MILY Administration Cyclobenzaprine HCl 5 mg 02/13/19 21:28 02/16/19 06:26 Flexeril PO 5 mg TID PRN Administration Muscle Spasm Enoxaparin Sodium 40 mg 02/11/19 09:00 02/16/19 08:48 Lovenox SC 40 mg 0900 MILY Administration Famotidine 20 mg 02/11/19 09:00 02/16/19 08:47 Pepcid PO 20 mg BID MILY Administration Fluticasone Propionate 0 gm 02/11/19 09:00 02/16/19 08:51 Flonase Nasal [place] NASAL 1 spr DAILY MILY Administration Furosemide 40 mg 02/12/19 06:00 02/16/19 05:28 Lasix SLOW IVP 40 mg 0600 MILY Administration Lidocaine 1 patch 02/15/19 09:00 02/16/19 08:49 Lidoderm 5% Patch TD 1 patch DAILY MILY Administration Loratadine 10 mg 02/11/19 09:00 02/16/19 08:48 Claritin PO 10 mg DAILY MILY Administration Methylprednisolone Sodium Succinate 20 mg 02/13/19 14:00 02/16/19 05:28 Solu-Medrol IVP 20 mg Q8HR MILY Administration Miscellaneous Medication 1 each 02/15/19 21:00 02/15/19 20:01 Lidocaine Patch Removal TOP 1 each 2100 MILY Administration Morphine Sulfate 2 mg 02/12/19 18:05 02/16/19 03:42 Morphine SLOW IVP 2 mg Q2H PRN Administration Breakthrough Pain Morphine Sulfate 4 mg 02/15/19 14:38 02/16/19 11:30 Morphine SLOW IVP 4 mg Q4H PRN Administration Pain Sodium Chloride 10 ml 02/10/19 23:46 02/16/19 05:28 Flush - Normal Saline IVF 10 ml PRN PRN Administration Saline Flush - Exam General Appearance: awake alert General - other findings: Obese ENT: moist mucosa Neck: supple, no thyromegaly Heart: RRR Respiratory: wheezes Gastrointestinal: soft, non-tender Musculoskeletal: no muscle wasting Psychiatric: normal affect, normal behavior Hosp A/P (1) COPD exacerbation Code(s): J44.1 - CHRONIC OBSTRUCTIVE PULMONARY DISEASE W (ACUTE) EXACERBATION Status: Acute (2) Squamous cell lung cancer Code(s): C34.90 - MALIGNANT NEOPLASM OF UNSP PART OF UNSP BRONCHUS OR LUNG Status: Chronic Qualifiers: Laterality: left Qualified Code(s): C34.92 - Malignant neoplasm of unspecified part of left bronchus or lung (3) GERD (gastroesophageal reflux disease) Code(s): K21.9 - GASTRO-ESOPHAGEAL REFLUX DISEASE WITHOUT ESOPHAGITIS Status: Chronic Qualifiers: Esophagitis presence: esophagitis presence not specified Qualified Code(s) : K21.9 - Gastro-esophageal reflux disease without esophagitis - Plan out of bed/ambulate Discontinue levofloxacin, continue bronchodilators. Change steroids to oral. Consult neurosurgery re: vertebral fractures. Appreciate pain service input.
--- NOTE | 2019-02-16 17:06 | CON ---
DATE OF CONSULTATION: REASON FOR CONSULTATION: Lung cancer. 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 The patient stated this started on Thursday and was not improving at home, so she came into the hospital. On February 10, she had a CTA of the chest that showed no PE and also showed a spiculated mass in the left hilar region similar to an exam in October 2018 and no evidence of pneumonia. Yesterday, she had a MRI of the thoracic and lumbar spine that showed numerous compression deformities and status post multiple kyphoplasties and no pathologic fractures. The patient has been on increasing doses of pain medicines without any improvement in her pain. She states her shortness of breath has improved with steroids, breathing treatments and antibiotics. White blood cell was elevated likely secondary to steroids. REVIEW OF SYSTEMS: Ten-point review of systems negative except as per HPI. PAST MEDICAL HISTORY: End-stage COPD, on home oxygen; tobacco abuse; anemia; GERD; and lung cancer. PAST SURGICAL HISTORY: Hysterectomy and C-sections. SOCIAL HISTORY: Current smoker for 45+ years. No alcohol. PHYSICAL EXAMINATION: VITAL SIGNS: Temperature 98.4, pulse 114, respirations 26, and saturating 95% on 3 L by nasal cannula. GENERAL APPEARANCE: The patient is sitting up in bed, in mild distress, mostly due to pain. HEENT: Normocephalic and atraumatic. RESPIRATORY: Bilateral wheezing. CARDIOVASCULAR: S1 and S2. Regular rate and rhythm. ABDOMEN: Soft, nondistended, and nontender. SKIN: No rash. LYMPHATICS: No lymphadenopathy. NEUROLOGIC: Cranial nerves 2 through 12 are grossly intact. PSYCHIATRIC: Awake, alert, and oriented x3. LABORATORY DATA: White blood cell is 21.1, hemoglobin 9.7, platelets 198. Sodium 137, potassium 3.7, BUN 15, creatinine 0.72. BNP 63.9. IMAGING DATA: CT showed no PE, but did show a stable left hilar mass consistent with her history of lung cancer. ASSESSMENT AND PLAN: A 58-year-old female with stage IA3 left squamous cell lung cancer, status post radiation and currently on chemotherapy, presenting with chronic obstructive pulmonary disease exacerbation and extreme back pain. The patient finished definitive radiation to her lung mass on January 03, 2019 and received one dose of adjuvant chemotherapy on January 31, 2019 and is planned for three more doses next due on Friday, February 22, 2019. The patient's symptoms are unlikely related to chemotherapy as there is no evidence of infection or pneumonitis from radiation. She has an early stage lung cancer, which hopefully would be cured with radiation and chemotherapy; however, at this time due to her performance status, chemotherapy next week will likely be held. The patient's major problem and complaint at this time is severe back pain, which has not been able to be managed at this time. MRIs do not show any acute fractures or problems with cord and she is being followed with Pain Management. Recommend continuing breathing treatments and follow up with Pain Management for any recommendations as to her back pain. Palliative Care was consulted and there had been a discussion of potential hospice. However, from a lung cancer standpoint, she is definitely not a hospice candidate as she is highly curable. She has end-stage chronic obstructive pulmonary disease. Self hospice was in consideration that would be secondary to this, and I would need to be decided by Dr. Guaman. If her pain is under control and her breathing improves, then we could continue with her adjuvant chemotherapy and hopefully finish her last 3 cycles. We will follow peripherally with you. Please call with questions. Thank you for this consult. Job ID: [id number]
[2019-02-16] MEDS: Lidocaine Patch Removal 1 EACH TOP SCH (20:07)
[2019-02-17] MEDS: Cyclobenzaprine 10 MG TAB PO PRN ×2 (00:22→09:09)
--- NOTE | 2019-02-17 01:31 | PRG ---
DATE OF SERVICE: 02/16/2019 Imaging of the thoracic and lumbar spine was reviewed with Dr. Rios. Ms. Orr has an acute T5 vertebral compression fracture. There were no acute findings in the lumbar spine. Unfortunately, she is not a candidate for kyphoplasty at this level. If further consideration of kyphoplasty is necessary, she would need referral to Dr. Stephen Rodriguez at [facility]; he may consider kyphoplasty at this level. Ms. Orr continues to report severe pain despite [place] 10/325 two tablets every 6 hours along with Flexeril 5 mg one three times a day. She continues IV morphine 4 mg q.4 hours as well. At this point we will try to optimize Ms. Orr's pain medication management. She denies side effects with current regimen. We will add Duragesic 25 mcg patch, change every 72 hours. Increase Flexeril to 10 mg one t.i.d. p.r.n. spasm. Continue [place] and IV morphine as previously ordered. We will reassess Ms. Orr's response to these medications changes in 24 hours and make adjustments as indicated. Job ID: [id number] MTDD
[2019-02-17] MEDS: Morphine 4 MG/ML VIAL SLOW IVP PRN ×4 (03:04→22:51)
[2019-02-17 04:18] LABS: #Eosinphils 0.2 thou/uL (0.0-0.7); #Lymphocytes 1.1 thou/uL (1.20-3.40); #Monocytes 2.4 thou/uL (0.11-0.59); #Neutrophils 16.8 thou/uL (1.40-6.50); %Basophils 0.1 % (0.0-1.0); %Eosinophils 1.2 % (0.0-10.0); %Lymphocytes 5.4 % (21.0-51.0); %Monocytes 11.8 % (0.0-10.0); %Neutrophils 81.5 % (42.0-75.0); Hemoglobin 10.2 g/dL (12.0-16.0); Mean Corpuscular Hemoglobin 28.9 pg (27.0-31.0); Mean Corpuscular Volume 90.2 fL (78.0-98.0); Mean Platelet Volume 7.7 fL (7.4-10.4); Platelet Count 226 thou/uL (130-400); RBC Distribution Width 16.1 % (11.5-14.5); Red Blood Cell (RBC) Count 3.53 mill/uL (4.20-5.40); White Blood Cell (WBC) Count 20.6 thou/uL (4.8-10.8)
[2019-02-17 04:35] LABS: Anion Gap 15 mmol/L (10-20); BUN (Urea Nitrogen) 32 mg/dL (9.8-20.1); Calc. Creatinine Clearance 68 mL/min (70-130); Calcium 9.4 mg/dL (7.8-10.44); Carbon Dioxide 36 mmol/L (22-29); Chloride 91 mmol/L (98-107); Estimated GFR-MDRD 61; Glucose 100 mg/dL (70-105); Potassium 3.6 mmol/L (3.5-5.1); Sodium 138 mmol/L (136-145)
[2019-02-17] MEDS: HYDROcodone/Acetaminophen 10/325 mg Tablet PO PRN ×4 (05:48→22:08)
[2019-02-17] MEDS: Furosemide 40 MG/4 ML VIAL SLOW IVP SCH (05:48)
--- NOTE | 2019-02-17 06:27 | PDOC.HOSPP ---
- Subjective Encounter Date: 02/17/19 Encounter Time: 06:24 Subjective: pt slept better last night with multiple naps lasting 15-20 min. pt pain is slightly better with pain management recommended changes to pain regimen. Breathing is still labored and causing her pain, however tolerable to her. Pt understands that she must continue chemo and her lung condition is curable. She understands that her compression fracture can be addressed only in [place] at [facility] and not here. She understands that if she is to be admitted to hospice, it would be because of COPD and not because of her lung cancer as it is curable with chemo. - Objective Vital Signs & Weight: Vital Signs (12 hours) Temp Pulse Resp BP BP Pulse Ox 02/17/19 03:54 98.6 F 110 H 20 144/90 H 90 L 02/17/19 02:23 110 H 24 H 93 L 02/17/19 00:25 92 L 02/17/19 00:00 98.5 F 118 H 20 174/96 H 92 L 02/16/19 22:04 113 H 28 H 88 L 02/16/19 20:00 98.9 F 115 H 20 147/65 H 91 L 02/16/19 18:40 109 H 24 H 94 L Weight Weight 66.706 kg Result Diagrams: 02/18/19 05:42 02/18/19 05:42 Radiology Reviewed by me: No EKG Reviewed by me: No Hospitalist ROS - Review of Systems Constitutional: denies: fever, chills Respiratory: reports: shortness of breath, wheezing. denies: cough Cardiovascular: denies: chest pain Gastrointestinal: denies: nausea, vomitting Musculoskeletal: reports: back pain - Medication Medications: Active Medications Generic Name Dose Route Start Last Admin Trade Name Freq PRN Reason Stop Dose Admin Hydrocodone Bitart/Acetaminophen 2 tab 02/15/19 16:15 02/17/19 05:48 [place] 10/325 PO 2 tab Q6H PRN Administration MODERATE PAIN (4-7) Albuterol/Ipratropium 3 ml 02/10/19 23:47 02/16/19 05:06 Duoneb NEB 3 ml Q1H PRN Administration SOB &/or Wheezing Albuterol/Ipratropium 3 ml 02/11/19 06:30 02/17/19 02:23 Duoneb NEB 3 ml [id number] MILY Administration Benzonatate 100 mg 02/13/19 21:28 02/13/19 23:30 Tessalon PO 100 mg TID PRN Administration Cough Bupropion HCl 200 mg 02/11/19 09:00 02/16/19 20:06 Wellbutrin Sr PO 200 mg BID MILY Administration Citalopram Hydrobromide 20 mg 02/11/19 09:00 02/16/19 08:47 Celexa PO 20 mg DAILY MILY Administration Cyclobenzaprine HCl 10 mg 02/16/19 19:24 02/17/19 00:22 Flexeril PO 10 mg TID PRN Administration Muscle Spasm Enoxaparin Sodium 40 mg 02/11/19 09:00 02/16/19 08:48 Lovenox SC 40 mg 0900 MILY Administration Famotidine 20 mg 02/11/19 09:00 02/16/19 20:06 Pepcid PO 20 mg BID MILY Administration Fentanyl 25 mcg 02/16/19 20:00 02/16/19 20:06 Duragesic TD 25 mcg Q3D MILY Administration Fluticasone Propionate 0 gm 02/11/19 09:00 02/16/19 08:51 Flonase Nasal [place] NASAL 1 spr DAILY MILY Administration Furosemide 40 mg 02/12/19 06:00 02/17/19 05:48 Lasix SLOW IVP 40 mg 0600 [facility] Administration Lidocaine 1 patch 02/15/19 09:00 02/16/19 08:49 Lidoderm 5% Patch TD 1 patch DAILY MILY Administration Loratadine 10 mg 02/11/19 09:00 02/16/19 08:48 Claritin PO 10 mg DAILY MILY Administration Miscellaneous Medication 1 each 02/15/19 21:00 02/16/19 20:07 Lidocaine Patch Removal TOP 1 each 2100 MILY Administration Morphine Sulfate 2 mg 02/12/19 18:05 02/16/19 03:42 Morphine SLOW IVP 2 mg Q2H PRN Administration Breakthrough Pain Morphine Sulfate 4 mg 02/15/19 14:38 02/17/19 03:04 Morphine SLOW IVP 4 mg Q4H PRN Administration Pain Sodium Chloride 10 ml 02/10/19 23:46 02/16/19 05:28 Flush - Normal Saline IVF 10 ml PRN PRN Administration Saline Flush - Exam General Appearance: awake alert, ill appearing ENT: normocephalic atraumatic, moist mucosa Neck: supple, no JVD Heart: RRR, no murmur, no gallops, no rubs Respiratory: normal chest expansion, no tachypnea, wheezes Extremities: no edema Skin: normal turgor Neurological: CN's grossly intact Musculoskeletal: normal tone, normal strength, no muscle wasting Psychiatric: normal affect, normal behavior, A&O x 3 Hosp A/P (1) Squamous cell lung cancer Code(s): C34.90 - MALIGNANT NEOPLASM OF UNSP PART OF UNSP BRONCHUS OR LUNG Status: Chronic Qualifiers: Laterality: left Qualified Code(s): C34.92 - Malignant neoplasm of unspecified part of left bronchus or lung (2) COPD exacerbation Code(s): J44.1 - CHRONIC OBSTRUCTIVE PULMONARY DISEASE W (ACUTE) EXACERBATION Status: Acute (3) GERD (gastroesophageal reflux disease) Code(s): K21.9 - GASTRO-ESOPHAGEAL REFLUX DISEASE WITHOUT ESOPHAGITIS Status: Chronic Qualifiers: Esophagitis presence: esophagitis presence not specified Qualified Code(s) : K21.9 - Gastro-esophageal reflux disease without esophagitis - Plan Resp- IV steroids switched to PO, nebs continued PRN, abx d/c yesterday. Pain- Pain management recommendations as follows: Duragesic 25 mg patch added yesterday (change every 72 hrs), Flexeril increased to 10 mg t.i.d prn for spasms, Narco and IV morphine continued as previously ordered. Pain management will continue to follow pt. Oncology consulted - pt has curable lung CA and needs to follow up with outpatient chemo x3 after d/c from hospital. pt does not qualify for hospice for her lung cancer because it is curable Sleep-melatonin ordered for sleep aid Addendum by Mohamud Hawkins MD: Chart reviewed, pt seen by me. Discussed case with Mr. Ratliff. Agree with plan of care as documented. Please refer to my separate progress note for further details.
[2019-02-17] MEDS: Enoxaparin Sodium 40 MG/0.4 ML SYRINGE SC SCH (09:08)
[2019-02-17] MEDS: Lidocaine 5% Patch TD SCH (09:08)
[2019-02-17] MEDS: Fluticasone Propionate Nasal Spray 16 gm Bottle NASAL SCH (09:08)
[2019-02-17] MEDS: predniSONE 20 MG TAB PO SCH (09:08)
[2019-02-17] MEDS: Loratadine 10 MG TAB PO SCH (09:09)
[2019-02-17] MEDS: Famotidine 20 MG TAB PO SCH ×2 (09:09→20:57)
[2019-02-17] MEDS: Bupropion 100 MG SR TAB PO SCH ×2 (09:10→20:57)
--- NOTE | 2019-02-17 11:13 | RAD ---
Portable upright frontal chest radiograph: 02/17/2019 COMPARISON: 01/21/2019 HISTORY: Short of breath FINDINGS: There is evidence of numerous lumbar and thoracic spine kyphoplasty. Stable right-sided Por t-A-Cath. Stable increased linear interstitial density bilaterally. No pneumothorax, pleural fluid, focal consolidation, or alveolar edema. Ill-defined a left hilar mass lesion again noted. IMPRESSION: Stable appearance of the chest.
[2019-02-17] MEDS: fentaNYL 75 mcg/hour Patch TD SCH (11:37)
[2019-02-17] MEDS: Citalopram 20 MG TAB PO SCH (11:43)
--- NOTE | 2019-02-17 12:10 | CON ---
DATE OF CONSULTATION: HISTORY OF PRESENT ILLNESS: The patient is a 58-year-old female, who sees Dr. Guaman for metastatic cancer, who has been in the hospital for several days now. She was asking to see Pulmonary. After multiple days, they have consulted yesterday. She has been here since . She presented with shortness of breath, severe back pain, coughing, and wheezing. She is undergoing chemo and radiation for metastatic lung cancer. She is getting neb treatments, steroids without much relief. In the process of trying noninvasive ventilation, she does not want to be intubated. PAST MEDICAL HISTORY: COPD, reflux, anxiety, multiple vertebral compression. PREVIOUS SURGERIES: Kyphoplasty, hysterectomy, , bronchoscopy, squamous cell lung cancer. HOME MEDICATIONS: 1. Symbicort. 2. ProAir. 3. DuoNeb. 4. Celexa 20. 5. Wellbutrin 200. 6. Zyrtec. 7. Prednisone 20. ALLERGIES: LATEX, SULFA. SOCIAL HISTORY: Former smoker. REVIEW OF SYSTEMS: Otherwise, negative. PHYSICAL EXAMINATION: VITAL SIGNS: Saturations are 91% on 1 L, respiratory rate 28, temperature 98, blood pressure 130/81. CHEST: Decreased breath sounds. No wheezing. CARDIAC: Normal S1 and S2. No gallops. ABDOMEN: No masses. IMAGING STUDIES: X-ray shows no acute infiltrates. She has stable left lung opacity with a MediPort in place. LABORATORY DATA: White count was 20,000, H and H of 10 and 31, platelet count normal. Lytes are normal. IMPRESSION: 1. Chronic obstructive pulmonary disease exacerbation. 2. Metastatic lung cancer. 3. Multiple vertebral compression fractures of severe pain. 4. Major anxiety. PLAN: Increase the Duragesic to 75 for comfort care. Otherwise, we will add Dulera. Continue steroids, neb treatments, supportive care. We will notify Dr. Guaman. TIME SPENT: Consultation note, 70 minutes, 50% in direct patient care. Job ID: [id number]
--- NOTE | 2019-02-17 17:24 | PDOC.HOSPP ---
- Subjective Encounter Date: 02/17/19 Encounter Time: 13:00 Subjective: Pt seen for followup re; COPD exacerbation. - Objective Vital Signs & Weight: Vital Signs (12 hours) Temp Pulse Resp BP Pulse Ox 02/17/19 16:05 98.2 F 104 H 24 H 124/74 91 L 02/17/19 10:22 120 H 28 H 02/17/19 08:00 91 L 02/17/19 07:48 98.1 F 113 H 20 135/81 91 L 02/17/19 06:58 114 H 28 H 95 Weight Weight 147 lb 1 oz I&O: 02/16/19 02/17/19 02/18/19 06:59 06:59 06:59 Intake Total 480 Balance 480 Result Diagrams: 02/17/19 03:54 02/17/19 03:54 Additional Labs: Labs and MARs reviewed by dc Hospitalist ROS - Review of Systems Respiratory: reports: SOB with excertion. denies: cough, shortness of breath, pleuritic pain, wheezing Cardiovascular: denies: chest pain, palpitations, orthopnea, paroxysmal noc. dyspnea, edema, light headedness Musculoskeletal: reports: back pain - Medication Medications: Active Medications Generic Name Dose Route Start Last Admin Trade Name Freq PRN Reason Stop Dose Admin Hydrocodone Bitart/Acetaminophen 1 tab 02/15/19 16:30 02/17/19 09:09 [place] 10/325 PO 1 tab Q6H PRN Administration MILD PAIN (1-3) Hydrocodone Bitart/Acetaminophen 2 tab 02/15/19 16:15 02/17/19 16:20 [place] 10/325 PO 2 tab Q6H PRN Administration MODERATE PAIN (4-7) Albuterol/Ipratropium 3 ml 02/10/19 23:47 02/16/19 05:06 Duoneb NEB 3 ml Q1H PRN Administration SOB &/or Wheezing Albuterol/Ipratropium 3 ml 02/11/19 06:30 02/17/19 10:22 Duoneb NEB 3 ml [id number] MILY Administration Benzonatate 100 mg 02/13/19 21:28 02/13/19 23:30 Tessalon PO 100 mg TID PRN Administration Cough Bupropion HCl 200 mg 02/11/19 09:00 02/17/19 09:10 Wellbutrin Sr PO 200 mg BID MILY Administration Citalopram Hydrobromide 20 mg 02/11/19 09:00 02/17/19 11:43 Celexa PO 20 mg DAILY MILY Administration Cyclobenzaprine HCl 10 mg 02/16/19 19:24 02/17/19 09:09 Flexeril PO 10 mg TID PRN Administration Muscle Spasm Enoxaparin Sodium 40 mg 02/11/19 09:00 02/17/19 09:08 Lovenox SC 40 mg 0900 MILY Administration Famotidine 20 mg 02/11/19 09:00 02/17/19 09:09 Pepcid PO 20 mg BID MILY Administration Fentanyl 75 mcg 02/17/19 12:00 02/17/19 11:37 Duragesic TD 75 mcg Q3D MILY Administration Fluticasone Propionate 0 gm 02/11/19 09:00 02/17/19 09:08 Flonase Nasal [place] NASAL 1 spr DAILY MILY Administration Furosemide 40 mg 02/12/19 06:00 02/17/19 05:48 Lasix SLOW IVP 40 mg 0600 MILY Administration Lidocaine 1 patch 02/15/19 09:00 02/17/19 09:08 Lidoderm 5% Patch TD 1 patch DAILY MILY Administration Loratadine 10 mg 02/11/19 09:00 02/17/19 09:09 Claritin PO 10 mg DAILY MILY Administration Miscellaneous Medication 1 each 02/15/19 21:00 02/16/19 20:07 Lidocaine Patch Removal TOP 1 each 2100 MILY Administration Morphine Sulfate 2 mg 02/12/19 18:05 02/16/19 03:42 Morphine SLOW IVP 2 mg Q2H PRN Administration Breakthrough Pain Morphine Sulfate 4 mg 02/15/19 14:38 02/17/19 07:28 Morphine SLOW IVP 4 mg Q4H PRN Administration Pain Prednisone 40 mg 02/17/19 08:00 02/17/19 09:08 Prednisone PO 40 mg QAM-WM MILY Administration Sodium Chloride 10 ml 02/10/19 23:46 02/16/19 05:28 Flush - Normal Saline IVF 10 ml PRN PRN Administration Saline Flush - Exam General - other findings: Obese Eye: anicteric sclera ENT: moist mucosa Neck: supple Heart: RRR Respiratory: wheezes Gastrointestinal: soft, non-tender Musculoskeletal: no muscle wasting Psychiatric: normal affect, normal behavior Hosp A/P (1) COPD exacerbation Code(s): J44.1 - CHRONIC OBSTRUCTIVE PULMONARY DISEASE W (ACUTE) EXACERBATION Status: Acute (2) Squamous cell lung cancer Code(s): C34.90 - MALIGNANT NEOPLASM OF UNSP PART OF UNSP BRONCHUS OR LUNG Status: Chronic Qualifiers: Laterality: left Qualified Code(s): C34.92 - Malignant neoplasm of unspecified part of left bronchus or lung (3) GERD (gastroesophageal reflux disease) Code(s): K21.9 - GASTRO-ESOPHAGEAL REFLUX DISEASE WITHOUT ESOPHAGITIS Status: Chronic Qualifiers: Esophagitis presence: esophagitis presence not specified Qualified Code(s) : K21.9 - Gastro-esophageal reflux disease without esophagitis - Plan PT/OT, out of bed/ambulate Continue bronchodilators and steroids. Pulmonology consulted re: respiratory distress, pt improved with high-flow oxygen On fentanyl patch.
[2019-02-17 17:31] LABS: Actual Bicarbonate (HCO3a) 34.6 mEq/L (22-28); Analyzer IN Cardio OR; Base Excess (BEa) 8.4 mEq/L (-2.0 to +3.0); CO2 Tension 56.4 mmHg (35.0-45.0); Calcium, Ionized 1.06 mmol/L (1.12-1.30); O2 Tension (PaO2) 71.3 mmHg (80.0-100.0); Potassium - ABG Lab 3.25 mmol/L (3.70-5.30); Puncture Site RR; pH, Arterial 7.41 (7.35-7.45)
[2019-02-17] MEDS: Mometasone/Formoterol 120 PUFF INHALER INH SCH (18:33)
[2019-02-17] MEDS: Lidocaine Patch Removal 1 EACH TOP SCH (20:58)
[2019-02-17] MEDS: Melatonin 3 MG TAB PO PRN (22:08)
[2019-02-18] MEDS: HYDROcodone/Acetaminophen 10/325 mg Tablet PO PRN ×2 (02:56→09:01)
[2019-02-18] MEDS: Cyclobenzaprine 10 MG TAB PO PRN (03:57)
[2019-02-18] MEDS: Furosemide 40 MG/4 ML VIAL SLOW IVP SCH (05:36)
[2019-02-18] MEDS: Morphine 4 MG/ML VIAL SLOW IVP PRN ×3 (05:46→20:09)
[2019-02-18 05:52] LABS: #Eosinphils 0.2 thou/uL (0.0-0.7); #Lymphocytes 0.8 thou/uL (1.20-3.40); #Neutrophils 12.3 thou/uL (1.40-6.50); %Eosinophils 1.1 % (0.0-10.0); %Lymphocytes 5.4 % (21.0-51.0); %Monocytes 13.2 % (0.0-10.0); %Neutrophils 80.3 % (42.0-75.0); Mean Corpuscular HGB CONC 32.9 g/dL (32.0-36.0); Mean Corpuscular Hemoglobin 29.2 pg (27.0-31.0); Mean Corpuscular Volume 88.7 fL (78.0-98.0); Mean Platelet Volume 7.5 fL (7.4-10.4); Platelet Count 242 thou/uL (130-400); RBC Distribution Width 16.1 % (11.5-14.5); Red Blood Cell (RBC) Count 3.43 mill/uL (4.20-5.40); White Blood Cell (WBC) Count 15.3 thou/uL (4.8-10.8)
[2019-02-18 06:12] LABS: BUN (Urea Nitrogen) 20 mg/dL (9.8-20.1); Calc. Creatinine Clearance 94 mL/min (70-130); Calcium 9.3 mg/dL (7.8-10.44); Estimated GFR-MDRD 89; Glucose 79 mg/dL (70-105)
[2019-02-18 06:21] LABS: Anion Gap 15 mmol/L (10-20); Carbon Dioxide 36 mmol/L (22-29); Chloride 91 mmol/L (98-107); Potassium 3.7 mmol/L (3.5-5.1); Sodium 138 mmol/L (136-145)
--- NOTE | 2019-02-18 06:23 | PDOC.HOSPP ---
- Subjective Encounter Date: 02/18/19 Encounter Time: 06:19 Subjective: pt slept better last night and had some pain relief with the pain med modification last night (fentanyl patch was increased to 75mg). She is now on high flow O2 and long acting steroid added to regimen by pulmonology and these changes are helping her breath easier. She denies headache, decreased appetite, changes in bowel movements, and abdominal pain. She complains of still having some SOB, chest pain on breathing, back pain, and easy bruising. - Objective Vital Signs & Weight: Vital Signs (12 hours) Temp Pulse Resp BP BP Pulse Ox 02/18/19 02:19 120 H 24 H 02/17/19 23:10 98.4 F 93 16 146/83 H 93 L 02/17/19 22:16 116 H 24 H 02/17/19 20:00 98.3 F 99 20 128/74 95 02/17/19 18:33 120 H 24 H Weight Weight 66.706 kg I&O: 02/16/19 02/17/19 02/18/19 06:59 06:59 06:59 Intake Total 480 Balance 480 Result Diagrams: 02/18/19 05:42 02/18/19 05:42 Radiology Reviewed by me: Yes Hospitalist ROS - Review of Systems Constitutional: denies: fever, chills Respiratory: reports: shortness of breath, SOB with excertion, pleuritic pain Cardiovascular: reports: chest pain Gastrointestinal: reports: abdominal pain. denies: diarrhea, constipation - Medication Medications: Active Medications Generic Name Dose Route Start Last Admin Trade Name Freq PRN Reason Stop Dose Admin Hydrocodone Bitart/Acetaminophen 1 tab 02/15/19 16:30 02/17/19 09:09 [place] 10/325 PO 1 tab Q6H PRN Administration MILD PAIN (1-3) Hydrocodone Bitart/Acetaminophen 2 tab 02/15/19 16:15 02/18/19 02:56 [place] 10/325 PO 2 tab Q6H PRN Administration MODERATE PAIN (4-7) Albuterol/Ipratropium 3 ml 02/10/19 23:47 02/16/19 05:06 Duoneb NEB 3 ml Q1H PRN Administration SOB &/or Wheezing Albuterol/Ipratropium 3 ml 02/11/19 06:30 02/18/19 02:19 Duoneb NEB 3 ml [id number] MILY Administration Benzonatate 100 mg 02/13/19 21:28 02/13/19 23:30 Tessalon PO 100 mg TID PRN Administration Cough Bupropion HCl 200 mg 02/11/19 09:00 02/17/19 20:57 Wellbutrin Sr PO 200 mg BID MILY Administration Citalopram Hydrobromide 20 mg 02/11/19 09:00 02/17/19 11:43 Celexa PO 20 mg DAILY MILY Administration Cyclobenzaprine HCl 10 mg 02/16/19 19:24 02/18/19 03:57 Flexeril PO 10 mg TID PRN Administration Muscle Spasm Enoxaparin Sodium 40 mg 02/11/19 09:00 02/17/19 09:08 Lovenox SC 40 mg 0900 MILY Administration Famotidine 20 mg 02/11/19 09:00 02/17/19 20:57 Pepcid PO 20 mg BID MILY Administration Fentanyl 75 mcg 02/17/19 12:00 02/17/19 11:37 Duragesic TD 75 mcg Q3D MILY Administration Fluticasone Propionate 0 gm 02/11/19 09:00 02/17/19 09:08 Flonase Nasal [place] NASAL 1 spr DAILY MILY Administration Furosemide 40 mg 02/12/19 06:00 02/18/19 05:36 Lasix SLOW IVP 40 mg 0600 MILY Administration Lidocaine 1 patch 02/15/19 09:00 02/17/19 09:08 Lidoderm 5% Patch TD 1 patch DAILY MILY Administration Loratadine 10 mg 02/11/19 09:00 02/17/19 09:09 Claritin PO 10 mg DAILY MILY Administration Melatonin 3 mg 02/16/19 11:30 02/17/19 22:08 Melatonin PO 3 mg HS PRN Administration Insomnia Miscellaneous Medication 1 each 02/15/19 21:00 02/17/19 20:58 Lidocaine Patch Removal TOP 1 each 2099 MILY Administration Mometasone Furoate/Formoterol Fumar 2 puff 02/17/19 18:30 02/17/19 18:33 Dulera 200 Mcg/5 Mcg Inhaler INH 2 puff BID-RT MLIY Administration Morphine Sulfate 2 mg 02/12/19 18:05 02/16/19 03:42 Morphine SLOW IVP 2 mg Q2H PRN Administration Breakthrough Pain Morphine Sulfate 4 mg 02/15/19 14:38 02/18/19 05:46 Morphine SLOW IVP 4 mg Q4H PRN Administration Pain Prednisone 40 mg 02/17/19 08:00 02/17/19 09:08 Prednisone PO 40 mg QAM-WM MILY Administration Sodium Chloride 10 ml 02/10/19 23:46 02/16/19 05:28 Flush - Normal Saline IVF 10 ml PRN PRN Administration Saline Flush - Exam General Appearance: ill appearing ENT: normocephalic atraumatic, moist mucosa Neck: supple, no JVD Heart: RRR, no murmur, no gallops, no rubs Respiratory: wheezes Gastrointestinal: soft, non-tender, non-distended, no hepatomegaly, no splenomegaly Extremities: no edema, clubbing Skin: normal turgor Neurological: CN's grossly intact Musculoskeletal: normal tone, normal strength, no muscle wasting Psychiatric: normal affect, normal behavior, A&O x 3 Hosp A/P (1) Squamous cell lung cancer Code(s): C34.90 - MALIGNANT NEOPLASM OF UNSP PART OF UNSP BRONCHUS OR LUNG Status: Chronic Qualifiers: Laterality: left Qualified Code(s): C34.92 - Malignant neoplasm of unspecified part of left bronchus or lung (2) COPD exacerbation Code(s): J44.1 - CHRONIC OBSTRUCTIVE PULMONARY DISEASE W (ACUTE) EXACERBATION Status: Acute (3) GERD (gastroesophageal reflux disease) Code(s): K21.9 - GASTRO-ESOPHAGEAL REFLUX DISEASE WITHOUT ESOPHAGITIS Status: Chronic Qualifiers: Esophagitis presence: esophagitis presence not specified Qualified Code(s) : K21.9 - Gastro-esophageal reflux disease without esophagitis - Plan Resp- pulmonology consult yesterday- pt placed on high flow O2 and long acting steroid. pt is full code status Pain- Pain management recommendations as follows: Duragesic increased to 75 mg yesterday (change every 72 hrs), Flexeril t.i.d prn for spasms, and Narco and IV morphine continued . Pain management will continue to follow pt. Oncology consulted - pt has curable lung CA and needs to follow up with outpatient chemo x3 after d/c from hospital. pt does not qualify for hospice for her lung cancer because it is curable Sleep-melatonin ordered for sleep aid. pt says she slept better last night. Addendum by Mohamud Hawkins MD: Chart reviewed, pt seen by me. Discussed case with Mr. Ratliff. Agree with plan of care as documented. Please refer to my separate progress note for further details.
[2019-02-18] MEDS: Mometasone/Formoterol 120 PUFF INHALER INH SCH ×2 (07:34→19:25)
--- NOTE | 2019-02-18 07:42 | PRG ---
DATE OF SERVICE: 02/18/2019 SUBJECTIVE: The patient is having extreme problems with pain. This is affecting her breathing. She is requiring high-flow oxygen set at 35%. OBJECTIVE: VITAL SIGNS: Temperature 98.4, pulse 93 to 120, respiratory rate 16 to 24, O2 saturation 93%, and blood pressure 146/83 HEENT: Remarkable for alopecia. NECK: No JVD. LUNGS: Fairly clear breath sounds bilaterally, but she has splinting. CARDIOVASCULAR: S1 and S2, regular. ABDOMEN: Soft. EXTREMITIES: No edema. LABORATORY DATA: White blood cell count 15.3, hematocrit 30, platelet count 242. Sodium 138, potassium 3.7, chloride 91, CO2 of 36, BUN 20, creatinine 0.6, glucose 79. ASSESSMENT: 1. The patient has very severe chronic obstructive pulmonary disease. This is being compromised by pain from vertebral fractures. 2. Stage III lung cancer. PLAN: This is a very difficult situation and essentially requires pain control above anything else. She is on bronchodilators, steroids, and high-flow oxygen. There is really nothing else to add at this time other than more aggressive pain management if at all possible. I will defer to the hydramatic specialist for that. Job ID: [id number]
[2019-02-18] MEDS: Morphine 2 MG/ML SYRINGE SLOW IVP PRN ×6 (07:58→23:21)
[2019-02-18] MEDS: Lidocaine 5% Patch TD SCH (09:02)
[2019-02-18] MEDS: Citalopram 20 MG TAB PO SCH (09:03)
[2019-02-18] MEDS: Loratadine 10 MG TAB PO SCH (09:04)
[2019-02-18] MEDS: predniSONE 20 MG TAB PO SCH (09:04)
[2019-02-18] MEDS: Bupropion 100 MG SR TAB PO SCH ×2 (09:04→21:21)
[2019-02-18] MEDS: Famotidine 20 MG TAB PO SCH ×2 (09:04→21:22)
[2019-02-18] MEDS: Enoxaparin Sodium 40 MG/0.4 ML SYRINGE SC SCH (09:04)
[2019-02-18] MEDS: Fluticasone Propionate Nasal Spray 16 gm Bottle NASAL SCH (09:06)
[2019-02-18] MEDS: Promethazine HCl 25 MG/ML VIAL IM/IV PRN ×2 (10:44→16:52)
--- NOTE | 2019-02-18 13:40 | PDOC.HOSPP ---
- Subjective Encounter Date: 02/18/19 Encounter Time: 07:00 Subjective: Pt seen for followup re: COPD exacerbation. Says she slept better. More comfortable with high-flow oxygen. - Objective Vital Signs & Weight: Vital Signs (12 hours) Temp Pulse Resp BP Pulse Ox 02/18/19 13:10 98.5 F 103 H 20 142/84 H 91 L 02/18/19 11:11 100 20 02/18/19 08:00 98.0 F 105 H 22 H 152/74 H 94 L 02/18/19 07:35 105 H 22 H 02/18/19 02:19 120 H 24 H Weight Weight 147 lb 1 oz I&O: 02/17/19 02/18/19 02/19/19 06:59 06:59 06:59 Intake Total 480 840 Balance 480 840 Result Diagrams: 02/18/19 05:42 02/18/19 05:42 Additional Labs: Labs and MARs reviewed by me Hospitalist ROS - Review of Systems Respiratory: reports: SOB with excertion. denies: cough, shortness of breath, pleuritic pain, wheezing Cardiovascular: denies: chest pain, palpitations, orthopnea, paroxysmal noc. dyspnea, edema, light headedness - Medication Medications: Active Medications Generic Name Dose Route Start Last Admin Trade Name Freq PRN Reason Stop Dose Admin Hydrocodone Bitart/Acetaminophen 1 tab 02/15/19 16:30 02/17/19 09:09 [place] 10/325 PO 1 tab Q6H PRN Administration MILD PAIN (1-3) Hydrocodone Bitart/Acetaminophen 2 tab 02/15/19 16:15 02/18/19 09:01 [place] 10/325 PO 2 tab Q6H PRN Administration MODERATE PAIN (4-7) Albuterol/Ipratropium 3 ml 02/10/19 23:47 02/16/19 05:06 Duoneb NEB 3 ml Q1H PRN Administration SOB &/or Wheezing Albuterol/Ipratropium 3 ml 02/11/19 06:30 02/18/19 11:11 Duoneb NEB 3 ml [id number] MILY Administration Benzonatate 100 mg 02/13/19 21:28 02/13/19 23:30 Tessalon PO 100 mg TID PRN Administration Cough Bupropion HCl 200 mg 02/11/19 09:00 02/18/19 09:04 Wellbutrin Sr PO 200 mg BID MILY Administration Citalopram Hydrobromide 20 mg 02/11/19 09:00 02/18/19 09:03 Celexa PO 20 mg DAILY MILY Administration Cyclobenzaprine HCl 10 mg 02/16/19 19:24 02/18/19 03:57 Flexeril PO 10 mg TID PRN Administration Muscle Spasm Enoxaparin Sodium 40 mg 02/11/19 09:00 02/18/19 09:04 Lovenox SC 40 mg 0900 MILY Administration Famotidine 20 mg 02/11/19 09:00 02/18/19 09:04 Pepcid PO 20 mg BID MILY Administration Fentanyl 75 mcg 02/17/19 12:00 02/17/19 11:37 Duragesic TD 75 mcg Q3D MILY Administration Fluticasone Propionate 0 gm 02/11/19 09:00 02/18/19 09:06 Flonase Nasal [place] NASAL 1 spr DAILY MILY Administration Furosemide 40 mg 02/12/19 06:00 02/18/19 05:36 Lasix SLOW IVP 40 mg 00 MILY Administration Lidocaine 1 patch 02/15/19 09:00 02/18/19 09:02 Lidoderm 5% Patch TD 1 patch DAILY MILY Administration Loratadine 10 mg 02/11/19 09:00 02/18/19 09:04 Claritin PO 10 mg DAILY MILY Administration Melatonin 3 mg 02/16/19 11:30 02/17/19 22:08 Melatonin PO 3 mg HS PRN Administration Insomnia Miscellaneous Medication 1 each 02/15/19 21:00 02/17/19 20:58 Lidocaine Patch Removal TOP 1 each 2100 MILY Administration Mometasone Furoate/Formoterol Fumar 2 puff 02/17/19 18:30 02/18/19 07:34 Dulera 200 Mcg/5 Mcg Inhaler INH 2 puff BID-RT MILY Administration Morphine Sulfate 2 mg 02/12/19 18:05 02/18/19 09:59 Morphine SLOW IVP 2 mg Q2H PRN Administration Breakthrough Pain Morphine Sulfate 4 mg 02/15/19 14:38 02/18/19 05:46 Morphine SLOW IVP 4 mg Q4H PRN Administration Pain Prednisone 40 mg 02/17/19 08:00 02/18/19 09:04 Prednisone PO 40 mg QAM-WM MILY Administration Promethazine HCl 25 mg 02/18/19 10:39 02/18/19 10:44 Phenergan IM/IV 25 mg Q6H PRN Administration Nausea/Vomiting Sodium Chloride 10 ml 02/10/19 23:46 02/18/19 10:45 Flush - Normal Saline IVF 10 ml PRN PRN Administration Saline Flush - Exam General Appearance: NAD Eye: anicteric sclera ENT: moist mucosa Neck: supple, no JVD Heart: RRR Respiratory: wheezes Gastrointestinal: soft, non-tender Skin: no lesions Psychiatric: normal affect, normal behavior Hosp A/P (1) COPD exacerbation Code(s): J44.1 - CHRONIC OBSTRUCTIVE PULMONARY DISEASE W (ACUTE) EXACERBATION Status: Acute (2) Squamous cell lung cancer Code(s): C34.90 - MALIGNANT NEOPLASM OF UNSP PART OF UNSP BRONCHUS OR LUNG Status: Chronic Qualifiers: Laterality: left Qualified Code(s): C34.92 - Malignant neoplasm of unspecified part of left bronchus or lung (3) GERD (gastroesophageal reflux disease) Code(s): K21.9 - GASTRO-ESOPHAGEAL REFLUX DISEASE WITHOUT ESOPHAGITIS Status: Chronic Qualifiers: Esophagitis presence: esophagitis presence not specified Qualified Code(s) : K21.9 - Gastro-esophageal reflux disease without esophagitis - Plan Improving, continue steroids and high-flow oxygen. Pain management service following.
[2019-02-18] MEDS: Benzonatate 100 MG CAP PO PRN (15:40)
--- NOTE | 2019-02-18 18:58 | PDOC.HOSPP ---
- Subjective Encounter Date: 02/18/19 - Objective Vital Signs & Weight: Vital Signs (12 hours) Temp Pulse Resp BP Pulse Ox 02/18/19 16:05 98.2 F 98 18 156/70 H 93 L 02/18/19 13:10 98.5 F 103 H 20 142/84 H 91 L 02/18/19 11:11 100 20 02/18/19 08:00 98.0 F 105 H 22 H 152/74 H 94 L 02/18/19 07:35 105 H 22 H Weight Weight 147 lb 1 oz I&O: 02/17/19 02/18/19 02/19/19 06:59 06:59 06:59 Intake Total 480 840 Balance 480 840 Result Diagrams: 02/18/19 05:42 02/18/19 05:42 Hospitalist ROS - Medication Medications: Active Medications Generic Name Dose Route Start Last Admin Trade Name Freq PRN Reason Stop Dose Admin Hydrocodone Bitart/Acetaminophen 1 tab 02/15/19 16:30 02/17/19 09:09 [place] 10/325 PO 1 tab Q6H PRN Administration MILD PAIN (1-3) Hydrocodone Bitart/Acetaminophen 2 tab 02/15/19 16:15 02/18/19 09:01 [place] 10/325 PO 2 tab Q6H PRN Administration MODERATE PAIN (4-7) Albuterol/Ipratropium 3 ml 02/10/19 23:47 02/16/19 05:06 Duoneb NEB 3 ml Q1H PRN Administration SOB &/or Wheezing Albuterol/Ipratropium 3 ml 02/11/19 06:30 02/18/19 14:01 Duoneb NEB 3 ml [id number] MILY Administration Benzonatate 100 mg 02/13/19 21:28 02/18/19 15:40 Tessalon PO 100 mg TID PRN Administration Cough Bupropion HCl 200 mg 02/11/19 09:00 02/18/19 09:04 Wellbutrin Sr PO 200 mg BID MILY Administration Citalopram Hydrobromide 20 mg 02/11/19 09:00 02/18/19 09:03 Celexa PO 20 mg DAILY MILY Administration Cyclobenzaprine HCl 10 mg 02/16/19 19:24 02/18/19 03:57 Flexeril PO 10 mg TID PRN Administration Muscle Spasm Enoxaparin Sodium 40 mg 02/11/19 09:00 02/18/19 09:04 Lovenox SC 40 mg 0900 MILY Administration Famotidine 20 mg 02/11/19 09:00 02/18/19 09:04 Pepcid PO 20 mg BID MILY Administration Fentanyl 75 mcg 02/17/19 12:00 02/17/19 11:37 Duragesic TD 75 mcg Q3D MILY Administration Fluticasone Propionate 0 gm 02/11/19 09:00 02/18/19 09:06 Flonase Nasal [place] NASAL 1 spr DAILY MILY Administration Furosemide 40 mg 02/12/19 06:00 02/18/19 05:36 Lasix SLOW IVP 40 mg 0600 MILY Administration Lidocaine 1 patch 02/15/19 09:00 02/18/19 09:02 Lidoderm 5% Patch TD 1 patch DAILY MILY Administration Loratadine 10 mg 02/11/19 09:00 02/18/19 09:04 Claritin PO 10 mg DAILY MILY Administration Melatonin 3 mg 02/16/19 11:30 02/17/19 22:08 Melatonin PO 3 mg HS PRN Administration Insomnia Miscellaneous Medication 1 each 02/15/19 21:00 02/17/19 20:58 Lidocaine Patch Removal TOP 1 each 2100 MILY Administration Mometasone Furoate/Formoterol Fumar 2 puff 02/17/19 18:30 02/18/19 07:34 Dulera 200 Mcg/5 Mcg Inhaler INH 2 puff BID-RT MILY Administration Morphine Sulfate 2 mg 02/12/19 18:05 02/18/19 18:17 Morphine SLOW IVP 2 mg Q2H PRN Administration Breakthrough Pain Morphine Sulfate 4 mg 02/15/19 14:38 02/18/19 14:04 Morphine SLOW IVP 4 mg Q4H PRN Administration Pain Prednisone 40 mg 02/17/19 08:00 02/18/19 09:04 Prednisone PO 40 mg QAM-WM MILY Administration Promethazine HCl 25 mg 02/18/19 10:39 02/18/19 16:52 Phenergan IM/IV 25 mg Q6H PRN Administration Nausea/Vomiting Sodium Chloride 10 ml 02/10/19 23:46 02/18/19 18:17 Flush - Normal Saline IVF 10 ml PRN PRN Administration Saline Flush
[2019-02-18] MEDS ORDERED: Piperacillin/Tazobactam 4.5 GM in Sodium Chloride 0.9% 100 ML IVPB SCH (20:00)
--- NOTE | 2019-02-18 20:06 | RAD ---
PORTABLE CHEST ONE VIEW: 02/18/19 at 6:26 p.m. HISTORY: Low saturations without oxygen, frothy sputum. FINDINGS: Comparison made with exam from previous day. Right sided Port-A-Cath remains in place. The heart size is stable. Prominent interstitial markings a gain seen without lobar consolidation, pneumothoraces or large effusions. Multilevel changes of verte broplasty are again seen in the spine. Ill-defined left hilar mass is again noted. IMPRESSION: Stable exam. POS: CHRISTOS
--- NOTE | 2019-02-18 21:10 | PDOC.EVN ---
Event Note - Event Note Event Note: Evaluated pt re: concern over frothy sputum. Pt reports she was sucking on some colored candy and did not vomit or aspirate. VSS, CXR nil acute. Lungs clear. Discontinue antibiotic and observe.
[2019-02-18] MEDS: Lidocaine Patch Removal 1 EACH TOP SCH (21:22)
[2019-02-19] MEDS: Morphine 4 MG/ML VIAL SLOW IVP PRN ×2 (00:33→15:34)
[2019-02-19] MEDS: Promethazine HCl 25 MG/ML VIAL IM/IV PRN (01:15)
[2019-02-19] MEDS: Morphine 2 MG/ML SYRINGE SLOW IVP PRN (02:16)
[2019-02-19] MEDS: Lorazepam 2 MG/ML VIAL SLOW IVP PRN (03:06)
[2019-02-19] MEDS: Ketorolac Tromethamine 30 MG/ML VIAL IVP PRN ×2 (03:34→22:42)
[2019-02-19] MEDS: Furosemide 40 MG/4 ML VIAL SLOW IVP SCH (05:11)
[2019-02-19 05:52] LABS: Anion Gap 13 mmol/L (10-20); BUN (Urea Nitrogen) 19 mg/dL (9.8-20.1); Calc. Creatinine Clearance 101 mL/min (70-130); Carbon Dioxide 36 mmol/L (22-29); Chloride 92 mmol/L (98-107); Estimated GFR-MDRD Greater than 90; Glucose 92 mg/dL (70-105); Potassium 3.3 mmol/L (3.5-5.1); Sodium 138 mmol/L (136-145)
[2019-02-19 06:00] LABS: Band 7 % (5-11); Hemoglobin 9.2 g/dL (12.0-16.0); Lymphocytes 5 % (21-51); MDiff Complete? YES; Mean Corpuscular HGB CONC 31.9 g/dL (32.0-36.0); Mean Corpuscular Hemoglobin 29.1 pg (27.0-31.0); Mean Corpuscular Volume 91.2 fL (78.0-98.0); Mean Platelet Volume 7.4 fL (7.4-10.4); Monocytes 11 % (0-10); Neutrophil 77 % (42-75); Platelet Count 247 thou/uL (130-400); Platelet Morphology Comment Appears Adequate; Polychromasia SLIGHT = 2-3 cells (100X) (0-2/hpf); Red Blood Cell (RBC) Count 3.15 mill/uL (4.20-5.40); White Blood Cell (WBC) Count 17.6 thou/uL (4.8-10.8)
[2019-02-19 08:18] LABS: Actual Bicarbonate (HCO3a) 36.7 mEq/L (22-28); Base Excess (BEa) 10.2 mEq/L (-2.0 to +3.0); Calcium, Ionized 1.13 mmol/L (1.12-1.30); Carboxyhemoglobin (COHb) 0.7 gm% (0.0-3.0); Hemoglobin (Hb) 10.5 g/dL (12.0-16.0); O2 Tension (PaO2) 98.2 mmHg (80.0-100.0); Potassium - ABG Lab 3.57 mmol/L (3.70-5.30)
[2019-02-19 08:20] LABS: CO2 Tension 60.5 mmHg (35.0-45.0); Puncture Site RRA
--- NOTE | 2019-02-19 08:21 | PDOC.HOSPP ---
- Subjective Encounter Date: 02/19/19 Encounter Time: 08:18 non-verbal Subjective: I was called by RN, patient is having worsening of her respiration, she is unable to speak comfortably, that is a change in her clinical status. I immediately went to see her and indeed she does look in distress, but able to finish a full sentence but with difficulty. She did not eat breakfast, this developed early this morning. - Objective Vital Signs & Weight: Vital Signs (12 hours) Pulse Resp Pulse Ox 02/19/19 07:46 95 27 H 91 L 02/19/19 04:15 95 02/19/19 03:50 9 L 02/18/19 23:12 94 L Weight Weight 147 lb 1 oz I&O: 02/18/19 02/19/19 02/20/19 06:59 06:59 06:59 Intake Total 840 Balance 840 Result Diagrams: 02/19/19 05:10 02/19/19 05:10 Hospitalist ROS - Medication Medications: Active Medications Generic Name Dose Route Start Last Admin Trade Name Freq PRN Reason Stop Dose Admin Hydrocodone Bitart/Acetaminophen 1 tab 02/15/19 16:30 02/17/19 09:09 [place] 10/325 PO 1 tab Q6H PRN Administration MILD PAIN (1-3) Hydrocodone Bitart/Acetaminophen 2 tab 02/15/19 16:15 02/18/19 09:01 [place] 10/325 PO 2 tab Q6H PRN Administration MODERATE PAIN (4-7) Albuterol/Ipratropium 3 ml 02/10/19 23:47 02/16/19 05:06 Duoneb NEB 3 ml Q1H PRN Administration SOB &/or Wheezing Albuterol/Ipratropium 3 ml 02/11/19 06:30 02/19/19 07:46 Duoneb NEB 3 ml [id number] MILY Administration Benzonatate 100 mg 02/13/19 21:28 02/18/19 15:40 Tessalon PO 100 mg TID PRN Administration Cough Bupropion HCl 200 mg 02/11/19 09:00 02/18/19 21:21 Wellbutrin Sr PO 200 mg BID MILY Administration Citalopram Hydrobromide 20 mg 02/11/19 09:00 02/18/19 09:03 Celexa PO 20 mg DAILY MILY Administration Cyclobenzaprine HCl 10 mg 02/16/19 19:24 02/18/19 03:57 Flexeril PO 10 mg TID PRN Administration Muscle Spasm Enoxaparin Sodium 40 mg 02/11/19 09:00 02/18/19 09:04 Lovenox SC 40 mg 0900 MILY Administration Famotidine 20 mg 02/11/19 09:00 02/18/19 21:22 Pepcid PO 20 mg BID MILY Administration Fentanyl 75 mcg 02/17/19 12:00 02/17/19 11:37 Duragesic TD 75 mcg Q3D MILY Administration Fluticasone Propionate 0 gm 02/11/19 09:00 02/18/19 09:06 Flonase Nasal [place] NASAL 1 spr DAILY MILY Administration Furosemide 40 mg 02/12/19 06:00 02/19/19 05:11 Lasix SLOW IVP 40 mg 0600 MILY Administration Ketorolac Tromethamine 30 mg 02/19/19 02:43 02/19/19 03:34 Toradol IVP 02/24/19 02:44 30 mg Q6H PRN Administration Pain Lidocaine 1 patch 02/15/19 09:00 02/18/19 09:02 Lidoderm 5% Patch TD 1 patch DAILY MILY Administration Loratadine 10 mg 02/11/19 09:00 02/18/19 09:04 Claritin PO 10 mg DAILY MILY Administration Lorazepam 1 mg 02/19/19 02:44 02/19/19 03:06 Ativan SLOW IVP 1 mg Q4H PRN Administration Anxiety/Agitation Melatonin 3 mg 02/16/19 11:30 02/17/19 22:08 Melatonin PO 3 mg HS PRN Administration Insomnia Miscellaneous Medication 1 each 02/15/19 21:00 02/18/19 21:22 Lidocaine Patch Removal TOP 1 each 2100 MILY Administration Mometasone Furoate/Formoterol Fumar 2 puff 02/17/19 18:30 02/18/19 19:25 Dulera 200 Mcg/5 Mcg Inhaler INH 2 puff BID-RT MILY Administration Morphine Sulfate 2 mg 02/12/19 18:05 02/19/19 02:16 Morphine SLOW IVP 2 mg Q2H PRN Administration Breakthrough Pain Morphine Sulfate 4 mg 02/15/19 14:38 02/19/19 00:33 Morphine SLOW IVP 4 mg Q4H PRN Administration Pain Prednisone 40 mg 02/17/19 08:00 02/18/19 09:04 Prednisone PO 40 mg QAM-WM MILY Administration Promethazine HCl 25 mg 02/18/19 10:39 02/19/19 01:15 Phenergan IM/IV 25 mg Q6H PRN Administration Nausea/Vomiting Sodium Chloride 10 ml 02/10/19 23:46 02/18/19 18:17 Flush - Normal Saline IVF 10 ml PRN PRN Administration Saline Flush - Exam General Appearance: awake alert, ill appearing Eye: PERRL, anicteric sclera ENT: normocephalic atraumatic Neck: supple Heart: no murmur Respiratory: rhonchi, tachypneic, wheezes Gastrointestinal: non-tender, distended Extremities: no edema Neurological: CN's grossly intact, normal sensation to touch, no weakness, no focal deficits Psychiatric: normal affect Hosp A/P (1) COPD exacerbation Code(s): J44.1 - CHRONIC OBSTRUCTIVE PULMONARY DISEASE W (ACUTE) EXACERBATION Status: Acute (2) Lung mass Code(s): R91.8 - OTHER NONSPECIFIC ABNORMAL FINDING OF LUNG FIELD Status: Chronic (3) Acute and chronic respiratory failure Code(s): J96.20 - ACUTE AND CHR RESP FAILURE, UNSP W HYPOXIA OR HYPERCAPNIA Status: Acute Qualifiers: Respiratory failure complication: hypoxia Qualified Code(s): J96.21 - Acute and chronic respiratory failure with hypoxia Plan: acute respiratory failure-----will give a dose of solumedrol, cont nebs, do a stat CXR, I did maritza crenshaw, will transfer to ICU for possible BIPAP one hour of critical care time was spent to manage the patient.
[2019-02-19 08:22] LABS: ALV-art Gradient 118.505 (0-20)
[2019-02-19] MEDS ORDERED: methylPREDNISolone Sod Succ/PF 125 MG/2 ML VIAL IVP SCH (08:30)
[2019-02-19] MEDS: Mometasone/Formoterol 120 PUFF INHALER INH SCH ×2 (08:52→18:33)
[2019-02-19] MEDS: Enoxaparin Sodium 40 MG/0.4 ML SYRINGE SC SCH (09:38)
[2019-02-19] MEDS: predniSONE 20 MG TAB PO SCH (09:51)
[2019-02-19] MEDS: Bupropion 100 MG SR TAB PO SCH ×2 (09:51→20:40)
[2019-02-19] MEDS: Fluticasone Propionate Nasal Spray 16 gm Bottle NASAL SCH (09:52)
[2019-02-19] MEDS: Lidocaine 5% Patch TD SCH (09:52)
[2019-02-19] MEDS: Citalopram 20 MG TAB PO SCH (09:52)
[2019-02-19] MEDS: Famotidine 20 MG TAB PO SCH ×2 (09:52→20:40)
[2019-02-19] MEDS: Loratadine 10 MG TAB PO SCH (09:53)
[2019-02-19] MEDS: methylPREDNISolone Sod Succ 40 MG VIAL IVP SCH ×2 (17:05→23:05)
--- NOTE | 2019-02-19 18:09 | PRG ---
DATE OF SERVICE: 02/19/2019 SUBJECTIVE: Cole Orr apparently had progressive respiratory distress early this morning and was transferred to critical care unit, placed on BiPAP. Nursing staff tells me that she improved very quickly once BiPAP was initiated and she was comfortable at the time I evaluated her. OBJECTIVE: VITAL SIGNS: Heart rate 88, respiratory rate 18, blood pressure 120/73. She is on 10/5, I increased to 12/5 and her tidal volumes increased from 350 to 480 to 500. LUNGS: Distant, clear. HEART: Regular rhythm. ABDOMEN: Soft. EXTREMITIES: Without edema. LABORATORY DATA: White count 17.6, hemoglobin 9.2, platelets 247. PH 7.4, CO2 of 60, pO2 of 98 before she was on BiPAP. Sodium 138, potassium 3.3, chloride 92, bicarb 36, BUN 19, and creatinine 0.63. Bicarb a week ago was 29. Intake and outputs are not accurate. I cannot tell whether she is in positive or negative fluid balance and there is no weight recorded. IMPRESSION: 1. Acute on chronic respiratory failure with hypercarbia, improved with BiPAP. 2. Chronic obstructive pulmonary disease. 3. History of vertebral compression fractures. 4. Lung cancer. PLAN: Continue with BiPAP and care in the critical care unit. We will keep her on BiPAP until tomorrow morning and then take this often. Observe her closely in the ICU. CRITICAL CARE TIME: 30 minutes. Job ID: [id number]
[2019-02-19] MEDS: HYDROcodone/Acetaminophen 10/325 mg Tablet PO PRN (20:41)
[2019-02-19] MEDS: Lidocaine Patch Removal 1 EACH TOP SCH (21:15)
[2019-02-20] MEDS: Morphine 4 MG/ML VIAL SLOW IVP PRN ×3 (01:19→11:17)
[2019-02-20] MEDS: HYDROcodone/Acetaminophen 10/325 mg Tablet PO PRN ×3 (02:42→16:08)
[2019-02-20] MEDS: Ketorolac Tromethamine 30 MG/ML VIAL IVP PRN ×2 (04:43→19:33)
[2019-02-20] MEDS: Furosemide 40 MG/4 ML VIAL SLOW IVP SCH (05:13)
[2019-02-20] MEDS: methylPREDNISolone Sod Succ 40 MG VIAL IVP SCH ×3 (05:14→19:34)
[2019-02-20] MEDS: Mometasone/Formoterol 120 PUFF INHALER INH SCH ×2 (06:46→18:29)
[2019-02-20] MEDS: predniSONE 20 MG TAB PO SCH (08:40)
[2019-02-20] MEDS: Citalopram 20 MG TAB PO SCH (08:41)
[2019-02-20] MEDS: Loratadine 10 MG TAB PO SCH (08:41)
[2019-02-20] MEDS: Fluticasone Propionate Nasal Spray 16 gm Bottle NASAL SCH (08:41)
[2019-02-20] MEDS: Famotidine 20 MG TAB PO SCH ×2 (08:41→21:57)
[2019-02-20] MEDS: Enoxaparin Sodium 40 MG/0.4 ML SYRINGE SC SCH (08:41)
[2019-02-20] MEDS: Lidocaine 5% Patch TD SCH (08:55)
[2019-02-20] MEDS: Bupropion 100 MG SR TAB PO SCH ×2 (08:55→21:57)
[2019-02-20] MEDS: fentaNYL 75 mcg/hour Patch TD SCH (11:40)
[2019-02-20] MEDS: Cyclobenzaprine 10 MG TAB PO PRN (12:57)
[2019-02-20] MEDS ORDERED: ISOVUE-370 76%-LOCM 1 ML ONE (13:04)
[2019-02-20] MEDS: Morphine 2 MG/ML SYRINGE SLOW IVP PRN ×3 (14:51→23:45)
[2019-02-20 15:16] LABS: Anion Gap 17 mmol/L (10-20); BUN (Urea Nitrogen) 12 mg/dL (9.8-20.1); Calc. Creatinine Clearance 90 mL/min (70-130); Calcium 9.3 mg/dL (7.8-10.44); Carbon Dioxide 33 mmol/L (22-29); Chloride 89 mmol/L (98-107); Estimated GFR-MDRD 84; Glucose 153 mg/dL (70-105); Magnesium 1.9 mg/dL (1.6-2.6); Potassium 3.8 mmol/L (3.5-5.1); Sodium 135 mmol/L (136-145)
--- NOTE | 2019-02-20 15:51 | PRG ---
DATE OF SERVICE: 02/20/2019 SUBJECTIVE: Cole Orr continues to intermittently be on BiPAP. She was off for several hours this morning, then became upset as she could not find her keys or her credit card/wallet and became tachypneic and then had to be put back on noninvasive ventilation. She swears this was not an anxiety attack. She says she gets this way at home. She can talk in complete sentences when she is on BiPAP. OBJECTIVE: VITAL SIGNS: Heart rate is 109, respiratory rate is 14, oximetry is 100%, and blood pressure is 140/86. LUNGS: Remarkable for coarse equal breath sounds. HEART: Regular rhythm. ABDOMEN: Soft. EXTREMITIES: Without edema. LABORATORY DATA: There is no new lab today. IMPRESSION: 1. Acute on chronic respiratory failure with hypoxia and hypercarbia. 2. Stage III lung cancer. 3. Vertebral compression fractures with pain. 4. Anemia of chronic disease. PLAN: We will continue with respiratory support in the Critical Care Unit. Job ID: [id number]
--- NOTE | 2019-02-20 16:43 | PDOC.HOSPP ---
- Subjective Encounter Date: 02/20/19 Subjective: She is breathing a bit better, but she is complaining of pleuritic pain whenever she takes an inspiration, her pain is located in the left para-sternal area, it is reproducible with palpation, it has been an ongoing pain since she was diagnosed with the compression fractures but seems to have gotten worse since her transfer to the ICU. - Objective Vital Signs & Weight: Vital Signs (12 hours) Temp Pulse Resp Pulse Ox 02/20/19 14:27 109 H 14 100 02/20/19 12:00 99.0 F 100 02/20/19 10:08 109 H 02/20/19 10:04 109 H 12 100 02/20/19 07:45 100 02/20/19 07:00 97.9 F 02/20/19 06:46 91 02/20/19 06:44 96 23 H 100 Weight Weight 147 lb 1 oz Most Recent Monitor Data Heart Rate from ECG 101 NIBP 125/79 NIBP BP-Mean 94 Respiration from ECG 15 SpO2 100 I&O: 02/19/19 02/20/19 02/21/19 06:59 06:59 06:59 Intake Total 1090 933 Output Total 1350 450 Balance -260 483 Result Diagrams: 02/19/19 05:10 02/20/19 14:47 Hospitalist ROS - Medication Medications: Active Medications Generic Name Dose Route Start Last Admin Trade Name Freq PRN Reason Stop Dose Admin Hydrocodone Bitart/Acetaminophen 1 tab 02/15/19 16:30 02/17/19 09:09 [place] 10/325 PO 1 tab Q6H PRN Administration MILD PAIN (1-3) Hydrocodone Bitart/Acetaminophen 2 tab 02/15/19 16:15 02/20/19 16:08 [place] 10/325 PO 2 tab Q6H PRN Administration MODERATE PAIN (4-7) Albuterol/Ipratropium 3 ml 02/10/19 23:47 02/16/19 05:06 Duoneb NEB 3 ml Q1H PRN Administration SOB &/or Wheezing Albuterol/Ipratropium 3 ml 02/11/19 06:30 02/20/19 14:27 Duoneb NEB 3 ml [id number] MILY Administration Benzonatate 100 mg 02/13/19 21:28 02/18/19 15:40 Tessalon PO 100 mg TID PRN Administration Cough Bupropion HCl 200 mg 02/11/19 09:00 02/20/19 08:55 Wellbutrin Sr PO 200 mg BID [facility] Administration Citalopram Hydrobromide 20 mg 02/11/19 09:00 02/20/19 08:41 Celexa PO 20 mg DAILY MILY Administration Cyclobenzaprine HCl 10 mg 02/16/19 19:24 02/20/19 12:57 Flexeril PO 10 mg TID PRN Administration Muscle Spasm Enoxaparin Sodium 40 mg 02/11/19 09:00 02/20/19 08:41 Lovenox SC 40 mg 0900 [facility] Administration Famotidine 20 mg 02/11/19 09:00 02/20/19 08:41 Pepcid PO 20 mg BID [facility] Administration Fentanyl 75 mcg 02/17/19 12:00 02/20/19 11:40 Duragesic TD 75 mcg Q3D [facility] Administration Fluticasone Propionate 0 gm 02/11/19 09:00 02/20/19 08:41 Flonase Nasal [place] NASAL 1 spr DAILY [facility] Administration Furosemide 40 mg 02/12/19 06:00 02/20/19 05:13 Lasix SLOW IVP 40 mg 0600 [facility] Administration Ketorolac Tromethamine 30 mg 02/19/19 02:43 02/20/19 04:43 Toradol IVP 02/24/19 02:44 30 mg Q6H PRN Administration Pain Lidocaine 1 patch 02/15/19 09:00 02/20/19 08:55 Lidoderm 5% Patch TD 1 patch DAILY [facility] Administration Loratadine 10 mg 02/11/19 09:00 02/20/19 08:41 Claritin PO 10 mg DAILY [facility] Administration Lorazepam 1 mg 02/19/19 02:44 02/19/19 03:06 Ativan SLOW IVP 1 mg Q4H PRN Administration Anxiety/Agitation Melatonin 3 mg 02/16/19 11:30 02/17/19 22:08 Melatonin PO 3 mg HS PRN Administration Insomnia Methylprednisolone Sodium Succinate 40 mg 02/19/19 18:00 02/20/19 11:17 Solu-Medrol IVP 40 mg Q6HR [facility] Administration Miscellaneous Medication 1 each 02/15/19 21:00 02/19/19 21:15 Lidocaine Patch Removal TOP Not Given 2100 [facility] Mometasone Furoate/Formoterol Fumar 2 puff 02/17/19 18:30 02/20/19 06:46 Dulera 200 Mcg/5 Mcg Inhaler INH Not Given BID-RT MILY Morphine Sulfate 2 mg 02/12/19 18:05 02/20/19 14:51 Morphine SLOW IVP 2 mg Q2H PRN Administration Breakthrough Pain Morphine Sulfate 4 mg 02/15/19 14:38 02/20/19 11:17 Morphine SLOW IVP 4 mg Q4H PRN Administration Pain Prednisone 40 mg 02/17/19 08:00 02/20/19 08:40 Prednisone PO 40 mg QAM-WM MILY Administration Promethazine HCl 25 mg 02/18/19 10:39 02/19/19 01:15 Phenergan IM/IV 25 mg Q6H PRN Administration Nausea/Vomiting Sodium Chloride 10 ml 02/10/19 23:46 02/20/19 14:52 Flush - Normal Saline IVF 10 ml PRN PRN Administration Saline Flush - Exam General Appearance: NAD, awake alert Eye: PERRL, anicteric sclera ENT: normocephalic atraumatic, no oropharyngeal lesions, moist mucosa Neck: supple, symmetric, no JVD, no thyromegaly, no lymphadenopathy, no carotid bruit Heart: RRR, no murmur, no gallops, no rubs, normal peripheral pulses Respiratory: rhonchi, wheezes (pain on palpation of the left parasternal area.) Gastrointestinal: soft, non-tender, non-distended, normal bowel sounds, no palpable masses, no hepatomegaly, no splenomegaly, no bruit Extremities: no cyanosis, no clubbing, no edema Hosp A/P (1) COPD exacerbation Code(s): J44.1 - CHRONIC OBSTRUCTIVE PULMONARY DISEASE W (ACUTE) EXACERBATION Status: Acute (2) Lung mass Code(s): R91.8 - OTHER NONSPECIFIC ABNORMAL FINDING OF LUNG FIELD Status: Chronic (3) Acute and chronic respiratory failure Code(s): J96.20 - ACUTE AND CHR RESP FAILURE, UNSP W HYPOXIA OR HYPERCAPNIA Status: Acute Qualifiers: Respiratory failure complication: hypoxia Qualified Code(s): J96.21 - Acute and chronic respiratory failure with hypoxia - Plan Pulmonary---continue BIPAP and steroids, nebs, will be doing a CT of chest to further investigate the pain, I think it is her chronic muscular pain and might increase her dose of Duragesic.
--- NOTE | 2019-02-20 18:25 | CT ---
CT CHEST WITH IV CONTRAST: History: Left sided pleuritic chest pain. FINDINGS: Comparison is made with exam of 11-08-18. The left hilar mass is smaller, measuring 2.4 x 2.1 cm. No right hilar mass, mediastinal or axillary lymphadenopathy is seen. Chronic changes are again seen in the lungs bilaterally. Linear calcifications in the right midlung z one are again noted. The nodule in the anteromedial aspect of the left upper lobe is smaller measuring 9 mm (13 mm previou sly). The other tiny lung nodules are stable. No new lung nodules or masses are identified. There are tiny bilateral pleural effusions. Degenerative changes are again seen in the spine. Upper abdominal tomograms are stable. IMPRESSION: Interval decrease in size of the left hilar mass and a left lung nodule since 11-08-18. POS: DIANA
[2019-02-20] MEDS: Lidocaine Patch Removal 1 EACH TOP SCH (22:00)
[2019-02-20] MEDS: Melatonin 3 MG TAB PO PRN (23:53)
[2019-02-21] MEDS: methylPREDNISolone Sod Succ 40 MG VIAL IVP SCH ×5 (01:43→23:41)
[2019-02-21] MEDS: Morphine 4 MG/ML VIAL SLOW IVP PRN ×2 (02:30→21:56)
[2019-02-21] MEDS: Ketorolac Tromethamine 30 MG/ML VIAL IVP PRN ×4 (03:11→23:41)
[2019-02-21] MEDS: HYDROcodone/Acetaminophen 10/325 mg Tablet PO PRN ×2 (04:14→08:08)
[2019-02-21 05:47] LABS: #Lymphocytes 0.2 thou/uL (1.20-3.40); #Monocytes 1.8 thou/uL (0.11-0.59); #Neutrophils 15.1 thou/uL (1.40-6.50); %Basophils 0.1 % (0.0-1.0); %Eosinophils 0.2 % (0.0-10.0); %Lymphocytes 1.1 % (21.0-51.0); %Monocytes 10.5 % (0.0-10.0); %Neutrophils 88.1 % (42.0-75.0); Hemoglobin 9.4 g/dL (12.0-16.0); Mean Corpuscular HGB CONC 32.6 g/dL (32.0-36.0); Mean Platelet Volume 7.1 fL (7.4-10.4); Platelet Count 335 thou/uL (130-400); RBC Distribution Width 15.8 % (11.5-14.5); Red Blood Cell (RBC) Count 3.14 mill/uL (4.20-5.40); White Blood Cell (WBC) Count 17.1 thou/uL (4.8-10.8)
[2019-02-21 06:05] LABS: Anion Gap 13 mmol/L (10-20); BUN (Urea Nitrogen) 15 mg/dL (9.8-20.1); Calc. Creatinine Clearance 97 mL/min (70-130); Calcium 8.9 mg/dL (7.8-10.44); Carbon Dioxide 35 mmol/L (22-29); Chloride 92 mmol/L (98-107); Estimated GFR-MDRD Greater than 90; Glucose 148 mg/dL (70-105); Potassium 3.8 mmol/L (3.5-5.1); Sodium 136 mmol/L (136-145)
[2019-02-21] MEDS: Furosemide 40 MG/4 ML VIAL SLOW IVP SCH (06:12)
[2019-02-21] MEDS: Mometasone/Formoterol 120 PUFF INHALER INH SCH ×2 (06:32→19:18)
[2019-02-21] MEDS: Lidocaine 5% Patch TD SCH (08:05)
[2019-02-21] MEDS: Bupropion 100 MG SR TAB PO SCH ×2 (08:07→20:56)
[2019-02-21] MEDS: Enoxaparin Sodium 40 MG/0.4 ML SYRINGE SC SCH (08:07)
[2019-02-21] MEDS: Citalopram 20 MG TAB PO SCH (08:10)
[2019-02-21] MEDS: Loratadine 10 MG TAB PO SCH (08:10)
[2019-02-21] MEDS: predniSONE 20 MG TAB PO SCH (08:10)
[2019-02-21] MEDS: Famotidine 20 MG TAB PO SCH ×2 (08:10→20:13)
[2019-02-21] MEDS: Fluticasone Propionate Nasal Spray 16 gm Bottle NASAL SCH (08:13)
--- NOTE | 2019-02-21 12:21 | PRG ---
DATE OF SERVICE: 02/21/2019 SUBJECTIVE: The patient remains in the CCU. She has intermittently had used BiPAP. Overall, her respiratory status seems stable, but she is still complaining of back pain. OBJECTIVE: VITAL SIGNS: On exam, temperature is 98.3, pulse 99, blood pressure 136/77, and O2 saturation 99%. HEENT: Remarkable for alopecia. NECK: No adenopathy or JVD. CHEST: Fairly clear anteriorly bilaterally. CARDIAC: S1 and S2. Regular. ABDOMEN: Soft. EXTREMITIES: No edema. ASSESSMENT: 1. Severe chronic obstructive pulmonary disease. 2. Pain secondary to T-spine compression fractures. 3. Lung cancer. PLAN: 1. She can be moved to the [facility] and continue BiPAP intermittently. 2. Pain management needs to be further addressed by the Primary Team and Pain Management Service. Job ID: [id number]
--- NOTE | 2019-02-21 14:28 | PDOC.HOSPP ---
- Subjective Encounter Date: 02/21/19 Subjective: reports doing better then yesterday: - breathing better - still in pain though - Objective Vital Signs & Weight: Vital Signs (12 hours) Temp Pulse Resp Pulse Ox 02/21/19 14:20 100 17 99 02/21/19 12:00 98.2 F 02/21/19 07:22 97 02/21/19 07:00 98.3 F 02/21/19 06:29 94 18 100 Weight Weight 147 lb 1 oz Most Recent Monitor Data Heart Rate from ECG 101 NIBP 106/71 NIBP BP-Mean 82 Respiration from ECG 19 SpO2 100 I&O: 02/20/19 02/21/19 02/22/19 06:59 06:59 06:59 Intake Total 1090 1604 890 Output Total 1350 1500 1150 Balance -260 104 -260 Result Diagrams: 02/21/19 05:15 02/21/19 05:15 Hospitalist ROS - Medication Medications: Active Medications Generic Name Dose Route Start Last Admin Trade Name Freq PRN Reason Stop Dose Admin Hydrocodone Bitart/Acetaminophen 1 tab 02/15/19 16:30 02/17/19 09:09 [place] 10/325 PO 1 tab Q6H PRN Administration MILD PAIN (1-3) Hydrocodone Bitart/Acetaminophen 2 tab 02/15/19 16:15 02/21/19 08:08 [place] 10/325 PO 2 tab Q6H PRN Administration MODERATE PAIN (4-7) Albuterol/Ipratropium 3 ml 02/10/19 23:47 02/16/19 05:06 Duoneb NEB 3 ml Q1H PRN Administration SOB &/or Wheezing Albuterol/Ipratropium 3 ml 02/11/19 06:30 02/21/19 14:20 Duoneb NEB 3 ml [id number] MILY Administration Benzonatate 100 mg 02/13/19 21:28 02/18/19 15:40 Tessalon PO 100 mg TID PRN Administration Cough Bupropion HCl 200 mg 02/11/19 09:00 02/21/19 08:07 Wellbutrin Sr PO 200 mg BID MILY Administration Citalopram Hydrobromide 20 mg 02/11/19 09:00 02/21/19 08:10 Celexa PO 20 mg DAILY MILY Administration Cyclobenzaprine HCl 10 mg 02/16/19 19:24 02/20/19 12:57 Flexeril PO 10 mg TID PRN Administration Muscle Spasm Enoxaparin Sodium 40 mg 02/11/19 09:00 02/21/19 08:07 Lovenox SC 40 mg 0900 MILY Administration Famotidine 20 mg 02/11/19 09:00 02/21/19 08:10 Pepcid PO 20 mg BID MILY Administration Fluticasone Propionate 0 gm 02/11/19 09:00 02/21/19 08:13 Flonase Nasal [place] NASAL 1 spr DAILY MILY Administration Furosemide 40 mg 02/12/19 06:00 02/21/19 06:12 Lasix SLOW IVP 40 mg 0600 MILY Administration Ketorolac Tromethamine 30 mg 02/19/19 02:43 02/21/19 10:25 Toradol IVP 02/24/19 02:44 30 mg Q6H PRN Administration Pain Lidocaine 1 patch 02/15/19 09:00 02/21/19 08:05 Lidoderm 5% Patch TD 1 patch DAILY MILY Administration Loratadine 10 mg 02/11/19 09:00 02/21/19 08:10 Claritin PO 10 mg DAILY MILY Administration Lorazepam 1 mg 02/19/19 02:44 02/19/19 03:06 Ativan SLOW IVP 1 mg Q4H PRN Administration Anxiety/Agitation Melatonin 3 mg 02/16/19 11:30 02/20/19 23:53 Melatonin PO 3 mg HS PRN Administration Insomnia Methylprednisolone Sodium Succinate 40 mg 02/19/19 18:00 02/21/19 13:09 Solu-Medrol IVP 40 mg Q6HR MILY Administration Miscellaneous Medication 1 each 02/15/19 21:00 02/20/19 22:00 Lidocaine Patch Removal TOP 1 each 2100 MILY Administration Mometasone Furoate/Formoterol Fumar 2 puff 02/17/19 18:30 02/21/19 06:32 Dulera 200 Mcg/5 Mcg Inhaler INH 2 puff BID-RT MILY Administration Morphine Sulfate 2 mg 02/12/19 18:05 02/20/19 23:45 Morphine SLOW IVP 2 mg Q2H PRN Administration Breakthrough Pain Morphine Sulfate 4 mg 02/15/19 14:38 02/21/19 02:30 Morphine SLOW IVP 4 mg Q4H PRN Administration Pain Prednisone 40 mg 02/17/19 08:00 02/21/19 08:10 Prednisone PO 40 mg QAM-WM MILY Administration Promethazine HCl 25 mg 02/18/19 10:39 02/19/19 01:15 Phenergan IM/IV 25 mg Q6H PRN Administration Nausea/Vomiting Sodium Chloride 10 ml 02/10/19 23:46 02/20/19 17:22 Flush - Normal Saline IVF 10 ml PRN PRN Administration Saline Flush - Exam General Appearance: NAD, awake alert Eye: PERRL, anicteric sclera ENT: normocephalic atraumatic, no oropharyngeal lesions, moist mucosa Neck: supple, symmetric, no JVD, no thyromegaly, no lymphadenopathy, no carotid bruit Heart: RRR, no murmur, no gallops, no rubs, normal peripheral pulses Respiratory: rhonchi, wheezes (less then yesterday) Gastrointestinal: soft, non-tender, non-distended, normal bowel sounds, no palpable masses, no hepatomegaly, no splenomegaly, no bruit Neurological: CN's grossly intact, normal sensation to touch, no weakness, no focal deficits, no new deficit Hosp A/P (1) COPD exacerbation Code(s): J44.1 - CHRONIC OBSTRUCTIVE PULMONARY DISEASE W (ACUTE) EXACERBATION Status: Acute (2) Lung mass Code(s): R91.8 - OTHER NONSPECIFIC ABNORMAL FINDING OF LUNG FIELD Status: Chronic (3) Acute and chronic respiratory failure Code(s): J96.20 - ACUTE AND CHR RESP FAILURE, UNSP W HYPOXIA OR HYPERCAPNIA Status: Acute Qualifiers: Respiratory failure complication: hypoxia Qualified Code(s): J96.21 - Acute and chronic respiratory failure with hypoxia - Plan Pulmonary---doing better today--continue BIPAP intermittently and steroids, nebs, CT of chest done but did not show any new abnormality so in order to control the pain, I will increase her dose of Duragesic to 100mcg, and tomorrow will get in touch with the pain management team to return and see her again.
[2019-02-21] MEDS: fentaNYL 100 mcg/hour Patch TD SCH (15:04)
[2019-02-21] MEDS: Cyclobenzaprine 10 MG TAB PO PRN (20:13)
[2019-02-21] MEDS: Melatonin 3 MG TAB PO PRN (20:57)
[2019-02-21] MEDS: Lidocaine Patch Removal 1 EACH TOP SCH (20:57)
[2019-02-22] MEDS ORDERED: Palonosetron HCl 0.25 MG in Sodium Chloride 0.9% 50 ML IVPB SCH (01:30)
[2019-02-22] MEDS ORDERED: Dexamethasone 20 MG in Sodium Chloride 0.9% 50 ML IVPB SCH (01:30)
[2019-02-22] MEDS ORDERED: PACLITAXEL IVPB SCH (01:30)
[2019-02-22] MEDS ORDERED: Pegfilgrastim Onpro 6 MG/0.6 ML SQ SCH (01:30)
[2019-02-22] MEDS ORDERED: SODIUM CHLORIDE 0.9% IVPB SCH ×2 (01:30)
[2019-02-22] MEDS ORDERED: Famotidine/PF 20 MG in Sodium Chloride 0.9% 50 ML IVPB SCH (01:30)
[2019-02-22] MEDS ORDERED: diphenhydrAMINE 50 MG in Sodium Chloride 0.9% 50 ML IVPB SCH (01:30)
[2019-02-22] MEDS ORDERED: CARBOPLATIN IVPB SCH (01:30)
[2019-02-22] MEDS: HYDROcodone/Acetaminophen 10/325 mg Tablet PO PRN ×4 (01:44→23:05)
[2019-02-22] MEDS: methylPREDNISolone Sod Succ 40 MG VIAL IVP SCH ×4 (05:35→23:06)
[2019-02-22] MEDS: Furosemide 40 MG/4 ML VIAL SLOW IVP SCH (05:35)
[2019-02-22] MEDS: Ketorolac Tromethamine 30 MG/ML VIAL IVP PRN ×2 (05:35→21:36)
[2019-02-22 06:07] LABS: #Eosinphils 0.1 thou/uL (0.0-0.7); #Lymphocytes 0.1 thou/uL (1.20-3.40); #Monocytes 1.6 thou/uL (0.11-0.59); #Neutrophils 17.2 thou/uL (1.40-6.50); %Eosinophils 0.3 % (0.0-10.0); %Lymphocytes 0.7 % (21.0-51.0); %Monocytes 8.3 % (0.0-10.0); %Neutrophils 90.7 % (42.0-75.0); Hemoglobin 9.5 g/dL (12.0-16.0); Mean Corpuscular HGB CONC 30.7 g/dL (32.0-36.0); Mean Corpuscular Volume 91.3 fL (78.0-98.0); Mean Platelet Volume 7.1 fL (7.4-10.4); Platelet Count 360 thou/uL (130-400); RBC Distribution Width 15.8 % (11.5-14.5); Red Blood Cell (RBC) Count 3.38 mill/uL (4.20-5.40)
[2019-02-22] MEDS: Mometasone/Formoterol 120 PUFF INHALER INH SCH ×2 (07:56→18:30)
--- NOTE | 2019-02-22 08:48 | PRG ---
DATE OF SERVICE: 02/22/2019 SUBJECTIVE: The patient did better last night. She did not require BiPAP. OBJECTIVE: VITAL SIGNS: On exam, temperature is 98.0, pulse 96, blood pressure 147/83, and O2 saturation 99% on 2 L nasal cannula. HEENT: Remarkable for alopecia. NECK: No adenopathy or JVD. LUNGS: Some wheezing bilaterally. CARDIAC: S1 and S2, regular. ABDOMEN: Soft. EXTREMITIES: No edema. ASSESSMENT: 1. Chronic obstructive pulmonary disease exacerbation. 2. Pain. 3. Lung cancer. 4. Vertebral fractures. PLAN: 1. She can be transferred back to the Oncology floor. 2. I have streamlined her steroid medication. Job ID: [id number]
[2019-02-22] MEDS: Enoxaparin Sodium 40 MG/0.4 ML SYRINGE SC SCH (09:12)
[2019-02-22] MEDS: Famotidine 20 MG TAB PO SCH ×2 (09:13→19:40)
[2019-02-22] MEDS: Citalopram 20 MG TAB PO SCH (09:13)
[2019-02-22] MEDS: Loratadine 10 MG TAB PO SCH (09:13)
[2019-02-22] MEDS: Fluticasone Propionate Nasal Spray 16 gm Bottle NASAL SCH (09:13)
[2019-02-22] MEDS: Bupropion 100 MG SR TAB PO SCH ×2 (09:14→19:40)
[2019-02-22] MEDS: Morphine 4 MG/ML VIAL SLOW IVP PRN ×3 (09:37→19:40)
[2019-02-22] MEDS: predniSONE 20 MG TAB PO SCH (10:06)
[2019-02-22] MEDS: Lidocaine 5% Patch TD SCH (10:17)
[2019-02-22 13:06] VITALS: BMI 31.2
--- NOTE | 2019-02-22 19:28 | PDOC.HOSPP ---
- Subjective Encounter Date: 02/22/19 Subjective: continues to complain of pain but it is tolerable. - Objective Vital Signs & Weight: Vital Signs (12 hours) Temp Pulse Resp Pulse Ox 02/22/19 18:30 102 H 18 97 02/22/19 12:30 96 02/22/19 11:36 106 H 25 H 98 02/22/19 11:17 98.0 F 02/22/19 08:00 98.0 F 99 02/22/19 07:54 108 H 18 99 Weight Admit Weight 147 lb 1 oz Weight 147 lb 1 oz Most Recent Monitor Data Heart Rate from ECG 108 NIBP 159/97 NIBP BP-Mean 117 Respiration from ECG 17 SpO2 95 I&O: 02/21/19 02/22/19 02/23/19 06:59 06:59 06:59 Intake Total 1604 2250 Output Total 1500 2200 Balance 104 50 Result Diagrams: 02/22/19 05:46 02/21/19 05:15 Hospitalist ROS - Medication Medications: Active Medications Generic Name Dose Route Start Last Admin Trade Name Freq PRN Reason Stop Dose Admin Hydrocodone Bitart/Acetaminophen 1 tab 02/15/19 16:30 02/17/19 09:09 [place] 10/325 PO 1 tab Q6H PRN Administration MILD PAIN (1-3) Hydrocodone Bitart/Acetaminophen 2 tab 02/15/19 16:15 02/22/19 17:08 [place] 10/325 PO 2 tab Q6H PRN Administration MODERATE PAIN (4-7) Albuterol/Ipratropium 3 ml 02/10/19 23:47 02/16/19 05:06 Duoneb NEB 3 ml Q1H PRN Administration SOB &/or Wheezing Albuterol/Ipratropium 3 ml 02/11/19 06:30 02/22/19 18:30 Duoneb NEB 3 ml [id number] MILY Administration Benzonatate 100 mg 02/13/19 21:28 02/18/19 15:40 Tessalon PO 100 mg TID PRN Administration Cough Bupropion HCl 200 mg 02/11/19 09:00 02/22/19 09:14 Wellbutrin Sr PO 200 mg BID MILY Administration Citalopram Hydrobromide 20 mg 02/11/19 09:00 02/22/19 09:13 Celexa PO 20 mg DAILY MILY Administration Cyclobenzaprine HCl 10 mg 02/16/19 19:24 02/21/19 20:13 Flexeril PO 10 mg TID PRN Administration Muscle Spasm Enoxaparin Sodium 40 mg 02/11/19 09:00 02/22/19 09:12 Lovenox SC 40 mg 0900 MILY Administration Famotidine 20 mg 02/11/19 09:00 02/22/19 09:13 Pepcid PO 20 mg BID MILY Administration Fentanyl 100 mcg 02/21/19 15:00 02/21/19 15:04 Duragesic TD 100 mcg Q3D MILY Administration Fluticasone Propionate 0 gm 02/11/19 09:00 02/22/19 09:13 Flonase Nasal [place] NASAL 1 spr DAILY MILY Administration Furosemide 40 mg 02/12/19 06:00 02/22/19 05:35 Lasix SLOW IVP 40 mg 0600 MILY Administration Ketorolac Tromethamine 30 mg 02/19/19 02:43 02/22/19 05:35 Toradol IVP 02/24/19 02:44 30 mg Q6H PRN Administration Pain Lidocaine 1 patch 02/15/19 09:00 02/22/19 10:17 Lidoderm 5% Patch TD 1 patch DAILY MILY Administration Loratadine 10 mg 02/11/19 09:00 02/22/19 09:13 Claritin PO 10 mg DAILY MILY Administration Lorazepam 1 mg 02/19/19 02:44 02/19/19 03:06 Ativan SLOW IVP 1 mg Q4H PRN Administration Anxiety/Agitation Melatonin 3 mg 02/16/19 11:30 02/21/19 20:57 Melatonin PO 3 mg HS PRN Administration Insomnia Methylprednisolone Sodium Succinate 40 mg 02/19/19 18:00 02/22/19 17:08 Solu-Medrol IVP 40 mg Q6HR MILY Administration Miscellaneous Medication 1 each 02/15/19 21:00 02/21/19 20:57 Lidocaine Patch Removal TOP 1 each 2100 MILY Administration Mometasone Furoate/Formoterol Fumar 2 puff 02/17/19 18:30 02/22/19 18:30 Dulera 200 Mcg/5 Mcg Inhaler INH 2 puff BID-RT MILY Administration Morphine Sulfate 4 mg 02/15/19 14:38 02/22/19 15:43 Morphine SLOW IVP 4 mg Q4H PRN Administration Pain Promethazine HCl 25 mg 02/18/19 10:39 02/19/19 01:15 Phenergan IM/IV 25 mg Q6H PRN Administration Nausea/Vomiting Sodium Chloride 10 ml 02/10/19 23:46 02/22/19 09:39 Flush - Normal Saline IVF 10 ml PRN PRN Administration Saline Flush - Exam General Appearance: NAD, awake alert Eye: PERRL, anicteric sclera ENT: normocephalic atraumatic, no oropharyngeal lesions, moist mucosa Neck: supple, symmetric, no JVD, no thyromegaly, no lymphadenopathy, no carotid bruit Respiratory: rhonchi, wheezes Gastrointestinal: soft, non-tender, non-distended, normal bowel sounds, no palpable masses, no hepatomegaly, no splenomegaly, no bruit Extremities: no cyanosis, no clubbing, no edema Skin: normal turgor, no lesions, no rashes Hosp A/P (1) COPD exacerbation Code(s): J44.1 - CHRONIC OBSTRUCTIVE PULMONARY DISEASE W (ACUTE) EXACERBATION Status: Acute (2) Lung mass Code(s): R91.8 - OTHER NONSPECIFIC ABNORMAL FINDING OF LUNG FIELD Status: Chronic (3) Acute and chronic respiratory failure Code(s): J96.20 - ACUTE AND CHR RESP FAILURE, UNSP W HYPOXIA OR HYPERCAPNIA Status: Acute Qualifiers: Respiratory failure complication: hypoxia Qualified Code(s): J96.21 - Acute and chronic respiratory failure with hypoxia - Plan Pulmonary---doing better today--transferred to the oncology floor ---steroids, nebs in order to control the pain, yesterday I increased her dose of Duragesic to 100mcg, and tomorrow will get in touch with the pain management team to return and see her again.
[2019-02-22] MEDS: Lidocaine Patch Removal 1 EACH TOP SCH (19:40)
[2019-02-22] MEDS: Melatonin 3 MG TAB PO PRN (19:45)
[2019-02-23] MEDS: Morphine 4 MG/ML VIAL SLOW IVP PRN ×4 (00:49→13:55)
[2019-02-23] MEDS: Ketorolac Tromethamine 30 MG/ML VIAL IVP PRN ×2 (03:26→20:28)
[2019-02-23] MEDS: methylPREDNISolone Sod Succ 40 MG VIAL IVP SCH ×4 (05:30→23:11)
[2019-02-23] MEDS: Furosemide 40 MG/4 ML VIAL SLOW IVP SCH (05:30)
[2019-02-23] MEDS: Mometasone/Formoterol 120 PUFF INHALER INH SCH ×2 (06:15→18:58)
[2019-02-23] MEDS: HYDROcodone/Acetaminophen 10/325 mg Tablet PO PRN (07:16)
[2019-02-23] MEDS: Famotidine 20 MG TAB PO SCH ×2 (09:06→23:07)
[2019-02-23] MEDS: Fluticasone Propionate Nasal Spray 16 gm Bottle NASAL SCH (09:06)
[2019-02-23] MEDS: Loratadine 10 MG TAB PO SCH (09:06)
[2019-02-23] MEDS: Citalopram 20 MG TAB PO SCH (09:06)
[2019-02-23] MEDS: Enoxaparin Sodium 40 MG/0.4 ML SYRINGE SC SCH (09:07)
[2019-02-23] MEDS: Lidocaine 5% Patch TD SCH (09:08)
[2019-02-23] MEDS: Bupropion 100 MG SR TAB PO SCH ×2 (09:42→21:40)
--- NOTE | 2019-02-23 10:42 | PRG ---
DATE OF SERVICE: 02/23/2019 SUBJECTIVE: The patient continues to have severe back pain. Her shortness of breath is back to baseline. OBJECTIVE: VITAL SIGNS: Temperature is 99, pulse 110, respirations 20, O2 saturation 95% on 3.5 L, and blood pressure 165/85. HEENT: Unremarkable. NECK: No JVD. LUNGS: Clear anteriorly. CARDIAC: S1 and S2. Regular. ABDOMEN: Soft. EXTREMITIES: No edema. ASSESSMENT: 1. Severe chronic obstructive pulmonary disease. 2. Lung cancer. 3. Back pain secondary to vertebral fractures. RECOMMENDATION: This is mainly a pain management issue in my opinion, probably needs to be handled more aggressively. She needs to be transitioned from IV to oral medications. I will leave this up to the Hospitalist and Oncology Team. Job ID: [id number]
[2019-02-23] MEDS: Lorazepam 2 MG/ML VIAL SLOW IVP PRN (11:14)
[2019-02-23] MEDS ORDERED: diphenhydrAMINE 50 MG/ML VIAL ONE (15:25)
[2019-02-23] MEDS ORDERED: diphenhydrAMINE 25 MG in Sodium Chloride 0.9% 50 ML IVPB SCH (15:30)
--- NOTE | 2019-02-23 15:47 | PDOC.HOSPP ---
- Subjective Encounter Date: 02/23/19 Subjective: [place] some tightness in her chest, she had this sensation before that responded to benadryl. - Objective Vital Signs & Weight: Vital Signs (12 hours) Temp Pulse Resp BP Pulse Ox 02/23/19 15:33 116 H 20 179/94 H 92 L 02/23/19 14:28 91 18 94 L 02/23/19 13:34 97.7 F 110 H 10 L 148/84 H 95 02/23/19 12:05 96 02/23/19 10:45 107 H 16 95 02/23/19 08:00 99.0 F 110 H 20 165/85 H 95 02/23/19 07:28 95 02/23/19 06:20 113 H 22 H 95 02/23/19 06:15 113 H 22 H 95 02/23/19 04:49 95 02/23/19 04:47 104 H 18 95 02/23/19 04:30 97.8 F 101 H 16 147/78 H 93 L Weight Admit Weight 147 lb 1 oz Weight 147 lb 1 oz Most Recent Monitor Data Heart Rate from ECG 108 NIBP 159/97 NIBP BP-Mean 117 Respiration from ECG 17 SpO2 95 I&O: 02/22/19 02/23/19 02/24/19 06:59 06:59 06:59 Intake Total 2250 800 Output Total 2200 Balance 50 800 Result Diagrams: 02/22/19 05:46 02/21/19 05:15 Hospitalist ROS - Medication Medications: Active Medications Generic Name Dose Route Start Last Admin Trade Name Freq PRN Reason Stop Dose Admin Hydrocodone Bitart/Acetaminophen 1 tab 02/15/19 16:30 02/17/19 09:09 [place] 10/325 PO 1 tab Q6H PRN Administration MILD PAIN (1-3) Hydrocodone Bitart/Acetaminophen 2 tab 02/15/19 16:15 02/23/19 07:16 [place] 10/325 PO 2 tab Q6H PRN Administration MODERATE PAIN (4-7) Albuterol/Ipratropium 3 ml 02/10/19 23:47 02/23/19 04:47 Duoneb NEB 3 ml Q1H PRN Administration SOB &/or Wheezing Albuterol/Ipratropium 3 ml 02/11/19 06:30 02/23/19 14:28 Duoneb NEB 3 ml [id number] MILY Administration Benzonatate 100 mg 02/13/19 21:28 02/18/19 15:40 Tessalon PO 100 mg TID PRN Administration Cough Bupropion HCl 200 mg 02/11/19 09:00 02/23/19 09:42 Wellbutrin Sr PO 200 mg BID MILY Administration Citalopram Hydrobromide 20 mg 02/11/19 09:00 02/23/19 09:06 Celexa PO 20 mg DAILY MILY Administration Cyclobenzaprine HCl 10 mg 02/16/19 19:24 02/21/19 20:13 Flexeril PO 10 mg TID PRN Administration Muscle Spasm Enoxaparin Sodium 40 mg 02/11/19 09:00 02/23/19 09:07 Lovenox SC 40 mg 0900 [facility] Administration Famotidine 20 mg 02/11/19 09:00 02/23/19 09:06 Pepcid PO 20 mg BID MILY Administration Fentanyl 100 mcg 02/21/19 15:00 02/21/19 15:04 Duragesic TD 100 mcg Q3D [facility] Administration Fluticasone Propionate 0 gm 02/11/19 09:00 02/23/19 09:06 Flonase Nasal [place] NASAL 2 spr DAILY [facility] Administration Furosemide 40 mg 02/12/19 06:00 02/23/19 05:30 Lasix SLOW IVP 40 mg 0600 [facility] Administration Diphenhydramine HCl 25 mg/ 50.5 mls @ 150 mls/hr 02/23/19 15:30 02/23/19 15: 39 Sodium Chloride IVPB 02/23/19 17:30 Not Given NOW [facility] Ketorolac Tromethamine 30 mg 02/19/19 02:43 02/23/19 03:26 Toradol IVP 02/24/19 02:44 30 mg Q6H PRN Administration Pain Lidocaine 1 patch 02/15/19 09:00 02/23/19 09:08 Lidoderm 5% Patch TD 1 patch DAILY [facility] Administration Loratadine 10 mg 02/11/19 09:00 02/23/19 09:06 Claritin PO 10 mg DAILY MILY Administration Lorazepam 1 mg 02/19/19 02:44 02/23/19 11:14 Ativan SLOW IVP 1 mg Q4H PRN Administration Anxiety/Agitation Melatonin 3 mg 02/16/19 11:30 02/22/19 19:45 Melatonin PO 3 mg HS PRN Administration Insomnia Methylprednisolone Sodium Succinate 40 mg 02/19/19 18:00 02/23/19 13:48 Solu-Medrol IVP 40 mg Q6HR MILY Administration Miscellaneous Medication 1 each 02/15/19 21:00 02/22/19 19:40 Lidocaine Patch Removal TOP 1 each 2100 MILY Administration Mometasone Furoate/Formoterol Fumar 2 puff 02/17/19 18:30 02/23/19 06:15 Dulera 200 Mcg/5 Mcg Inhaler INH 2 puff BID-RT MILY Administration Morphine Sulfate 4 mg 02/15/19 14:38 02/23/19 13:55 Morphine SLOW IVP 4 mg Q4H PRN Administration Pain Promethazine HCl 25 mg 02/18/19 10:39 02/19/19 01:15 Phenergan IM/IV 25 mg Q6H PRN Administration Nausea/Vomiting Sodium Chloride 10 ml 02/10/19 23:46 02/23/19 13:56 Flush - Normal Saline IVF 10 ml PRN PRN Administration Saline Flush - Exam Heart: RRR, no murmur, no gallops, no rubs, normal peripheral pulses Respiratory: rhonchi, wheezes Gastrointestinal: soft Extremities: no cyanosis, no clubbing, no edema Neurological: CN's grossly intact, normal sensation to touch, no weakness, no focal deficits, no new deficit Hosp A/P (1) COPD exacerbation Code(s): J44.1 - CHRONIC OBSTRUCTIVE PULMONARY DISEASE W (ACUTE) EXACERBATION Status: Acute (2) Lung mass Code(s): R91.8 - OTHER NONSPECIFIC ABNORMAL FINDING OF LUNG FIELD Status: Chronic (3) Acute and chronic respiratory failure Code(s): J96.20 - ACUTE AND CHR RESP FAILURE, UNSP W HYPOXIA OR HYPERCAPNIA Status: Acute Qualifiers: Respiratory failure complication: hypoxia Qualified Code(s): J96.21 - Acute and chronic respiratory failure with hypoxia - Plan Pulmonary---doing better today--transferred to the oncology floor ---steroids, nebs her pain is better controlled today and pain management is re-consulted for further guidance. will recall her Oncologist for further planning
[2019-02-23] MEDS: HYDROmorphone 2 MG TAB PO PRN ×2 (17:16→23:06)
[2019-02-23] MEDS: Melatonin 3 MG TAB PO PRN (23:08)
[2019-02-23] MEDS: Lidocaine Patch Removal 1 EACH TOP SCH (23:09)
[2019-02-24] MEDS: HYDROmorphone 0.5 MG/0.5 ML SYRINGE SLOW IVP PRN ×3 (01:04→14:59)
[2019-02-24] MEDS: Lorazepam 2 MG/ML VIAL SLOW IVP PRN ×4 (03:30→19:40)
[2019-02-24] MEDS: methylPREDNISolone Sod Succ 40 MG VIAL IVP SCH ×3 (06:18→21:45)
[2019-02-24] MEDS: Furosemide 40 MG/4 ML VIAL SLOW IVP SCH (06:18)
[2019-02-24] MEDS: Mometasone/Formoterol 120 PUFF INHALER INH SCH ×2 (07:40→18:56)
[2019-02-24] MEDS: Fluticasone Propionate Nasal Spray 16 gm Bottle NASAL SCH (08:53)
[2019-02-24] MEDS: Loratadine 10 MG TAB PO SCH (08:54)
[2019-02-24] MEDS: Enoxaparin Sodium 40 MG/0.4 ML SYRINGE SC SCH (08:54)
[2019-02-24] MEDS: Famotidine 20 MG TAB PO SCH ×2 (08:54→19:43)
[2019-02-24] MEDS: Bupropion 100 MG SR TAB PO SCH ×2 (08:54→20:45)
[2019-02-24] MEDS: Lidocaine 5% Patch TD SCH (08:54)
[2019-02-24] MEDS: Citalopram 20 MG TAB PO SCH (08:54)
--- NOTE | 2019-02-24 10:22 | PRG ---
DATE OF SERVICE: 02/24/2019 SUBJECTIVE: The patient is confused this morning. She is up on top bedside commode. OBJECTIVE: VITAL SIGNS: Temperature 98.3, pulse 101, respirations 16, O2 saturation 92% on 3.5 L. HEENT: Unremarkable. NECK: No adenopathy or JVD. LUNGS: Clear posteriorly. CARDIAC: S1 and S2. Regular. ABDOMEN: Soft. EXTREMITIES: No edema. ASSESSMENT: 1. Encephalopathy. 2. Lung cancer. 3. Vertebral compression fractures. PLAN: This is a very difficult situation as her mental status is probably being affected by pain medications. Pulmonary status seems stable, but I am concerned about fall risk. We will follow. Job ID: [id number]
--- NOTE | 2019-02-24 11:46 | PDOC.MOPN ---
Interval History: Sleepy from pain medications - Vital Signs Vital Signs: Vital Signs (12 hours) Temp Pulse Resp BP Pulse Ox 02/24/19 10:45 100 20 94 L 02/24/19 08:00 97.9 F 115 H 20 159/79 H 94 L 02/24/19 07:37 101 H 16 92 L 02/24/19 03:52 98.3 F 112 H 20 171/97 H 93 L 02/24/19 02:32 93 L Weight Admit Weight 147 lb 1 oz Weight 147 lb 1 oz Most Recent Monitor Data Heart Rate from ECG 108 NIBP 159/97 NIBP BP-Mean 117 Respiration from ECG 17 SpO2 95 - Physical Exam General: No acute distress HEENT: Atraumatic Lungs: Clear to auscultation Cardiovascular: Regular rate Abdomen: Normal bowel sounds Extremities: No clubbing, No cyanosis, No edema, Normal pulses, No tenderness/ swelling Skin: No rashes, No breakdown, No significant lesion Neurological: Normal speech Psych/Mental Status: Mental status NL - Labs Result Diagrams: 02/22/19 05:46 02/21/19 05:15 Status: lab reviewed by me A/P - Problem (1) Acute and chronic respiratory failure Current Visit: No Code(s): J96.20 - ACUTE AND CHR RESP FAILURE, UNSP W HYPOXIA OR HYPERCAPNIA Status: Acute Qualifiers: Respiratory failure complication: hypoxia Qualified Code(s): J96.21 - Acute and chronic respiratory failure with hypoxia (2) COPD exacerbation Current Visit: No Code(s): J44.1 - CHRONIC OBSTRUCTIVE PULMONARY DISEASE W ( ACUTE) EXACERBATION Status: Acute (3) Intractable back pain Current Visit: No Code(s): M54.9 - DORSALGIA, UNSPECIFIED Status: Acute (4) Squamous cell lung cancer Current Visit: No Code(s): C34.90 - MALIGNANT NEOPLASM OF UNSP PART OF UNSP BRONCHUS OR LUNG Status: Chronic Qualifiers: Laterality: left Qualified Code(s): C34.92 - Malignant neoplasm of unspecified part of left bronchus or lung - Plan Plan: Patient has Stage 1A3 lung cancer s/p radiation and 1 cycle of chemo She has acute on chronic respiratory failure due to severe COPD Intractible pain from fracture, no evidence of bone mets Completed definite XRT to lung Not a candidate for chemo which was given to decrease risk of reoccurance. Recommend management of pain and hypoxia. Will sign off
[2019-02-24] MEDS: HYDROmorphone 2 MG TAB PO PRN ×2 (13:05→19:41)
[2019-02-24] MEDS: Cyclobenzaprine 10 MG TAB PO PRN (14:35)
[2019-02-24] MEDS: fentaNYL 100 mcg/hour Patch TD SCH (14:59)
--- NOTE | 2019-02-24 16:38 | PDOC.HOSPP ---
- Subjective Encounter Date: 02/24/19 Subjective: She had an episode where she was very agitated and in severe pain. Now she is in and out of awareness, she appears comfortable. - Objective Vital Signs & Weight: Vital Signs (12 hours) Temp Pulse Resp BP BP Pulse Ox 02/24/19 16:00 97.8 F 107 H 20 147/85 H 95 02/24/19 14:50 122 H 85 L 02/24/19 10:45 100 20 94 L 02/24/19 08:00 97.9 F 115 H 20 159/79 H 94 L 02/24/19 07:37 101 H 16 92 L Weight Admit Weight 147 lb 1 oz Weight 147 lb 1 oz Most Recent Monitor Data Heart Rate from ECG 108 NIBP 159/97 NIBP BP-Mean 117 Respiration from ECG 17 SpO2 95 I&O: 02/23/19 02/24/19 02/25/19 06:59 06:59 06:59 Intake Total 800 Balance 800 Result Diagrams: 02/22/19 05:46 02/21/19 05:15 Hospitalist ROS - Medication Medications: Active Medications Generic Name Dose Route Start Last Admin Trade Name Freq PRN Reason Stop Dose Admin Albuterol/Ipratropium 3 ml 02/10/19 23:47 02/23/19 17:24 Duoneb NEB 3 ml Q1H PRN Administration SOB &/or Wheezing Albuterol/Ipratropium 3 ml 02/11/19 06:30 02/24/19 14:50 Duoneb NEB 3 ml [id number] MILY Administration Benzonatate 100 mg 02/13/19 21:28 02/18/19 15:40 Tessalon PO 100 mg TID PRN Administration Cough Bupropion HCl 200 mg 02/11/19 09:00 02/24/19 08:54 Wellbutrin Sr PO 200 mg BID MILY Administration Citalopram Hydrobromide 20 mg 02/11/19 09:00 02/24/19 08:54 Celexa PO 20 mg DAILY MILY Administration Cyclobenzaprine HCl 10 mg 02/16/19 19:24 02/24/19 14:35 Flexeril PO 10 mg TID PRN Administration Muscle Spasm Enoxaparin Sodium 40 mg 02/11/19 09:00 02/24/19 08:54 Lovenox SC 40 mg 0900 MILY Administration Famotidine 20 mg 02/11/19 09:00 02/24/19 08:54 Pepcid PO 20 mg BID MILY Administration Fentanyl 100 mcg 02/21/19 15:00 02/24/19 14:59 Duragesic TD 100 mcg Q3D MILY Administration Fluticasone Propionate 0 gm 02/11/19 09:00 02/24/19 08:53 Flonase Nasal [place] NASAL 1 spr DAILY MILY Administration Furosemide 40 mg 02/12/19 06:00 02/24/19 06:18 Lasix SLOW IVP 40 mg 0600 MILY Administration Hydromorphone HCl 4 mg 02/23/19 16:51 02/24/19 13:05 Dilaudid PO 4 mg Q4H PRN Administration .SEVERE PAIN > OR = 5/10 Hydromorphone HCl 1 mg 02/24/19 00:42 02/24/19 14:59 Dilaudid SLOW IVP 1 mg Q6H PRN Administration .BREAKTHROUGH PAIN Lidocaine 1 patch 02/15/19 09:00 02/24/19 08:54 Lidoderm 5% Patch TD 1 patch DAILY MILY Administration Loratadine 10 mg 02/11/19 09:00 02/24/19 08:54 Claritin PO 10 mg DAILY MILY Administration Lorazepam 1 mg 02/19/19 02:44 02/24/19 12:53 Ativan SLOW IVP 1 mg Q4H PRN Administration Anxiety/Agitation Melatonin 3 mg 02/16/19 11:30 02/23/19 23:08 Melatonin PO 3 mg HS PRN Administration Insomnia Methylprednisolone Sodium Succinate 20 mg 02/24/19 14:00 02/24/19 14:35 Solu-Medrol IVP 20 mg Q8HR MILY Administration Miscellaneous Medication 1 each 02/15/19 21:00 02/23/19 23:09 Lidocaine Patch Removal TOP 1 each 2100 [facility] Administration Mometasone Furoate/Formoterol Fumar 2 puff 02/17/19 18:30 02/24/19 07:40 Dulera 200 Mcg/5 Mcg Inhaler INH Not Given BID-RT [facility] Promethazine HCl 25 mg 02/18/19 10:39 02/19/19 01:15 Phenergan IM/IV 25 mg Q6H PRN Administration Nausea/Vomiting Sodium Chloride 10 ml 02/10/19 23:46 02/23/19 13:56 Flush - Normal Saline IVF 10 ml PRN PRN Administration Saline Flush - Exam General Appearance: ill appearing (sonnolent) Neck: supple, symmetric, no JVD, no thyromegaly, no lymphadenopathy, no carotid bruit Heart: RRR, no murmur, no gallops, no rubs, normal peripheral pulses Respiratory: rhonchi, wheezes Gastrointestinal: soft Extremities: no cyanosis, no clubbing, no edema Hosp A/P (1) COPD exacerbation Code(s): J44.1 - CHRONIC OBSTRUCTIVE PULMONARY DISEASE W (ACUTE) EXACERBATION Status: Acute (2) Lung mass Code(s): R91.8 - OTHER NONSPECIFIC ABNORMAL FINDING OF LUNG FIELD Status: Chronic (3) Acute and chronic respiratory failure Code(s): J96.20 - ACUTE AND CHR RESP FAILURE, UNSP W HYPOXIA OR HYPERCAPNIA Status: Acute Qualifiers: Respiratory failure complication: hypoxia Qualified Code(s): J96.21 - Acute and chronic respiratory failure with hypoxia - Plan Pulmonary---still wheezing but stable from that standpoint ---steroids, nebs Her pain was suddenly not very well controlled even though pain management did change her pain regimen---she needs to be on comfort care in order to achieve pain control. Oncology impression is that she is not a candidate for further chemo, I spoke with her daughter and she is waiting for her sister to call----they are leaning towards keeping her comfortable.
[2019-02-24 19:29] VITALS: TEMP 97.6
[2019-02-24] MEDS: Lidocaine Patch Removal 1 EACH TOP SCH (20:45)
[2019-02-25] MEDS: HYDROmorphone 2 MG TAB PO PRN ×2 (02:14→06:01)
[2019-02-25] MEDS: Lorazepam 2 MG/ML VIAL SLOW IVP PRN ×3 (02:14→09:13)
[2019-02-25] MEDS: methylPREDNISolone Sod Succ 40 MG VIAL IVP SCH (06:00)
[2019-02-25] MEDS: Furosemide 40 MG/4 ML VIAL SLOW IVP SCH (06:00)
[2019-02-25] MEDS: Mometasone/Formoterol 120 PUFF INHALER INH SCH (07:22)
[2019-02-25] MEDS: HYDROmorphone 0.5 MG/0.5 ML SYRINGE SLOW IVP PRN (09:38)
[2019-02-25] MEDS: Enoxaparin Sodium 40 MG/0.4 ML SYRINGE SC SCH (09:42)
[2019-02-25] MEDS: Bupropion 100 MG SR TAB PO SCH (09:42)
[2019-02-25] MEDS: Citalopram 20 MG TAB PO SCH (09:42)
[2019-02-25] MEDS: Famotidine 20 MG TAB PO SCH (09:43)
[2019-02-25] MEDS: Loratadine 10 MG TAB PO SCH (09:43)
[2019-02-25 09:44] VITALS: BP 134/71
== END 2019-02-25 11:52 | disposition hospice, inpatient (51) | DRG 189 ==
LOC: ERS 18:41 → OBSVTOIN 23:22 → ONC 23:22 → CCU 02-19 08:39 → IMCU/EMU 02-21 13:09 → ONC 02-22 11:40
PROVIDERS: ADMIT Hospitalist; ATTEND Hospitalist
PROC: 5A09457 Assistance with Respiratory Ventilation, 24-96 Consecutive Hours, Continuous Positive Airway Pressure (ICD-10-PCS; principal; 2019-02-19)
DX: J96.21 Acute and chronic respiratory failure with hypoxia (principal); J44.1 Chronic obstructive pulmonary disease with (acute) exacerbation; M48.54XA Collapsed vertebra, not elsewhere classified, thoracic region, initial encounter for fracture; C34.90 Malignant neoplasm of unspecified part of unspecified bronchus or lung; G93.40 Encephalopathy, unspecified; Z51.5 Encounter for palliative care; K21.9 Gastro-esophageal reflux disease without esophagitis; F41.9 Anxiety disorder, unspecified; F32.9 Major depressive disorder, single episode, unspecified; D72.829 Elevated white blood cell count, unspecified; D64.9 Anemia, unspecified; T38.0X5A Adverse effect of glucocorticoids and synthetic analogues, initial encounter; E87.6 Hypokalemia; Z88.8 Allergy status to other drugs, medicaments and biological substances; Z87.891 Personal history of nicotine dependence; Z99.81 Dependence on supplemental oxygen; Z90.710 Acquired absence of both cervix and uterus; Z98.890 Other specified postprocedural states; Z91.040 Latex allergy status; Z88.2 Allergy status to sulfonamides; Z79.899 Other long term (current) drug therapy
CPT/HCPCS: 36415; 71045; 71260; 71275; 72146; 72148; 80048; 80053; 82330; 82803; 82805; 83605; 83735; 83880; 84484; 85025; 87040; 93005; 93010; 94640; 94660; 94760; 96365; 96367; 96375; 96377; J1100; J1170; J1200; J1650; J1885; J1940; J1956; J2060; J2270; J2469; J2505; J2543; J2550; J2920; J2930; J3010; J3475; J3490; J7512; J7620; Q9966; S0028

== ENCOUNTER 2019-02-25 12:26 | Inpatient (IN) | payer OTHER ==
[2019-02-25] MEDS ORDERED: Scopolamine 1.5 mg/72 hour Patch TOP PRN (12:33)
[2019-02-25] MEDS ORDERED: Senokot 8.6 MG TAB PO PRN (12:33)
[2019-02-25] MEDS ORDERED: Ondansetron ODT 4 MG TAB PO PRN (12:33)
[2019-02-25] MEDS ORDERED: Haloperidol Lactate 5 MG/ML VIAL SLOW IVP PRN (12:35)
[2019-02-25] MEDS: Lorazepam 2 MG/ML VIAL SLOW IVP PRN ×3 (12:53→21:31)
[2019-02-25 13:49] VITALS: BMI 28.7
[2019-02-25] MEDS: HYDROmorphone 0.5 MG/0.5 ML SYRINGE SLOW IVP PRN ×3 (14:16→21:22)
[2019-02-26] MEDS: HYDROmorphone 0.5 MG/0.5 ML SYRINGE SLOW IVP PRN ×6 (00:11→21:18)
[2019-02-26] MEDS: Lorazepam 2 MG/ML VIAL SLOW IVP PRN ×4 (00:12→23:03)
--- NOTE | 2019-02-26 13:21 | PRG ---
DATE OF SERVICE: 02/26/2019 SUBJECTIVE: Ms. Orr is resting comfortably, does not seem to be in any discomfort, really does not respond to any verbal stimuli. Discussed with nursing and both her daughters. They are happy with her pain control and her current regimen. All questions answered from the family. I have given my phone number to the nurse to call me with any questions or concerns. Admitting diagnosis for hospice is squamous cell lung cancer with acute on chronic respiratory failure and COPD. There is question of metastasis to the spine due to excruciating pain, which is of new onset. PLAN: Continue the current regimen of Dilaudid and lorazepam IV. There is Haldol ordered p.r.n. q.6. Continue oxygen for comfort only. Job ID: [id number]
[2019-02-27] MEDS: HYDROmorphone 0.5 MG/0.5 ML SYRINGE SLOW IVP PRN ×5 (00:41→21:30)
[2019-02-27] MEDS: Lorazepam 2 MG/ML VIAL SLOW IVP PRN ×2 (09:49→14:16)
[2019-02-27] MEDS ORDERED: Lorazepam 2 MG/ML VIAL SLOW IVP SCH (16:00)
[2019-02-27] MEDS ORDERED: Scopolamine 1.5 mg/72 hour Patch TOP PRN (16:24)
[2019-02-27] MEDS ORDERED: Haloperidol Lactate 5 MG/ML VIAL SLOW IVP PRN (16:25)
[2019-02-27] MEDS ORDERED: Ondansetron ODT 4 MG TAB PO PRN (16:25)
[2019-02-27] MEDS ORDERED: Senokot 8.6 MG TAB PO PRN (16:25)
[2019-02-27] MEDS: Lorazepam 2 MG/ML VIAL SLOW IVP SCH ×4 (16:55→22:28)
[2019-02-28] MEDS: HYDROmorphone 0.5 MG/0.5 ML SYRINGE SLOW IVP PRN ×6 (00:33→17:12)
[2019-02-28] MEDS: Lorazepam 2 MG/ML VIAL SLOW IVP SCH ×12 (00:51→22:32)
[2019-02-28] MEDS ORDERED: HYDROmorphone 2 MG/ML VIAL SLOW IVP PRN (20:04)
[2019-02-28] MEDS: HYDROmorphone 2 MG/ML VIAL SLOW IVP SCH (23:40)
[2019-03-01] MEDS: Lorazepam 2 MG/ML VIAL SLOW IVP SCH ×12 (00:48→23:42)
[2019-03-01] MEDS: HYDROmorphone 2 MG/ML VIAL SLOW IVP SCH ×3 (03:10→09:00)
[2019-03-01] MEDS ORDERED: HYDROmorphone 0.5 MG/0.5 ML SYRINGE SLOW IVP SCH (09:00)
--- NOTE | 2019-03-01 10:00 | PRG ---
DATE OF SERVICE: 03/01/2019 SUBJECTIVE: Ms. Orr is resting comfortably. Both her daughters are in the room, sleeping. Discussed with her nurse and apparently the Dilaudid 2 mg q.2 is working well. She remains on 15 L of oxygen by Ventimask as that is the lowest oxygen that can be done through the mask. Her oxygen saturation even with that is 81%. She did have a temperature this morning. OBJECTIVE: VITAL SIGNS: Temperature 101.7, pulse 136, respirations 20, oxygen saturation 82% on 15 L Ventimask, and blood pressure 111/65. CARDIOVASCULAR SYSTEM: Sinus tachycardia. RESPIRATORY SYSTEM: Scattered crackles. CENTRAL NERVOUS SYSTEM: Resting comfortably, not in any discomfort. IMPRESSION: Squamous cell lung cancer with acute on chronic respiratory failure and chronic obstructive pulmonary disease with questionable metastasis to the spine due to her significant pain. PLAN: Continue Dilaudid 2 mg q.2 routine. Continue other comfort measures including lorazepam and Haldol as needed. Advised nursing to call me, if the current regimen is not working. Did not wake up the daughters as they must have had a long night, but advised nursing to inform the daughters that they could stop by. Job ID: [id number]
[2019-03-01] MEDS: HYDROmorphone 0.5 MG/0.5 ML SYRINGE SLOW IVP SCH ×4 (13:02→22:57)
[2019-03-01 19:50] VITALS: BP 97/55; TEMP 98
[2019-03-02] MEDS: Lorazepam 2 MG/ML VIAL SLOW IVP SCH (00:39)
--- NOTE | 2019-03-03 11:50 | DIS ---
DATE OF ADMISSION: 02/25/2019 DATE OF DISCHARGE: 03/02/2019 SUMMARY: DATE OF : 03/02/2019. PRINCIPAL DIAGNOSES: 1. Squamous cell lung cancer with acute on chronic respiratory failure and possible metastasis to the spine. 2. Chronic obstructive pulmonary disease. HOSPITAL COURSE: The patient was admitted to inpatient hospice due to her being a poor candidate even for palliative treatment and being in significant pain. She was started on Dilaudid, lorazepam, and Haldol p.r.n. as well as oxygen. Her Dilaudid dose needed to be increased to continue to maintain comfort. She slowly declined and in the gas charger hours of 03/02/2019. Both the daughters were there and I had had multiple conversations with the family. They are happy with the care provided. For full details, please see chart. Job ID: [id number]
--- NOTE | 2019-03-07 13:51 | DIS ---
DATE OF ADMISSION: 02/25/2019 DATE OF DISCHARGE: 03/02/2019 This is a patient who is known to have a squamous cell lung cancer and possible metastases to the spine, also COPD with exacerbation. She presented to the hospital complaining of worsening shortness of breath and during her stay, she was hypoxic requiring to receive oxygen. Also, she was started on IV steroids and nebulizer treatments. During her stay, she required to be upgraded to the intensive care unit and to be on BiPAP due to worsening of her respiratory status, also she continued to complain from her pain that is mostly localized in the back and the chest and sternal area. She was diagnosed with multiple compression fracture. Pain Management was seeing her and her fractures were not amenable for kyphoplasty due to the fact that they were located above a certain level that deep pain management team was not comfortable doing any procedure on that level, so she was started on narcotic regimen, but patient continued to have pain. At some point her breathing was better and she was transferred back to the oncology floor, but she continued to have episodes where she is in severe pain. I did have a long discussion with her daughters and they decided to change her code status from code to do not resuscitate and we did initiate a consultation with hospice. Hospice did evaluate her and they took over her care on 02/25/2019. Job ID: [id number]
== END 2019-03-02 01:25 | disposition expired | DRG 951 ==
LOC: ONC 12:26 → UNDODISIN 02-27 16:10 → ONC 02-28 23:15
PROVIDERS: ADMIT Internal Medicine; ATTEND Internal Medicine
DX: Z51.5 Encounter for palliative care (principal); J96.21 Acute and chronic respiratory failure with hypoxia; C79.51 Secondary malignant neoplasm of bone; C34.90 Malignant neoplasm of unspecified part of unspecified bronchus or lung; J44.1 Chronic obstructive pulmonary disease with (acute) exacerbation; F41.9 Anxiety disorder, unspecified; D64.9 Anemia, unspecified; F32.9 Major depressive disorder, single episode, unspecified; E87.6 Hypokalemia; K21.9 Gastro-esophageal reflux disease without esophagitis; Z90.710 Acquired absence of both cervix and uterus; Z88.2 Allergy status to sulfonamides; Z91.040 Latex allergy status; Z87.891 Personal history of nicotine dependence
CPT/HCPCS: J1170; J2060